=== PATIENT | female | born 1945 | race Caucasian/White ===

== ENCOUNTER → 2017-03-25 | Outpatient (REF) | payer MEDICARE ==
[~2017-03-25] MED LIST: ALBU17IN INH; ASPI81TA85 PO; BUSP1TAB PO; CALC-190 PO; COUM1TAB17 PO; COUM2.5T17 PO; DONETAB6 PO; FIBE625T PO; HYDR12.55 PO; LISI10TA4 PO; MAGN64TASA PO; MELO15TA4 PO; METF500T13 PO; MULTCAP PO; MULTTAB33 PO; PERC5TAB12 PO; PERCOCET PO; PRAV1TAB39 PO; PRIL20CA9 PO; ROPI1TAB PO; SING10TA32 PO; TIOT18INH INH; TYLE325T5 PO; VITA100067 PO; ZOLO100T PO
== END ==
LOC: M LAB REF 18:13
PROVIDERS: ATTEND Nurse Practitioner Adult Health
DX: M25.50 Pain in unspecified joint (principal)

== ENCOUNTER → 2017-04-13 | Outpatient (CLI) | payer MEDICARE ==
[2017-04-13 11:47] LABS: MEAN CORPUSCULAR HGB CONC 33.8 g/dl (32.0-36.5); MEAN CORPUSCULAR VOLUME 88.8 fl (80.0-96.0); RED CELL DISTRIBUTION WIDTH 13.5 % (11.5-14.5); WHITE BLOOD COUNT 4.7 K/mm3 (4.0-10.0)
[2017-04-13 11:51] LABS: INR 0.9
[2017-04-13 12:10] LABS: ALBUMIN 3.6 GM/DL (3.2-5.2); ALBUMIN/GLOBULIN RATIO 1.16 (1.00-1.93); ALKALINE PHOSPHATASE 87 U/L (45-117); ALT/SGPT 21 U/L (12-78); ANION GAP 10 MEQ/L (8-16); AST/SGOT 18 U/L (15-37); BILIRUBIN,TOTAL 0.2 MG/DL (0.2-1.0); BLOOD UREA NITROGEN 19 MG/DL (7-18); CALCIUM LEVEL 9.1 MG/DL (8.8-10.2); CARBON DIOXIDE LEVEL 27 MEQ/L (21-32); CHLORIDE LEVEL 100 MEQ/L (98-107); CREATININE FOR GFR 0.81 MG/DL (0.55-1.02); GLOMERULAR FILTRATION RATE > 60.0 (>39); GLUCOSE, FASTING 91 MG/DL (83-110); POTASSIUM SERUM 4.2 MEQ/L (3.5-5.1); SODIUM LEVEL 137 MEQ/L (136-145); TOTAL PROTEIN 6.7 GM/DL (6.4-8.2)
--- NOTE | 2017-04-13 16:06 | REP ---
CHEST, TWO VIEWS: HISTORY: Left knee arthritis. COMPARISON: 07/13/2016. A minimal increase in interstitial markings is present in the lower lobes consistent with chronic interstitial fibrosis. The heart is normal in size. The pulmonary vasculature is normal in appearance. The bony structure is intact. The patient is status-post left shoulder arthroplasty. IMPRESSION: Bibasilar chronic interstitial fibrosis. Signed by Matt Grimes MD 04/13/2017 04:17 P
--- NOTE | 2017-04-14 18:01 | ECGEPIP ---
Stationary ECG Study 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
== END ==
LOC: M ADMPAT 09:38
PROVIDERS: ATTEND Orthopaedic Surgery
DX: Z01.818 Encounter for other preprocedural examination (principal); M17.9 Osteoarthritis of knee, unspecified; J84.10 Pulmonary fibrosis, unspecified; Z79.899 Other long term (current) drug therapy

== ENCOUNTER 2017-04-25 13:38 | Inpatient (IN) | payer MEDICARE ==
[2017-04-13 09:56] VITALS: BP 122/64
--- NOTE | 2017-04-22 21:01 | HPE ---
DATE OF ADMISSION: 04/25/2017 ATTENDING PHYSICIAN: Dr. Rodrigues. CHIEF COMPLAINT: Left knee pain and stiffness. HISTORY: The patient is a 72-year-old female with progressively worsening left knee pain and stiffness. She has failed to improve with conservative measures. She continues to have pain with weightbearing activities and activities of daily living. She has consented for an elective left total knee arthroplasty with Dr. Rodrigues. Medical optimization from Dr. Montaño received and reviewed during today's visit. CURRENT MEDICAL PROBLEMS: 1. Chronic obstructive pulmonary disease. 2. Depression. 3. Gastroesophageal reflux disease. 4. Hypertension. 5. Anemia. 6. Osteoarthritis. 7. Seasonal allergies. 8. Restless leg syndrome. 9. Dementia. 10. Essential tremor. 11. Rectocele. 12. Recurrent sinusitis. 13. Alcoholism. 14. Anxiety. 15. Prediabetes. 16. Obstructive sleep apnea. CURRENT MEDICATIONS: - ipratropium 0.06% - Voltaren gel 1% - baby aspirin - lisinopril 5 mg - Singulair 10 mg - Spiriva 18 mcg - BuSpar 7.5 mg - pravastatin 20 mg - hydrochlorothiazide 12.5 mg - Zoloft 100 mg - metformin 500 mg - omeprazole 20 mg - Ventolin inhaler - tizanidine 4 mg - meloxicam 15 mg - tramadol 50 mg - calcium with vitamin D - Metamucil - daily multivitamin ALLERGIES: No known drug allergies. SURGICAL HISTORY: 1. Anterior, posterior enterocele repair. 2. Uterosacral ligament vaginal wall suspension. 3. Partial vaginectomy. 4. Cystoscopy. 5. Anterior cervical decompression and fusion. 6. Cholecystectomy. 7. Left total shoulder arthroplasty. 8. Carpal tunnel release bilaterally. 9. Colonoscopy. 10. Right total knee arthroplasty. SOCIAL HISTORY: Patient is a former smoker. She smoked 1-1/2 packs a day for nearly 50 years. Quit in 2006. She does occasionally consume wine. REVIEW OF SYSTEMS: The patient denies any fevers, chills, nausea, vomiting or diarrhea. She denies chest pain, shortness of breath, lightheadedness or headaches. No complaints of abdominal pain. PHYSICAL EXAMINATION: Well-nourished female who appears to be older than her stated age. She appears to be in no apparent distress today. She is walking today with the use of a walker, favoring the left lower extremity. HEAD: Normocephalic. NECK: Supple without lymphadenopathy or jugular venous distention. HEART: Regular rate and rhythm. LUNGS: Clear to auscultation bilaterally. ABDOMEN: Positive bowel sounds. Soft and nontender to palpation. MUSCULOSKELETAL: Inspection of the left knee revealed no gross abnormalities. Her skin is intact. There is tenderness to palpation along both the medial and lateral joint lines. The patient does have surprisingly good motion and 5/5 strength to the left lower extremity. No hip irritability was elicited with range of motion. Her calf is soft and nontender to palpation with no palpable cords noted. Pedal pulses are palpable. VITAL SIGNS: Height 5 feet 2 inches, weight 169 pounds. Temperature 97.8, blood pressure 116/60, heart rate 84, respirations 16. LABORATORY DATA: EKG shows a sinus rhythm. Chest x-ray shows bibasilar chronic interstitial fibrosis. Comprehensive metabolic profile: Fasting glucose 91. BUN elevated at 19. Creatinine for GFR 0.81. Glomerular filtration rate 60. Sodium 137, potassium 4.2, chloride 100, carbon dioxide 27, anion gap 10, calcium 9.1, AST 18, ALT 21, alkaline phosphatase 87, total bilirubin 0.2, total protein 6.7, albumin 3.6, albumin-globulin ratio 1.16. Complete blood count: WBC 4.7, RBC decreased at 3.85, hemoglobin decreased at 11.6, hematocrit decreased at 34.2, platelets 213. Erythrocyte sedimentation rate 17. Prothrombin time decreased at 12.2. INR 0.90. Urinalysis negative with the exception of trace leukocyte esterase. Urine culture shows no growth of clinical significance, two or more organisms. Nasal and sinus culture positive for moderate growth of Staphylococcus aureus. IMPRESSION: 1. Left knee osteoarthritis with x-rays notable for end-stage degenerative changes. 2. Chronic anemia. 3. Nasal and sinus culture positive for moderate growth of Staphylococcus aureus. PLAN: 1. The patient has consented for an elective left total knee arthroplasty with Dr. Rodrigues. Medical optimization obtained from Dr. Montaño. 2. Anemia is chronic and stable, and should not delay surgery. 3. Positive nasal and sinus culture was treated per protocol by patient's primary healthcare architect. GARRETT
[~2017-04-25] VITALS: Ht 157.5 cm; Wt 104.0 kg
[2017-04-25] MEDS: MONTELUKAST 10 MG TAB PO SCH (09:00)
[2017-04-25] MEDS: LISINOPRIL 5 MG TAB PO SCH (09:00)
[2017-04-25] MEDS: PRAVASTATIN 20 MG TAB PO SCH (09:00)
[2017-04-25] MEDS: SERTRALINE 100 MG TAB PO SCH (09:00)
[2017-04-25] MEDS: OMEPRAZOLE 20 MG CAP PO SCH (09:00)
[~2017-04-25 13:38] MED LIST changes: -COUM1TAB17 PO
[2017-04-25] MEDS ORDERED: LR 1,000 ML IV SCH ×2 (14:00→17:45)
[2017-04-25] MEDS ORDERED: LR 1,000 ML IV ONE (14:00)
[2017-04-25] MEDS ORDERED: ACETAMINOPHEN 500 MG TAB PO ONE (14:00)
[2017-04-25] MEDS ORDERED: fentaNYL 100 MCG/2 ML INJECTION (J3010) As Ordered ONE ×2 (14:11→14:13)
[2017-04-25] MEDS ORDERED: MIDAZOLAM INJ 2 MG/2 ML VIAL (J2250) As Ordered ONE ×2 (14:11→14:13)
[2017-04-25] MEDS ORDERED: PROPOFOL 200 MG/20 ML VIAL As Ordered ONE (14:12)
[2017-04-25] MEDS ORDERED: LIDOCAINE 2% INJ 100 MG/5 ML SDV (FOR ANES.) As Ordered ONE (14:18)
[2017-04-25] MEDS ORDERED: COUM1TAB17 PO (14:24)
[2017-04-25] MEDS ORDERED: MIDAZOLAM INJ 2 MG/2 ML VIAL (J2250) IV ONE (15:15)
[2017-04-25] MEDS ORDERED: fentaNYL 100 MCG/2 ML INJECTION (J3010) IV ONE (15:15)
[2017-04-25] MEDS ORDERED: TRANEXAMIC ACID 100 MG/ML 10ML VIAL As Ordered ONE (15:22)
[2017-04-25] MEDS ORDERED: ceFAZolin 1GM INJ (J0690) As Ordered ONE (15:22)
[2017-04-25] MEDS ORDERED: EPINEPHrine INJ 1 MG/ML 1ML AMP As Ordered ONE (15:22)
[2017-04-25] MEDS ORDERED: BUPIVACAINE LIPOSOME/PF 1.3% 20 ML VIAL (13.3MG/ML)(EXPAREL) As Ordered ONE (15:23)
[2017-04-25] MEDS ORDERED: MORPHINE 1MG/ML IN 0.9% NACL 100ML IV BAG As Ordered ONE (16:54)
[2017-04-25] MEDS ORDERED: ONDANSETRON 4MG/2ML VIAL (J2405) IV PRN ×2 (17:45→18:00)
[2017-04-25] MEDS ORDERED: HYDROmorphone HCL 1 MG/ML SYRINGE (J1170) IV PRN (17:45)
[2017-04-25] MEDS ORDERED: PERCOCET 5MG/325MG TAB PO PRN (17:45)
[2017-04-25] MEDS ORDERED: fentaNYL 100 MCG/2 ML INJECTION (J3010) IV PRN (17:45)
[2017-04-25] MEDS ORDERED: MORPHINE 1MG/ML IN 0.9% NACL 100ML IV BAG IV PRN (18:00)
[2017-04-25] MEDS ORDERED: EPIDURAL/PCA KEYS XX PRN (18:00)
[2017-04-25] MEDS ORDERED: FLEET ENEMA PR PRN (18:00)
[2017-04-25] MEDS ORDERED: NALOXONE INJ 0.4 MG/1 ML VIAL (J2310) IV PRN (18:00)
[2017-04-25] MEDS ORDERED: NALBUPHINE HCL 10 MG/ML AMP (J2300) IV PRN (18:00)
[2017-04-25] MEDS ORDERED: ACETAMINOPHEN TAB 650MG DOSE (2X325MG) PO PRN (18:00)
[2017-04-25] MEDS ORDERED: diphenhydrAMINE INJ 50MG/ML VIAL (J1200) IV PRN (18:00)
--- NOTE | 2017-04-25 18:43 | IPNPDOC ---
Subjective Date Seen The patient was seen on 04/25/17. Subjective Chief Complaint/HPI The patient is a 72-year-old female admitted with a reason for visit of Left Knee Arthritis. Events since last encounter patient denies any complaints at this time. no chest pain or sob , no nausea or vomiting or abdominal pain , During surgery patient had recurrent desaturations due to SRINIVASA consult requested by dr Guthrie Objective Physical Examination General Exam: Positive: Alert, Cooperative, No Acute Distress Eye Exam: Positive: PERRLA, Conjunctiva & lids normal, EOMI, Negative: Sclera icteric ENT Exam: Positive: Atraumatic, Mucous membr. moist/pink, Pharynx Normal Neck Exam: Positive: Supple, Negative: JVD, thyromegaly Chest Exam: Positive: Clear to auscultation, Normal air movement Heart Exam: Positive: Rate Normal, Regular Rhythm, Normal S1, Normal S2, Negative: Murmurs, Rubs Abdomen Exam: Positive: Normal bowel sounds, Soft, Negative: Tenderness, Hepatospenomegaly Extremity Exam: Positive: Normal pulses, Negative: Clubbing, Cyanosis, Edema Assessment /Plan Problems (1) S/P total knee arthroplasty Status: Acute Problem Text: Patient will be followed by Dr Alanis from 04/26/17 elective surgery for advanced osteoarthritis pain control and dvt prophylaxis as per ortho protocol. (2) COPD (chronic obstructive pulmonary disease) Status: Chronic Problem Text: continue spiriva, singulair and will give routine duonebs. (3) SRINIVASA (obstructive sleep apnea) Status: Chronic Problem Text: having recurrent desaturations refusing to use cpap. does not use at home. will continue with oxygen supplementations. (4) HTN (hypertension) Status: Chronic Problem Text: will hold HCTZ , continue lisinopril with hold parameters (5) HLD (hyperlipidemia) Status: Chronic (6) DM2 (diabetes mellitus, type 2) Status: Chronic Problem Text: hold metformin will give sliding scale insulin in hospital (7) Restless leg syndrome Status: Chronic (8) Depression Status: Chronic (9) GERD (gastroesophageal reflux disease) Status: Chronic (10) Hearing deficit Status: Chronic (11) Essential tremor Status: Chronic (12) Dementia Status: Chronic Plan/VTE VTE Prophylaxis Ordered?: Yes VS, I&O, 24H, Fishbone Vital Signs/I&O Vital Signs Date Time Temp Pulse Resp B/P (MAP) Pulse Ox O2 Delivery O2 Flow Rate FiO2 04/25/17 18:01 97.5 71 16 121/58 (79) 97 Nasal Cannula 3 Laboratory Data 24H LABS Laboratory Tests 2 04/25/17 14:09: Bedside Glucose (Misc Panel) 106 MADAY BARCENAS MD Apr 25, 2017 18:43
[2017-04-25] MEDS ORDERED: EPINEPHrine INJ 1 MG/ML 1ML AMP ONE (18:44)
[2017-04-25] MEDS ORDERED: dexameTHASONE 10 MG/1 ML VIAL PRES.FREE (J1100) ONE (18:44)
[2017-04-25] MEDS ORDERED: ROPIvacaine 0.5% 30 ML INJECTION (J2795) ONE (18:44)
[2017-04-25] MEDS ORDERED: ALBUTEROL SULFATE 2.5 MG/0.5 ML INH NEB SOLN NEB PRN (18:45)
[2017-04-25 19:00] VITALS: BP 129/58
[2017-04-25 20:00] VITALS: BP 122/64
[2017-04-25 21:00] VITALS: BP 110/58
[2017-04-25] MEDS: busPIRone 5 MG TAB PO SCH (21:26)
[2017-04-25] MEDS ORDERED: tiZANidine 4 MG TAB PO PRN (21:45)
[2017-04-25 22:00] VITALS: BP 115/68
[2017-04-25 22:40] VITALS: O2SAT 93
[2017-04-25] MEDS: IPRATROPIUM 0.5MG/ALBUTEROL 2.5MG INH SOL UD 3ML (DUONEB)(J7620) NEB SCH (22:46)
[2017-04-26] MEDS: LR 1,000 ML IV SCH ×2 (00:15→06:30)
[2017-04-26 02:00] VITALS: BP 116/62
[2017-04-26] MEDS ORDERED: WARFARIN SOD 5 MG TAB PO ONE ×3 (02:00→17:00)
[2017-04-26 06:00] VITALS: BP 108/57
[2017-04-26] MEDS ORDERED: PERCOCET 5MG/325MG TAB PO PRN (07:15)
[2017-04-26 07:19] LABS: ANION GAP 8 MEQ/L (8-16); BASO % 0.3 % (0.0-1.0); BLOOD UREA NITROGEN 16 MG/DL (7-18); CALCIUM LEVEL 8.4 MG/DL (8.8-10.2); CARBON DIOXIDE LEVEL 28 MEQ/L (21-32); CHLORIDE LEVEL 102 MEQ/L (98-107); CREATININE FOR GFR 0.81 MG/DL (0.55-1.02); EOS % 0.2 % (0.0-3.0); GLOMERULAR FILTRATION RATE > 60.0 (>39); GLUCOSE, FASTING 108 MG/DL (83-110); LARGE UNSTAINED CELL # 0.1 K/mm3 (0.0-0.4); LARGE UNSTAINED CELL % 0.6 % (0.0-4.0); LYMPH # 0.7 K/mm3 (1.5-4.5); LYMPH % 9.2 % (24.0-44.0); MEAN CORPUSCULAR HEMOGLOBIN 30.3 pg (27.0-33.0); MEAN CORPUSCULAR HGB CONC 33.1 g/dl (32.0-36.5); MEAN CORPUSCULAR VOLUME 91.4 fl (80.0-96.0); MONO # 0.3 K/mm3 (0.0-0.8); MONO % 4.1 % (0.0-5.0); NEUTROPHILS # 6.2 K/mm3 (1.8-7.7); NEUTROPHILS % 85.5 % (36.0-66.0); PLATELET COUNT, AUTOMATED 195 k/mm3 (150-450); POTASSIUM SERUM 4.6 MEQ/L (3.5-5.1); RED CELL DISTRIBUTION WIDTH 13.7 % (11.5-14.5); SODIUM LEVEL 138 MEQ/L (136-145); WHITE BLOOD COUNT 7.2 K/mm3 (4.0-10.0)
[2017-04-26 07:27] LABS: INR 1.08
[2017-04-26] MEDS: IPRATROPIUM 0.5MG/ALBUTEROL 2.5MG INH SOL UD 3ML (DUONEB)(J7620) NEB SCH ×3 (08:14→23:50)
[2017-04-26] MEDS: TIOTROPIUM INHALER/CAPSULE (SPIRIVA) INH SCH (08:14)
[2017-04-26 10:00] VITALS: BP 124/78
--- NOTE | 2017-04-26 10:23 | REP ---
Left knee two views postoperative study: There is a total knee arthroplasty. The components are tightly applied and in satisfactory positions alignment. Skin geremias are incidentally noted. Signed by Mc Abraham MD 04/26/2017 10:14 A
[2017-04-26] MEDS: LISINOPRIL 5 MG TAB PO SCH (11:05)
[2017-04-26] MEDS: MOM 30ML SUSPENSION UDC PO SCH (11:05)
[2017-04-26] MEDS: MONTELUKAST 10 MG TAB PO SCH (11:06)
[2017-04-26] MEDS: MIRALAX *UNIT DOSE* 17GM PACKET PO SCH (11:06)
[2017-04-26] MEDS: SENOKOT S TAB PO SCH ×2 (11:06→20:31)
[2017-04-26] MEDS: PRAVASTATIN 20 MG TAB PO SCH (11:06)
[2017-04-26] MEDS: busPIRone 5 MG TAB PO SCH ×2 (11:06→20:31)
[2017-04-26] MEDS: OMEPRAZOLE 20 MG CAP PO SCH (11:06)
[2017-04-26] MEDS: SERTRALINE 100 MG TAB PO SCH (11:06)
[2017-04-26] MEDS: PERCOCET 5MG/325MG TAB PO PRN ×2 (11:07→15:46)
[2017-04-26 12:45] VITALS: BP 129/80
[2017-04-26] MEDS: MORPHINE 15 MG SA TAB PO SCH ×2 (14:13→20:32)
--- NOTE | 2017-04-26 20:16 | IPN ---
DATE: 04/26/2017 SUBJECTIVE: Patient is seen and examined in the room today. Patient had a left knee replacement. Patient stated that she tolerated the procedure well. She only complains of minor pain where she had the surgery, otherwise no acute complaints. OBJECTIVE: VITAL SIGNS: Temperature 98.3, pulse 83, respiration rate 18, blood pressure 108/57, pulse oximetry 95% in room air. GENERAL: No sign of acute distress. Alert and oriented times three. HEENT: Normocephalic, atraumatic. Extraocular motors grossly intact. CARDIOVASCULAR: Positive S1, S2, regular rate. LUNGS: Clear to auscultation bilaterally. ABDOMEN: Soft, nontender, nondistended. EXTREMITIES: No edema. No sign of cyanosis. LABORATORY DATA: WBC 7.2, hemoglobin 10.8, hematocrit 32.6, platelet count 195. Sodium 138, potassium 4.6, chloride 102, carbon dioxide 28, BUN 16, creatinine 0.81, GFR greater than 60, fasting glucose 108, calcium 8.4. PT is 14.2, INR is 1.08. ASSESSMENT AND PLAN: 1. Left total knee replacement. Today is postoperative day #1. Will defer the diet, exercise plan, pain control, and anticoagulation therapy per the surgical team. 2. Chronic obstructive pulmonary disease (COPD). No exacerbation. Continue breathing treatment as needed. 3. Obstructive sleep apnea (SRINIVASA). Patient refusing continuous positive airway pressure (CPAP). Patient is on obstructive sleep apnea (SRINIVASA) protocol. 4. Hypertension. Blood pressure in the satisfactory range. Patient is on lisinopril. 5. Hyperlipidemia. Followup with lipid profile. Patient is on pravastatin. 6. Gastroesophageal reflux disease. On omeprazole. 7. Essential tremors. 8. History of dementia. 9. Deep venous thrombosis (DVT) prophylaxis per surgical team.
[2017-04-26 22:00] VITALS: BP 144/62
--- NOTE | 2017-04-27 05:57 | RO ---
DATE OF PROCEDURE: 04/25/2017 PREOPERATIVE DIAGNOSIS: Left knee valgus degenerative arthritis. POSTOPERATIVE DIAGNOSIS: Left knee valgus degenerative arthritis. PROCEDURE: Left total knee arthroplasty using a size 3 cruciate-retaining femoral component and a size 2.5 tibial tray with a 10 mm rotating platform polyethylene insert and a 32 mm polyethylene button. All the components were cemented. Prosthesis made by [employer]. It was a PFC knee. SURGEON: Dr. Klever Rodrigues ENGINE REPAIRER: Mr. Raad Pérez ANESTHESIA: Spinal with left femoral nerve block. COMPLICATIONS: None. ESTIMATED BLOOD LOSS: Less than 50 mL. SPECIMENS: Were the joint surface. DESCRIPTION OF PROCEDURE: Antibiotics were given intravenously preoperatively, and then a successful left femoral nerve block and spinal anesthetic was induced. Tourniquet was placed on left upper thigh and not inflated. Left lower extremity was prepped and draped in the usual sterile fashion with leg elevated. Tourniquet inflated to 250 mmHg after appropriate time-out had been performed. Longitudinal incision was made for a medial parapatellar approach to the knee. Bovie cautery was used to coagulate crossing vessels. Medial parapatellar arthrotomy was then performed, and limited subperiosteal dissection around the proximal medial portion of the tibia because of his valgus knee was done. We then everted the patella, flexed the knee. Debrided the anterior cruciate ligament (ACL). Subperiosteal dissection around the distal femur was performed, and then a drill was placed down the center of the femoral canal. The distal femoral cutting jig was then placed, set at 5-degree valgus cut at 10 mm resection level for a left knee. Jig was pinned into position. Distal femoral cut performed. AP sizing jig measured for a size 3, and, thus, the external rotation 3-degree block was pinned, followed by the 4-in-1 block. Coy's line and medial epicondylar axis appeared to be appropriately aligned. We then performed the anterior, posterior chamfer cuts, taking great care to protect the surrounding soft tissues. We then exposed the proximal tibia, used the extramedullary alignment jig to help estimate being parallel to the mechanical axis of the tibia. We referenced off the lateral tibial condyle at 4 mm resection level. I did check medially, and it was about 6. It was pinned into position. Secondary check with the extramedullary desiree confirmed we had good alignment, and the proximal tibial osteotomy was then performed. Lamina service transformer repair supervisor was then placed medially, and we performed a completion lateral meniscectomy and debridement of the posterior lateral osteophytes. We then placed the lamina service transformer repair supervisor laterally and performed a completion medial meniscectomy and debridement of the posterior medial osteophytes. A 10 mm spacer block fit nicely with good stability in flexion and in extension. Thus, I removed the pins, exposed the proximal tibia, sized for a 2.5 tibial tray, which was pinned into position, followed by the reamer and a broach, followed by a polyethylene and the trial femoral component. Brought the knee into extension, everted the patella, performed a patellar osteotomy, sized for a 32 button. The lug holes were then drilled. Trial prosthesis was placed, and the patellofemoral tracking was anatomic. We then drilled the lug holes for the femur, removed all the trial components, and then instilled Exparel into the periosteal tissues posteriorly, medially, laterally, centrally, as well as all along the arthrotomy incision edges. Then, my assistant clinical nurse manager, Mr. Pérez, mixed the cement on the back table as I prepared the bony surfaces for cementing with a copious amount of pulsatile lavage irrigant solution. I then dried all the surfaces thoroughly. Mr. Pérez was also critical to the success of the procedure by helping manipulate the knee, helping to perform appropriate soft tissue retraction as needed, to help me perform the operation smoothly and efficiently, helped to prepare the patient for surgery, as well as close the wound. We then cemented the tibial tray, removed the excess cement, placed the polyethylene cement of the femoral component, removed excess cement, and then brought the knee into extension and cemented the patellar button and held the knee in extension with the patellar clamp in place as we copiously pulsative lavage irrigated out the knee joint once again and then placed the tranexamic acid. We then closed the apex of the arthrotomy with two #1 PDS sutures and then medial patellar area was closed with a single #1 PDS suture. Running double armed #1 Stratafix was used to close the capsule, and then the tourniquet was released. We then irrigated between layers, closed the deep subdermal tissues with interrupted #2-0 PDS sutures. Skin was closed with geremias, covered by Adaptic dry sterile bulky dressing. She was then transferred to the recovery room in stable condition. There were no intraoperative complications.
[2017-04-27 06:00] VITALS: BP 158/62
[2017-04-27 07:11] LABS: BASO # 0.1 K/mm3 (0.0-0.2); BASO % 0.8 % (0.0-1.0); EOS # 0.1 K/mm3 (0.0-0.50); EOS % 0.9 % (0.0-3.0); LARGE UNSTAINED CELL # 0.1 K/mm3 (0.0-0.4); LYMPH # 0.6 K/mm3 (1.5-4.5); LYMPH % 7.7 % (24.0-44.0); MEAN CORPUSCULAR HEMOGLOBIN 29.9 pg (27.0-33.0); MEAN CORPUSCULAR HGB CONC 34.2 g/dl (32.0-36.5); MEAN CORPUSCULAR VOLUME 87.7 fl (80.0-96.0); MONO # 0.4 K/mm3 (0.0-0.8); MONO % 5.6 % (0.0-5.0); NEUTROPHILS # 6.2 K/mm3 (1.8-7.7); PLATELET COUNT, AUTOMATED 201 k/mm3 (150-450); RED CELL DISTRIBUTION WIDTH 13.5 % (11.5-14.5); WHITE BLOOD COUNT 7.4 K/mm3 (4.0-10.0)
[2017-04-27] MEDS: IPRATROPIUM 0.5MG/ALBUTEROL 2.5MG INH SOL UD 3ML (DUONEB)(J7620) NEB SCH ×3 (07:15→23:08)
[2017-04-27] MEDS: TIOTROPIUM INHALER/CAPSULE (SPIRIVA) INH SCH (07:15)
[2017-04-27 07:22] LABS: ANION GAP 10 MEQ/L (8-16); BLOOD UREA NITROGEN 9 MG/DL (7-18); CALCIUM LEVEL 8.5 MG/DL (8.8-10.2); CARBON DIOXIDE LEVEL 26 MEQ/L (21-32); CHLORIDE LEVEL 94 MEQ/L (98-107); CHOLESTEROL LEVEL 127 MG/DL (<200); CREATININE FOR GFR 0.62 MG/DL (0.55-1.02); GLOMERULAR FILTRATION RATE > 60.0 (>39); GLUCOSE, FASTING 124 MG/DL (83-110); POTASSIUM SERUM 3.8 MEQ/L (3.5-5.1); SODIUM LEVEL 130 MEQ/L (136-145); TRIGLYCERIDES LEVEL 102 MG/DL (<150)
[2017-04-27 07:28] LABS: INR 1.47
[2017-04-27] MEDS: PERCOCET 5MG/325MG TAB PO PRN ×4 (07:39→23:25)
[2017-04-27] MEDS: MIRALAX *UNIT DOSE* 17GM PACKET PO SCH (09:00)
[2017-04-27] MEDS: SERTRALINE 100 MG TAB PO SCH (10:23)
[2017-04-27] MEDS: busPIRone 5 MG TAB PO SCH ×2 (10:23→20:30)
[2017-04-27] MEDS: SENOKOT S TAB PO SCH ×2 (10:23→20:30)
[2017-04-27] MEDS: LISINOPRIL 5 MG TAB PO SCH (10:23)
[2017-04-27] MEDS: OMEPRAZOLE 20 MG CAP PO SCH (10:23)
[2017-04-27] MEDS: PRAVASTATIN 20 MG TAB PO SCH (10:23)
[2017-04-27] MEDS: MONTELUKAST 10 MG TAB PO SCH (10:24)
[2017-04-27] MEDS: MOM 30ML SUSPENSION UDC PO SCH (10:24)
[2017-04-27] MEDS: ONDANSETRON 4 MG TAB (S0181) PO PRN (13:37)
[2017-04-27 14:00] VITALS: BP 152/70
[2017-04-27] MEDS ORDERED: WARFARIN SOD 3 MG TAB PO ONE ×2 (17:00)
[2017-04-27] MEDS: hydroCHLOROthiazide 12.5 MG CAPSULE PO SCH (17:39)
[2017-04-27 22:00] VITALS: BP 134/63
[2017-04-28] MEDS: PERCOCET 5MG/325MG TAB PO PRN ×2 (05:23→13:25)
[2017-04-28 06:00] VITALS: BP 139/65
[2017-04-28 07:12] LABS: BASO % 0.4 % (0.0-1.0); EOS # 0.1 K/mm3 (0.0-0.50); EOS % 1.6 % (0.0-3.0); LARGE UNSTAINED CELL # 0.1 K/mm3 (0.0-0.4); LARGE UNSTAINED CELL % 0.9 % (0.0-4.0); LYMPH # 0.6 K/mm3 (1.5-4.5); MEAN CORPUSCULAR HEMOGLOBIN 30.6 pg (27.0-33.0); MEAN CORPUSCULAR HGB CONC 35.5 g/dl (32.0-36.5); MEAN CORPUSCULAR VOLUME 86.1 fl (80.0-96.0); MONO # 0.4 K/mm3 (0.0-0.8); MONO % 5.2 % (0.0-5.0); NEUTROPHILS # 6.1 K/mm3 (1.8-7.7); NEUTROPHILS % 83.9 % (36.0-66.0); PLATELET COUNT, AUTOMATED 214 k/mm3 (150-450); RED CELL DISTRIBUTION WIDTH 13.4 % (11.5-14.5); WHITE BLOOD COUNT 7.2 K/mm3 (4.0-10.0)
[2017-04-28 07:18] LABS: INR 1.77
[2017-04-28 07:20] LABS: ANION GAP 9 MEQ/L (8-16); BLOOD UREA NITROGEN 9 MG/DL (7-18); CALCIUM LEVEL 8.5 MG/DL (8.8-10.2); CARBON DIOXIDE LEVEL 27 MEQ/L (21-32); CHLORIDE LEVEL 95 MEQ/L (98-107); CREATININE FOR GFR 0.63 MG/DL (0.55-1.02); GLOMERULAR FILTRATION RATE > 60.0 (>39); GLUCOSE, FASTING 128 MG/DL (83-110); POTASSIUM SERUM 3.8 MEQ/L (3.5-5.1); SODIUM LEVEL 131 MEQ/L (136-145)
[2017-04-28] MEDS ORDERED: COUM2.5T17 PO (07:29)
[2017-04-28] MEDS ORDERED: PERC5TAB12 PO (07:29)
[2017-04-28] MEDS: IPRATROPIUM 0.5MG/ALBUTEROL 2.5MG INH SOL UD 3ML (DUONEB)(J7620) NEB SCH (07:41)
[2017-04-28] MEDS: TIOTROPIUM INHALER/CAPSULE (SPIRIVA) INH SCH (07:41)
[2017-04-28] MEDS: PRAVASTATIN 20 MG TAB PO SCH (09:00)
[2017-04-28] MEDS: MIRALAX *UNIT DOSE* 17GM PACKET PO SCH (09:00)
[2017-04-28 10:40] VITALS: BP 139/65
[2017-04-28] MEDS: LISINOPRIL 5 MG TAB PO SCH (10:40)
[2017-04-28] MEDS: busPIRone 5 MG TAB PO SCH (10:40)
[2017-04-28] MEDS: hydroCHLOROthiazide 12.5 MG CAPSULE PO SCH (10:40)
[2017-04-28] MEDS: MOM 30ML SUSPENSION UDC PO SCH (10:41)
[2017-04-28] MEDS: MONTELUKAST 10 MG TAB PO SCH (10:41)
[2017-04-28] MEDS: SENOKOT S TAB PO SCH (10:41)
[2017-04-28] MEDS: SERTRALINE 100 MG TAB PO SCH (10:42)
[2017-04-28] MEDS: OMEPRAZOLE 20 MG CAP PO SCH (10:42)
--- NOTE | 2017-04-28 13:16 | IPN ---
DATE: 04/27/2017 SUBJECTIVE: The patient is seen and examined in the room today. The patient did tolerate oral intake. Continue to work with physical therapy. Pain of the left knee is controlled. No overnight events reported. OBJECTIVE: VITAL SIGNS: Temperature is 98.6, pulse 84, respiratory rate is 18, blood pressure 158/62, pulse oximetry 97% with two liters nasal cannula. GENERAL: No sign of acute distress. Alert and oriented times three. HEENT: Normocephalic, atraumatic. Extraocular motor grossly intact. CARDIOVASCULAR: Positive S1, S2. Regular rate. LUNGS: Clear to auscultation bilaterally. ABDOMEN: Soft, nontender, nondistended. Bowel sounds present. EXTREMITIES: Left knee is wrapped with dressing. Dressing is clean and dry. No bleeding noted. No sign of cyanosis. LABORATORY DATA: WBC 7.4, hemoglobin 11.3, hematocrit 32.8, platelet count 201. Sodium 130, potassium 3.8, chloride 94, carbon dioxide 26, BUN nine, creatinine 0.62, GFR greater than 60, fasting glucose 124, calcium 8.5, triglycerides 102, total cholesterol 127, LDL 27.6, HDL 79. ASSESSMENT AND PLAN: 1. Left total knee replacement. Today is postoperative day two. The patient already referred the diet, exercise plan, pain control, and anticoagulation per the surgical team. 2. Chronic obstructive pulmonary disease (COPD). Patient breathes comfortably on room air. No sign of exacerbation. The patient has breathing treatment as needed. 3. Obstructive sleep apnea (SRINIVASA), refusing continuous positive airway pressure (CPAP). The patient is on SRINIVASA protocol; however, the patient has been on lisinopril, and blood pressure is higher than yesterday. We will restart the patient on her hydrochlorothiazide which is her home medication. 4. Gastroesophageal reflux disease on omeprazole. 5. History of essential tremor. 6. History of dementia. 7. Deep venous thrombosis (DVT) prophylaxis per surgical team.
[2017-04-28] MEDS: ONDANSETRON 4 MG TAB (S0181) PO PRN (13:24)
--- NOTE | 2017-04-28 18:39 | IPN ---
DATE: 04/28/2017 SUBJECTIVE: Patient seen and examined in the room today. Patient denied any acute complaint or acute changes. Patient is ready for discharge today by orthopedic team. Patient's medications are reviewed. OBJECTIVE: VITAL SIGNS: Temperature is 98.7, pulse 90, respirations 12, blood pressure is 139/65, pulse oximetry is 91% in room air. LABORATORY DATA: WBC 7.2, hemoglobin 11.6, hematocrit 33.5, platelet count is 214. Sodium is 131, potassium 3.8, chloride is 95, carbon dioxide 27, BUN 9, creatinine 0.63, GFR greater than 60, fasting glucose 128, calcium 8.5. ASSESSMENT AND PLAN: 1. Left total knee replacement. Today is postoperative day #3. Patient is discharged home by the primary team. All the medications reviewed. 2. Chronic obstructive pulmonary disease (COPD). No exacerbations. May resume her home COPD medication. 3. Obstructive sleep apnea (SRINIVASA), noncompliant with continuous positive airway pressure (CPAP) at home. 4. Gastroesophageal reflux disease, on omeprazole. 5. History of essential tremor. 6. History of dementia. 7. Deep vein thrombosis (DVT) prophylaxis. Patient is discharged home today.
--- NOTE | 2017-05-04 09:43 | DSES ---
DATE OF ADMISSION: 04/25/2017 DATE OF DISCHARGE: 04/28/2017 ATTENDING PHYSICIAN: Dr. Klever Rodrigues ADMITTING DIAGNOSIS: Left knee valgus degenerative arthritis. OTHER DIAGNOSES: 1. Chronic obstructive pulmonary disease (COPD). 2. Depression. 3. Gastroesophageal reflux disease (GERD). 4. Hypertension. 5. Osteoarthritis. 6. Seasonal allergies. 7. Anemia. 8. Restless leg syndrome. 9. Dementia. 10. Essential tremor. 11. Rectocele. 12. Prediabetes. 13. Obstructive sleep apnea. 14. Recurrent sinusitis. 15. Alcoholism. DISCHARGE DIAGNOSIS: Left knee arthritis, status post left total knee arthroplasty. HISTORY: The patient is a 72-year-old female with progressively worsening left knee pain and stiffness. She failed to improve with conservative measures, so she consented for an elective left total knee arthroplasty with Dr. Rodrigues. OPERATION PERFORMED: Left total knee arthroplasty. HOSPITAL COURSE: The patient underwent a left total knee arthroplasty under spinal anesthesia with femoral nerve block. Surgery was uneventful and her hospital course was without complication. The patient was up with physical therapy per their protocol, weightbearing as tolerated on the left lower extremity. The patient was discharged on oral pain medications, and will resume her preoperative medications and diet. She will use her thromboembolic deterrent stockings and take her Coumadin for 30 days postoperatively to prevent deep venous thrombosis prophylaxis. The patient will followup in our office in 12-14 days for a wound check and staple removal. She is encouraged to contact our office sooner if there is any increased pain, drainage, numbness and tingling, fever greater than 101 degrees, redness or any other further concerns. Please refer to the medical record for additional details. GARRETT
== END 2017-04-28 14:16 | disposition home health service (06) | DRG 470 ==
LOC: M OR 13:38 → M MS5PR 18:25
PROVIDERS: ADMIT Orthopaedic Surgery; ATTEND Orthopaedic Surgery
PROC: 0SRD0J9 Replacement of Left Knee Joint with Synthetic Substitute, Cemented, Open Approach (ICD-10-PCS; principal; 2017-04-25 16:00)
DX: M17.12 Unilateral primary osteoarthritis, left knee (principal); J44.9 Chronic obstructive pulmonary disease, unspecified; F32.9 Major depressive disorder, single episode, unspecified; K21.9 Gastro-esophageal reflux disease without esophagitis; I10 Essential (primary) hypertension; D64.9 Anemia, unspecified; J30.2 Other seasonal allergic rhinitis; G25.81 Restless legs syndrome; F03.90 Unspecified dementia, unspecified severity, without behavioral disturbance, psychotic disturbance, mood disturbance, and anxiety; E11.9 Type 2 diabetes mellitus without complications; E78.5 Hyperlipidemia, unspecified; G25.0 Essential tremor; R26.89 Other abnormalities of gait and mobility; F10.20 Alcohol dependence, uncomplicated; R73.03 Prediabetes; G47.33 Obstructive sleep apnea (adult) (pediatric); Z79.82 Long term (current) use of aspirin; Z79.84 Long term (current) use of oral hypoglycemic drugs; Z79.891 Long term (current) use of opiate analgesic; Z79.899 Other long term (current) drug therapy; Z98.1 Arthrodesis status; Z96.612 Presence of left artificial shoulder joint; Z96.651 Presence of right artificial knee joint; Z87.891 Personal history of nicotine dependence

== ENCOUNTER → 2017-05-23 | Outpatient (REF) | payer MEDICARE ==
[~2017-05-23] MED LIST changes: +COUM1TAB17 PO
[2017-05-23 18:41] LABS: INR 1.55
== END ==
LOC: M LAB REF 17:13
PROVIDERS: ATTEND Orthopaedic Surgery
DX: Z51.81 Encounter for therapeutic drug level monitoring (principal); Z79.01 Long term (current) use of anticoagulants; Z96.652 Presence of left artificial knee joint

== ENCOUNTER 2017-09-17 12:35 | Emergency (ER) | payer MEDICARE | END 2017-09-17 13:52 | disposition home or self-care (01) | LOC: M ED 12:35 | DX: L03.113 Cellulitis of right upper limb (principal); Z98.890 Other specified postprocedural states; Z79.899 Other long term (current) drug therapy | CPT/HCPCS: 99282 ==

== ENCOUNTER → 2017-09-19 | Outpatient (REF) | payer MEDICARE ==
[2017-09-19 13:41] LABS: BASO # 0.1 10^3/uL (0.0-0.2); BASO % 0.9 % (0.0-1.0); EOS # 0.1 10^3/uL (0.0-0.50); EOS % 1.2 % (0.0-3.0); HEMOGLOBIN 12.1 g/dl (12.0-16.0); IMMATURE GRANULOCYTE % 0.4 % (0-0); LYMPH # 1.3 10^3/uL (1.5-4.5); LYMPH % 22.5 % (24.0-44.0); MEAN CORPUSCULAR HEMOGLOBIN 28.9 pg (27.0-33.0); MEAN CORPUSCULAR HGB CONC 33.6 g/dl (32.0-36.5); MEAN CORPUSCULAR VOLUME 86.1 fl (80.0-96.0); MONO # 0.4 10^3/uL (0.0-0.8); MONO % 6.6 % (0.0-5.0); NEUTROPHILS # 3.8 10^3/uL (1.8-7.7); NEUTROPHILS % 68.4 % (36.0-66.0); PLATELET COUNT, AUTOMATED 236 10^3/uL (150-450); RED BLOOD COUNT 4.18 10^6/uL (4.00-5.40); WHITE BLOOD COUNT 5.6 10^3/uL (4.0-10.0)
[2017-09-19 14:14] LABS: ERYTHROCYTE SEDIMENTATION RATE 35 mm/hr (0-30)
== END ==
LOC: M LABDRAW1 11:24
DX: L08.9 Local infection of the skin and subcutaneous tissue, unspecified (principal)
CPT/HCPCS: 86140

== ENCOUNTER → 2017-12-30 | Outpatient (CLI) | payer MEDICARE | LOC: M WHC 13:05 | DX: Z12.31 Encounter for screening mammogram for malignant neoplasm of breast (principal) | CPT/HCPCS: 77067 ==

== ENCOUNTER → 2018-04-20 | Outpatient (REF) | payer MEDICARE ==
[2018-04-20 14:41] LABS: VITAMIN B12 LEVEL 1284 PG/ML (247-911)
== END ==
LOC: M LAB REF 13:10
DX: D64.9 Anemia, unspecified (principal)
CPT/HCPCS: 82607

== ENCOUNTER → 2019-05-07 | Outpatient (REF) | payer MEDICARE ==
[~2019-05-07] MED LIST changes: +CARB10TA6 PO; +KEFL500C17 PO; +LISI-542; +LISI10TA4 OR; +MELO15TA28; +MELO15TA28 PO; -MELO15TA4 PO; +ROPI0.253 OR; +TIZA4CAP; +TRAM50TA2
== END ==
LOC: M LAB REF 16:59
PROVIDERS: ATTEND Podiatrist
DX: M79.672 Pain in left foot (principal); L03.032 Cellulitis of left toe

== ENCOUNTER 2019-05-09 13:33 | Emergency (ER) | payer MEDICARE ==
[~2019-05-09] VITALS: Ht 157.5 cm; Wt 81.4 kg
[~2019-05-09 13:33] MED LIST changes: -LISI10TA4 OR; -ROPI0.253 OR
[2019-05-09] MEDS ORDERED: ROPI0.253 OR (16:30)
[2019-05-09] MEDS ORDERED: LISI10TA4 OR (16:30)
[2019-05-09] MEDS ORDERED: LORazepam 1 MG TAB PO ONE (16:45)
[2019-05-09 20:21] VITALS: BP 155/68
--- NOTE | 2019-05-09 20:35 | REPVR ---
EXAM: MR Cervical Spine Without Contrast EXAM DATE/TIME: 05/09/2019 7:53 PM CLINICAL HISTORY: 74 years old, female; Cervicalgia; Prior surgery; Surgery date: 6+ months; Surgery type: Fusion; Patient HX: Neck pain left sided weakness; Additional info: Prior fusion, acute left c2/3 radiculopathy TECHNIQUE: Imaging protocol: Multiplanar magnetic resonance images of the cervical spine without contrast. COMPARISON: No relevant prior studies available. FINDINGS: Vertebrae: Slight grade 1 degenerative vertebral body anterolisthesis seen from C6-7 through T2-3. No acute fracture seen. Spinal cord: Limited evaluation due to motion artifacts on the T2 weighted sequences. No cord compression. C1-C2: Prominent pannus-like degenerative changes at C1-2 causing moderate central spinal canal stenosis (assessed on the sagittal imaging). C2-C3: The central spinal canal is patent. The neural foramina are assessed on the sagittal images only. Uncovertebral and facet arthropathy probably causing moderate left and mild right neural foraminal stenoses. C3-C4: Disc osteophyte complex without contribution to significant central spinal canal stenosis. Uncovertebral and facet arthropathy, in particular severe facet arthropathy probably causing severe bilateral neural foraminal stenoses. C4-C5: Prior ACDF. Posterior osteophytic ridging and ligamentum flavum buckling causing moderate central spinal canal stenosis. Question an area of cord myelomalacia at the upper C5 level, image 18 series 501. Uncovertebral and facet arthropathy probably causing severe right and moderate left neural foraminal stenoses. C5-C6: Prior ACDF. Central spinal canal is patent. No definite foraminal stenoses. C6-C7: Anterolisthesis with pseudo-bulging of the intervertebral disc. There is posterior ligamentum flavum buckling. Central spinal canal stenosis is mild. Uncovertebral and facet arthropathy probably causing moderate right and mild left neural foraminal stenoses. C7-T1: Anterolisthesis with pseudo-bulging of the intervertebral disc. The central spinal canal is patent. Moderate facet arthropathy without contribution to significant foraminal stenoses. Vertebral arteries: Expected flow voids in the vertebral arteries. Soft tissues: Unremarkable. IMPRESSION: 1. Motion artifacts do limit assessment of the foramina, also limited evaluation of cord signal characteristics. 2. The C2-3 foramina are not included on the axial T2-weighted sequence, assessed on the sagittal imaging only. Suspect moderate left and mild right neural foraminal stenoses. 3. Severe bilateral neural foraminal stenoses at C3-4. 4. Moderate central spinal canal stenosis at C4-5 in spite of prior ACDF. Severe right and moderate left neural foraminal stenoses. 5. Mild central spinal canal stenosis at C6-7. Moderate right neural foraminal stenosis. 6. Mild foraminal stenoses elsewhere. Electronically signed by: Diana Sims On 05/09/2019 20:34:58 PM
--- NOTE | 2019-05-13 07:30 | ED PDOC ---
Post-Departure Follow-Up jasvir adrian faxed formal report of mri c spine for fu Joey Baig MD May 13, 2019 07:30
== END 2019-05-09 20:29 | disposition home or self-care (01) ==
LOC: M ED 13:33
DX: M54.2 Cervicalgia (principal); H92.02 Otalgia, left ear; M99.51 Intervertebral disc stenosis of neural canal of cervical region; M48.02 Spinal stenosis, cervical region; I10 Essential (primary) hypertension; E78.5 Hyperlipidemia, unspecified; E11.9 Type 2 diabetes mellitus without complications; J44.9 Chronic obstructive pulmonary disease, unspecified; M19.90 Unspecified osteoarthritis, unspecified site; M51.9 Unspecified thoracic, thoracolumbar and lumbosacral intervertebral disc disorder; G47.30 Sleep apnea, unspecified; M43.22 Fusion of spine, cervical region; Z79.82 Long term (current) use of aspirin; Z79.899 Other long term (current) drug therapy; Z79.84 Long term (current) use of oral hypoglycemic drugs

== ENCOUNTER → 2019-08-06 | Outpatient (CLI) | payer MEDICARE ==
[~2019-08-06] MED LIST changes: +LISI10TA4 OR; +ROPI0.253 OR
--- NOTE | 2019-08-06 13:41 | REP ---
Clinical: Lung screening. History smoking. Comparison: None Technique: Axial low-dose noncontrast images from the thoracic inlet to the upper abdomen using lung screening technique. Findings: The lung garcia demonstrate mild emphysematous changes and minimal age-related interstitial changes. Small calcified granuloma noted in the left upper lobe. No consolidation, significant nodule or mass lesion is appreciated. No pleural effusion/reaction or pneumothorax. Tracheobronchial tree is patent. Mediastinum demonstrates mild atherosclerotic changes of the coronary arteries without cardiomegaly. Impression: 1. Lung-RADS category II. No nodule or suspicious abnormality. Mild emphysematous changes. 2. Management recommendations include annual low-dose CT reevaluation. Electronically Signed by Riley Dawn MD 08/06/2019 01:33 P
== END ==
LOC: M RAD 12:54
PROVIDERS: ATTEND Internal Medicine Pulmonary Disease
DX: Z87.891 Personal history of nicotine dependence (principal); J43.9 Emphysema, unspecified

== ENCOUNTER → 2019-12-19 | Outpatient (REF) | payer MEDICARE ==
[~2019-12-19] MED LIST changes: -ROPI1TAB PO; +ROPI1TAB3 PO
== END ==
LOC: M LAB REF 16:15
PROVIDERS: ATTEND Nurse Practitioner Adult Health
DX: L30.9 Dermatitis, unspecified (principal); J44.9 Chronic obstructive pulmonary disease, unspecified; M15.9 Polyosteoarthritis, unspecified

== ENCOUNTER 2020-01-25 21:13 | Emergency (ER) | payer MEDICARE ==
[~2020-01-25] VITALS: Ht 157.5 cm; Wt 83.2 kg
[2020-01-25] MEDS ORDERED: MONT10TA4 PO (21:26)
[2020-01-25] MEDS ORDERED: IPRA6SP INH (21:26)
[2020-01-25] MEDS ORDERED: ANUSOL HC CREAM 30GM TOP STA (23:06)
[2020-01-25] MEDS ORDERED: ANUS2.5C2 TOP (23:19)
[2020-01-25 23:39] VITALS: BP 159/79
== END 2020-01-25 23:40 | disposition home or self-care (01) ==
LOC: M ED 21:13

== ENCOUNTER → 2020-04-23 | Outpatient (CLI) | payer MEDICARE ==
[~2020-04-23] MED LIST changes: +ANUS2.5C2 TOP; -ASPI81TA85 PO; +ASPI81TA86 PO; +IPRA6SP INH; +MONT10TA4 PO
--- NOTE | 2020-05-08 17:47 | REPMRS ---
Patient History The patient states she has not had a clinical breast exam in over a year. Family history of pancreatic cancer at age 61 in brother, colorectal cancer at age 93 in mother. Took unspecified hormones for 10 years. Digital Woman Screen Mammo: April 23, 2020 - Exam #: [id number] Bilateral CC and MLO view(s) were taken. Technologist: Iris Cristina, Technologist Prior study comparison: April 04, 2019, bilateral digital woman screen mammo performed at [facility]. December 30, 2017, digital woman screen mammo performed at [facility]. June 16, 2016, digital woman screen mammo performed at [facility]. FINDINGS: There are scattered fibroglandular densities. The Volpara volumetric breast density category is:B. There has been no change in the appearance of the mammogram from the prior studies. There is a mild amount of scattered fibroglandular density which is fairly symmetric. There is no interval development of dominant mass, architectural distortion, or grouped microcalcification suggestive of malignancy. 3-D tomosynthesis shows no additional findings. Assessment: BI-RADS/ACR category 1 mammogram. Negative Mammogram. Recommendation Routine screening mammogram of both breasts in 1 year (for women over age 40). This patient's Lifetime Breast Cancer Risk is estimated at 2.2 %. This mammogram was interpreted with the aid of an FDA-approved computer-aided dectection system. Electronically Signed By: Jose Miguel Gupta MD 05/08/20 1830
== END ==
LOC: M WHC 17:21
PROVIDERS: ATTEND Nurse Practitioner Adult Health
DX: Z12.31 Encounter for screening mammogram for malignant neoplasm of breast (principal); Z80.0 Family history of malignant neoplasm of digestive organs

== ENCOUNTER → 2020-05-15 | Outpatient (CLI) | payer MEDICARE | LOC: M LABSMTC 09:40 | PROVIDERS: ATTEND Anesthesiology Pain Medicine | DX: Z01.812 Encounter for preprocedural laboratory examination (principal); Z20.828 Contact with and (suspected) exposure to other viral communicable diseases; M79.18 Myalgia, other site | CPT/HCPCS: C9803; U0003 ==

== ENCOUNTER 2020-07-04 16:32 | Emergency (ER) | payer MEDICARE ==
[~2020-07-04] VITALS: Ht 157.5 cm; Wt 81.8 kg
--- NOTE | 2020-07-04 17:51 | REP ---
INDICATION: fall. COMPARISON: None. TECHNIQUE: AP of the pelvis with neutral and frog-lateral views of the right and left hip. FINDINGS: Relatively symmetric degenerative changes are appreciated. No obvious acute fracture or dislocation. IMPRESSION: No obvious acute fracture or dislocation. If the patient remains symptomatic consider CT for further investigation. <Electronically signed by Riley Dawn > 07/04/20 [id number]
--- NOTE | 2020-07-04 17:51 | REPVR ---
PROCEDURE INFORMATION: Exam: CT Head Without Contrast Exam date and time: 07/04/2020 5:19 PM Age: 75 years old Clinical indication: Injury or trauma; Fall; Blunt trauma (contusions or hematomas) TECHNIQUE: Imaging protocol: Computed tomography of the head without contrast. Radiation optimization: All CT scans at this facility use at least one of these dose optimization techniques: automated exposure control; mA and/or kV adjustment per patient size (includes targeted exams where dose is matched to clinical indication); or iterative reconstruction. COMPARISON: CT Head without contrast 03/06/2016 8:55 PM FINDINGS: Brain: Mild hypoattenuating foci are noted in the anterior lateral ventricular periventricular white matter bilaterally. No intracranial hemorrhage. No mass or acute cortical infarction identified. Cerebral ventricles: Prominence of the ventricular system and subarachnoid spaces is consistent with the patient's age of 75 years. Bones/joints: No acute abnormality identified. No acute fracture. Paranasal sinuses: Visualized sinuses are unremarkable. No fluid levels. Mastoid air cells: Visualized mastoid air cells are well aerated. Vasculature: Atherosclerotic calcifications are present involving the carotid artery siphons bilaterally. Soft tissues: Unremarkable. IMPRESSION: 1. Age appropriate supratentorial and infratentorial atrophy. 2. 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 3. No acute intracranial injury identified. Electronically signed by: Dontrell Rahman On 07/04/2020 17:51:06 PM
--- NOTE | 2020-07-04 17:59 | REPVR ---
PROCEDURE INFORMATION: Exam: CT Lumbar Spine Without Contrast Exam date and time: 07/04/2020 5:19 PM Age: 75 years old Clinical indication: Injury or trauma; Fall; Blunt trauma (contusions or hematomas) TECHNIQUE: Imaging protocol: Computed tomography images of the lumbar spine without contrast. Radiation optimization: All CT scans at this facility use at least one of these dose optimization techniques: automated exposure control; mA and/or kV adjustment per patient size (includes targeted exams where dose is matched to clinical indication); or iterative reconstruction. COMPARISON: No relevant prior studies available. FINDINGS: Vertebrae: No acute fracture. Discs/Spinal canal/Neural foramina: Severe degenerative disc disease at the L1-L2 through L5-S1 disk levels. Moderate left L2-L3 primary facet osteoarthritis. Moderately severe L3-L4 spinal stenosis. Moderate bilateral L3-L4 primary facet osteoarthritis. Mild right L4-L5 primary facet osteoarthritis. Mild bilateral L5-S1 primary facet osteoarthritis. L5-S1 spondylosis with severe bilateral neural foraminal stenosis. Adrenal glands: Left adrenal gland 17.3 mm low attenuation nodule (-6 Hounsfield units). Right adrenal gland 14.7 mm low attenuation nodule (9 Hounsfield units). Gallbladder and bile ducts: The gallbladder is surgically absent, with metallic clips in the gallbladder fossa. Stomach and bowel: Sigmoid colonic diverticula are present without evidence of diverticulitis. Vasculature: Moderate aortic and bilateral iliac artery atherosclerotic calcifications without evidence of aneurysm. Soft tissues: Unremarkable. IMPRESSION: 1. Degenerative changes as above. 2. No acute lumbar spinal bony injury identified. 3. Diverticulosis. 4. Bilateral adrenal lipomatous adenomas. 5. Prior cholecystectomy. Electronically signed by: Dontrell Rahman On 07/04/2020 17:59:15 PM
[2020-07-04 18:12] VITALS: BP 156/70
== END 2020-07-04 18:24 | disposition home or self-care (01) ==
LOC: M ED 16:32
DX: S70.01XA Contusion of right hip, initial encounter (principal); S70.02XA Contusion of left hip, initial encounter; W18.39XA Other fall on same level, initial encounter; Y92.512 Supermarket, store or market as the place of occurrence of the external cause; E11.9 Type 2 diabetes mellitus without complications; I10 Essential (primary) hypertension; J44.9 Chronic obstructive pulmonary disease, unspecified; Z79.899 Other long term (current) drug therapy; Z79.82 Long term (current) use of aspirin; Z79.84 Long term (current) use of oral hypoglycemic drugs

== ENCOUNTER → 2020-09-01 | Outpatient (CLI) | payer MEDICARE ==
[~2020-09-01] MED LIST changes: -MONT10TA4 PO; +MONT5TAB2 PO
--- NOTE | 2020-09-01 14:19 | REP ---
INDICATION: PERSONAL HISTORY OF NICOTINE DEPENDENCE COMPARISON: 08/06/2019 TECHNIQUE: Axial noncontrast images from the thoracic inlet to the upper abdomen using low-dose lung screening technique (LDCT). FINDINGS: Moderate emphysematous disease chronic interstitial changes, 5 mm calcified left upper lobe granuloma and calcified hilar lymph nodes remain stable and consistent with prior granulomatous disease. Small vague subpleural nodules up to 4 mm are suggested. No further significant consolidation nodule or mass lesion. No effusion. No pneumothorax. Tracheobronchial tree is patent. Limited evaluation of the mediastinum demonstrates atherosclerotic changes to the thoracic aorta and coronary arteries. IMPRESSION: Lung-RADS category 2. Management recommendations include annual low-dose CT surveillance. Evidence for prior granulomatous disease and moderate emphysematous changes. <Electronically signed by Riley Dawn > 09/01/20 [id number]
== END ==
LOC: M RAD 13:52
PROVIDERS: ATTEND Internal Medicine Pulmonary Disease
DX: Z12.2 Encounter for screening for malignant neoplasm of respiratory organs (principal); Z87.891 Personal history of nicotine dependence; R91.8 Other nonspecific abnormal finding of lung field

== ENCOUNTER 2020-09-29 14:07 | Emergency (ER) | payer MEDICARE ==
[~2020-09-29] VITALS: Ht 157.5 cm; Wt 81.4 kg
[~2020-09-29 14:07] MED LIST changes: -LISI-542; +LISI-898; +LISI10TA22 OR; +LISI10TA22 PO; -LISI10TA4 OR; -LISI10TA4 PO; +MONT10TA10 PO; -MONT5TAB2 PO
--- OUTSIDE RECORDS SUMMARY | 2020-09-29 14:14 | CCD | Continuity of Care Document ---
Author Author Marcelina PATEL P.A. Organization Unknown Address [address] [facility], [address] [address] Phone [phone] Care Team Providers Care Wire Galvanizer Name Role Phone Maria A Carney ELI AUTM [phone] Problems Active Problems Provider Date Acquired trigger finger Onset: 9 Type 2 diabetes mellitus Onset: 11/14/19 14 Social History Type Date Description Comments Sex Unknown ETOH Use Denies alcohol use Tobacco Use Start: Unknown End: Unknown Patient is a former smoker Smoking Status Reviewed: 02/28/19 Patient is a former smoker Allergies, Adverse Reactions, Alerts Description No Known Drug Allergies Medications Active Medications SIG Qnty Indications Ordering Provide r Date Medrol 4mg Tablets Dose El, take as directed on the box 1tabs Earle Monique MD 0 Tramadol HCL 50mg Tablets take 1 tablet twice daily as needed for pain, mdd 2 30tabs M16.11 Earle boyer MD 02/28/2019 Tizanidine HCL 4mg Tablets take 1 tablet by mouth three times daily, mdd 3 120tabs Earle Monique MD 02/12/2019 Aspir-[address] 1 by mouth every day Unknown Incruse Ellipta 62.5mcg/Inh Aeroso l 1 puff daily Unknown Ipratropium Stephan 0.06% Solution Unknown Ropinirole HCL 0.25mg Tablets 1 by mouth three times a day Unknown Pravastatin Sodium 20mg Tablets 1 tablet by mouth every bedtime Unknown 0 Montelukast Sodium 10mg Tablets 1 by mouth every day Unknown Fibercon 625mg Tablets po bid Unknown Complete Multivitamin/Multimineral Suppl ement Liquid Unknown Calcium Plus Vitamin D3 [id number] Capsules 1 bid Unknown Ventolin HFA 108(90Base) mcg/Act A erosol 2 puffs q 4 hrs as needed Unknown 00 Sertraline HCL 100mg Tablets 1 po pm Unknown Omeprazole 20mg Capsules DR i po qd Unknown Metformin HCL 500mg Tablets 1 po qd Unknown Meloxicam 15mg Tablets 1 po q d Unknown Lisinopril 10mg Tablets 1 po qd Unknown Hydrochlorothiazide 12.5mg Tablets 1 po qd Unknown Buspirone HCL 7-5mg Tablets 1 po bid 60tabs Unknown Immunizations Description No Information Available Vital Signs Date Vital Result Comment 07/23/2020 1:25pm Body Temperature 97.3 F 09/19/2017 10:48am Body Temperature 96.3 F Results Description No Information Available Procedures Description No Information Available Medical Devices Description No Information Available Encounters Type Date Location Provider Dx Diagnosis Office Visit 07/23/2020 1:00p [place] Raad Patel, PSigifredoA. M47.896 Other spondylosis, lumbar region M41.26 Other idiopathic scoliosis, lumbar region M51.36 Other intervertebral disc de generation, lumbar region Assessments Date Code Description Provider 07/23/2020 M47.896 Other spondylosis, lumbar region Raad Patel, PSigifredoA. 07/23/2020 M41.26 Other idiopathic scoliosis, lumb ar region Raad Patel, JoA. 07/23/2020 M51.36 Other intervertebral disc degene ration, lumbar region Raad Patel, Padma. Plan of Treatment 07/23/2020 - Raad Patel, PAnh.* M47.896 Other spondylosis, lumbar region* Follow up:* 6 months with [facility] for back recheck * M41.26 Other idiopathic scoliosis, lumbar region * M51.36 Other intervertebral disc degeneration, lumbar region Functional Status Description No Information Available Mental Status Description No Information Available Referrals Description No Information Available
--- OUTSIDE RECORDS SUMMARY | 2020-09-29 14:14 | CCD | Continuity of Care Document ---
Author Author Marcelina Healy Organization Unknown Address [address] [facility] [address] [place] [address] Phone [phone] Care Team Providers Care Photograph Enlarger Name Role Phone Maria A Carney AUTM [phone] Sree Ruano MD AUTM [phone] BretBertrand ortiz AUTM [phone] Keenan Rob MD AUTM [phone] Problems Active Problems Provider Date Chronic obstructive lung disease ELI Carcamo Onset: 06/04/2011 Essential hypertension JOHNY Healy Onset: 06/04/2011 Obstructive sleep apnea syndrome JOHNY Healy Onset: 06/04/2011 Social History Type Date Description Comments Sex Unknown ETOH Use Occasionally consumes wine ETOH Use Her is not in good healt h. Her first of CHF. Tobacco Use Start: Unknown End: Unknown Patient is a former smoker SMOKED FOR 47 YRS 1 1/2 PAKS A DAY. quit 2006 Allergies, Adverse Reactions, Alerts Description No Known Drug Allergies Medications Active Medications SIG Qnty Indications Ordering Provide r Date Diclofenac Sodium 1% Gel apply 4 grams to hands four times a day as needed 100gm Ap tanner MD 03/05/2020 Hydroxyzine HCL 10mg Tablets 1 or 2 tabs three times daily for itching 60tabs L30.9 JOHNY Healy 0 12/19/2019 Famotidine 20mg Tablets 1 by mouth at bedtime 30tabs L30.9 JOHNY Healy 12/19/2019 Lisinopril 5mg Tablets take one tablet by mouth every day 90tabs ELI Carcamo 06/05/2019 Montelukast Sodium 10mg Tablets Take One Tablet By Mouth Every Day 90tabs Maria A Chen [facility] 03/21 Sertraline HCL 100mg Tablets take one tablet by mouth every day 90tabs Luna Williamson DO 2017 Ropinirole HCL 0.25mg Tablets take 3 tablet by mouth at bedtime as directed 270tabs Maria A Alex, [facility] 10/07/2017 Ipratropium [place] 0.06% Solution 2 sprays 3-4 times daily as needed in each nostril 15ml Maria A Chen [facility] 12/10/2016 Aspirin Adult Low Strength 81mg Tablets DR 1 by mouth every day Maria A Chen [facility] 05/2016 Buspirone HCL 7.5mg Tablets take one tablet by mouth twice a day 180tabs Maria A Chen [facility] Pravastatin Sodium 20mg Tablets Take One Tablet By Mouth In The Evening 90tabs Ap valdez MD 01/16/2014 Metamucil 48.57% Powder Maria A Chen [facility] 08/28/2010 Calcium 600+D [id number] Table ts 1 po bid Maria A Chen [facility] 08/28/2010 Multi-Vitamin Tablets One Da laura Maria A Chen [facility] 08/28/2010 Metformin HCL 500mg Tablets take 1 tablet by mouth once daily at dinnertime 90tabs Darlene Healy NP 03/25/2009 Ventolin HFA 108(90Base) mcg/Act A erosol 2 puffs qid as needed 1units Unknown Tizanidine HCL 4mg Tablets 1 by mouth three times a day as needed muscle spasms Unknow n Tramadol HCL 50mg Tablets 1 four times a day as needed pain Unknown Spiriva Handihaler 18mcg Capsules 1 inhalation daily Unknown Minocycline HCL 100mg Capsules 1 by mouth twice daily Unknown Trelegy Ellipta 100- 62.5-25mcg/Inh Aerosol 1 inhalation daily Unknown 0 Hydroxychloroquine Sulfate 200mg T ablets Unknown Diphenhydramine HCL Maximum Strength 50mg Tablets prn Unknown History Medications Voltaren 1% Gel apply up to 4 times daily to hands Richard 80grams Ap Montaño MD 03/03/2020 - 03/05/2020 Medications Administered in Office Medication SIG Qnty Indications Ordering Provider Date Administration Of Flu Vaccine Inj ection Ap Montaño MD 07/11/2020 Administration Of Flu Vaccine Inj ection Mraia A Chen, [facility] 07/24/2019 Administration Of Flu Vaccine Inj ection Maria A Chen, [facility] 07/20/2018 Administration Of Flu Vaccine Inj ection Maria A Chen, [facility] 07/07/2017 Administration Of Flu Vaccine Inj ection Maria A Chen, [facility] 07/01/2015 Administration Of Flu Vaccine Inj ection Kwame Abdul D.O. 06/13 Administration Of Flu Vaccine Inj ection Maria A Chen, [facility] 06/30/2012 Administration Of Flu Vaccine Inj ection Maria A Chen, [facility] 06/04/2011 Administration Of Flu Vaccine Inj ection Maria A Chen, [facility] 06/29/2010 Administration Of Flu Vaccine Inj ection Maria A Chen, [facility] 06/05/2009 Administration Of Flu Vaccine Inj ection Maria A Chen, [facility] 06/13/2008 Administration Of Flu Vaccine Inj ection Maria A Chen, [facility] 08/15/2002 Immunizations CPT Code Status Date Vaccine Lot # [id number] Given 07/11/2020 Influenza Vaccin e Quadrivalent Preser/Antibiotic Free Im Use [id number] 96172 Given 07/24/2019 Influenza Vaccin e Quadrivalent Preser/Antibiotic Free Im Use [id number] 57818 Given 07/20/2018 Influenza Virus Vaccine, Quadrivalent ([id number]), Derived From 4 Given 07/07/2017 Influenza Vaccin e Quadrivalent Preser/Antibiotic Free Im Use [id number] Q2037 Given 07/01/2015 Fluvirin Virus Vaccine [id number] 01 83693 Given 09/26/2014 Prevnar 13 [id number] Q2037 Given 06/13/2014 Fluvirin Virus Vaccine 00677 21 Q2037 Given 06/30/2012 Fluvirin Virus Vaccine 49054 01 Q2037 Given 06/04/2011 Fluvirin Virus Vaccine 85801 Given 06/29/2010 Influenza Virus Vaccine 85084 Given 06/05/2009 Influenza Virus Vaccine 91660 Given 06/13/2008 Influenza Virus Vaccine 06757 Given 05/27/2008 Pneumovax 23 62838 Given 05/27/2008 Pneumovax 23 99406 Given 08/15/2002 Influenza Virus Vaccine Vital Signs Date Vital Result Comment 08/29/2020 1:47pm BP Systolic 156 mmHg BP Diastolic 70 mmHg BP Systolic Recheck 150 mmHg BP Diastolic Recheck 74 mmHg Heart Rate 82 /min Height 62.5 inches 5'2.50" Weight 179.00 lb BMI (Body Mass Index) 32.2 kg/m2 05/23/2020 1:35pm BP Systolic 134 mmHg BP Diastolic 70 mmHg Heart Rate 86 /min Height 62.5 inches 5'2.50" Weight 176.38 lb O2 % BldC Oximetry 96 % BMI (Body Mass Index) 31.7 kg/m2 Results Test Acquired Date Facility Test Result H/L Range Note Basic Metabolic Panel 05/23/2020 [facility] Nuclear Medicine Supervisor: [place] [address] [phone] Glucose 91 mg/dL 74 - 99 1 BUN 30 mg/dL High 7 - 18 Creatinine 1.1 mg/dL 0.6 - 1.3 Sodium 136 mEq/L 136 - 145 Potassium 4.6 mEq/L 3.5 - 5.1 Chloride 100 mEq/L 98 - 107 Carbon Dioxide 28 mEq/L 21 - 32 Calcium 9.1 mg/dL 8.5 - 10.1 GFR 48 mL/min Low >60 GFR 58 mL/min Low >60 2 A1c 05/23/2020 [facility] Nuclear Medicine Supervisor: [place] [address] [phone] Hba1c 6.2 g/dL High 4.8 - 5.6 3 Est Avg Glucose 131 mg/dL High 60 - 110 Lipid Profile 05/23/2020 [facility] Nuclear Medicine Supervisor: [place] [address] [phone] Cholesterol 193 mg/dL 131 - 200 Triglycerides 299 mg/dL High 30 - 150 HDL Cholesterol 79 mg/dL High 35 - 60 LDL (Calculated) 54 CALC 50 - 159 1 100-125 mg/dL PRE-DIABET ES/FASTING >126 mg/dL DIABETES/FASTING 2 CHRONIC KIDNEY DISEASE STAGI NG PER NKF STAGE I & II GFR >= 60 NORMAL TO MILDLY DECREASED STAGE III GFR 30-59 MODERATELY DECREASED STAGE IV GFR 15-29 SEVERELY DECREASED STAGE V GFR <15 VERY LITTLE GFR LEFT ESRD GFR <15 ON PAINTING MACHINE OPERATOR 3 Lab Result Notes: Pre-Diabetes 5.7 - 6.4 % Diabetes = or > 6.5% Procedures Date Code Description Status 04/23/2020 [id number] Mammogram Completed 04/04/2019 [id number] Mammogram Completed 12/30/2017 [id number] Mammogram Completed 09/24/2016 [id number] Diabetic Retinal Eye Exam Comple valerie 06/16/2016 [id number] Mammogram Completed 03/28/2015 [id number] Bone Mineral Density Test Comple valerie 11/26/2013 [id number] Diabetic Retinal Eye Exam Comple valerie 09/14/2013 [id number] Mammogram Completed 05/08/2013 [id number] Colonoscopy Completed 08/30/2012 [id number] Mammogram Completed 08/18/2012 [id number] Mammogram Completed 07/21/2011 [id number] Mammogram Completed 01/05/2011 [id number] Diabetic Retinal Eye Exam Comple [facility] 06/16/2010 [id number] Mammogram Completed 07/17/2008 [id number] Colonoscopy Completed 10/06/2005 [id number] Bone Mineral Density Test Comple [facility] Medical Devices Description No Information Available Encounters Type Date Location Provider Dx Diagnosis Office Visit 08/29/2020 1:40p [facility] Maria A Alex, [employer] I12.9 Hypertensive chronic kidney disease w st g 1-4/unsp chr kdny N18.31 Chronic kidney disease, stag e 3a J44.9 Chronic obstructive pulmonar y disease, unspecified E66.09 Other obesity due to excess calories R73.03 Prediabetes Z68.32 Body mass index [BMI] 32.0-3 2.9, adult Office Visit 05/23/2020 1:40p [facility] Maria A Alex, [employer] I12.9 Hypertensive chronic kidney disease w st g 1-4/unsp chr kdny N18.3 Chronic kidney disease, stag e 3 (moderate) J44.9 Chronic obstructive pulmonar y disease, unspecified M48.062 Spinal stenosis, lumbar yusuf on with neurogenic claudication E66.09 Other obesity due to excess calories Z68.33 Body mass index (BMI) 33.0-3 3.9, adult R73.03 Prediabetes Assessments Date Code Description Provider 08/29/2020 I12.9 Hypertensive chronic kidney disease with stage 1 through stage 4 chronic kidney disease, or unspecified chronic kidney disease Maria A Chen [facility] 08/29/2020 N18.31 Chronic kidney disease, stage 3a Maria A Chen [facility] 08/29/2020 J44.9 Chronic obstructive pulmonary di sease, unspecified Maria A Chen [facility] 08/29/2020 E66.09 Other obesity due to excess carmen ethan Maria A Chen [facility] 08/29/2020 R73.03 Prediabetes Maria A Chen [facility] 08/29/2020 Z68.32 Body mass index [BMI] 32.0-32.9, adult Maria A Chen [facility] 07/11/2020 Z23 Encounter for immunization Jessicai jessica Montaño MD 07/11/2020 Z23 Encounter for immunization Nurse Schedule 05/23/2020 I12.9 Hypertensive chronic kidney disease with stage 1 through stage 4 chronic kidney disease, or unspecified chronic kidney disease Maria A Chen [facility] 05/23/2020 N18.3 Chronic kidney disease, stage 3 (moderate) Maria A Chen [facility] 05/23/2020 J44.9 Chronic obstructive pulmonary di sease, unspecified Maria A Chen [facility] 05/23/2020 M48.062 Spinal stenosis, lumbar region w ith neurogenic claudication Maria A Chen [facility] 05/23/2020 E66.09 Other obesity due to excess carmen ethan Maria A Chen [facility] 05/23/2020 Z68.33 Body mass index (BMI) 33.0-33.9, adult Maria A Chen [facility] 05/23/2020 R73.03 Prediabetes JOHNY Healy Plan of Treatment 08/31/2019 - MORENO HealyP* I12.9 Hypertensive chronic kidney disease with stage 1 through stage 4 chronic kidney disease, or unspecified chronic kidney disease* Comments:* blood pressure controlled on current treatment plan. * N18.3 Chronic kidney disease, stage 3 (moderate)* Comments:* BMP obtained and reviewed and is stable. 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 * Z68.33 Body mass index (BMI) 33.0-33.9, adult Functional Status Description No Information Available Mental Status Description No Information Available Referrals Refer to Reason for Referral Status Appt Date Eliza Hathaway MD CONSULT EVALUATION OF HEMORRHOIDS Patient Not ified 08/01/2020 [facility] [address] [place] [address] [phone]
--- OUTSIDE RECORDS SUMMARY | 2020-09-29 14:14 | CCD | Continuity of Care Document ---
Author Author Marcelina Healy Organization Unknown Address [address] [facility] [address] [place] [address] Phone [phone] Care Team Providers Care Senior Systems Architect Name Role Phone Maria A Carney AUTM [phone] Sree Ruano MD AUTM [phone] BretBertrand ortiz AUTM [phone] Keenan Rob MD AUTM [phone] Problems Active Problems Provider Date Chronic obstructive [...] Mouth Every Day 90tabs Maria A Chen [facility] 03/21 Sertraline HCL 100mg Tablets take one tablet by mouth every day 90tabs Luna Williamson DO 2017 Ropinirole HCL 0.25mg Tablets take 3 tablet by mouth at bedtime as directed 270tabs Maria A Alex, [facility] 10/07/2017 Ipratropium [place] 0.06% Solution 2 sprays 3-4 times daily as needed in each nostril 15ml Maria A Chen [facility] 12/10/2016 Aspirin Adult Low Strength 81mg Tablets DR 1 by mouth every day Maria A Chen [facility] 05/2016 Buspirone HCL 7.5mg Tablets take one tablet by mouth twice a day 180tabs Maria A Chen [facility] Pravastatin Sodium 20mg Tablets Take One Tablet By Mouth In The Evening 90tabs Ap valdez MD 01/16/2014 Metamucil 48.57% Powder Maria A Chen [facility] 08/28/2010 Calcium 600+D [id number]-Cgip Table ts 1 po bid Maria A Chen [facility] 08/28/2010 Multi-Vitamin Tablets One Da laura Maria A Chen [facility] 08/28/2010 Metformin HCL 500mg Tablets take [...] 07/11/2020 Administration Of Flu Vaccine Inj ection Maria A Chen, [facility] 07/24/2019 Administration Of Flu Vaccine Inj ection Maria A Chen, [facility] 07/20/2018 Administration Of Flu Vaccine Inj ection Maria A Chen, [facility] 07/07/2017 Administration Of Flu Vaccine Inj ection Maria A Chen, [facility] 07/01/2015 Administration Of Flu Vaccine Inj ection Kwame Abdul D.O. 06/13 Administration Of Flu Vaccine Inj ection Maria A Chen, [facility] 06/30/2012 Administration Of Flu Vaccine Inj ection Maria A Chen, [facility] 06/04/2011 Administration Of Flu Vaccine Inj ection Maria A Chen, [facility] 06/29/2010 Administration Of Flu Vaccine Inj ection Maria A Chen, [facility] 06/05/2009 Administration Of Flu Vaccine Inj ection Maria A Chen, [facility] 06/13/2008 Administration Of Flu Vaccine Inj ection Maria A Chen, [facility] 08/15/2002 Immunizations CPT Code Status Date Vaccine Lot # 86847 Given 07/11/2020 Influenza Vaccin e Quadrivalent Preser/Antibiotic Free Im Use [id number] 54005 Given 07/24/2019 Influenza Vaccin e Quadrivalent Preser/Antibiotic Free Im Use [id number] 78280 Given 07/20/2018 Influenza Virus Vaccine, Quadrivalent (Cciiv4), Derived From 6 Given 07/07/2017 Influenza Vaccin e Quadrivalent Preser/Antibiotic Free Im Use [id number] Q2037 Given 07/01/2015 Fluvirin Virus Vaccine 56402 01 03771 Given 09/26/2014 Prevnar 13 [id number] Q2037 Given 06/13/2014 Fluvirin Virus Vaccine 57483 21 Q2037 Given 06/30/2012 Fluvirin Virus Vaccine 23194 01 Q2037 Given 06/04/2011 Fluvirin Virus Vaccine 78342 Given 06/29/2010 Influenza Virus Vaccine 96174 Given 06/05/2009 Influenza Virus Vaccine 65462 Given 06/13/2008 Influenza Virus Vaccine 09416 Given 05/27/2008 Pneumovax 23 39843 Given 05/27/2008 Pneumovax 23 42142 Given 08/15/2002 Influenza Virus Vaccine Vital Signs [...] Date Facility Test Result H/L Range Note Complete Blood Count 08/29/2020 [facility] Impregnator: [place] [address] [phone] WBC 5.6 x10*3/UL 4.1 - 10.9 RBC 4.14 x10*6/UL Low 4.20 - 6.30 Hemoglobin 12.2 g/dL 12.0 - 18.0 Hematocrit 35.5 % Low 37.0 - 51.0 MCV 85.7 fL 80.0 - 97.0 MCH 29.6 pg 26.0 - 32.0 MCHC 34.6 g/dL 31.0 - 38.0 RDW 13.7 % 11.6 - 13.7 PLT 251 x10*3/UL 140 - 440 MPV 8.6 FL 7.8 - 11.0 Lymph % 25.2 % 10.0 - 58.5 Mid % 6.0 % 1.7 - 9.3 Neut % 68.8 % 37.0 - 92.0 Lymph # 1.4 x10*3/UL 0.6 - 4.1 Mid # 0.4 x10*3/UL 0.1 - 0.6 Neut # 3.8 x10*3/UL 2.0 - 7.8 Basic Metabolic Panel 08/29/2020 [facility] Impregnator: [place] [address] [phone] Glucose 94 mg/dL 74 - 99 1 BUN 21 mg/dL High 7 - 18 Creatinine 0.9 mg/dL 0.6 - 1.3 Sodium 136 mEq/L 136 - 145 Potassium 4.5 mEq/L 3.5 - 5.1 Chloride 100 mEq/L 98 - 107 Carbon Dioxide 27 mEq/L 21 - 32 Calcium 9.4 mg/dL 8.5 - 10.1 GFR >= 60 mL/min >60 GFR >= 60 mL/min >60 2 Basic Metabolic Panel 05/23/2020 [facility] Impregnator: [place] [address] [phone] Glucose 91 mg/dL 74 - 99 3 BUN 30 mg/dL High 7 - 18 Creatinine 1.1 mg/dL 0.6 - 1.3 Sodium 136 mEq/L 136 - 145 Potassium 4.6 mEq/L 3.5 - 5.1 Chloride 100 mEq/L 98 - 107 Carbon Dioxide 28 mEq/L 21 - 32 Calcium 9.1 mg/dL 8.5 - 10.1 GFR 48 mL/min Low >60 GFR 58 mL/min Low >60 4 A1c 05/23/2020 [facility] Impregnator: [place] [address] [phone] Hba1c 6.2 g/dL High 4.8 - 5.6 5 Est Avg Glucose 131 mg/dL High 60 - 110 Lipid Profile 05/23/2020 [facility] Impregnator: Dr p[place] [address] [phone] Cholesterol 193 mg/dL 131 - 200 Triglycerides [...] LITTLE GFR LEFT ESRD GFR <15 ON HOURLY MANAGER 3 100-125 mg/dL PRE-DIABET ES/FASTING >126 mg/dL DIABETES/FASTING 4 CHRONIC KIDNEY DISEASE STAGI NG PER NKF STAGE I & II GFR >= 60 NORMAL TO MILDLY DECREASED STAGE III GFR 30-59 MODERATELY DECREASED STAGE IV GFR 15-29 SEVERELY DECREASED STAGE V GFR <15 VERY LITTLE GFR LEFT ESRD GFR <15 ON HOURLY MANAGER 5 Lab Result Notes: Pre-Diabetes 5.7 - 6.4 % Diabetes = or > 6.5% Procedures Date Code Description Status 04/23/2020 [id number] Mammogram Completed 04/04/2019 [id number] Mammogram Completed 12/30/2017 [id number] Mammogram Completed 09/24/2016 [id number] Diabetic Retinal Eye Exam Comple valerie 06/16/2016 [id number] Mammogram Completed 03/28/2015 [id number] Bone Mineral Density Test Comple valerie 11/26/2013 [id number] Diabetic Retinal Eye Exam Comple valerie 09/14/2013 [id number] Mammogram Completed 05/08/2013 [id number] Colonoscopy Completed 08/30/2012 [id number] Mammogram Completed 08/18/2012 [id number] Mammogram Completed 07/21/2011 [id number] Mammogram Completed 01/05/2011 [id number] Diabetic Retinal Eye Exam Comple valerie 06/16/2010 [id number] Mammogram Completed 07/17/2008 [id number] Colonoscopy Completed 10/06/2005 [id number] Bone Mineral Density Test Comple [facility] Medical Devices Description No Information Available Encounters Type Date Location Provider Dx Diagnosis Office Visit 08/29/2020 1:40p [facility] Maria A Alex, [employer] I12.9 Hypertensive chronic kidney disease w st g 1-4/unsp chr kdny N18.31 Chronic kidney disease, stag e 3a J44.9 Chronic obstructive pulmonar y disease, unspecified E66.09 Other obesity due to excess calories R73.03 Prediabetes Z68.32 Body mass index [BMI] 32.0-3 2.9, adult Office Visit 05/23/2020 1:40p [facility] Maria A Alex, [employer] I12.9 Hypertensive chronic kidney disease w st [...] or unspecified chronic kidney disease Maria A Chen, [facility] 08/29/2020 N18.31 Chronic kidney disease, stage 3a Maria A Chen [facility] 08/29/2020 J44.9 Chronic obstructive pulmonary di sease, unspecified Maria A Chen [facility] 08/29/2020 E66.09 Other obesity due to excess carmen ethan Maria A Chen [facility] 08/29/2020 R73.03 Prediabetes Maria A Chen [facility] 08/29/2020 Z68.32 Body mass index [BMI] 32.0-32.9, adult Maria A Chen [facility] 07/11/2020 Z23 Encounter for immunization Colli jessica Montaño MD 07/11/2020 Z23 Encounter for immunization Nurse Schedule 05/23/2020 I12.9 Hypertensive chronic kidney disease with stage 1 through stage 4 chronic kidney disease, or unspecified chronic kidney disease Maria A Chen [facility] 05/23/2020 N18.3 Chronic kidney disease, stage 3 (moderate) Maria A Chen [facility] 05/23/2020 J44.9 Chronic obstructive pulmonary di sease, unspecified Maria A Chen [facility] 05/23/2020 M48.062 Spinal stenosis, lumbar region w ith neurogenic claudication Maria A Chen [facility] 05/23/2020 E66.09 Other obesity due to excess carmen ethan Maria A Chen [facility] 05/23/2020 Z68.33 Body mass index (BMI) 33.0-33.9, adult Maria A Chen [facility] 05/23/2020 R73.03 Prediabetes JOHNY Healy Plan of Treatment Future Appointment(s):* 12/11/2020 1:20 pm - JOHNY Healy at [facility] 08/31/2019 - JOHNY Healy* I12.9 Hypertensive chronic kidney disease with stage [...] Description No Information Available Referrals Refer to Dr Reason for Referral Status Appt Date Eliza Hathaway MD CONSULT EVALUATION OF HEMORRHOIDS Patient Not ified 08/01/2020 [facility] [address] [place] [address] [phone]
--- OUTSIDE RECORDS SUMMARY | 2020-09-29 14:14 | CCD | Continuity of Care Document ---
Author Author Marcelina Healy Organization Unknown Address [address] [facility] [address] [place] [address] Phone [phone] Care Team Providers Care Trimming Machine Set Up Operator Name Role Phone Maria A Carney AUTM [phone] Sree Ruano MD AUTM [phone] BretBertrand ortiz AUTM [phone] Keenan Rob MD AUTM [phone] Problems Active Problems Provider Date Chronic obstructive [...] Mouth Every Day 90tabs Maria A Chen [facility] 03/21 Sertraline HCL 100mg Tablets take one tablet by mouth every day 90tabs Luna Williamson DO 2017 Ropinirole HCL 0.25mg Tablets take 3 tablet by mouth at bedtime as directed 270tabs Maria A Alex, [facility] 10/07/2017 Ipratropium [place] 0.06% Solution 2 sprays 3-4 times daily as needed in each nostril 15ml Maria A Chen [facility] 12/10/2016 Aspirin Adult Low Strength 81mg Tablets DR 1 by mouth every day Maria A Chen [facility] 05/2016 Buspirone HCL 7.5mg Tablets take one tablet by mouth twice a day 180tabs Maria A Chen [facility] Pravastatin Sodium 20mg Tablets Take One Tablet By Mouth In The Evening 90tabs Ap valdez MD 01/16/2014 Metamucil 48.57% Powder Maria A Chen [facility] 08/28/2010 Calcium 600+D [id number]-Ytva Table ts 1 po bid Mari aA Chen [facility] 08/28/2010 Multi-Vitamin Tablets One Da laura Maria A Chen [facility] 08/28/2010 Metformin HCL 500mg Tablets take [...] HCL Maximum Strength 50mg Tablets prn Unknown Medications Administered in Office Medication SIG Qnty Indications Ordering Provider Date Administration Of Flu Vaccine Inj ection Ap Montaño MD 07/11/2020 Administration Of Flu Vaccine Inj ection Maria A Chen, [facility] 07/24/2019 Administration Of Flu Vaccine Inj ection Maria A Chen, [facility] 07/20/2018 Administration Of Flu Vaccine Inj ection Maria A Chen, [facility] 07/07/2017 Administration Of Flu Vaccine Inj ection Maria A Chen, [facility] 07/01/2015 Administration Of Flu Vaccine Inj ection Kwame Abdul D.O. 06/13 Administration Of Flu Vaccine Inj ection Maria A Chen, [facility] 06/30/2012 Administration Of Flu Vaccine Inj ection Maria A Chen, [facility] 06/04/2011 Administration Of Flu Vaccine Inj ection Maria A Chen, [facility] 06/29/2010 Administration Of Flu Vaccine Inj ection Maria A Chen, [facility] 06/05/2009 Administration Of Flu Vaccine Inj ection aMria A Chen, [facility] 06/13/2008 Administration Of Flu Vaccine Inj ection Maria A Chen, [facility] 08/15/2002 Immunizations CPT Code Status Date Vaccine Lot # 53879 Given 07/11/2020 Influenza Vaccin e Quadrivalent Preser/Antibiotic Free Im Use [id number] 02092 Given 07/24/2019 Influenza Vaccin e Quadrivalent Preser/Antibiotic Free Im Use 849326 08700 Given 07/20/2018 Influenza Virus Vaccine, Quadrivalent (Cciiv4), Derived From 5 Given 07/07/2017 Influenza Vaccin e Quadrivalent Preser/Antibiotic Free Im Use [id number] Q2037 Given 07/01/2015 Fluvirin Virus Vaccine 78365 01 85971 Given 09/26/2014 Prevnar 13 [id number] Q2037 Given 06/13/2014 Fluvirin Virus Vaccine 94341 21 Q2037 Given 06/30/2012 Fluvirin Virus Vaccine 64678 01 Q2037 Given 06/04/2011 Fluvirin Virus Vaccine 50357 Given 06/29/2010 Influenza Virus Vaccine 31051 Given 06/05/2009 Influenza Virus Vaccine 04261 Given 06/13/2008 Influenza Virus Vaccine 74273 Given 05/27/2008 Pneumovax 23 09663 Given 05/27/2008 Pneumovax 23 57322 Given 08/15/2002 Influenza Virus Vaccine Vital Signs [...] H/L Range Note Complete Blood Count 08/29/2020 [facility] Audio Video Mechanic: [place] [address] [phone] WBC 5.6 x10*3/UL 4.1 - 10.9 RBC [...] 2.0 - 7.8 Basic Metabolic Panel 08/29/2020 [facility] Audio Video Mechanic: Dr Ap [place]ño [place] [address] [phone] Glucose 94 mg/dL 74 - 99 1 [...] mL/min >60 2 Basic Metabolic Panel 05/23/2020 [facility] Audio Video Mechanic: Dr Ap [place]ño [place] [address] [phone] Glucose 91 mg/dL 74 - 99 3 [...] 58 mL/min Low >60 4 A1c 05/23/2020 [email or web address] , Audio Video Mechanic: Dr Ap Mont[place]ño [place] [address] [phone] Hba1c 6.2 g/dL High 4.8 - 5.6 5 Est Avg Glucose 131 mg/dL High 60 - 110 Lipid Profile 05/23/2020 [facility] , Audio Video Mechanic: Dr Ap Mont[place]ño [place] [address] [phone] Cholesterol 193 mg/dL 131 - 200 Triglycerides [...] LITTLE GFR LEFT ESRD GFR <15 ON MORTGAGE LOAN FUNDER 3 100-125 mg/dL PRE-DIABET ES/FASTING >126 mg/dL DIABETES/FASTING 4 CHRONIC KIDNEY DISEASE STAGI NG PER NKF STAGE I & II GFR >= 60 NORMAL TO MILDLY DECREASED STAGE III GFR 30-59 MODERATELY DECREASED STAGE IV GFR 15-29 SEVERELY DECREASED STAGE V GFR <15 VERY LITTLE GFR LEFT ESRD GFR <15 ON MORTGAGE LOAN FUNDER 5 Lab Result Notes: Pre-Diabetes 5.7 - 6.4 % Diabetes = or > 6.5% Procedures Date Code Description Status 04/23/2020 [id number] Mammogram Completed 04/04/2019 [id number] Mammogram Completed 12/30/2017 [id number] Mammogram Completed 09/24/2016 [id number] Diabetic Retinal Eye Exam Comple valerie 06/16/2016 [id number] Mammogram Completed 03/28/2015 [id number] Bone Mineral Density Test Comple valerie 11/26/2013 [id number] Diabetic Retinal Eye Exam Comple valerie 09/14/2013 [id number] Mammogram Completed 05/08/2013 [id number] Colonoscopy Completed 08/30/2012 [id number] Mammogram Completed 08/18/2012 [id number] Mammogram Completed 07/21/2011 [id number] Mammogram Completed 01/05/2011 [id number] Diabetic Retinal Eye Exam Comple [facility] 06/16/2010 [id number] Mammogram Completed 07/17/2008 [id number] Colonoscopy Completed 10/06/2005 [id number] Bone Mineral Density Test Comple [facility] Medical Devices Description No Information Available Encounters Type Date Location Provider Dx Diagnosis Office Visit 08/29/2020 1:40p [facility] 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 Maria A Alex, [employer] WORK[employer] I12.9 Hypertensive chronic kidney disease w st [...] unspecified chronic kidney disease Maria A Chen, [facility] 08/29/2020 N18.31 Chronic kidney disease, stage 3a Maria A Chen [facility] 08/29/2020 J44.9 Chronic obstructive pulmonary di sease, unspecified Maria A Chen, [facility] 08/29/2020 R73.03 Prediabetes Maria A Chen [facility] 08/29/2020 E66.09 Other obesity due to excess carmen ethan Maria A Chen [facility] 08/29/2020 Z68.32 Body mass index [BMI] 32.0-32.9, adult Maria A Chen [facility] 07/11/2020 Z23 Encounter for immunization Colli jessica Montaño MD 07/11/2020 Z23 Encounter for immunization Nurse Schedule 05/23/2020 I12.9 Hypertensive chronic kidney disease with stage 1 through stage 4 chronic kidney disease, or unspecified chronic kidney disease Maria A Chen [facility] 05/23/2020 N18.3 Chronic kidney disease, stage 3 (moderate) Maria A Chen [facility] 05/23/2020 J44.9 Chronic obstructive pulmonary di sease, unspecified Maria A Chen, [facility] 05/23/2020 M48.062 Spinal stenosis, lumbar region w ith neurogenic claudication Maria A Chen [facility] 05/23/2020 E66.09 Other obesity due to excess carmen ethan Maria A Chen, [facility] 05/23/2020 Z68.33 Body mass index (BMI) 33.0-33.9, adult Maria A Chen, [facility] 05/23/2020 R73.03 Prediabetes JOHNY Healy Plan of Treatment Future Appointment(s):* 12/11/2020 1:20 pm - JOHNY Healy at [facility] 08/31/2019 - JOHNY Healy* I12.9 [...] EVALUATION OF HEMORRHOIDS Patient Not ified 08/01/2020 [facility] [address] [place] [address] [phone]
--- OUTSIDE RECORDS SUMMARY | 2020-09-29 14:14 | CCD | Continuity of Care Document ---
Author Author Marcelina PATEL P.A. Organization Unknown Address [address] [facility], [address] [address] Phone [phone] Care Team Providers Care Cognos Name Role Phone Maria A Carney ELI AUTM [phone] Problems Active Problems Provider Date Acquired trigger [...] Aeroso l 1 puff daily Unknown Ipratropium [place] 0.06% Solution Unknown Ropinirole HCL 0.25mg Tablets 1 by mouth three times a day Unknown Pravastatin Sodium 20mg Tablets 1 tablet by mouth every bedtime Unknown 0 Montelukast Sodium 10mg Tablets 1 by mouth every day Unknown Fibercon 625mg Tablets po bid Unknown Complete Multivitamin/Multimineral Suppl ement Liquid Unknown Calcium Plus Vitamin D3 [id number] Capsules 1 bid Unknown Ventolin HFA 108(90Base) [...] Date Location Provider Dx Diagnosis Office Visit 01/29/2020 1:00p [facility] Raad Patel, PSigifredoA. M47.896 Other spondylosis, lumbar region M41.26 Other idiopathic scoliosis, lumbar region M51.36 Other intervertebral disc de generation, lumbar region Assessments Date Code Description Provider 07/23/2020 M47.896 Other spondylosis, lumbar region Raad Patel, P.ASigifredo 07/23/2020 M41.26 Other idiopathic scoliosis, lumb ar region Raad Patel P.A. 07/23/2020 M51.36 Other intervertebral disc degene ration, lumbar region Jo SultanaA. 01/29/2020 M47.896 Other spondylosis, lumbar region Jo SultanaA. 01/29/2020 M41.26 Other idiopathic scoliosis, lumb ar region Jo SultanaASigifredo 01/29/2020 M51.36 Other intervertebral disc degene ration, lumbar region Padam Sultana. Plan of Treatment 07/23/2020 - Raad Patel, P.A.* M47.896 Other spondylosis, lumbar region* Follow up:* 6 months with [facility] for back recheck * M41.26 Other idiopathic scoliosis, lumbar region * M51.36 Other intervertebral disc degeneration, lumbar region Functional Status Description No Information Available Mental Status Description No Information Available Referrals Description No Information Available
--- OUTSIDE RECORDS SUMMARY | 2020-09-29 14:15 | CCD | Continuity of Care Document ---
Author Author Nurse Marcelina Mckeon Organization Unknown Address [address] [facility] [address] [place] [address] Phone [phone] Care Team Providers Care Optical Goods Worker Name Role Phone Maria A Carney ANP AUTM [phone] Sree Ruano MD AUTM [phone] BretBertrand ortiz AUTM [phone] Keenan Rob MD AUTM [phone] Problems Active Problems Provider Date Chronic obstructive [...] Mouth Every Day 90tabs Maria A Chen [facility] 03/21 Sertraline HCL 100mg Tablets take one tablet by mouth every day 90tabs Luna Williamson DO 2017 Ropinirole HCL 0.25mg Tablets take 3 tablet by mouth at bedtime as directed 270tabs Maria A Alex, [facility] 10/07/2017 Ipratropium [place] 0.06% Solution 2 sprays 3-4 times daily as needed in each nostril 15ml Maria A Chen [facility] 12/10/2016 Aspirin Adult Low Strength 81mg Tablets DR 1 by mouth every day Maria A Chen [facility] 05/2016 Buspirone HCL 7.5mg Tablets Take One Tablet By Mouth Twice A Day 180tabs Colton Mejia 02/27/2014 Pravastatin Sodium 20mg Tablets Take One Tablet By Mouth In The Evening 90tabs Ap valdez MD 01/16/2014 Metamucil 48.57% Powder Maria A Chen [facility] 08/28/2010 Calcium 600+D [id number]-Rzcz Table ts 1 po bid Maria A Chen [facility] 08/28/2010 Multi-Vitamin Tablets One Da laura Maria A Chen [facility] 08/28/2010 Metformin HCL 500mg Tablets take [...] Date Administration Of Flu Vaccine Inj ection Maria A Chen, [facility] 07/24/2019 Administration Of Flu Vaccine Inj ection Maria A Chen, [facility] 07/20/2018 Administration Of Flu Vaccine Inj ection Maria A Chen, [facility] 07/07/2017 Administration Of Flu Vaccine Inj ection Maria A Chen, [facility] 07/01/2015 Administration Of Flu Vaccine Inj ection Kwame Abdul D.O. 06/13 Administration Of Flu Vaccine Inj ection Maria A Chen, [facility] 06/30/2012 Administration Of Flu Vaccine Inj ection Maria A Chen, [facility] 06/04/2011 Administration Of Flu Vaccine Inj ection Maria A Chen, [facility] 06/29/2010 Administration Of Flu Vaccine Inj ection Maria A Chen, [facility] 06/05/2009 Administration Of Flu Vaccine Inj ection Maria A Chen, [facility] 06/13/2008 Administration Of Flu Vaccine Inj ection Maria A Chen, [facility] 08/15/2002 Immunizations CPT Code Status Date Vaccine Lot # [id number] Given 07/24/2019 Influenza Vaccin e Quadrivalent Preser/Antibiotic Free Im Use [id number] 57445 Given 07/20/2018 Influenza Virus Vaccine, Quadrivalent ([id number]), Derived From 6 Given 07/07/2017 Influenza Vaccin e Quadrivalent Preser/Antibiotic Free Im Use [id number] Q2037 Given 07/01/2015 Fluvirin Virus Vaccine 71032 01 79346 Given 09/26/2014 Prevnar 13 [id number] Q2037 Given 06/13/2014 Fluvirin Virus Vaccine 68227 21 Q2037 Given 06/30/2012 Fluvirin Virus Vaccine 44918 01 Q2037 Given 06/04/2011 Fluvirin Virus Vaccine 87269 Given 06/29/2010 Influenza Virus Vaccine 28583 Given 06/05/2009 Influenza Virus Vaccine 33577 Given 06/13/2008 Influenza Virus Vaccine 05617 Given 05/27/2008 Pneumovax 23 10276 Given 05/27/2008 Pneumovax 23 70063 Given 08/15/2002 Influenza Virus Vaccine Vital Signs Date Vital Result Comment 05/23/2020 1:35pm BP Systolic 134 mmHg BP Diastolic 70 mmHg Heart Rate 86 /min Height 62.5 inches 5'2.50" Weight 176.38 lb O2 % BldC Oximetry 96 % BMI (Body Mass Index) 31.7 kg/m2 02/21/2020 2:00pm BP Systolic 164 mmHg BP Diastolic 64 mmHg BP Systolic Recheck 134 mmHg BP Diastolic Recheck 60 mmHg Heart Rate 78 /min Height 62.5 inches 5'2.50" Weight 186.00 lb O2 % BldC Oximetry 96 % BMI (Body Mass Index) 33.5 kg/m2 Results Test Acquired Date Facility Test Result H/L Range Note Basic Metabolic Panel 05/23/2020 [facility] Manufacturing Coordinator: [place] [address] [phone] Glucose 91 mg/dL 74 - 99 1 [...] 58 mL/min Low >60 2 A1c 05/23/2020 [facility] , Manufacturing Coordinator: [place] [address] [phone] Hba1c 6.2 g/dL High 4.8 - 5.6 3 Est Avg Glucose 131 mg/dL High 60 - 110 Lipid Profile 05/23/2020 [facility] , Manufacturing Coordinator: Dr Ap [place] [facility] [phone] Cholesterol 193 mg/dL 131 - 200 Triglycerides 299 mg/dL High 30 - 150 HDL Cholesterol 79 mg/dL High 35 - 60 LDL (Calculated) 54 CALC 50 - 159 Basic Metabolic Panel 02/21/2020 [facility] Manufacturing Coordinator: [place] [address] [phone] Glucose 116 mg/dL High 74 - 99 4 BUN 16 mg/dL 7 - 18 Creatinine 1.0 mg/dL 0.6 - 1.3 Sodium 136 mEq/L 136 - 145 Potassium 4.5 mEq/L 3.5 - 5.1 Chloride 100 mEq/L 98 - 107 Carbon Dioxide 25 mEq/L 21 - 32 Calcium 8.8 mg/dL 8.5 - 10.1 GFR 54 mL/min Low >60 GFR >= 60 mL/min >60 5 Complete Blood Count 02/21/[address] [place] [employer] [facility] Manufacturing Coordinator: Dr Ap Montaño [place], [place] [id number] [phone] WBC 5.4 x10*3/UL 4.1 - 10.9 RBC 4.20 x10*6/UL 4.20 - 6.30 Hemoglobin 12.1 g/dL 12.0 - 18.0 Hematocrit 36.0 % Low 37.0 - 51.0 MCV 85.7 fL 80.0 - 97.0 MCH 28.9 pg 26.0 - 32.0 MCHC 33.7 g/dL 31.0 - 38.0 RDW 13.8 % High 11.6 - 13.7 PLT 247 x10*3/UL 140 - 440 MPV 8.1 FL 7.8 - 11.0 Lymph % 21.1 % 10.0 - 58.5 Mid % 6.8 % 1.7 - 9.3 Neut % 72.1 % 37.0 - 92.0 Lymph # 1.1 x10*3/UL 0.6 - 4.1 Mid # 0.4 x10*3/UL 0.1 - 0.6 Neut # 3.9 x10*3/UL 2.0 - 7.8 1 100-125 mg/dL PRE-DIABET ES/FASTING >126 mg/dL DIABETES/FASTING 2 CHRONIC KIDNEY DISEASE STAGI NG PER NKF STAGE I & II GFR >= 60 NORMAL TO MILDLY DECREASED STAGE III GFR 30-59 MODERATELY DECREASED STAGE IV GFR 15-29 SEVERELY DECREASED STAGE V GFR <15 VERY LITTLE GFR LEFT ESRD GFR <15 ON DIGITAL PHOTOGRAPHIC PRINTER 3 Lab Result Notes: Pre-Diabetes 5.7 - 6.4 % Diabetes = or > 6.5% 4 100-125 mg/dL PRE-DIABET ES/FASTING >126 mg/dL DIABETES/FASTING 5 CHRONIC KIDNEY DISEASE STAGI NG PER NKF STAGE I & II GFR >= 60 NORMAL TO MILDLY DECREASED STAGE III GFR 30-59 MODERATELY DECREASED STAGE IV GFR 15-29 SEVERELY DECREASED STAGE V GFR <15 VERY LITTLE GFR LEFT ESRD GFR <15 ON DIGITAL PHOTOGRAPHIC PRINTER Procedures Date Code Description Status 04/23/2020 [id number] Mammogram Completed 04/04/2019 [id number] Mammogram Completed 12/30/2017 [id number] Mammogram Completed 09/24/2016 [id number] Diabetic Retinal Eye Exam Comple valerie 06/16/2016 [id number] Mammogram Completed 03/28/2015 [id number] Bone Mineral Density Test Comple valerie 11/26/2013 [id number] Diabetic Retinal Eye Exam Comple [facility] 09/14/2013 [id number] Mammogram Completed 05/08/2013 [id number] Colonoscopy Completed 08/30/2012 [id number] Mammogram Completed 08/18/2012 [id number] Mammogram Completed 07/21/2011 [id number] Mammogram Completed 01/05/2011 [id number] Diabetic Retinal Eye Exam Comple [facility] 06/16/2010 [id number] Mammogram Completed 07/17/2008 [id number] Colonoscopy Completed 10/06/2005 [id number] Bone Mineral Density Test Comple [facility] Medical Devices Description No Information Available Encounters Type Date Location Provider Dx Diagnosis Office Visit 05/23/2020 1:40p [facility] Maria A Helton ne, CLINIC SCHEDULER I12.9 Hypertensive chronic kidney disease w st g 1-4/unsp chr kdny N18.3 Chronic kidney disease, stag e 3 (moderate) J44.9 Chronic obstructive pulmonar y disease, unspecified M48.062 Spinal stenosis, lumbar yusuf on with neurogenic claudication E66.09 Other obesity due to excess calories Z68.33 Body mass index (BMI) 33.0-3 3.9, adult R73.03 Prediabetes Office Visit 02/21/2020 1:40p [facility] Maria A [place] ne, CLINIC SCHEDULER I12.9 Hypertensive chronic kidney disease w st g 1-4/unsp chr kdny N18.3 Chronic kidney disease, stag e 3 (moderate) J44.9 Chronic obstructive pulmonar y disease, unspecified H90.3 Sensorineural hearing loss, bilateral R73.03 Prediabetes E66.09 Other obesity due to excess calories Z68.33 Body mass index (BMI) 33.0-3 3.9, adult Assessments Date Code Description Provider 05/23/2020 I12.9 Hypertensive chronic kidney disease with stage 1 through stage 4 chronic kidney disease, or unspecified chronic kidney disease Maria A Chen, [facility] 05/23/2020 N18.3 Chronic kidney disease, stage 3 (moderate) Maria A Chen, [facility] 05/23/2020 J44.9 Chronic obstructive pulmonary di sease, unspecified Maria A Chen, [facility] 05/23/2020 M48.062 Spinal stenosis, lumbar region w ith neurogenic claudication Maria A Chen, [facility] 05/23/2020 E66.09 Other obesity due to excess carmen ethan Maria A Chen, [facility] 05/23/2020 Z68.33 Body mass index (BMI) 33.0-33.9, adult Maria A Chen, [facility] 05/23/2020 R73.03 Prediabetes Maria A Chen, [facility] 02/21/2020 I12.9 Hypertensive chronic kidney disease with stage 1 through stage 4 chronic kidney disease, or unspecified chronic kidney disease Maria A Chen [facility] 02/21/2020 N18.3 Chronic kidney disease, stage 3 (moderate) Maria A Chen [facility] 02/21/2020 J44.9 Chronic obstructive pulmonary di sease, unspecified Maria A Chen, [facility] 02/21/2020 H90.3 Sensorineural hearing loss, bila teral Maria A Chen, [facility] 02/21/2020 R73.03 Prediabetes Maria A Chen, [facility] 02/21/2020 E66.09 Other obesity due to excess carmen ethan Maria A Chen, [facility] 02/21/2020 Z68.33 Body mass index (BMI) 33.0-33.9, adult JOHNY Healy Plan of Treatment Future Appointment(s):* 08/29/2020 1:40 pm - JOHNY Healy at [facility] 08/31/2019 - JOHNY Healy* I12.9 [...] EVALUATION OF HEMORRHOIDS Patient Not ified 08/01/2020 [facility] [address] [place] [address] [id number] [phone]
--- OUTSIDE RECORDS SUMMARY | 2020-09-29 14:15 | CCD | Continuity of Care Document ---
Author Author Nurse Marcelina Mckeon Organization Unknown Address [address] [facility] [address] [place] [address] Phone [phone] Care Team Providers Care Market Development Specialist Name Role Phone Maria A Carney AUTM [phone] Sree Ruano MD AUTM [phone] BretBertrand ortiz AUTM [phone] Keenan Rob MD AUTM [phone] Problems Active Problems Provider Date Chronic obstructive [...] Mouth Every Day 90tabs Maria A Chen [facility] 03/21 Sertraline HCL 100mg Tablets take one tablet by mouth every day 90tabs Luna Williamson DO 2017 Ropinirole HCL 0.25mg Tablets take 3 tablet by mouth at bedtime as directed 270tabs Maria A Alex, [facility] 10/07/2017 Ipratropium [place] 0.06% Solution 2 sprays 3-4 times daily as needed in each nostril 15ml Maria A Chen [facility] 12/10/2016 Aspirin Adult Low Strength 81mg Tablets DR 1 by mouth every day Maria A Chen [facility] 05/2016 Buspirone HCL 7.5mg Tablets Take One Tablet By Mouth Twice A Day 180tabs Colton Mejia 02/27/2014 Pravastatin Sodium 20mg Tablets Take One Tablet By Mouth In The Evening 90tabs Ap valdez MD 01/16/2014 Metamucil 48.57% Powder Maria A Chen [facility] 08/28/2010 Calcium 600+D [id number]-Lmef Table ts 1 po bid Maria A Chen [facility] 08/28/2010 Multi-Vitamin Tablets One Da laura Maria A Chen [facility] 08/28/2010 Metformin HCL 500mg Tablets take 1 [...] Flu Vaccine Inj ection Maria A Chen, [facility] 07/24/2019 Administration Of Flu Vaccine Inj ection Maria A Chen, [facility] 07/20/2018 Administration Of Flu Vaccine Inj ection Maria A Chen, [facility] 07/07/2017 Administration Of Flu Vaccine Inj ection Maria A Chen, [facility] 07/01/2015 Administration Of Flu Vaccine Inj ection Kwame Abdul D.O. 06/13 Administration Of Flu Vaccine Inj ection Maria A Chen, [facility] 06/30/2012 Administration Of Flu Vaccine Inj ection Maria A Chen, [facility] 06/04/2011 Administration Of Flu Vaccine Inj ection Maria A Chen, [facility] 06/29/2010 Administration Of Flu Vaccine Inj ection Maria A Chen, [facility] 06/05/2009 Administration Of Flu Vaccine Inj ection Maria A Chen, [facility] 06/13/2008 Administration Of Flu Vaccine Inj ection Maria A Chen, [facility] 08/15/2002 Immunizations CPT Code Status Date Vaccine Lot # 79232 Given 07/11/2020 Influenza Vaccin e Quadrivalent Preser/Antibiotic Free Im Use [id number] 47669 Given 07/24/2019 Influenza Vaccin e Quadrivalent Preser/Antibiotic Free Im Use [id number] 51843 Given 07/20/2018 Influenza Virus Vaccine, Quadrivalent (Cciiv4), Derived From 0 Given 07/07/2017 Influenza Vaccin e Quadrivalent Preser/Antibiotic Free Im Use [id number] Q2037 Given 07/01/2015 Fluvirin Virus Vaccine 98580 01 33761 Given 09/26/2014 Prevnar 13 [id number] Q2037 Given 06/13/2014 Fluvirin Virus Vaccine 27067 21 Q2037 Given 06/30/2012 Fluvirin Virus Vaccine 75375 01 Q2037 Given 06/04/2011 Fluvirin Virus Vaccine 15459 Given 06/29/2010 Influenza Virus Vaccine 70625 Given 06/05/2009 Influenza Virus Vaccine 99542 Given 06/13/2008 Influenza Virus Vaccine 37005 Given 05/27/2008 Pneumovax 23 06790 Given 05/27/2008 Pneumovax 23 42220 Given 08/15/2002 Influenza Virus Vaccine Vital Signs [...] H/L Range Note Basic Metabolic Panel 05/23/2020 [facility] Stave Planer Tender: [place] [address] [phone] Glucose 91 mg/dL 74 - 99 1 [...] 58 mL/min Low >60 2 A1c 05/23/2020 [facility] Stave Planer Tender: [place] [address] [phone] Hba1c 6.2 g/dL High 4.8 - 5.6 3 Est Avg Glucose 131 mg/dL High 60 - 110 Lipid Profile 05/23/2020 [facility] Stave Planer Tender: [place] [address] [phone] Cholesterol 193 mg/dL 131 - 200 Triglycerides 299 mg/dL High 30 - 150 HDL Cholesterol 79 mg/dL High 35 - 60 LDL (Calculated) 54 CALC 50 - 159 Basic Metabolic Panel 02/21/2020 [facility] Stave Planer Tender: [place] [address] [phone] Glucose 116 mg/dL High 74 - 99 [...] mL/min >60 5 Complete Blood Count 02/21/2020 [facility] Stave Planer Tender: [place] [address] [phone] WBC 5.4 x10*3/UL 4.1 - 10.9 RBC [...] LITTLE GFR LEFT ESRD GFR <15 ON PERFORATING MACHINE OPERATOR 3 Lab Result Notes: Pre-Diabetes [...] LITTLE GFR LEFT ESRD GFR <15 ON PERFORATING MACHINE OPERATOR Procedures Date Code Description Status 04/23/2020 [id number] Mammogram Completed 04/04/2019 [id number] Mammogram Completed 12/30/2017 [id number] Mammogram Completed 09/24/2016 [id number] Diabetic Retinal Eye Exam Comple valerie 06/16/2016 [id number] Mammogram Completed 03/28/2015 [id number] Bone Mineral Density Test Comple valerie 11/26/2013 [id number] Diabetic Retinal Eye Exam Comple valerie 09/14/2013 [id number] Mammogram Completed 05/08/2013 [id number] Colonoscopy Completed 08/30/2012 [id number] Mammogram Completed 08/18/2012 [id number] Mammogram Completed 07/21/2011 [id number] Mammogram Completed 01/05/2011 [id number] Diabetic Retinal Eye Exam Comple valerie 06/16/2010 [id number] Mammogram Completed 07/17/2008 [id number] Colonoscopy Completed 10/06/2005 [id number] Bone Mineral Density Test Comple [facility] Medical Devices Description No Information Available Encounters Type Date Location Provider Dx Diagnosis Office Visit 05/23/2020 1:40p [facility] Maria A Alex, [employer] I12.9 Hypertensive chronic kidney disease w st g 1-4/unsp chr kdny N18.3 Chronic kidney disease, stag e 3 (moderate) J44.9 Chronic obstructive pulmonar y disease, unspecified M48.062 Spinal stenosis, lumbar yusuf on with neurogenic claudication E66.09 Other obesity due to excess calories Z68.33 Body mass index (BMI) 33.0-3 3.9, adult R73.03 Prediabetes Office Visit 02/21/2020 1:40p [facility] Maria A Alex, [employer] I12.9 Hypertensive chronic kidney disease w st g 1-4/unsp chr kdny N18.3 Chronic kidney disease, stag e 3 (moderate) J44.9 Chronic obstructive pulmonar y disease, unspecified H90.3 Sensorineural hearing loss, bilateral R73.03 Prediabetes E66.09 Other obesity due to excess calories Z68.33 Body mass index (BMI) 33.0-3 3.9, adult Assessments Date Code Description Provider 07/11/2020 Z23 Encounter for immunization Zee Montaño MD 07/11/2020 Z23 Encounter for immunization Nurse Schedule 05/23/2020 I12.9 Hypertensive chronic kidney disease with stage 1 through stage 4 chronic kidney disease, or unspecified chronic kidney disease Maria A Chen, [facility] 05/23/2020 N18.3 Chronic kidney disease, stage 3 (moderate) Maria A Chen, [facility] 05/23/2020 J44.9 Chronic obstructive pulmonary di sease, unspecified Maria A Chen, [facility] 05/23/2020 M48.062 Spinal stenosis, lumbar region w ith neurogenic claudication Maria A Chen [facility] 05/23/2020 E66.09 Other obesity due to excess carmen ethan Maria A Chen, [facility] 05/23/2020 Z68.33 Body mass index (BMI) 33.0-33.9, adult Maria A Chen, [facility] 05/23/2020 R73.03 Prediabetes Maria A Chen, [facility] 02/21/2020 I12.9 Hypertensive chronic kidney disease with stage 1 through stage 4 chronic kidney disease, or unspecified chronic kidney disease Maria A Chen [facility] 02/21/2020 N18.3 Chronic kidney disease, stage 3 (moderate) Maria A Chen, [facility] 02/21/2020 J44.9 Chronic obstructive pulmonary di sease, unspecified Maria A Chen, [facility] 02/21/2020 H90.3 Sensorineural hearing loss, bila teral Maria A Chen [facility] 02/21/2020 R73.03 Prediabetes Maria A Chen, [facility] 02/21/2020 E66.09 Other obesity due to excess carmen ethan Maria A Chen [facility] 02/21/2020 Z68.33 Body mass index (BMI) 33.0-33.9, adult JOHNY Healy Plan of Treatment Future Appointment(s):* 08/29/2020 1:40 pm - JOHNY Healy at [facility] 08/31/2019 - JOHNY Healy* I12.9 [...] EVALUATION OF HEMORRHOIDS Patient Not ified 08/01/2020 [facility] [address] [place] [address] [phone]
--- OUTSIDE RECORDS SUMMARY | 2020-09-29 14:16 | CCD ---
Author Author [facility] Organization [facility] Address Unknown Phone Unavailable Care Team Providers Care Salvage Worker Name Role Phone COLIN SHERIDAN MD Unavailable Unavailable COLIN SHERIDAN MD Unavailable Unavailable COLIN SHERIDAN MD Unavailable Unavailable COLIN SHERIDAN MD Unavailable Unavailable COLIN SHERIDAN MD Unavailable Unavailable COLIN SHERIDAN MD Unavailable Unavailable COLIN SHERIDAN MD Unavailable Unavailable COLIN SHERIDAN MD Unavailable Unavailable COLIN SHERIDAN MD Unavailable Unavailable COLIN SHERIDAN MD Unavailable Unavailable COLIN SHERIDAN MD Unavailable Unavailable COLIN SHERIDAN MD Unavailable Unavailable COLIN SHERIDAN MD Unavailable Unavailable COLIN SHERIDAN MD Unavailable Unavailable COLIN SHERIDAN MD Unavailable Unavailable COLIN SHERIDAN MD Unavailable Unavailable COLIN SHERIDAN MD Unavailable Unavailable COLIN SHERIDAN MD Unavailable Unavailable COLIN SHERIDAN MD Unavailable Unavailable COLIN SHERIDAN MD Unavailable Unavailable COLIN SHERIDAN MD Unavailable Unavailable COLIN SHERIDAN MD Unavailable Unavailable COLIN SHERIDAN MD Unavailable Unavailable COLIN SHERIDAN MD Unavailable Unavailable COLIN SHERIDAN MD Unavailable Unavailable COLIN SHERIDAN MD Unavailable Unavailable COLIN SHERIDAN MD Unavailable Unavailable COLIN SHERIDAN MD Unavailable Unavailable COLIN SHERIDAN MD Unavailable Unavailable COLIN SHERIDAN MD Unavailable Unavailable COLIN SHERIDAN MD Unavailable Unavailable COLIN SHERIDAN MD Unavailable Unavailable COLIN SHERIDAN MD Unavailable Unavailable COLIN SHERIDAN MD Unavailable Unavailable COLIN SHERIDAN MD Unavailable Unavailable COLIN SHERIDAN MD Unavailable Unavailable COLIN SHERIDAN MD Unavailable Unavailable COLIN SHERIDAN MD Unavailable Unavailable COLIN SHERIDAN MD Unavailable Unavailable COLIN SHERIDAN MD Unavailable Unavailable COLIN SHERIDAN MD Unavailable Unavailable COLIN SHERIDAN MD Unavailable Unavailable COLIN SHERIDAN MD Unavailable Unavailable COLIN SHERIDAN MD Unavailable Unavailable COLIN SHERIDAN MD Unavailable Unavailable COLIN SHERIDAN MD Unavailable Unavailable COLIN SHERIDAN MD Unavailable Unavailable COLIN SHERIDAN MD Unavailable Unavailable COLIN SHERIDAN MD Unavailable Unavailable COLIN SHERIDAN MD Unavailable Unavailable COLIN SHERIDAN MD Unavailable Unavailable COLIN SHERIDAN MD Unavailable Unavailable COLIN SHERIDAN MD Unavailable Unavailable MCELHERAN, CLARA PA Unavailable Unavailable MCELHERAN, CLARA PA Unavailable Unavailable MCELHERAN, CLARA PA Unavailable Unavailable MCELHERAN, CLARA PA Unavailable Unavailable MCELHERAN, CLARA PA Unavailable Unavailable MCELHERAN, CLARA PA Unavailable Unavailable MCELHERAN, CLARA PA Unavailable Unavailable MCELHERAN, CLARA PA Unavailable Unavailable MCELHERAN, CLARA PA Unavailable Unavailable MCELHERAN, CLARA PA Unavailable Unavailable MCELHERAN, CLARA PA Unavailable Unavailable MCELHERAN, CLARA PA Unavailable Unavailable MCELHERAN, CLARA PA Unavailable Unavailable MCELHERAN, CLARA PA Unavailable Unavailable MCELHERAN, CLARA PA Unavailable Unavailable MCELHERAN, CLARA PA Unavailable Unavailable MCELHERAN, CLARA PA Unavailable Unavailable MCELHERAN, CLARA PA Unavailable Unavailable MCELHERAN, CLARA PA Unavailable Unavailable MCELHERAN, CLARA PA Unavailable Unavailable MCELHERAN, CLARA PA Unavailable Unavailable MCELHERAN, CLARA PA Unavailable Unavailable MCELHERAN, CLARA PA Unavailable Unavailable MCELHERAN, CLARA PA Unavailable Unavailable MCELHERAN, CLARA PA Unavailable Unavailable MCELAN, CLARA PA Unavailable Unavailable MCELAN, CLARA PA Unavailable Unavailable MCELAN, CLARA PA Unavailable Unavailable SELVIN SNOW [id number] Unavailable Unavailable NAJMA, P GLENN MD Unavailable Unavailable NAJMA, P GLENN MD Unavailable Unavailable NAJMA, P GLENN MD Unavailable Unavailable NAJMA, P GLENN MD Unavailable Unavailable NAJMA, P GLENN MD Unavailable Unavailable NAJMA, P GLENN MD Unavailable Unavailable NAJMA, P GLENN MD Unavailable Unavailable NAJMA, P GLENN MD Unavailable Unavailable NAJMA, P GLENN MD Unavailable Unavailable NAJMA, P GLENN MD Unavailable Unavailable NAJMA, P GLENN MD Unavailable Unavailable NAJMA, P GLENN MD Unavailable Unavailable NAJMA, P GLENN MD Unavailable Unavailable NAJMA, P GLENN MD Unavailable Unavailable NAJMA, P GLENN MD Unavailable Unavailable NAJMA, P GLENN MD Unavailable Unavailable NAJMA, P GLENN MD Unavailable Unavailable NAJMA, P GLENN MD Unavailable Unavailable NAJMA, P GLENN MD Unavailable Unavailable NAJMA, P GLENN MD Unavailable Unavailable NAJMA, P GLENN MD Unavailable Unavailable NAJMA, P GLENN MD Unavailable Unavailable NAJMA, P GLENN MD Unavailable Unavailable NAJMA, P GLENN MD Unavailable Unavailable NAJMA, P GLENN MD Unavailable Unavailable NAJMA, P GLENN MD Unavailable Unavailable NAJMA, P GLENN MD Unavailable Unavailable NAJMA, P GLENN MD Unavailable Unavailable NAJMA, P GLENN MD Unavailable Unavailable NAJMA, P GLENN MD Unavailable Unavailable NAJMA, P GLENN MD Unavailable Unavailable NAJMA, P GLENN MD Unavailable Unavailable NAJMA, P GLENN MD Unavailable Unavailable NAJMA, P GLENN MD Unavailable Unavailable NAJMA, P GLENN MD Unavailable Unavailable NAJMA, P GELNN MD Unavailable Unavailable NAJMA, P GLENN MD Unavailable Unavailable NAJMA, P GLENN MD Unavailable Unavailable NAJMA, P GLENN MD Unavailable Unavailable NAJMA, P GLENN MD Unavailable Unavailable NAJMA, P GLENN MD Unavailable Unavailable NAJMA, P GLENN MD Unavailable Unavailable NAJMA, P GLENN MD Unavailable Unavailable NAJMA, P GLENN MD Unavailable Unavailable NAJMA, P GELNN MD Unavailable Unavailable NAJMA, P GLENN MD Unavailable Unavailable NAJMA, P GLENN MD Unavailable Unavailable NAJMA, P GLENN MD Unavailable Unavailable NAJMA, P GLENN MD Unavailable Unavailable NAJMA, P GLENN MD Unavailable Unavailable NAJMA, P GLENN MD Unavailable Unavailable NAJMA, P GLENN MD Unavailable Unavailable NAJMA, P GLENN MD Unavailable Unavailable NAJMA, P GLENN MD Unavailable Unavailable NAJMA, P GLENN MD Unavailable Unavailable NAJMA, P GLENN MD Unavailable Unavailable NAJMA, P GLENN MD Unavailable Unavailable NAJMA, P GLENN MD Unavailable Unavailable NAJMA, P GLENN MD Unavailable Unavailable NAJMA, P GLENN MD Unavailable Unavailable NAJMA, P GLENN MD Unavailable Unavailable NAJMA, P GLENN MD Unavailable Unavailable NAJMA, P GLENN MD Unavailable Unavailable NAJMA, P GLENN MD Unavailable Unavailable NAJMA, P GLENN MD Unavailable Unavailable NAJMA, P GLENN MD Unavailable Unavailable NAJMA, P GLENN MD Unavailable Unavailable NAJMA, P GLENN MD Unavailable Unavailable NAJMA, P GLENN MD Unavailable Unavailable NAJMA, P GLENN MD Unavailable Unavailable NAJMA, P GLENN MD Unavailable Unavailable NAJMA, P GLENN MD Unavailable Unavailable NAJMA, P GLENN MD Unavailable Unavailable NAJMA, P GLENN MD Unavailable Unavailable NAJMA, P GLENN MD Unavailable Unavailable NAJMA, P GLENN MD Unavailable Unavailable NAJMA, P GLENN MD Unavailable Unavailable NAJMA, P GLENN MD Unavailable Unavailable NAJMA, P GLENN MD Unavailable Unavailable NAJMA, P GLENN MD Unavailable Unavailable NAJMA, P GLENN MD Unavailable Unavailable NAJMA, P GLENN MD Unavailable Unavailable NAJMA, P GLENN MD Unavailable Unavailable NAJMA, P GLENN MD Unavailable Unavailable NAJMA, P GLENN MD Unavailable Unavailable NAJMA, P GLENN MD Unavailable Unavailable NAJMA, P GLENN MD Unavailable Unavailable NAJMA, P GLENN MD Unavailable Unavailable NAJMA, P GLENN MD Unavailable Unavailable NAJMA, P GLENN MD Unavailable Unavailable NAJMA, P GLENN MD Unavailable Unavailable NAJMA, P GLENN MD Unavailable Unavailable NAJMA, P GLENN MD Unavailable Unavailable NAJMA, P GLENN MD Unavailable Unavailable Unknown, Physician Unavailable Unavailable LePine, M Maria A COMMUNITY CASE MANAGER Unavailable Unavailable LePine, M Maria A COMMUNITY CASE MANAGER Unavailable Unavailable LePine, M Maria A COMMUNITY CASE MANAGER Unavailable Unavailable LePine, M Maria A COMMUNITY CASE MANAGER Unavailable Unavailable LePine, M Maria A COMMUNITY CASE MANAGER Unavailable Unavailable LePine, M Maria A COMMUNITY CASE MANAGER Unavailable Unavailable LePine, M Maria A COMMUNITY CASE MANAGER Unavailable Unavailable LePine, M Maria A COMMUNITY CASE MANAGER Unavailable Unavailable LePine, M Maria A COMMUNITY CASE MANAGER Unavailable Unavailable LePine, M Maria A COMMUNITY CASE MANAGER Unavailable Unavailable LePine, M Maria A COMMUNITY CASE MANAGER Unavailable Unavailable LePine, M Maria A COMMUNITY CASE MANAGER Unavailable Unavailable LePine, M Maria A COMMUNITY CASE MANAGER Unavailable Unavailable LePine, M Maria A COMMUNITY CASE MANAGER Unavailable Unavailable LePine, M Maria A COMMUNITY CASE MANAGER Unavailable Unavailable LePine, M Maria A COMMUNITY CASE MANAGER Unavailable Unavailable LePine, M Maria A COMMUNITY CASE MANAGER Unavailable Unavailable LePine, M Maria A COMMUNITY CASE MANAGER Unavailable Unavailable LePine, M Maria A COMMUNITY CASE MANAGER Unavailable Unavailable LePine, M Maria A COMMUNITY CASE MANAGER Unavailable Unavailable LePine, M Maria A COMMUNITY CASE MANAGER Unavailable Unavailable LePine, M Maria A COMMUNITY CASE MANAGER Unavailable Unavailable LePine, M Maria A COMMUNITY CASE MANAGER Unavailable Unavailable LePine, M Maria A COMMUNITY CASE MANAGER Unavailable Unavailable LePine, M Maria A COMMUNITY CASE MANAGER Unavailable Unavailable LePine, M Maria A COMMUNITY CASE MANAGER Unavailable Unavailable LePine, M Maria A COMMUNITY CASE MANAGER Unavailable Unavailable LePine, M Maria A COMMUNITY CASE MANAGER Unavailable Unavailable LePine, M Maria A COMMUNITY CASE MANAGER Unavailable Unavailable LePine, M Maria A COMMUNITY CASE MANAGER Unavailable Unavailable LePine, M Maria A COMMUNITY CASE MANAGER Unavailable Unavailable LePine, M Maria A COMMUNITY CASE MANAGER Unavailable Unavailable LePine, M Maria A COMMUNITY CASE MANAGER Unavailable Unavailable LePine, M Maria A COMMUNITY CASE MANAGER Unavailable Unavailable LePine, M Maria A COMMUNITY CASE MANAGER Unavailable Unavailable LePine, M Maria A COMMUNITY CASE MANAGER Unavailable Unavailable LePine, M Maria A COMMUNITY CASE MANAGER Unavailable Unavailable LePine, M Maria A COMMUNITY CASE MANAGER Unavailable Unavailable LePine, M Maria A COMMUNITY CASE MANAGER Unavailable Unavailable LePine, M Maria A COMMUNITY CASE MANAGER Unavailable Unavailable LePine, M Maria A COMMUNITY CASE MANAGER Unavailable Unavailable LePine, M Maria A COMMUNITY CASE MANAGER Unavailable Unavailable LePine, M Maria A COMMUNITY CASE MANAGER Unavailable Unavailable LePine, M Maria A COMMUNITY CASE MANAGER Unavailable Unavailable LePine, M Maria A COMMUNITY CASE MANAGER Unavailable Unavailable LePine, M Maria A COMMUNITY CASE MANAGER Unavailable Unavailable LePine, M Maria A COMMUNITY CASE MANAGER Unavailable Unavailable LePine, M Maria A COMMUNITY CASE MANAGER Unavailable Unavailable LePine, M Maria A COMMUNITY CASE MANAGER Unavailable Unavailable LePine, M Maria A COMMUNITY CASE MANAGER Unavailable Unavailable LePine, M Maria A COMMUNITY CASE MANAGER Unavailable Unavailable LePine, M Maria A COMMUNITY CASE MANAGER Unavailable Unavailable LePine, M Maria A COMMUNITY CASE MANAGER Unavailable Unavailable LePine, M Maria A COMMUNITY CASE MANAGER Unavailable Unavailable ALLAMPALLVicky BRENNAN . Unavailable Unavailable PIRANAHOLLY DYSONARALUANA Unavailable Unavailable Varma, Beverley CHIEF CLINICAL OFFICER Unavailable Unavailable Varma, Beverley CHIEF CLINICAL OFFICER Unavailable Unavailable Varma, Beverley CHIEF CLINICAL OFFICER Unavailable Unavailable Varma, Beverley CHIEF CLINICAL OFFICER Unavailable Unavailable Varma, Beverley CHIEF CLINICAL OFFICER Unavailable Unavailable Varma, Beverley CHIEF CLINICAL OFFICER Unavailable Unavailable Varma, Beverley CHIEF CLINICAL OFFICER Unavailable Unavailable Varma, Beevrley CHIEF CLINICAL OFFICER Unavailable Unavailable Varma, Beverley CHIEF CLINICAL OFFICER Unavailable Unavailable Varma, Beverley CHIEF CLINICAL OFFICER Unavailable Unavailable Varma, Beverley CHIEF CLINICAL OFFICER Unavailable Unavailable Kylah SUTTON MD Unavailable Unavailable Kylah SUTTON MD Unavailable Unavailable Kylah SUTTON MD Unavailable Unavailable Cayward, Jessie PA Unavailable Unavailable Cayward, Jessie PA Unavailable Unavailable Cayward, Jessie PA Unavailable Unavailable Cayward, Jessie PA Unavailable Unavailable Cayward, Jessie PA Unavailable Unavailable Cayward, Jessie PA Unavailable Unavailable Cayward, Jessie PA Unavailable Unavailable Cayward, Jessie PA Unavailable Unavailable Cayward, Jessie PA Unavailable Unavailable Cayward, Jessie PA Unavailable Unavailable Cayward, Jessie PA Unavailable Unavailable Cayward, Jessie PA Unavailable Unavailable Cayward, Jessie PA Unavailable Unavailable Cayward, Jessie PA Unavailable Unavailable Cayward, Jessie PA Unavailable Unavailable Cayward, Jessie PA Unavailable Unavailable Cayward, Jessie PA Unavailable Unavailable Cayward, Jessie PA Unavailable Unavailable Cayward, Jessie PA Unavailable Unavailable Cayward, Jessie PA Unavailable Unavailable Cayward, Jessie PA Unavailable Unavailable Cayward, Jessie PA Unavailable Unavailable Cayward, Jessie PA Unavailable Unavailable Cayward, Jessie PA Unavailable Unavailable Cayward, Jessie PA Unavailable Unavailable Cayward, Jessie PA Unavailable Unavailable Cayward, Jessie PA Unavailable Unavailable Cayward, Jessie PA Unavailable Unavailable Cayward, Jessie PA Unavailable Unavailable Cayward, Jessie PA Unavailable Unavailable Cayward, Jessie PA Unavailable Unavailable Cayward, Jessie PA Unavailable Unavailable Cayward, Jessie PA Unavailable Unavailable Cayward, Jessie PA Unavailable Unavailable Cayward, Jessie PA Unavailable Unavailable Cayward, Jessie PA Unavailable Unavailable Cayward, Jessie PA Unavailable Unavailable Cayward, Jessie PA Unavailable Unavailable Cayward, Jessie PA Unavailable Unavailable Cayward, Jessie PA Unavailable Unavailable Ivan Hathaway MD Unavailable Unavailable Ivan Hathaway MD Unavailable Unavailable Ivan Hathaway MD Unavailable Unavailable Ivan Hathaway MD Unavailable Unavailable Ivan Hathaway MD Unavailable Unavailable Ivan Hathaway MD Unavailable Unavailable Ivan Hathaway MD Unavailable Unavailable Ivan Hathaway MD Unavailable Unavailable Ivan Hathaway MD Unavailable Unavailable Ivan Hathaway MD Unavailable Unavailable Ivan Hathaway MD Unavailable Unavailable Ivan Hathaway MD Unavailable Unavailable Ivan Hathaway MD Unavailable Unavailable Ivan Hathaway MD Unavailable Unavailable Ivan Hathaway MD Unavailable Unavailable Ivan Hathaway MD Unavailable Unavailable Ivan Hathaway MD Unavailable Unavailable Ivan Hathaway MD Unavailable Unavailable Ivan Hathaway MD Unavailable Unavailable Ivan Hathaway MD Unavailable Unavailable Ivan Hathaway MD Unavailable Unavailable Ivan Hathaway MD Unavailable Unavailable Ivan Hathaway MD Unavailable Unavailable Ivan Hathaway MD Unavailable Unavailable Rivas W Eliza Unavailable Unavailable Ivan Hathaway MD Unavailable Unavailable Ivan Hathaway MD Unavailable Unavailable Ivan Hathaway MD Unavailable Unavailable Ivan Hathaway MD Unavailable Unavailable Ivan Hathaway MD Unavailable Unavailable Ivan Hathaway MD Unavailable Unavailable Ivan Hathaway MD Unavailable Unavailable Ivan Hathaway MD Unavailable Unavailable Ivan Hathaway MD Unavailable Unavailable Ivan Hathawaysa Unavailable Unavailable RivasIvan steinbergsa Unavailable Unavailable Rivas, W Eliza BANGURA Unavailable Unavailable Rivas, W Eliza BAGNURA Unavailable Unavailable Rivas, W Eliza Unavailable Unavailable Rivas, W Eliza Unavailable Unavailable Rivas, W Eliza MD Unavailable Unavailable Rivas, W Eliza MD Unavailable Unavailable Rivas, W Eliza Unavailable Unavailable Rivas, W Eliza Unavailable Unavailable Rivas, W Eliza MD Unavailable Unavailable Rivas, W Eliza MD Unavailable Unavailable Rivas, W Eliza MD Unavailable Unavailable Rivas, W Eliza MD Unavailable Unavailable Rivas, W Eliza MD Unavailable Unavailable Rivas, W Eliza MD Unavailable Unavailable Rivas, W Eliza MD Unavailable Unavailable Rivas, W Eliza MD Unavailable Unavailable Rivas, W Eliza MD Unavailable Unavailable Rivas, W Eliza Unavailable Unavailable Rivas, W Eliza MD Unavailable Unavailable Rivas, W Eliza Unavailable Unavailable Rivas, W Eliza Unavailable Unavailable Rivas, W Eliza Unavailable Unavailable Rivas, W Eliza Unavailable Unavailable Rivas, W Eliza BANGURA Unavailable Unavailable Rivas, W Eliza BANGURA Unavailable Unavailable Rivas, W Eliza BANGURA Unavailable Unavailable Rivas, W Eliza BANGURA Unavailable Unavailable Rivas, W Eliza BANGURA Unavailable Unavailable Rivas W Eliza BANGURA Unavailable Unavailable Benny Park MD Unavailable Unavailable Benny Park MD Unavailable Unavailable Benny Park MD Unavailable Unavailable Benny Park MD Unavailable Unavailable Benny Park MD Unavailable Unavailable Benny Park MD Unavailable Unavailable Benny Park MD Unavailable Unavailable Benny Park MD Unavailable Unavailable Benny Park MD Unavailable Unavailable Benny Park MD Unavailable Unavailable Benny Park MD Unavailable Unavailable Benny Park MD Unavailable Unavailable Benny Park MD Unavailable Unavailable Benny Park MD Unavailable Unavailable Benny Park MD Unavailable Unavailable Benny Park MD Unavailable Unavailable Benny Park MD Unavailable Unavailable Benny Park MD Unavailable Unavailable Benny Park MD Unavailable Unavailable Benny Park MD Unavailable Unavailable Benny Park MD Unavailable Unavailable Benny Park MD Unavailable Unavailable Benny Park MD Unavailable Unavailable VanBenny andres MD Unavailable Unavailable Vaneenenaam, D Peter MD Unavailable Unavailable Benny Park MD Unavailable Unavailable Benny Park MD Unavailable Unavailable Benny Park MD Unavailable Unavailable Benny Park MD Unavailable Unavailable Vivian, Benny Stewart MD Unavailable Unavailable Vivian, Benny Stewart MD Unavailable Unavailable Vivian, Benny Stewart MD Unavailable Unavailable Vivian, Benny Stewart MD Unavailable Unavailable Vivian, Benny Stewart MD Unavailable Unavailable Vivian, Benny Stewart MD Unavailable Unavailable Vivian, Benny Stewart MD Unavailable Unavailable Vivian, Benny Stewart MD Unavailable Unavailable Vivian, Benny Stewart MD Unavailable Unavailable Vivian, Benny Stewart MD Unavailable Unavailable Vivian, Benny Stewart MD Unavailable Unavailable Vivian, Benny Stewart MD Unavailable Unavailable Vivian, Benny Stewart MD Unavailable Unavailable Vivian, Benny Stewart MD Unavailable Unavailable Benny Park MD Unavailable Unavailable LePine, M Maria A COMMUNITY CASE MANAGER Unavailable Unavailable LePine, M Maria A COMMUNITY CASE MANAGER Unavailable Unavailable LePine, M Maria A COMMUNITY CASE MANAGER Unavailable Unavailable LePine, M Maria A COMMUNITY CASE MANAGER Unavailable Unavailable LePine, M Maria A COMMUNITY CASE MANAGER Unavailable Unavailable LePine, M Maria A COMMUNITY CASE MANAGER Unavailable Unavailable LePine, M Maria A COMMUNITY CASE MANAGER Unavailable Unavailable LePine, M Maria A COMMUNITY CASE MANAGER Unavailable Unavailable LePine, M Maria A COMMUNITY CASE MANAGER Unavailable Unavailable LePine, M Maria A COMMUNITY CASE MANAGER Unavailable Unavailable LePine, M Maria A COMMUNITY CASE MANAGER Unavailable Unavailable LePine, M Maria A COMMUNITY CASE MANAGER Unavailable Unavailable LePine, M Maria A COMMUNITY CASE MANAGER Unavailable Unavailable LePine, M Maria A COMMUNITY CASE MANAGER Unavailable Unavailable LePine, M Maria A COMMUNITY CASE MANAGER Unavailable Unavailable LePine, M Maria A COMMUNITY CASE MANAGER Unavailable Unavailable LePine, M Maria A COMMUNITY CASE MANAGER Unavailable Unavailable LePine, M Maria A COMMUNITY CASE MANAGER Unavailable Unavailable LePine, M Maria A COMMUNITY CASE MANAGER Unavailable Unavailable LePine, M Maria A COMMUNITY CASE MANAGER Unavailable Unavailable LePine, M Maria A COMMUNITY CASE MANAGER Unavailable Unavailable LePine, M Maria A COMMUNITY CASE MANAGER Unavailable Unavailable LePine, M Maria A COMMUNITY CASE MANAGER Unavailable Unavailable LePine, M Maria A COMMUNITY CASE MANAGER Unavailable Unavailable LePine, M Maria A COMMUNITY CASE MANAGER Unavailable Unavailable LePine, M Maria A COMMUNITY CASE MANAGER Unavailable Unavailable LePine, M Maria A COMMUNITY CASE MANAGER Unavailable Unavailable LePine, M Maria A COMMUNITY CASE MANAGER Unavailable Unavailable LePine, M Maria A COMMUNITY CASE MANAGER Unavailable Unavailable LePine, M Maria A COMMUNITY CASE MANAGER Unavailable Unavailable LePine, M Maria A COMMUNITY CASE MANAGER Unavailable Unavailable LePine, M Maria A COMMUNITY CASE MANAGER Unavailable Unavailable LePine, M Maria A COMMUNITY CASE MANAGER Unavailable Unavailable LePine, M Maria A COMMUNITY CASE MANAGER Unavailable Unavailable LePine, M Maria A COMMUNITY CASE MANAGER Unavailable Unavailable LePine, M Maria A COMMUNITY CASE MANAGER Unavailable Unavailable LePine, M Maria A COMMUNITY CASE MANAGER Unavailable Unavailable LePine, M Maria A COMMUNITY CASE MANAGER Unavailable Unavailable LePine, M Maria A COMMUNITY CASE MANAGER Unavailable Unavailable LePine, M Maria A COMMUNITY CASE MANAGER Unavailable Unavailable LePine, M Maria A COMMUNITY CASE MANAGER Unavailable Unavailable LePine, M Maria A COMMUNITY CASE MANAGER Unavailable Unavailable LePine, M Maria A COMMUNITY CASE MANAGER Unavailable Unavailable LePine, M Maria A COMMUNITY CASE MANAGER Unavailable Unavailable LePine, M Maria A COMMUNITY CASE MANAGER Unavailable Unavailable LePine, M Maria A COMMUNITY CASE MANAGER Unavailable Unavailable LePine, M Maria A COMMUNITY CASE MANAGER Unavailable Unavailable LePine, M Maria A COMMUNITY CASE MANAGER Unavailable Unavailable LePine, M Maria A COMMUNITY CASE MANAGER Unavailable Unavailable LePine, M Maria A COMMUNITY CASE MANAGER Unavailable Unavailable LePine, M Maria A COMMUNITY CASE MANAGER Unavailable Unavailable LePine, M Maria A COMMUNITY CASE MANAGER Unavailable Unavailable LePine, M Maria A COMMUNITY CASE MANAGER Unavailable Unavailable LePine, M Maria A COMMUNITY CASE MANAGER Unavailable Unavailable Reyes, Yaquelin Nora PA Unavailable Unavailable Reyes, Yaquelin Nora PA Unavailable Unavailable Reyes, Yaquelin Nora PA Unavailable Unavailable Reyes, Yaquelin Nora PA Unavailable Unavailable Reyes, Yaquelin Nora PA Unavailable Unavailable Reyes, Yaquelin Nora PA Unavailable Unavailable Reyes, Yaquelin Nora PA Unavailable Unavailable Reyes, Yaquelin Nora PA Unavailable Unavailable Reyes, Yaquelin Nora PA Unavailable Unavailable Reyes, Yaquelin Nora PA Unavailable Unavailable MEHIC, FEHID CHIEF CLINICAL OFFICER Unavailable Unavailable MEHIC, FEHID CHIEF CLINICAL OFFICER Unavailable Unavailable MEHIC, FEHID CHIEF CLINICAL OFFICER Unavailable Unavailable MEHIC, FEHID CHIEF CLINICAL OFFICER Unavailable Unavailable MEHIC, FEHID CHIEF CLINICAL OFFICER Unavailable Unavailable MEHIC, FEHID CHIEF CLINICAL OFFICER Unavailable Unavailable MEHIC, FEHID CHIEF CLINICAL OFFICER Unavailable Unavailable MEHIC, FEHID CHIEF CLINICAL OFFICER Unavailable Unavailable MEHIC, FEHID CHIEF CLINICAL OFFICER Unavailable Unavailable MEHIC, FEHID CHIEF CLINICAL OFFICER Unavailable Unavailable MEHIC, FEHID CHIEF CLINICAL OFFICER Unavailable Unavailable MEHIC, FEHID CHIEF CLINICAL OFFICER Unavailable Unavailable MEHIC, FEHID CHIEF CLINICAL OFFICER Unavailable Unavailable MEHIC, FEHID CHIEF CLINICAL OFFICER Unavailable Unavailable MEHIC, FEHID CHIEF CLINICAL OFFICER Unavailable Unavailable MEHIC, FEHID CHIEF CLINICAL OFFICER Unavailable Unavailable MEHIC, FEHID CHIEF CLINICAL OFFICER Unavailable Unavailable MEHIC, FEHID CHIEF CLINICAL OFFICER Unavailable Unavailable MEHIC, FEHID CHIEF CLINICAL OFFICER Unavailable Unavailable MEHIC, FEHID CHIEF CLINICAL OFFICER Unavailable Unavailable MEHIC, FEHID CHIEF CLINICAL OFFICER Unavailable Unavailable Re-disclosure Warning The records that you are about to access may contain information from federally-assisted alcohol or drug abuse programs. If such information is present, then the following federally mandated warning applies: This information has been disclosed to you from records protected by federal confidentiality rules (42 CFR part 2). The federal rules prohibit you from making any further disclosure of this information unless further disclosure is expressly permitted by the written consent of the person to whom it pertains or as otherwise permitted by 42 CFR part 2. A general authorization for the release of medical or other information is NOT sufficient for this purpose. The Federal rules restrict any use of the information to criminally investigate or prosecute any alcohol or drug abuse patient.The records that you are about to access may contain highly sensitive health information, the redisclosure of which is protected by Article 27-F of the [facility] Public Health law. If you continue you may have access to information: Regarding HIV / AIDS; Provided by facilities licensed or operated by the [facility] Office of Mental Health; or Provided by the [facility] Office for People With Developmental Disabilities. If such information is present, then the following [facility] mandated warning applies: This information has been disclosed to you from confidential records which are protected by state law. State law prohibits you from making any further disclosure of this information without the specific written consent of the person to whom it pertains, or as otherwise permitted by law. Any unauthorized further disclosure in violation of state law may result in a fine or long term sentence or both. A general authorization for the release of medical or other information is NOT sufficient authorization for further disc losure. Allergies and Adverse Reactions Type Description Substance Reaction Status Data Source(s ) Drug allergy No Known Allergies No Known Allergies [facility] Drug Class NO KNOWN ALLERGIES NO KNOWN ALLERGIES [facility] Family History Family Member Name Family Member Gender Family Member Status Date o f Status Description Data Source(s) Unknown Unknown Problem [facility] ([facility]) Unknown Female Problem [facility] ([facility] ) Encounters Encounter Providers Location Date Indications Data Source(s ) Preadmit Attender: Eliza Rabago mitter: Physician UnknownReferrer: Eliza Hathaway MD 09/11/2020 07:30:00 AM EST DIARRHEA, PROLAPSING HEMORRHOID [facility] DIARRHEA, PROLAPSING HEMORRHOID Admission cancelled. Disregard status an d admitted date. Outpatient Attender: Maria A Marcelo 08/29 12:40:00 PM EST [facility] ([facility] ) Outpatient Attender: CLARA HERR Physical Therapy 07/23/2020 12:00:00 PM EST [facility] ([facility]) Outpatient Attender: MEHUL BUTLER NPReferrer: Maria A PATIÑO [id number] 06/27/2020 12:00:00 AM EDT Spondylosis without myelopathy or radicu lopathy, lumbar region [facility] Spondylosis without myelopathy or radicu lopathy, lumbar region Outpatient Attender: Maria A Marcelo 05/23 01:40:00 PM EDT [facility] ([facility] ) Outpatient Referrer: BRENNAN HARMON . 05/20/2020 12:00: 00 AM [facility] Outpatient Attender: Beverley tian 04/09/2020 02:45:00 PM EDT [facility] ([facility] Outpatient Attender: Nora franks 03/26/2020 03:30:00 PM EDT [facility] ([facility]) Outpatient Attender: MEHUL BUTLER NPReferrer: Maria A PATIÑO [id number] 02/22/2020 12:00:00 AM EDT Myalgia, other site [facility] Myalgia, other site Outpatient Attender: Maria A Marcelo 02/20 01:40:00 PM EDT [facility] ([facility] ) Outpatient 01/31/2020 12:00:00 AM [facility] Outpatient Attender: CLARA HERR Physical Therapy 01/29/2020 01:00:00 PM EDT [facility] ([facility]) Outpatient Attender: SELVIN SNOW 195528Utixsfly: Maria A PATIÑO [id number] 12/25/2019 12:00:00 AM [facility] Outpatient Attender: Maria A Marcelo 12/18 02:00:00 PM EDT [facility] ([facility] ) Outpatient Attender: Nora franks 12/16/2019 12:45:00 PM EDT [facility] ([facility]) Outpatient 12/13/2019 12:00:00 AM EDT [facility] Outpatient Attender: Maria A Marcelo 11/26 01:40:00 PM EDT [facility] ([facility] ) Outpatient Referrer: MEHUL BUTLER NP 11/14/2019 12:00:00 AM [facility] Outpatient Attender: RAO SCHREIBERReferrer: Jillian Montero MD [id number] 10/29/2019 12:00:00 AM EST - 10/29/2019 04:02:19 PM EST Pain in unspecified [facility] Pain in unspecified joint Outpatient Referrer: GLENN YAO MD 10/29/2019 12:00 :00 AM EST Pain in unspecified [facility] Pain in unspecified joint Outpatient Attender: MEHUL BUTLER NPReferrer: Maria A PATIÑO [id number] 10/10/2019 12:00:00 AM EST - 10/10/2019 11:12:36 AM [facility] Outpatient Referrer: Benny Park MD 09/27/2019 03: 16:00 PM EST [facility] Radiology Imaging Outpatient Referrer: ARIELLA SUTTON MD 09/11/2019 12:00:00 A M [facility] Outpatient Attender: Maria A Marcelo 08/31 10:40:00 AM EST [facility] ([facility] ) Outpatient Attender: CLARA HERR Physical Therapy 08/23/2019 02:15:00 PM EST [facility] ([facility]) Outpatient Attender: Jillian SHERIDAN MDReferrer: Jessie Harris [id number] 06/14/2019 12:00:00 AM EDT - 06/14/2019 01:41:47 PM EDT Spondylosis without myelopathy or radiculopathy, site unspecified [facility] Spondylosis without myelopathy or radicu lopathy, site unspecified Outpatient Referrer: Jessie HERR 05/08/2019 1 2:00:00 AM EDT Spinal stenosis, lumbar region with neurogenic claudication [facility] Spinal stenosis, lumbar region with neur ogenic claudication Immunizations Vaccine Date Status Description Data Source(s) Influenza, injectable, MDCK, preservative free, lars valent 07/11/2020 02:49:00 PM EDT completed [facility] ([facility]) Medications Medication Brand Name Start Date Product Form Dose Route Admi nistrative Instructions Pharmacy Instructions Status Indications Reaction Description Data Source(s) 20 mg 09/02/2020 12:00:00 AM EST capsule,delayed release (DR/EC) 90 TAKE ONE CAPSULE BY MOUTH EVERY DAY TAKE ONE CAPSULE BY MOUTH EVERY DAY SOLD: 09/04/2020 [facility] 90 mcg/actuation 08/20/2020 12:00:00 AM EST HFA aerosol inha ler 54 INHALE 2 PUFFS BY MOUTH EVERY 4 HOURS NEEDED INHALE 2 PUFFS BY MOUTH EVERY 4 HOURS NEEDED SOLD: 08/23/2020 [facility] 50 mg 08/11/2020 12:00:00 AM EST tablet 30 TAKE ONE TABLET BY MOUTH TWICE A DAY NEEDED FOR PAIN * MAXIMUM DAILY DOSE = 2 TAKE ONE TABLET BY MOUTH TWICE A DAY NEEDED FOR PAIN * MAXIMUM DAILY DOSE = 2 SOLD: 08/12/2020 [facility] 7.5 mg 08/06/2020 12:00:00 AM EST tablet 180 TAKE ONE TABLET BY MOUTH TWICE A DAY TAKE ONE TABLET BY MOUTH TWICE A DAY SOLD: 08/06/2020 [facility] 50 mg 07/25/2020 12:00:00 AM EST tablet 14 TAKE ONE TABLET BY MOUTH TWICE A DAY NEEDED FOR PAIN MAXIMUM DAILY DOSE = 2 TAKE ONE TABLET BY MOUTH TWICE A DAY NEEDED FOR PAIN MAXIMUM DAILY DOSE = 2 SOLD: 07/26/2020 [facility] 50 mg 07/25/2020 12:00:00 AM EST tablet 14 TAKE ONE TABLET BY MOUTH TWICE A DAY NEEDED FOR PAIN MAXIMUM DAILY DOSE = 2 TAKE ONE TABLET BY MOUTH TWICE A DAY NEEDED FOR PAIN MAXIMUM DAILY DOSE = 2 SOLD: 08/05/2020 [facility] Administration Of Flu Vaccine 07/11/2020 12:00:00 AM EDT completed [facility] ([facility]) Medication administered onsite 42 mcg (0.06 %) 07/01/2020 12:00:00 AM EDT spray,non-aerosol 15 SPRAY 2 SPRAYS IN EACH NOSTRIL 3-4 TIMES DAILY NEEDED SPRAY 2 SPRAYS IN EACH NOSTRIL 3-4 TIMES DAILY NEEDED SOLD: 08/23/2020 [facility] 20 mg 07/01/2020 12:00:00 AM EDT tablet 90 TAKE ONE TABLET BY MOUTH IN THE EVENING TAKE ONE TABLET BY MOUTH IN THE EVENING SOLD: 07/02/2020 [facility] Metformin hydrochloride 500 MG Oral Tablet METFORMIN HCL 07/01/2020 12:00:00 AM EDT tablet 90 TAKE ONE TABLET BY MOUTH YENNY DAY AT DINNERTIME TAKE ONE TABLET BY MOUTH EVERY DAY AT DINNERTIME SOLD: 07/02/2020 [facility] 42 mcg (0.06 %) 07/01/2020 12:00:00 AM EDT spray,non-aerosol 15 SPRAY 2 SPRAYS IN EACH NOSTRIL 3-4 TIMES DAILY NEEDED SPRAY 2 SPRAYS IN EACH NOSTRIL 3-4 TIMES DAILY NEEDED SOLD: 07/02/2020 [facility] 5 mg 06/16/2020 12:00:00 AM EDT tablet 90 TAKE ONE TABLET BY MOUTH EVERY DAY TAKE ONE TABLET BY MOUTH EVERY DAY SOLD: 09/01/2020 [facility] 5 mg 06/16/2020 12:00:00 AM EDT tablet 90 TAKE ONE TABLET BY MOUTH EVERY DAY TAKE ONE TABLET BY MOUTH EVERY DAY SOLD: 06/17/2020 [facility] 20 mg 04/09/2020 12:00:00 AM EDT tablet 8 TAKE ONE TABLET BY MOUTH TWICE A DAY FOR 4 DAYS TAKE ONE TABLET BY MOUTH TWICE A DAY FOR 4 DAYS SOLD: 2019 [facility] Prednisone 20 MG Oral Tablet Prednisone 04/09/2020 12:00:00 AM EDT active MEDENT ([facility]) montelukast 10 MG Oral Tablet MONTELUKAST SODIUM 03/30/2020 12:0 0:00 AM EDT tablet 90 TAKE ONE TABLET BY MOUTH EVERY D AY TAKE ONE TABLET BY MOUTH EVERY DAY SOLD: 04/01/2020 [facility] montelukast 10 MG Oral Tablet MONTELUKAST SODIUM 03/30/2020 12:0 0:00 AM EDT tablet 90 TAKE ONE TABLET BY MOUTH EVERY D AY TAKE ONE TABLET BY MOUTH EVERY DAY SOLD: 07/02/2020 [facility] Methylprednisolone Sodium Succinate To 125 MG 03/26/2020 1 2:00:00 AM EDT completed [facility] ([facility]) Medication administered onsite 0.25 mg 03/21/2020 12:00:00 AM EDT tablet 270 TAKE THREE TABLETS BY MOUTH AT BEDTIME TAKE THREE TABLETS BY MOUTH AT BEDTIME SOLD: 09/11/2020 [facility] 0.25 mg 03/21/2020 12:00:00 AM EDT tablet 270 TAKE THREE TABLETS BY MOUTH AT BEDTIME TAKE THREE TABLETS BY MOUTH AT BEDTIME SOLD: 03/21/2020 [facility] 0.25 mg 03/21/2020 12:00:00 AM EDT tablet 270 TAKE THREE TABLETS BY MOUTH AT BEDTIME TAKE THREE TABLETS BY MOUTH AT BEDTIME SOLD: 06/17/2020 [facility] 100 mg 03/07/2020 12:00:00 AM EDT tablet 90 TAKE ONE TABLET BY MOUTH EVERY DAY TAKE ONE TABLET BY MOUTH EVERY DAY SOLD: 09/01/2020 [facility] 100 mg 03/07/2020 12:00:00 AM EDT tablet 90 TAKE ONE TABLET BY MOUTH EVERY DAY TAKE ONE TABLET BY MOUTH EVERY DAY SOLD: 06/02/2020 [facility] 100 mg 03/07/2020 12:00:00 AM EDT tablet 90 TAKE ONE TABLET BY MOUTH EVERY DAY TAKE ONE TABLET BY MOUTH EVERY DAY SOLD: 03/09/2020 [facility] Methylprednisolone 4 MG Oral Tablet [Medrol] Medrol 12:00:00 AM EDT active MED[facility] ( [facility]) 4 mg 03/06/2020 12:00:00 AM EDT tablets,dose pack 21 TAKE DIRECTED ON THE BOX TAKE DIRECTED ON THE BOX SOLD: 03/06/2020 [facility] 1 % 03/05/2020 12:00:00 AM EDT gel 100 APPLY 4 GRAMS TOPICALLY TO HANDS FOUR TIMES A DAY NEEDED APPLY 4 GRAMS TOPICALLY TO HANDS FOUR TI MES A DAY NEEDED SOLD: 04/17/2020 [facility] 1 % 03/05/2020 12:00:00 AM EDT gel 100 APPLY 4 GRAMS TOPICALLY TO HANDS FOUR TIMES A DAY NEEDED APPLY 4 GRAMS TOPICALLY TO HANDS FOUR TI MES A DAY NEEDED SOLD: 08/05/2020 [facility] 1 % 03/05/2020 12:00:00 AM EDT gel 100 APPLY 4 GRAMS TOPICALLY TO HANDS FOUR TIMES A DAY NEEDED APPLY 4 GRAMS TOPICALLY TO HANDS FOUR TI MES A DAY NEEDED SOLD: 07/02/2020 [facility] 1 % 03/05/2020 12:00:00 AM EDT gel 100 APPLY 4 GRAMS TOPICALLY TO HANDS FOUR TIMES A DAY NEEDED APPLY 4 GRAMS TOPICALLY TO HANDS FOUR TI MES A DAY NEEDED SOLD: 06/02/2020 [facility] 1 % 03/05/2020 12:00:00 AM EDT gel 100 APPLY 4 GRAMS TOPICALLY TO HANDS FOUR TIMES A DAY NEEDED APPLY 4 GRAMS TOPICALLY TO HANDS FOUR TI MES A DAY NEEDED SOLD: 08/23/2020 [facility] 1 % 03/05/2020 12:00:00 AM EDT gel 100 APPLY 4 GRAMS TOPICALLY TO HANDS FOUR TIMES A DAY NEEDED APPLY 4 GRAMS TOPICALLY TO HANDS FOUR TI MES A DAY NEEDED SOLD: 03/05/2020 [facility] Diclofenac Sodium 0.01 MG/MG Topical Gel Diclofenac Sodium 03/05/2020 12:00:00 AM EDT active [facility] Diclofenac Sodium 0.01 MG/MG Topical Gel Voltaren 03/03/2020 12 :00:00 AM EDT completed [facility] ([facility]) 4 mg 02/28/2020 12:00:00 AM EDT tablet 60 TAKE ONE TABLET BY MOUTH TWICE A DAY NEEDED TAKE ONE TABLET BY MOUTH TWICE A DAY NEEDED SOLD: 03/01/2020 [facility] tizanidine 4 MG Oral Tablet tiZANidine HCl 4 MG Oral T ablet (ZANAFLEX) tiZANidine HCl 4 MG Oral Tablet (ZANAFLEX) 02/22/2020 12:00:00 AM EDT 4 mg Oral active Take 1 tablet by obdulio th Two times daily as needed [facility] tizanidine 4 MG Oral Tablet TIZANIDINE HCL 01/29/2020 12:00:00 AM E DT tablet 120 TAKE ONE TABLET BY MOUTH THREE TIMES A D AY MAXIMUM DAILY DOSE = 3 TAKE ONE TABLET BY MOUTH THREE TIMES A DAY MAXIMUM DAILY DOSE = 3 SOLD: 09/11/2020 [facility] 4 mg 01/29/2020 12:00:00 AM EDT tablet 120 TAKE ONE TABLET BY MOUTH THREE TIMES A DAY MAXIMUM DAILY DOSE = 3 TAKE ONE TABLET BY MOUTH THREE TIMES A D AY MAXIMUM DAILY DOSE = 3 SOLD: 01/30/2020 [facility] 4 mg 01/29/2020 12:00:00 AM EDT tablet 120 TAKE ONE TABLET BY MOUTH THREE TIMES A DAY MAXIMUM DAILY DOSE = 3 TAKE ONE TABLET BY MOUTH THREE TIMES A D AY MAXIMUM DAILY DOSE = 3 SOLD: 06/02/2020 [facility] 2.5 % 01/26/2020 12:00:00 AM EDT cream with perineal champ licator 30 APPLY TO AFFECTED AREA(S) TOPICALLY THREE TIMES A DAY APPLY TO AFFECTED AREA(S) TOPICALLY THREE TIMES A DAY SOLD: 01/26/2020 [facility] 500 mg 01/01/2020 12:00:00 AM EDT tablet 90 TAKE 1 TABLET BY MOUTH ONCE DAILY AT DINNERTIME TAKE 1 TABLET BY MOUTH ONCE DAILY AT DINNERTIME SOLD: 03/29/2020 [facility] 500 mg 01/01/2020 12:00:00 AM EDT tablet 90 TAKE 1 TABLET BY MOUTH ONCE DAILY AT DINNERTIME TAKE 1 TABLET BY MOUTH ONCE DAILY AT DINNERTIME SOLD: 01/02/2020 [facility] Famotidine 20 MG Oral Tablet Famotidine 12/19/2019 12:00:00 AM EDT ORAL active [facility]) Hydroxyzine Hydrochloride 10 MG Oral Tablet Hydroxyzine HCL 12/19/2019 12:00:00 AM EDT active [facility] ([facility]) 10 mg 12/19/2019 12:00:00 AM EDT tablet 60 TAKE 1 TO 2 TABLETS BY MOUTH THREE TIMES A DAY FOR ITCHING TAKE 1 TO 2 TABLETS BY MOUTH THREE TIMES A DAY FOR ITCHING SOLD: 12/19/2019 [facility] 18 mcg 12/19/2019 12:00:00 AM EDT capsule, w/inhalation d evice 90 INHALE THE CONTENTS OF ONE CAPSULE VIA HANDIHALER BY MOUTH EVERY DAY IN THE MORNING INHALE THE CONTENTS OF ONE CAPSULE VIA HANDIHALER BY MOUTH EVERY DAY IN THE MORNING SOLD: 03/29/2020 [facility] 18 mcg 12/19/2019 12:00:00 AM EDT capsule, w/inhalation d evice 90 INHALE THE CONTENTS OF ONE CAPSULE VIA HANDIHALER BY MOUTH EVERY DAY IN THE MORNING INHALE THE CONTENTS OF ONE CAPSULE VIA HANDIHALER BY MOUTH EVERY DAY IN THE MORNING SOLD: 12/19/2019 [facility] 18 mcg 12/19/2019 12:00:00 AM EDT capsule, w/inhalation d evice 90 INHALE THE CONTENTS OF ONE CAPSULE VIA HANDIHALER BY MOUTH EVERY DAY IN THE MORNING INHALE THE CONTENTS OF ONE CAPSULE VIA HANDIHALER BY MOUTH EVERY DAY IN THE MORNING SOLD: 07/02/2020 [facility] Prednisone 20 MG Oral Tablet Prednisone 12/16/2019 12:00:00 AM EDT completed [facility] ([facility]) Famotidine 20 MG Oral Tablet Famotidine 12/16/2019 12:00:00 AM EDT active [facility] ([facility]) 20 mg 12/16/2019 12:00:00 AM EDT tablet 10 TAKE ONE TABLET BY MOUTH TWICE A DAY FOR 5 DAYS TAKE ONE TABLET BY MOUTH TWICE A DAY FOR 5 DAYS SOLD: 2019 [facility] Famotidine 20 MG Oral Tablet FAMOTIDINE 12/16/2019 12:00:00 AM EDT tab let 30 TAKE ONE TABLET BY MOUTH TWICE A DAY TAKE ONE TABLET BY MOUTH TWICE A DAY SOLD: 12/16/2019 [facility] Methylprednisolone Sodium Succinate To 125 MG 12/16/2019 1 2:00:00 AM EDT completed [facility] ([facility]) Medication administered onsite Benadryl/Diphenhydramine Hci Injectionto 50 MG 12/16/2019 12:00:00 AM EDT completed [facility] ([facility]) Medication administered onsite 5 mg 12/10/2019 12:00:00 AM EDT tablet 90 TAKE ONE TABLET BY MOUTH EVERY DAY TAKE ONE TABLET BY MOUTH EVERY DAY SOLD: 03/05/2020 [facility] 5 mg 12/10/2019 12:00:00 AM EDT tablet 90 TAKE ONE TABLET BY MOUTH EVERY DAY TAKE ONE TABLET BY MOUTH EVERY DAY SOLD: 12/12/2019 [facility] Osteo Bi-Flex Advanced Triple Strength 11/27/2019 12:00:00 AM ED T ORAL completed [facility] ([facility]) 50 mg 11/23/2019 12:00:00 AM EDT tablet 15 TAKE ONE TABLET BY MOUTH TWICE A DAY NEEDED FOR PAIN MAXIMUM DAILY DOSE = 2 TAKE ONE TABLET BY MOUTH TWICE A DAY NEEDED FOR PAIN MAXIMUM DAILY DOSE = 2 SOLD: 02/09/2020 [facility] 50 mg 11/23/2019 12:00:00 AM EDT tablet 15 TAKE ONE TABLET BY MOUTH TWICE A DAY NEEDED FOR PAIN MAXIMUM DAILY DOSE = 2 TAKE ONE TABLET BY MOUTH TWICE A DAY NEEDED FOR PAIN MAXIMUM DAILY DOSE = 2 SOLD: 11/23/2019 [facility] 200 mg 11/22/2019 12:00:00 AM EDT tablet 60 TAKE ONE TABLET BY MOUTH TWO TIMES A DAY TAKE ONE TABLET BY MOUTH TWO TIMES A DAY SOLD: 11/23/2019 [facility] Hydroxychloroquine Sulfate 200 MG Oral T ablet Hydroxychloroquine Sulfate 200 MG Oral Tablet (Plaquenil) Hydroxychloroquine Sulfate 200 MG Oral T ablet (Plaquenil) 11/21/2019 12:00:00 AM EDT 200 mg Oral active Take 1 tablet by mouth Two Times Daily [facility] 4 mg 11/07/2019 12:00:00 AM EST tablet 90 TAKE ONE TABLET BY MOUTH THREE TIMES A DAY TAKE ONE TABLET BY MOUTH THREE TIMES A DAY SOLD: 11/07/2019 [facility] Ipratropium [place] 0.06 % Nasal Solution (ATROVENT) [id number] 10/09/2019 12:00:00 AM EST active [facility] Trelegy Ellipta 100-62.5-25 MCG/INH Aerosol Powder [facility] Activated [id number] 10/01/2019 12:00:00 AM EST active [facility] 20 mg 08/20/2019 12:00:00 AM EST capsule,delayed release (DR/EC) 90 TAKE ONE CAPSULE BY MOUTH EVERY DAY TAKE ONE CAPSULE BY MOUTH EVERY DAY SOLD: 03/05/2020 [facility] 20 mg 08/20/2019 12:00:00 AM EST capsule,delayed release (DR/EC) 90 TAKE ONE CAPSULE BY MOUTH EVERY DAY TAKE ONE CAPSULE BY MOUTH EVERY DAY SOLD: 08/21/2019 [facility] 20 mg 08/20/2019 12:00:00 AM EST capsule,delayed release (DR/EC) 90 TAKE ONE CAPSULE BY MOUTH EVERY DAY TAKE ONE CAPSULE BY MOUTH EVERY DAY SOLD: 11/27/2019 [facility] 20 mg 08/20/2019 12:00:00 AM EST capsule,delayed release (DR/EC) 90 TAKE ONE CAPSULE BY MOUTH EVERY DAY TAKE ONE CAPSULE BY MOUTH EVERY DAY SOLD: 06/02/2020 [facility] 42 mcg (0.06 %) 08/07/2019 12:00:00 AM EST spray,non-aerosol 15 SPRAY TWO SPRAYS IN EACH NOSTRIL TWICE A DAY SPRAY TWO SPRAYS IN EACH NOSTRIL TWICE A DAY SOLD: 12/17/2019 [facility] 42 mcg (0.06 %) 08/07/2019 12:00:00 AM EST spray,non-aerosol 15 SPRAY TWO SPRAYS IN EACH NOSTRIL TWICE A DAY SPRAY TWO SPRAYS IN EACH NOSTRIL TWICE A DAY SOLD: 08/08/2019 [facility] 42 mcg (0.06 %) 08/07/2019 12:00:00 AM EST spray,non-aerosol 15 SPRAY TWO SPRAYS IN EACH NOSTRIL TWICE A DAY SPRAY TWO SPRAYS IN EACH NOSTRIL TWICE A DAY SOLD: 03/29/2020 [facility] 42 mcg (0.06 %) 08/07/2019 12:00:00 AM EST spray,non-aerosol 15 SPRAY TWO SPRAYS IN EACH NOSTRIL TWICE A DAY SPRAY TWO SPRAYS IN EACH NOSTRIL TWICE A DAY SOLD: 10/10/2019 [facility] 7.5 mg 08/02/2019 12:00:00 AM EST tablet 180 TAKE ONE TABLET BY MOUTH TWICE A DAY TAKE ONE TABLET BY MOUTH TWICE A DAY SOLD: 05/08/2020 [facility] 7.5 mg 08/02/2019 12:00:00 AM EST tablet 180 TAKE ONE TABLET BY MOUTH TWICE A DAY TAKE ONE TABLET BY MOUTH TWICE A DAY SOLD: 08/03/2019 [facility] 7.5 mg 08/02/2019 12:00:00 AM EST tablet 180 TAKE ONE TABLET BY MOUTH TWICE A DAY TAKE ONE TABLET BY MOUTH TWICE A DAY SOLD: 11/05/2019 [facility] 7.5 mg 08/02/2019 12:00:00 AM EST tablet 180 TAKE ONE TABLET BY MOUTH TWICE A DAY TAKE ONE TABLET BY MOUTH TWICE A DAY SOLD: 02/09/2020 [facility] 100-62.5-25 mcg 07/19/2019 12:00:00 AM EST blister with chiara ce 60 INHALE ONE PUFF BY MOUTH EVERY DAY INHALE ONE PUFF BY MOUTH EVERY DAY SOLD: 11/27/2019 [facility] 100-62.5-25 mcg 07/19/2019 12:00:00 AM EST blister with chiara ce 60 INHALE ONE PUFF BY MOUTH EVERY DAY INHALE ONE PUFF BY MOUTH EVERY DAY SOLD: 10/01/2019 [facility] 100-62.5-25 mcg 07/19/2019 12:00:00 AM EST blister with chiara ce 60 INHALE ONE PUFF BY MOUTH EVERY DAY INHALE ONE PUFF BY MOUTH EVERY DAY SOLD: 11/01/2019 [facility] 100-62.5-25 mcg 07/19/2019 12:00:00 AM EST blister with chiara ce 60 INHALE ONE PUFF BY MOUTH EVERY DAY INHALE ONE PUFF BY MOUTH EVERY DAY SOLD: 08/28/2019 [facility] 15 mg 06/25/2019 12:00:00 AM EDT tablet 90 TAKE ONE TABLET BY MOUTH EVERY DAY TAKE ONE TABLET BY MOUTH EVERY DAY SOLD: 10/01/2019 [facility] 0.25 mg 06/21/2019 12:00:00 AM EDT tablet 180 TAKE ONE TABLET BY MOUTH AT BEDTIME, MAY REPEAT FOR 1 DOSE DIRECTED TAKE ONE TABLET BY MOUTH AT BEDTIME, MAY REPEAT FOR 1 DOSE DIRECTED SOLD: 12/26/2019 [facility] 0.25 mg 06/21/2019 12:00:00 AM EDT tablet 180 TAKE ONE TABLET BY MOUTH AT BEDTIME, MAY REPEAT FOR 1 DOSE DIRECTED TAKE ONE TABLET BY MOUTH AT BEDTIME, MAY REPEAT FOR 1 DOSE DIRECTED SOLD: 09/28/2019 [facility] 5 mg 06/05/2019 12:00:00 AM EDT tablet 90 TAKE ONE TABLET BY MOUTH EVERY DAY TAKE ONE TABLET BY MOUTH EVERY DAY SOLD: 09/07/2019 [facility] 20 mg 04/01/2019 12:00:00 AM EDT tablet 90 TAKE ONE TABLET BY MOUTH IN THE EVENING TAKE ONE TABLET BY MOUTH IN THE EVENING SOLD: 09/28/2019 [facility] 20 mg 04/01/2019 12:00:00 AM EDT tablet 90 TAKE ONE TABLET BY MOUTH IN THE EVENING TAKE ONE TABLET BY MOUTH IN THE EVENING SOLD: 01/02/2020 [facility] 20 mg 04/01/2019 12:00:00 AM EDT tablet 90 TAKE ONE TABLET BY MOUTH IN THE EVENING TAKE ONE TABLET BY MOUTH IN THE EVENING SOLD: 03/29/2020 [facility] montelukast 10 MG Oral Tablet MONTELUKAST SODIUM 03/23/2019 12:0 0:00 AM EDT tablet 90 TAKE ONE TABLET BY MOUTH EVERY D AY TAKE ONE TABLET BY MOUTH EVERY DAY SOLD: 10/10/2019 [facility] montelukast 10 MG Oral Tablet MONTELUKAST SODIUM 03/23/2019 12:0 0:00 AM EDT tablet 90 TAKE ONE TABLET BY MOUTH EVERY D AY TAKE ONE TABLET BY MOUTH EVERY DAY SOLD: 01/11/2020 [facility] meloxicam 15 MG Oral Tablet meloxicam (MOBIC) 15 MG ta blet meloxicam (MOBIC) 15 MG tablet 12/28/2018 12:00:00 AM EDT [facility] tizanidine 4 MG Oral Tablet tizanidine (ZANAFLEX) 4 MG tablet tizanidine (ZANAFLEX) 4 MG tablet 12/10/2018 12:00:00 AM EDT [facility] 100 mg 11/27/2018 12:00:00 AM EDT tablet 90 TAKE ONE TABLET BY MOUTH EVERY DAY TAKE ONE TABLET BY MOUTH EVERY DAY SOLD: 08/28/2019 [facility] 100 mg 11/27/2018 12:00:00 AM EDT tablet 90 TAKE ONE TABLET BY MOUTH EVERY DAY TAKE ONE TABLET BY MOUTH EVERY DAY SOLD: 11/27/2019 [facility] 500 mg 10/13/2018 12:00:00 AM EST tablet 90 TAKE 1 TABLET BY MOUTH ONCE DAILY AT DINNERTIME TAKE 1 TABLET BY MOUTH ONCE DAILY AT DINNERTIME SOLD: 10/01/2019 [facility] 4 mg 08/18/2018 12:00:00 AM EST tablet 90 TAKE ONE TABLET BY MOUTH THREE TIMES A DAY NEEDED MAXIMUM DAILY DOSE = 3 TABLETS TAKE ONE TABLET BY MOUTH THREE TIMES A DAY NEEDED MAXIMUM DAILY DOSE = 3 TABLETS SOLD: 08/08/2019 [facility] Insurance Providers Payer name Policy type / Coverage type Policy ID Covered democrat ID Covered democrat's relationship to jewell Policy Jewell Plan Information MEDICARE [id number] SP [id number] [employer] OPTIONS [id number] SP [id number] [facility] AARP [id number] P [id number] MEDICARE B [id number] P [id number] MEDICARE A [id number] P [id number] [facility] AARP [id number] P [id number] [facility] AARP [id number] MEDICARE A [id number] MEDICARE C [id number] S [id number] AARP O [id number] S [id number] AARP U [id number] Self [id number] MEDICARE A [id number] Self [id number] AARP U [id number] Self [id number] NORIDIAN JE PART B C [id number] S [id number] [employer] (pr) Medigap Part B [id number] Self [id number] [employer] [facility] (pr) Medigap Part B [id number] Self [id number] [place] Medigap Part B [id number] Self [id number] [employer] Medigap Part B [id number] Self [id number] [place] [id number] Self [id number] [employer] [place] (pr) Medigap Part B [id number] Self [id number] Ghi/Emblem HLTH (pr) Medigap Part B [id number] Self [id number] BS [place] Medigap Part B [id number] Self [id number] [facility] Medigap Part B [id number] Self [id number] [place] [id number] Self [id number] [employer] [place] (pr) Medigap Part B [id number] Self [id number] Ghi/Emblem HLTH (pr) Medigap Part B [id number] Self [id number] [place] Medigap Part B [id number] Self [id number] [facility] Medig[facility] Part B [id number] Self [id number] [place] Primary [id number] Self [id number] [facility] Medigap Part B [id number] Self [id number] Medicare [place] Medicare Primary [id number] Self [id number] Ghi/Emblem Health Medigap Part B [id number] Self [id number] [employer] [place] Medigap Part B [id number] Self [id number] MEDICARE A [id number] Self [id number] [facility] Med[facility]ap Part B [id number] Self [id number] Medicare [place] Medicare Primary [id number] Self [id number] [facility] Medigap Part B [id number] Self [id number] Medicare [place] Gov[place] [employer] Medicare Primary [id number] Self [id number] [employer] [place] (pr) Medigap Part B [id number] Self [id number] Ghi/Emblem HLTH (pr) Medigap Part B [id number] Self [id number] [place] Medigap Part B [id number] Self [id number] [facility] Medig[facility] Part B [id number] Self [id number] [place] [id number] Self [id number] MEDICARE C [id number] S [id number] D [employer] [place] (pr) Medigap Part B [id number] Self [id number] Ghi/Emblem HLTH (pr) Medigap Part B [id number] Self [id number] [place] Medigap Part B [id number] Self [id number] [facility] Medigap Part B [id number] Self [id number] [place] Primary [id number] Self [id number] [employer] [place] (pr) Medigap Part B [id number] Self [id number] Ghi/Emblem HLTH (pr) Medigap Part B [id number] Self [id number] [place] Medigap Part B [id number] Self [id number] [facility] Med[facility] Part B [id number] Self [id number] [place] Primary [id number] Self [id number] [employer] [place] (pr) Medigap Part B [id number] Self [id number] Ghi/Emblem HLTH (pr) Medigap Part B [id number] Self [id number] BS [place] Medigap Part B [id number] Self [id number] [facility] Medigap Part B [id number] Self [id number] [place] Primary [id number] Self [id number] [employer] [place] (pr) Medigap Part B [id number] Self [id number] Ghi/Emblem HLTH (pr) Medigap Part B [id number] Self [id number] BS [place] Medigap Part B [id number] Self [id number] [facility] Medigap Part B [id number] Self [id number] [place] Primary [id number] Self [id number] [employer] [place] (pr) Medigap Part B [id number] Self [id number] Ghi/Emblem HLTH (pr) Medigap Part B [id number] Self [id number] BS [place] Medigap Part B [id number] Self [id number] [facility] Medigap Part B [id number] Self [id number] [place] Primary [id number] Self [id number] [employer] [place] (pr) Medigap Part B [id number] Self [id number] Ghi/Emblem HLTH (pr) Medigap Part B [id number] Self [id number] [place] Medigap Part B [id number] Self [id number] [facility] Medigap Part B [id number] Self [id number] [place] Primary [id number] Self [id number] [facility] Medigap Part B [id number] Self [id number] Medicare [place] [employer] [employer] Medicare Primary [id number] Self [id number] [employer] [place] (pr) Medigap Part B [id number] Self [id number] Ghi/Emblem HLTH (pr) Medigap Part B [id number] Self [id number] [place] Medigap Part B [id number] Self [id number] [facility] Medigap Part B [id number] Self [id number] [place] Primary [id number] Self [id number] MEDICARE [id number] SP [id number] D [employer] [place] (pr) Medigap Part B [id number] Self [id number] Ghi/Emblem HLTH (pr) Medigap Part B [id number] Self [id number] BS [place] Medigap Part B [id number] Self [id number] [facility] Medigap Part B [id number] Self [id number] [place] Primary [id number] Self [id number] [employer] [place] (pr) Medigap Part B [id number] Self [id number] Ghi/Emblem HLTH (pr) Medigap Part B [id number] Self [id number] BS [place] Medigap Part B [id number] Self [id number] [facility] Medig[facility] Part B [id number] Self [id number] [place] Primary [id number] Self [id number] [employer] [place] (pr) Medigap Part B [id number] Self [id number] Ghi/Emblem HLTH (pr) Medigap Part B [id number] Self [id number] BS [place] Medigap Part B [id number] Self [id number] [facility] Medigap Part B [id number] Self [id number] [place] Primary [id number] Self [id number] [employer] [place] (pr) Medigap Part B [id number] Self [id number] Ghi/Emblem HLTH (pr) Medigap Part B [id number] Self [id number] BS [place] Medigap Part B [id number] Self [id number] [facility] Medigap Part B [id number] Self [id number] [place] Primary [id number] Self [id number] [employer] [place] (pr) Medigap Part B [id number] Self [id number] Ghi/Emblem HLTH (pr) Medigap Part B [id number] Self [id number] BS [place] Medigap Part B [id number] Self [id number] [facility] Medigap Part B [id number] Self [id number] [place] Primary [id number] Self [id number] [employer] [place] (pr) Medigap Part B [id number] Self [id number] Ghi/Emblem HLTH (pr) Medigap Part B [id number] Self [id number] BS [place] Medigap Part B [id number] Self [id number] [facility] Medigap Part B [id number] Self [id number] [place] Primary [id number] Self [id number] [employer] [place] (pr) Medigap Part B [id number] Self [id number] Ghi/Emblem HLTH (pr) Medigap Part B [id number] Self [id number] BS [place] Medigap Part B [id number] Self [id number] [facility] Medigap Part B [id number] Self [id number] [place] Primary [id number] Self [id number] [employer] [place] (pr) Medigap Part B [id number] Self [id number] Ghi/Emblem HLTH (pr) Medigap Part B [id number] Self [id number] BS [place] Medigap Part B [id number] Self [id number] [facility] Medigap Part B [id number] Self [id number] [place] Primary [id number] Self [id number] [facility] Medigap Part B [id number] Self [id number] Medicare [place] [employer] [employer] Medicare Primary [id number] Self [id number] [employer] [place] (pr) Medigap Part B [id number] Self [id number] Ghi/Emblem HLTH (pr) Medigap Part B [id number] Self [id number] BS [place] Medigap Part B [id number] Self [id number] [facility] Medigap Part B [id number] Self [id number] [place] Primary [id number] Self [id number] [employer] [place] (pr) Medigap Part B [id number] Self [id number] Ghi/Emblem HLTH (pr) Medigap Part B [id number] Self [id number] BS [place] Medigap Part B [id number] Self [id number] [facility] Medigap Part B [id number] Self [id number] [place] [id number] Self [id number] [facility] Medigap Part B [id number] Self [id number] Medicare [place] [employer] [employer] Medicare Primary [id number] Self [id number] [employer] [place] (pr) Medigap Part B [id number] Self [id number] Ghi/Emblem HLTH (pr) Medigap Part B [id number] Self [id number] BS [place] Medigap Part B [id number] Self [id number] [facility] Medigap Part B [id number] Self [id number] [place] Primary [id number] Self [id number] [employer] [place] (pr) Medigap Part B [id number] Self [id number] Ghi/Emblem HLTH (pr) Medigap Part B 903931827 Self [id number] BS [place] Medigap Part B [id number] Self [id number] [facility] Medigap Part B [id number] Self [id number] [place] Primary [id number] Self [id number] [employer] [place] (pr) Medigap Part B [id number] Self [id number] Ghi/Emblem HLTH (pr) Medigap Part B 909826325 Self [id number] BS [place] Medigap Part B [id number] Self [id number] [facility] Medigap Part B [id number] Self [id number] [place] Primary [id number] Self [id number] [employer] [place] (pr) Medigap Part B [id number] Self [id number] Ghi/Emblem HLTH (pr) Medigap Part B 112043814 Self [id number] BS [place] Medigap Part B [id number] Self [id number] [facility] Medigap Part B [id number] Self [id number] [place] Primary [id number] Self [id number] [facility] Medig[facility] Part B [id number] Self [id number] Medicare [place] [employer] [employer] Medicare Primary [id number] Self [id number] [employer] [place] (pr) Medigap Part B [id number] Self [id number] Ghi/Emblem HLTH (pr) Medigap Part B 580709363 Self [id number] BS [place] Medigap Part B [id number] Self [id number] [facility] Medigap Part B [id number] Self [id number] Medicare [facility] Medicare Primary [id number] Self [id number] [facility] Medigap Part B [id number] Self [id number] Medicare [place] [employer] Medicare Primary [id number] Self [id number] [employer] [place] (pr) Medigap Part B [id number] Self [id number] Ghi/Emblem HLTH (pr) Medigap Part B 960702526 Self [id number] BS [place] Medigap Part B [id number] Self [id number] [facility] Medigap Part B [id number] Self [id number] Medicare [facility] Medicare Primary [id number] Self [id number] [facility] Medigap Part B [id number] Self [id number] Medicare [place] [employer] Medicare Primary [id number] Self [id number] [employer] [place] (pr) Medigap Part B 69759678 Self [id number] Ghi/Emblem HLTH (pr) Medigap Part B [id number] Self [id number] BS [place] Medigap Part B [id number] Self [id number] [facility] Medigap Part B [id number] Self [id number] [place] [id number] Self [id number] Ghi/Emblem Health Medigap Part B Ppo Self Ppo [employer] [place] Medigap Part B Plan G Self Plan G [facility] Medigap Part B Self Medicare [place] [employer] Medicare Primary Self [employer] [place] (pr) Medigap Part B Self Ghi/Emblem HLTH (pr) Medigap Part B Self BS [place] Medigap Part B Self [facility] Medigap Part B F Self F [place] Primary Self [facility] Medigap Part B Self Medicare [place] Gov[place] [employer] Medicare Primary Self DME Jurisdiction [facility] [id number] SELF [id number] AARP [facility] Supplemental F [id number] SELF [id number] Medicare C [id number] SELF [id number] D SELFPAY 5 UNAVAILABLE 1 UNAVAILA BLE MEDICARE 4 [id number] 1 [id number] D AARP 2 [id number] 1 [id number] D Problems, Conditions, and Diagnoses Code Display Name Description Problem Type Effective Dates Data Source(s) 18132431 Nicotine dependence Nicotine dependence Problem 1 10/15/2018 12:00:00 AM [facility] ([facility], ) M47.816 Spondylosis without myelopathy or radicu lopathy, lumbar region Spondylosis without myelopathy or radiculopathy, lumbar region Diagnosis 06/27/2020 07:27:05 AM [facility] M79.18 Myalgia, other site Myalgia, other site Diagnosis 0 02/22/2020 09:11:15 AM [facility] M15.0 Primary generalized (osteo)arthritis Primary gen eralized (osteo)arthritis Diagnosis 10/29/2019 04:11:00 PM [facility] M25.50 Pain in unspecified joint Pain in unspecified joint Di agnosis 10/29/2019 04:11:00 PM [facility] Surgeries/Procedures Procedure Description Date Indications Data Source(s) Mammogram 04/23/2020 12:00:00 AM EDT M [facility] ([facility]) Therapeutic, Prophylactic Or Diagnostic Injection Subq/Im 03/26/2020 12:00:00 AM EDT [facility] ([facility] Therapeutic, Prophylactic Or Diagnostic Injection Subq/Im 12/16/2019 12:00:00 AM EDT [facility] ([facility]) Therapeutic, Prophylactic Or Diagnostic Injection Subq/Im 12/16/2019 12:00:00 AM EDT [facility] ([facility] CREATININE OTHER SOURCE URINE RANDOM TP/CRE RATIO Routine 10/29/2019 4:30 PM EST Polyarthralgia 10/29/2019 09:30:00 PM EST Polyarthralgia [facility] Polyarthralgia CYCLIC CITRULLINATED PEPTIDE ANTIBODY CCP ANTIBODY Routine 10/29/2019 4:30 PM EST Polyarthralgia 10/29/2019 09:30:00 PM EST Polyarthralgia [facility] Polyarthralgia SEDIMENTATION RATE RBC AUTOMATED SEDIMENTATION RATE, AUTOMATED Routine 10/29/2019 4:30 PM EST Polyarthralgia 10/29/2019 09:30:00 PM EST Polyarthralgia [facility] Polyarthralgia BLOOD COUNT COMPLETE AUTO&AUTO DIFRNTL WBC COUNT CBC AND DIFFER ENTIAL Routine 10/29/2019 4:30 PM EST Polyarthralgia 10/29/2019 09:30:00 PM EST Polyarthralgia [facility] Polyarthralgia RHEUMATOID FACTOR QUANTITATIVE RHEUMATOID FACTOR Routine 10/29/2019 4:30 PM EST Polyarthralgia 10/29/2019 09:30:00 PM EST Polyarthralgia [facility] Polyarthralgia C-REACTIVE PROTEIN INFLAMMATORY C-REACTIVE PROTEIN (CRP) Routin e 10/29/2019 4:30 PM EST Polyarthralgia 10/29/2019 09:30:00 PM EST Polyarthralgia [facility] Polyarthralgia ANTINUCLEAR ANTIBODIES LASHAWN LASHAWN Routine 10/29/2019 4 :30 PM EST Polyarthralgia 10/29/2019 09:30:00 PM EST Polyarthralgia [facility] Polyarthralgia URIC ACID BLOOD URIC ACID Routine 10/29/2019 4:30 PM EST Polyarthralgia 10/29/2019 09:30:00 PM EST Polyarthralgia [facility] Polyarthralgia FERRITIN FERRITIN LEVEL Routine 10/29/2019 4:30 PM EST Polyarthralgia 10/29/2019 09:30:00 PM EST Polyarthralgia [facility] Polyarthralgia COMPREHENSIVE METABOLIC PANEL COMPREHENSIVE METABOLIC PANEL Rou garcía 10/29/2019 4:30 PM EST Polyarthralgia 10/29/2019 09:30:00 PM EST Polyarthralgia [facility] Polyarthralgia Results ID Date Data Source [id number] 08/29/2020 02:07:00 PM EST [facility] ([facility]) Name Value Range Interpretation Code Description Data Tete rce(s) Supporting Document(s) Glucose [Mass/volume] in Serum or Plasma 94 mg/dL 74-99 [facility] ([facility]) 100-125 mg/dL PRE-DIABETES/FASTING >126 mg/dL DIABETES/FASTING Sodium [Moles/volume] in Serum or Plasma 136 meq/L 136-145 [facility] ([facility]) Creatinine 0.9 mg/dL 0.6-1.3 [facility] Urea nitrogen [Mass/volume] in Serum or Plasma 21 mg/dL 7-18 [facility] ([facility]) Chloride [Moles/volume] in Serum or Plasma 100 meq/L 98-107 [facility] ([facility]) Potassium [Moles/volume] in Serum or Plasma 4.5 meq/L 3.5-5.1 [facility] ([facility]) Glomerular filtration rate/1.73 sq M pre dicted among non-blacks [Volume Rate/Area] in Serum or Plasma by Creatinine-based formula (MDRD) Laboratory test result [facility] ([facility] ) Carbon dioxide, total [Moles/volume] in Serum or Plasma 27 meq/L 21 -32 [facility] ([facility]) Calcium [Mass/volume] in Serum or Plasma 9.4 mg/dL 8.5-10.1 [facility] ([facility]) Glomerular filtration rate/1.73 sq M pre dicted among blacks [Volume Rate/Area] in Serum or Plasma by Creatinine-based formula (MDRD) Laboratory [facility] <content>CHRONIC KIDNEY DISEASE STAGING PER NKF</content>
<content></content>
<content>STAGE I & II GFR >= 60 NORMAL TO MILDLY DECREASED</content>
<content>STAGE III GFR 30-59 MODERATELY DECREASED</content>
<content>STAGE IV GFR 15-29 SEVERELY DECREASED</content>
<content>STAGE V GFR <15 VERY LITTLE GFR LEFT</content>
<content>ESRD GFR <15 ON REAL ESTATE JOB TITLES</content>
<content></content> ID Date Data Source [id number] 08/29/2020 02:07:00 PM EST [facility] ([facility]) Name Value Range Interpretation Code Description Data Tete rce(s) Supporting Document(s) Leukocytes [#/volume] in Blood by Automated count 5.6 x10*3/UL 4.1-10 .9 [facility] Erythrocytes [#/volume] in Blood by Automated count 4.14 x10*6/UL 4.2 0-6.30 [facility] Hematocrit [Volume Fraction] of Blood by Automated count 35.5 % 3 7.0-51.0 [facility] MCV 85.7 fL 80.0-97.0 [facility] ([facility]) Hemoglobin [Mass/volume] in Blood 12.2 g/dL 12.0-18.0 [facility] ([facility]) MCH 29.6 pg 26.0-32.0 [facility] MCHC 34.6 g/dL 31.0-38.0 [facility] Erythrocyte distribution width [Ratio] by Automated count 13.7 % 11.6-13.7 [facility] ([facility]) MPV 8.6 FL 7.8-11.0 [facility] ([facility]) Platelets [#/volume] in Blood by Automated count 251 x10*3/UL 140-440 [facility] Lymph % 25.2 % 10.0-58.5 [facility] Mid % 6.0 % 1.7-9.3 [facility] Lymph # 1.4 x10*3/UL 0.6-4.1 [facility] ([facility]) Neut % 68.8 % 37.0-92.0 [facility] Mid # 0.4 x10*3/UL 0.1-0.6 [facility] ([facility]) Neut # 3.8 x10*3/UL 2.0-7.8 [facility] ([facility]) ID Date Data Source [id number] 06/27/2020 03:32:30 PM EDT [facility] Name Value Range Interpretation Code Description Data Tete rce(s) Supporting Document(s) Progress Note [facility] GLWTPr0uUjDUHrYp58/OFInjOHReu8QgGGkeLYd3UXzoPBCcP4HsXLT2gR6uMVR5BMqGKtPxGoOtABX6 lbm [file] ICAgICAgICAgICAgICAgICAgICAgICAgICAgICAgIC AgICAgICAgICAgICAgICAgICAgICANCiAgICAgICAgICAgICAgICAgICAgICAgICAgICAgICAgICAgIC AgICAgICAgICAgICAgICAgICAgICAgICAgICAgICAgICAgICAgICAgICAgICAgICAgICAgICAgICAgIC AgICANCiAgICAgICAgICAgICAgICAgICAgICAgICAg ICAgICAgICAgICAgICAgICAgICAgICAgICAgICAgICAgICAgICAgICAgICAgICAgICAgICAgICAgICAg ICAgICAgICAgICAgICANCiAgICAgICAgICAgICAgICAgICAgICAgICAgICAgICAgICAgICAgICAgICAg ICAgICAgICAgICAgICAgICAgICAgICAgICAgICAgIC AgICAgICAgICAgICAgICAgICAgICAgICANCiAgICAgICAgICAgICAgICAgICAgICAgICAgICAgICAgIC AgICAgICAgICAgICAgICAgICAgICAgICAgICAgICAgICAgICAgICAgICAgICAgICAgICAgICAgICAgIC AgICAgICANCiAgICAgICAgICAgICAgICAgICAgICAg ICAgICAgICAgICAgICAgICAgICAgICAgICAgICAgICAgICAgICAgICAgICAgICAgICAgICAgICAgICAg ICAgICAgICAgICAgICAgICANCiAgICAgICAgICAgICAgICAgICAgICAgICAgICAgICAgICAgICAgICAg ICAgICAgICAgICAgICAgICAgICAgICAgICAgICAgIC AgICAgICAgICAgICAgICAgICAgICAgICAgICANCiAgICAgICAgICAgICAgICAgICAgICAgICAgICAgIC AgICAgICAgICAgICAgICAgICAgICAgICAgICAgICAgICAgICAgICAgICAgICAgICAgICAgICAgICAgIC AgICAgICAgICANCiAgICAgICAgICAgICAgICAgICAg ICAgICAgICAgICAgICAgICAgICAgICAgICAgICAgICAgICAgICAgICAgICAgICAgICAgICAgICAgICAg ICAgICAgICAgICAgICAgICAgICANCiAgICAgICAgICAgICAgICAgICAgICAgICAgICAgICAgICAgICAg ICAgICAgICAgICAgICAgICAgICAgICAgICAgICAgIC AgICAgICAgICAgICAgICAgICAgICAgICAgICAgICANCjw/vXSiZ2sehAGzxvL5M1ulYv4AHn4SGY4rz4 LvVSXoLZtiicReCwuSBbSzGWCyBjaFXim9XDivUX1NwWMpL6VuD4OnSScfPL9WQQXqDXNowMOySARcSI GdOrK3LSLzVXfyZF7CeYXyXYlqCXQxGOYxQF8CSUFv G833ffWnDC5QAh4XOeJePE4yud6HKcGuELQeGlcRChu7FKisIN1HwACvrUZkQgNhWLQVIiXgJ7rjz5Eo RcKhJEUOAFaoEY8Qj7IncHTwRKh+Zz7MZW7um9YxEWonArSeBI7cin2BCGcRWgDzE8LxcKbhIFDdq3nv HXEfBV6gyVQgHVT7RIIohWhoPM2rxUpaRDRKICYdjM JzVC2sYd1hLUPvJKXcRrLnAHCQYI8PLRUpHJZvgENtBHDbIANDFO0IZAouYBH8UORkchTvaPJlQRzxOV 9QYXJlbnQgMjIgMCBSDQo+Dt1JAV8gb5PnJKdsAQTeYZ7axe7YNJuDBjYyL2Y9jUHhA4F0YYpiRo2RJS YbVHUpSgFgIRSREOtcRB0LQJ4bdsW5ZW9CtULxECHb CFRljHYcYWw3T09zlZOgOPorAV3KCTB+Nelson+Lc0WTLIqXXQuIGLnVaWjMSUJKyYqR4DpE9CEq1CfB8Ow KG61aHheifKhRWauME6VGA9pNLXrCKNVAA6LzNItxX7naeNzSiMgQVHNYnUqA27vzVLgCUUoIDRzSMIh Vq6DTPVeW6OlzwBydZkytlEdQJWpEZHLAM5IKWyshp UhqATbuSpsGY87kEgmQL9LBy9TKcZrDQ5opn8TiDOcUc1SNPYqZN6WHWRdCKCtRGWoHQO5YOZaDwRqMX wmVOAkHQTcVCR3IETiTLFeDP1GShYwPBMxLWwfTXjwBXLnNFUhhh8VUFAmXTXzVFEsQmXjNJOeHEPrRE gtGYRbZKEjHPS5BYVoSWEgTZ9DRiGpTQWvMJL5Kicd HGXyWHSxip3SNEQdDNEoYsNfAvTsJAVmKSZkBGhlYGNmITJ3JEekGDJeFVWiZU7GVeGiASFwTJKyLRju RGLxQWIaba5RGSWrKXNiRJY5DHVaPHVqODXqODvcOXAlXLA6TLC7NHWxYQOnTP0XTtBpEUGtLNH5Frnj YAQuJUEvdm6YXGTyFOHdVPyxQYWxOKPiLHBrBXjePU NnILJ3USnvJOFjQQOoOA5SBuFySBEmJBq8ZNEiXVEhWCPyfa2MLZRvQUVmCtQ4AMBsGHXwVVBrLUgsZT UxZPN4GZF5KBXjHBIvDC4TXpDxOLThTYiaFIZwVUQkNWByie4KEGEpSSZeYDGkGFGhMVGdEKMoIBmiGS NjHHF5JtH5DJTvQOImPX0SAaXqMNOtEPviCvdoQCTy GQDjbu2WNMPcRVKhOFu8InQzBOWfTRJsJYiwYHUzFEDzBsTqNZDmCKGdRJ0RUzRrHJCcGbEdUPYdJXHj ZWJiki5RSPNyRZWlZAJ4DGJmNVAuNRDdKMy3bhQmzTQoFGw1NR3PW0TajnQzRrXWMf7Sp866BEA9DZFy Mq9RH4xtVs4nQWSfYMXXPy8UXKx2QRY1SVNvFrucXM RmOGQwYWRlMjdkYjYxNjNjNDRhYjU+HEnaAGlkYmLiTkT5ERZ0MVVaHNObI1CmKiN9N0K2RFGdYQ1rNU ANCj4+TFrkkXGawTteRVAWIqEsIiecDDvjDRSVOl3A ID Date Data Source [id number] 05/23/2020 01:36:00 PM EDT [facility] ([facility]) Name Value Range Interpretation Code Description Data Tete rce(s) Supporting Document(s) Cholesterol [Mass/volume] in Serum or Plasma 193 mg/dL 131-200 [facility] ([facility]) Cholesterol in LDL [Mass/volume] in Serum or Plasma by calcu lation 54 CALC 50-159 [facility] ([facility]) Cholesterol in HDL [Mass/volume] in Serum or Plasma 79 mg/dL 35-60 [facility] ([facility]) Triglyceride [Mass/volume] in Serum or Plasma 299 mg/dL 30-150 [facility] ([facility]) ID Date Data Source [id number] 05/23/2020 01:36:00 PM EDT [facility] ([facility]) Name Value Range Interpretation Code Description Data Tete rce(s) Supporting Document(s) Glucose mean value [Mass/volume] in Blood Estimated fr om glycated hemoglobin 131 mg/dL 60-110 [facility] ([facility] ) Hemoglobin A1c/Hemoglobin.total in Blood 6.2 g/dL 4.8-5.6 [facility] ([facility]) Lab Result Notes: Pre-Diabetes 5.7 - 6.4 % Diabetes = or > 6.5% ID Date Data Source [id number] 05/23/2020 01:36:00 PM EDT [facility] ([facility]) Name Value Range Interpretation Code Description Data Tete rce(s) Supporting Document(s) Glucose [Mass/volume] in Serum or Plasma 91 mg/dL 74-99 [facility] ([facility]) 100-125 mg/dL PRE-DIABETES/FASTING >126 mg/dL DIABETES/FASTING Urea nitrogen [Mass/volume] in Serum or Plasma 30 mg/dL 7-18 [facility] ([facility]) Creatinine 1.1 mg/dL 0.6-1.3 [facility] ([facility]) Sodium [Moles/volume] in Serum or Plasma 136 meq/L 136-145 [facility] ([facility]) Potassium [Moles/volume] in Serum or Plasma 4.6 meq/L 3.5-5.1 [facility] ([facility]) Chloride [Moles/volume] in Serum or Plasma 100 meq/L 98-107 [facility] ([facility]) Glomerular filtration rate/1.73 sq M pre dicted among non-blacks [Volume Rate/Area] in Serum or Plasma by Creatinine-based formula (MDRD) 48 mL/min [facility] ([facility]) Calcium [Mass/volume] in Serum or Plasma 9.1 mg/dL 8.5-10.1 [facility] ([facility]) Carbon dioxide, total [Moles/volume] in Serum or Plasma 28 meq/L 21 -32 [facility] Glomerular filtration rate/1.73 sq M pre dicted among blacks [Volume Rate/Area] in Serum or Plasma by Creatinine-based formula (MDRD) 58 mL/min [facility] ([facility]) <content>CHRONIC KIDNEY DISEASE STAGING PER NKF</content>
<content></content>
<content>STAGE I & II GFR >= 60 NORMAL TO MILDLY DECREASED</content>
<content>STAGE III GFR 30-59 MODERATELY DECREASED</content>
<content>STAGE IV GFR 15-29 SEVERELY DECREASED</content>
<content>STAGE V GFR <15 VERY LITTLE GFR LEFT</content>
<content>ESRD GFR <15 ON REAL ESTATE JOB TITLES</content>
<content></content> ID Date Data Source [id number] 05/15/2020 09:00:00 AM EDT [facility] Name Value Range Interpretation Code Description Data Tete rce(s) Supporting Document(s) SARS coronavirus 2 RNA [facility] This lab was ordered by [facility] and reported by [facility]. ID Date Data Source [id number] 03/11/2020 02:04:00 PM EDT [facility] ([facility], ) Name Value Range Interpretation Code Description Data Tete rce(s) Supporting Document(s) PDFReport Laboratory test result [facility] ([facility], ) FVC-Pre 2.04 L [facility] ([facility]) FVC-Pred 2.49 L [facility] ([facility]) FVC-LLN 1.84 L [facility] ([facility]) FVC-%Pred-Pre 81 L [facility] ([facility]) Fev1-Pred 1.86 L [facility] ([facility]) Fev1-LLN 1.31 L [facility] ([facility]) Fev1-Pre 1.37 L [facility] ([facility]) Fev6-Pred 2.36 L [facility] ([facility]) Fev1-%Pred-Pre 73 L [facility] ([facility]) Fev6-%Pred-Pre 85 L [facility] ([facility]) Fev6-LLN 1.72 L [facility] ([facility]) Fev6-Pre 2.01 L [facility] ([facility]) Kuz8uip-Tma 67 % [facility] ([facility]) Zes5lbg-%Pred-Pre 90 % [facility] ([facility]) Vpt7dlo-Wuno 74 % [facility] ([facility]) Gap3rgd-TPW 65 % [facility] ([facility]) Gqm4jek-%Pred-Pre 103 % [facility] ([facility], ) Cam3oag-Ziq 98 % [facility] ([facility]) Iwe5vok-Zmlu 95 % [facility] ([facility]) FEFMax-%Pred-Pre 90 L/E/sec [facility] ([facility]) FEFMax-Pred 4.77 L/E/sec [facility] ([facility]) FEFMax-Pre 4.33 L/E/sec [facility] ([facility]) Ckw0964-Rknl 1.45 L/E/sec [facility] ([facility]) Lwc0013-%Pred-Pre 48 L/E/sec [facility] ([facility]) FEFMax-LLN 3.16 L/E/sec [facility] ([facility]) Bop6454-Zjh 0.71 L/E/sec [facility] ([facility]) Znb3217-QAV 0.28 L/E/sec [facility] ([facility]) ExpTime-Pre 6.38 sec [facility] ([facility]) Ylo3zvh6-Pnns 78 % [facility] ([facility]) Mfc0ayk7-Jid 68 % [facility] ([facility]) Jfu2mdx5-%Pred-Pre 87 % [facility] ([facility]) Nkw0rdk9-XVO 69 % [facility] ([facility]) ID Date Data Source [id number] 02/22/2020 02:03:39 PM EDT [facility] Name Value Range Interpretation Code Description Data Tete rce(s) Supporting Document(s) Progress Note [facility] ADYLEt7mAfJUKnZv69/PJNkcOYHhz9LrBDaxJNy3VIwdQRFcL7HkSAV9mO0oTMN5MYfSTuYvZqZfSjOw lbm [file] AgICAgICAgICAgICAgICAgICAgICAgICAgICAgICAgICAgICAgICAgICAgICAgICAgICAgICAgICAgIC AgICAgICAgICAgICAgICAgICAgICAgICAgICAgICAgICAgDQogICAgICAgICAgICAgICAgICAgICAgIC AgICAgICAgICAgICAgICAgICAgICAgICAgICAgICAg ICAgICAgICAgICAgICAgICAgICAgICAgICAgICAgICAgICAgICAgICAgICAgDQogICAgICAgICAgICAg ICAgICAgICAgICAgICAgICAgICAgICAgICAgICAgICAgICAgICAgICAgICAgICAgICAgICAgICAgICAg ICAgICAgICAgICAgICAgICAgICAgICAgICAgDQogIC AgICAgICAgICAgICAgICAgICAgICAgICAgICAgICAgICAgICAgICAgICAgICAgICAgICAgICAgICAgIC AgICAgICAgICAgICAgICAgICAgICAgICAgICAgICAgICAgICAgDQogICAgICAgICAgICAgICAgICAgIC AgICAgICAgICAgICAgICAgICAgICAgICAgICAgICAg ICAgICAgICAgICAgICAgICAgICAgICAgICAgICAgICAgICAgICAgICAgICAgICAgDQogICAgICAgICAg ICAgICAgICAgICAgICAgICAgICAgICAgICAgICAgICAgICAgICAgICAgICAgICAgICAgICAgICAgICAg ICAgICAgICAgICAgICAgICAgICAgICAgICAgICAgDQ ogICAgICAgICAgICAgICAgICAgICAgICAgICAgICAgICAgICAgICAgICAgICAgICAgICAgICAgICAgIC AgICAgICAgICAgICAgICAgICAgICAgICAgICAgICAgICAgICAgICAgDQogICAgICAgICAgICAgICAgIC AgICAgICAgICAgICAgICAgICAgICAgICAgICAgICAg ICAgICAgICAgICAgICAgICAgICAgICAgICAgICAgICAgICAgICAgICAgICAgICAgICAgDQogICAgICAg ICAgICAgICAgICAgICAgICAgICAgICAgICAgICAgICAgICAgICAgICAgICAgICAgICAgICAgICAgICAg ICAgICAgICAgICAgICAgICAgICAgICAgICAgICAgIC AgDQogICAgICAgICAgICAgICAgICAgICAgICAgICAgICAgICAgICAgICAgICAgICAgICAgICAgICAgIC VwMWFcSTKxYKZsIDNeAPLbMHBmSHLsIRYiNXSbIRMtPEGpWBNfUYXcOYTvOUy4D2bbQRWuNGAuMD5aDU d3Jz8+AVzAKlYuRMT3jaWtoK3XBW9aq9HiOCyyKGLr y4BeXIs6AD1RGCEwTAifVE2VWSjmve3OJPFwZKJfeVRMb6rlPbXjFPK3OAVkFynrPW5VOJEkE4sqwlDw ZBLsZMZMTHqmXHKKBSroTIYHOG2SJmGuW1KknN09JXDJCz3+ACqysjRmQtjSAtM9PTTsu5MvGLc6UQ3H OONiMojlz5CyTwawOSBTLQxoZO4BPMN6YMW1APKlJp 3FAPVwP847uaWvTQ9DDd2BQhLjGT4xhj1KKuitWLBcBybPUpl2TYhoOS7CyEIpUCcYev5kubWhsuXEt0 MuxcZjwNBGLIdnYHETCYmvPzdcCzPuNIHsBs6sOx8cZXRsHZHnXpPvDZXITH4REGXoFLVzwQPoAZNyHX JRTM1AUJbdQRS8QDJynrDhfXFbMYckER8PIRPvkjJe MjYgMCBSDQo+Tk2LGS0ht2MfOSfiKSEjAJ9cpk2QGJeNMxBfC1A6bMLlS0U5TGuqIh7YXNFoNOVwXjKr FQOJUWkkPY3BTS6vlpQ6LN4CxLMjAJWnAALvrYYlGPh9I57tvFYeQPlkBB1ZLCB+Nelson+Vc9XOZRoYJAh VRDmWgXfOWSQQjNeT7UdB8ULm7AaA7AeMI51aZlcbh QfODagZG6LJE5rMMOtCMTFLQ2KqNUgrN9fnmRzXiCyPAFEPdDhQ07caRBtHYAeZKY3KGNmHm9IYMVtD7 HnhrMraWndlgAsTLRfQZUTTW9SRDqbkcMibDSdaNqoYH07gSnnEC5STs6JNvCwOO0ddx0AzGBsHp8IWJ OdCR7VMGEtGOSiTSJdAMX9YXXwJdAhBCmnQYWgUUCb YJO8UDOkOPLwUN4XYnOiQRCcIzW1IPJkAVViSGEwyk4YDAIqPIOjRGZ4PNWeOPHiFIWrFZitOVEsIAEl RSX8EJFjDTLgVW2MGiXbHFDiTTH0PjriJJHmGXCwqq1MRQPzKDYrXVV0TDDxWGLfGGGhMYurPPKeBAG4 NcE8UOMrKDWaMS6GHxRqKZMoGLm3VKJnRXTpWJSiwl 7UBXNbHCTbKPj9BpNoFALcAFJjHFyaGDEoGUTnARK4NTEeVFOmZA2LBqXkHDDxRBWhLQetUNXdWECsag 4OQLLcARGlXMHkCYTqYNTrQASmAZhhYJEqBHEhYss4WQXmYDGhCL2FBbWsYYVpRXPnHDHqOFVzQAWdab 6JVXCyWRMvQmO1GOJkDAAoLUDcAVviNZHmXKRiDbU8 TZGwTZDeMP9VJyToCVUwLwBiEmMsAURcTJUiia1AWRPqNVRqFHBmGPGlJUTzZRCrJFvyNOPtWVL4WqGp EJNuSKOeSD2PGjUyLIFgItW5GlIjLTNzBHOtaq9FRHEiEBMcDSSqPnIqUCCyVCWrLUfvQABeAJH5QUC2 BTBxDILqHB6NPsXuUVHqPyUzJJZqVLAxUFRwev1FHH MzFMFuRuEqJJGgHMUdLSGqSSexLMZvIEH4WBV0DKEqRWSlLU1VSmYlVOPgEwvgXMJlWIKxCRCmnc2JPC CtGHIqHNT9IyHaBGEdOTIhHKleUCYyFUD0CSHeTTTeRKLbDB4MWyCaDXqkAKUCUbq2DFobO0w7KMPiNY 4XX6Vjf6DwFabcTZNCJVfkZA4wxiVyDCShGu7OH7nB NyriU9F8Jww4LyW3NtR0YIWaEUSzHeKoHSCiLhI5FFXjFk5dMIZyUcv7IauaMIClJIb2KNR8AuYdHLT7 GYNtNGMtVXQsMtZbYM7RNh2SNaL0XVX7ySQdPa3EPap2NSZFWrQqRR1CFAj= ID Date Data Source [id number] 02/21/2020 01:48:00 PM EDT [facility] ([facility]) Name Value Range Interpretation Code Description Data Tete rce(s) Supporting Document(s) Leukocytes [#/volume] in Blood by Automated count 5.4 x10*3/UL 4.1-10 .9 [facility] ([facility]) Hematocrit [Volume Fraction] of Blood by Automated count 36.0 % 3 7.0-51.0 [facility] ([facility]) Hemoglobin [Mass/volume] in Blood 12.1 g/dL 12.0-18.0 [facility] ([facility]) Erythrocytes [#/volume] in Blood by Automated count 4.20 x10*6/UL 4.2 0-6.30 [facility] ([facility]) MCHC 33.7 g/dL 31.0-38.0 [facility] [facility] MCH 28.9 pg 26.0-32.0 [facility] [facility] MCV 85.7 fL 80.0-97.0 [facility] [facility] Erythrocyte distribution width [Ratio] by Automated count 13.8 % 11.6-13.7 [facility] ([facility]) Platelets [#/volume] in Blood by Automated count 247 x10*3/UL 140-440 [facility] ([facility]) MPV 8.1 FL 7.8-11.0 [facility] [facility] Lymph % 21.1 % 10.0-58.5 [facility] [facility] Mid % 6.8 % 1.7-9.3 [facility] [facility] Neut % 72.1 % 37.0-92.0 [facility] [facility] Neut # 3.9 x10*3/UL 2.0-7.8 [facility] ([facility]) Mid # 0.4 x10*3/UL 0.1-0.6 [facility] ([facility]) Lymph # 1.1 x10*3/UL 0.6-4.1 [facility] ([facility]) ID Date Data Source [id number] 02/21/2020 01:48:00 PM EDT [facility] ([facility]) Name Value Range Interpretation Code Description Data Tete rce(s) Supporting Document(s) Urea nitrogen [Mass/volume] in Serum or Plasma 16 mg/dL 7-18 [facility] ([facility]) Glucose [Mass/volume] in Serum or Plasma 116 mg/dL 74-99 [facility] ([facility]) 100-125 mg/dL PRE-DIABETES/FASTING >126 mg/dL DIABETES/FASTING Creatinine 1.0 mg/dL 0.6-1.3 [email or web address] Sodium [Moles/volume] in Serum or Plasma 136 meq/L 136-145 [facility] ([facility]) Chloride [Moles/volume] in Serum or Plasma 100 meq/L 98-107 [facility] ([facility]) Potassium [Moles/volume] in Serum or Plasma 4.5 meq/L 3.5-5.1 [facility] ([facility]) Glomerular filtration rate/1.73 sq M pre dicted among blacks [Volume Rate/Area] in Serum or Plasma by Creatinine-based formula (MDRD) Laboratory test result [facility]) <content>CHRONIC KIDNEY DISEASE STAGING PER NKF</content>
<content></content>
<content>STAGE I & II GFR >= 60 NORMAL TO MILDLY DECREASED</content>
<content>STAGE III GFR 30-59 MODERATELY DECREASED</content>
<content>STAGE IV GFR 15-29 SEVERELY DECREASED</content>
<content>STAGE V GFR <15 VERY LITTLE GFR LEFT</content>
<content>ESRD GFR <15 ON REAL ESTATE JOB TITLES</content>
<content></content> Glomerular filtration rate/1.73 sq M pre dicted among non-blacks [Volume Rate/Area] in Serum or Plasma by Creatinine-based formula (MDRD) 54 mL/min [facility] Calcium [Mass/volume] in Serum or Plasma 8.8 mg/dL 8.5-10.1 [facility] ([facility]) Carbon dioxide, total [Moles/volume] in Serum or Plasma 25 meq/L 21 -32 [facility] ([facility]) ID Date Data Source [id number] 12/25/2019 12:57:13 PM EDT [facility] Name Value Range Interpretation Code Description Data Tete rce(s) Supporting Document(s) Progress Note [facility] NHCVKb2rDkYGQvDp61/TINwiWBXsx4LzXVugDBe2UIwxRMMaM6XbYEY8bV9aXOK2BVnCLlAtEvXaBNN6 lbm [file] MDAwMzYyNiAwMDAwMCBuDQowMDAwMDAzODMwIDAwMD NpFJ5QKmOpXVPlYMB9WIPyCVTkUNLypu5PVDVsFSNtTdj8FlMkVJZtPEJkZNbbFFGcOGN6RVg9NBUxYA AnKH3GIqMzMZJgJWr1QhsvNYPfGTElzr3UUYPjGMSlAfN7GVUxKNQdYPIeZIogMSAxCNUrGDi6UYGzSY QjQT2KDuVoKUSyBBV9GePsONAvYKBioc8HLXEyBNAs HKdmVUAtGDBqUQCwLJveVMScBQY5MtLxHHMiIZPyAN7AIxZnKBIbDKd8FMotUQNrZUUxkz5HNAAlNTXe KNLpKKPbUPBaRSYaZUkbRLOcOEK9LdS0GDVgHOJtGL1FZzAoHZZoMVs8VPjgPJDoAJElum8ETOPzTSQi WUx6JiPzXTErLQPcSTsnVOLtYYRxXXG5KORoGZBbWA 8YTaKnBWOuPyUeXVkvPWXtOASxre6HVMKyPAKiWhA1TfKdKAVjLGBiXYkjRGHmGQRyLKEoFPCfPLGpRM 8CXlKlZFIyBbOuAOOwLTZuWDWxxl7ERSPaTMVoGjF0RDIpEOOfZIZhIWpgIWFcMKRvBzV6BZPoAPWsDI 0MWmLlVALoRqX4CQWnMEVpCUVsyp1IUNKvYEQqLEnl UWWnIFZwZKKaOGhrRWPaLKQ8POG1OEFhKUAsNI7QIwXgMJCjCeLwJfAgPOObIXVyyw7JDEYpFMAaKvja UCDdAWQvZDMzBUigOAGtNNH3KXl4MFFzSNAvYA9HYkNoMUUfTacxLmOfEBEkVPHlic6SzBTupKfnth8N QYhPBf1UpQpsTEI8KEdjGo4awGBiUQJePBCBXo0Yhr XnPPOvCRERQXedJVUdPJF9K6YaWAv6AVL7LJSaNpNiRPByOxB1OEmlJgX9OkZmEhD3JbL5LNRoKDm6HW t7NJRsPXYdKoHiLZT5SZA7EKonU1A+OC7aQGq+Sy7Oo4QuskB1drTwQIgnZdI0QV4VHNHXC4DXHv== ID Date Data Source [id number] 12/19/2019 02:22:00 PM EDT [facility] ([facility]) Name Value Range Interpretation Code Description Data Tete rce(s) Supporting Document(s) C reactive protein [Mass/volume] in Serum or Plasma by High sensitivity method Laboratory test result 0.00-0.30 [facility] ([facility]) ID Date Data Source [id number] 12/19/2019 02:20:00 PM EDT [facility] ([facility]) Name Value Range Interpretation Code Description Data Tete rce(s) Supporting Document(s) Urine Color Laboratory test result [facility] T ([facility]) Urine Appearance Laboratory test result [facility] ([facility]) Specific gravity of Urine 1.015 1.005-1.030 [facility] ([facility]) Urine PH 6.0 units 5.0-9.0 [facility] Urine Protein Laboratory test result 0-0 [facility] ([facility]) Urine Blood Laboratory test result [facility] ([facility]) Urine Leukocytes Laboratory test result Abnormal (applies to non-numeric results) [facility] ([facility]) Glucose [Presence] in Urine Laboratory test result [facility] ([facility]) Urine Ketone Laboratory test result [facility] NT ([facility]) Bilirubin.total [Mass/volume] in Serum or Plasma Laboratory test resu lt [facility] ([facility]) Urine Nitrite Laboratory test result [facility] ([facility]) Urine Urobilinogen 0.2 mg/dL 0.2-1.0 [facility] ([facility]) ID Date Data Source [id number] 12/19/2019 02:20:00 PM EDT [facility] ([facility]) Name Value Range Interpretation Code Description Data Tete rce(s) Supporting Document(s) Urea nitrogen [Mass/volume] in Serum or Plasma 27 mg/dL 7-18 [facility] ([facility]) Glucose [Mass/volume] in Serum or Plasma 107 mg/dL 74-99 [facility] ([facility]) 100-125 mg/dL PRE-DIABETES/FASTING >126 mg/dL DIABETES/FASTING Potassium [Moles/volume] in Serum or Plasma 4.3 meq/L 3.5-5.1 [facility] ([facility]) Chloride [Moles/volume] in Serum or Plasma 100 meq/L 98-107 [facility] ([facility]) Sodium [Moles/volume] in Serum or Plasma 137 meq/L 136-145 [facility] ([facility]) Creatinine 1.1 mg/dL 0.6-1.3 [facility] ([facility]) Calcium [Mass/volume] in Serum or Plasma 9.3 mg/dL 8.5-10.1 [facility] ([facility]) Glomerular filtration rate/1.73 sq M pre dicted among non-blacks [Volume Rate/Area] in Serum or Plasma by Creatinine-based formula (MDRD) 48 mL/min [facility] ([facility]) Carbon dioxide, total [Moles/volume] in Serum or Plasma 29 meq/L 21 -32 [facility] ([facility]) Glomerular filtration rate/1.73 sq M pre dicted among blacks [Volume Rate/Area] in Serum or Plasma by Creatinine-based formula (MDRD) 59 mL/min [facility] ([facility]) <content>CHRONIC KIDNEY DISEASE STAGING PER NKF</content>
<content></content>
<content>STAGE I & II GFR >= 60 NORMAL TO MILDLY DECREASED</content>
<content>STAGE III GFR 30-59 MODERATELY DECREASED</content>
<content>STAGE IV GFR 15-29 SEVERELY DECREASED</content>
<content>STAGE V GFR <15 VERY LITTLE GFR LEFT</content>
<content>ESRD GFR <15 ON REAL ESTATE JOB TITLES</content>
<content></content> ID Date Data Source [id number] 12/19/2019 02:20:00 PM EDT [facility] ([facility]) Name Value Range Interpretation Code Description Data Tete rce(s) Supporting Document(s) Erythrocyte sedimentation rate by Westergren method 28 mm/hr 0-15 [facility] ([facility]) ID Date Data Source [id number] 12/19/2019 02:20:00 PM EDT [facility] ([facility]) Name Value Range Interpretation Code Description Data Tete rce(s) Supporting Document(s) Leukocytes [#/volume] in Blood by Automated count 7.9 x10*3/UL 4.1-10 .9 [facility] ([facility]) Erythrocytes [#/volume] in Blood by Automated count 4.13 x10*6/UL 4.2 0-6.30 [facility] ([facility]) Hematocrit [Volume Fraction] of Blood by Automated count 35.3 % 3 7.0-51.0 [facility] Hemoglobin [Mass/volume] in Blood 12.2 g/dL 12.0-18.0 [facility] ([facility]) MCHC 34.5 g/dL 31.0-38.0 [facility] [facility] MCV 85.6 fL 80.0-97.0 [facility] ([place] [facility] MCH 29.6 pg 26.0-32.0 [facility] ([facility]) Platelets [#/volume] in Blood by Automated count 265 x10*3/UL 140-440 [facility] Erythrocyte distribution width [Ratio] by Automated count 13.4 % 11.6-13.7 [facility] ([facility]) MPV 7.8 FL 7.8-11.0 [facility] [facility] Mid % 3.4 % 1.7-9.3 [facility] [facility] Lymph # 0.8 x10*3/UL 0.6-4.1 [facility] ([facility]) Lymph % 10.2 % 10.0-58.5 [facility] [facility] Neut % 86.4 % 37.0-92.0 [facility] [facility] Mid # 0.3 x10*3/UL 0.1-0.6 [facility] ([facility]) Neut # 6.8 x10*3/UL 2.0-7.8 [facility] ([facility]) ID Date Data Source [id number] 11/27/2019 02:23:00 PM EDT [facility] ([facility]) Name Value Range Interpretation Code Description Data Tete rce(s) Supporting Document(s) Glucose [Mass/volume] in Serum or Plasma 128 mg/dL 74-99 [facility] ([facility]) 100-125 mg/dL PRE-DIABETES/FASTING >126 mg/dL DIABETES/FASTING Creatinine 1.2 mg/dL 0.6-1.3 [facility] ([email or web address] Sodium [Moles/volume] in Serum or Plasma 134 meq/L 136-145 [facility] ([facility]) Urea nitrogen [Mass/volume] in Serum or Plasma 27 mg/dL 7-18 [facility] ([facility]) Carbon dioxide, total [Moles/volume] in Serum or Plasma 23 meq/L 21 -32 [facility] ([facility]) Potassium [Moles/volume] in Serum or Plasma 4.4 meq/L 3.5-5.1 [facility] ([facility]) Chloride [Moles/volume] in Serum or Plasma 99 meq/L 98-107 [facility] ([facility]) Alkaline phosphatase isoenzyme [Units/volume] in Serum or Pl asma 109 mg/dL 46-116 [facility] ([facility]) Total Bilirubin 0.4 mg/dL 0.2-1.0 [facility] ([facility]) Aspartate aminotransferase [Enzymatic activity/volume] in Serum or Plasma 18 U/L 15-37 [facility] ([facility] ) Calcium [Mass/volume] in Serum or Plasma 9.2 mg/dL 8.5-10.1 [facility] ([facility]) Albumin [Mass/volume] in Serum or Plasma 3.7 g/dL 3.4-5.0 [facility] ([facility]) Alanine aminotransferase [Enzymatic activity/volume] in Seru m or Plasma 22 U/L 12-78 [facility] ([facility]) Proteinase 3 Ab [Units/volume] in Serum 8.0 g/dL 6.4-8.2 [facility] Glomerular filtration rate/1.73 sq M pre dicted among blacks [Volume Rate/Area] in Serum or Plasma by Creatinine-based formula (MDRD) 53 mL/min [facility] <content>CHRONIC KIDNEY DISEASE STAGING PER NKF</content>
<content></content>
<content>STAGE I & II GFR >= 60 NORMAL TO MILDLY DECREASED</content>
<content>STAGE III GFR 30-59 MODERATELY DECREASED</content>
<content>STAGE IV GFR 15-29 SEVERELY DECREASED</content>
<content>STAGE V GFR <15 VERY LITTLE GFR LEFT</content>
<content>ESRD GFR <15 ON REAL ESTATE JOB TITLES</content>
<content></content> Glomerular filtration rate/1.73 sq M pre dicted among non-blacks [Volume Rate/Area] in Serum or Plasma by Creatinine-based formula (MDRD) 44 mL/min [facility] A/G Ratio 0.86 CALC 1.00-1.90 [facility] [facility] ID Date Data Source [id number] 11/27/2019 02:23:00 PM EDT [facility] ([facility]) Name Value Range Interpretation Code Description Data Tete rce(s) Supporting Document(s) Hemoglobin A1c/Hemoglobin.total in Blood 6.0 g/dL 4.8-5.6 [facility] Lab Result Notes: Pre-Diabetes 5.7 - 6.4 % Diabetes = or > 6.5% Glucose mean value [Mass/volume] in Blood Estimated fr om glycated hemoglobin 125 mg/dL 60-110 [facility] ID Date Data Source [id number] 11/27/2019 02:23:00 PM EDT [facility] Name Value Range Interpretation Code Description Data Tete rce(s) Supporting Document(s) Leukocytes [#/volume] in Blood by Automated count 6.0 x10*3/UL 4.1-10 .9 [facility] ([facility]) Hematocrit [Volume Fraction] of Blood by Automated count 34.1 % 3 7.0-51.0 [facility] ([facility]) Erythrocytes [#/volume] in Blood by Automated count 3.98 x10*6/UL 4.2 0-6.30 [facility] ([facility]) Hemoglobin [Mass/volume] in Blood 11.8 g/dL 12.0-18.0 [facility] ([facility]) NOTE: RESULT VERIFIED. MCH 29.7 pg 26.0-32.0 [facility] [facility] MCHC 34.6 g/dL 31.0-38.0 [facility] [facility] MCV 85.7 fL 80.0-97.0 [facility] [facility] Erythrocyte distribution width [Ratio] by Automated count 13.2 % 11.6-13.7 [facility] ([facility]) MPV 8.4 FL 7.8-11.0 [facility] [facility] Lymph % 15.8 % 10.0-58.5 [facility] ([place] [facility] Platelets [#/volume] in Blood by Automated count 252 x10*3/UL 140-440 [facility] ([facility]) Neut % 79.2 % 37.0-92.0 [facility] [facility] Lymph # 0.9 x10*3/UL 0.6-4.1 [facility] ([facility]) Mid % 5.0 % 1.7-9.3 [facility] [facility] Mid # 0.4 x10*3/UL 0.1-0.6 [facility] ([facility]) Neut # 4.7 x10*3/UL 2.0-7.8 [facility] ([facility]) ID Date Data Source [id number] 11/20/2019 12:06:23 PM EDT [facility] Name Value Range Interpretation Code Description Data Tete rce(s) Supporting Document(s) Progress Note [facility] WKFAWs2oMnUDWzVd95/UODgcRGPhs4CnYXkqHNk0KRdtIYEeW2OtDYC4lU1jOSH2JEpKSaEmKcApNwTp lbm [file] d8I9sOQh6rlovsFUbEqdzwIu1ozvKYzxX/Inbound Sales Advisor+XQcTylZPFJVl5l5l0lzjb5SqC5fPbXbkpE6TfuCbpd [file] AgICAgICAgICAgICAgICAgICAgICAgICAgICAgICAg ICAgICAgICAgICAgICAgICAgICAgICAgICAgICAgICAgICAgICANCiAgICAgICAgICAgICAgICAgICAg ICAgICAgICAgICAgICAgICAgICAgICAgICAgICAgICAgICAgICAgICAgICAgICAgICAgICAgICAgICAg ICAgICAgICAgICAgICAgICAgICANCiAgICAgICAgIC AgICAgICAgICAgICAgICAgICAgICAgICAgICAgICAgICAgICAgICAgICAgICAgICAgICAgICAgICAgIC AgICAgICAgICAgICAgICAgICAgICAgICAgICAgICANCiAgICAgICAgICAgICAgICAgICAgICAgICAgIC AgICAgICAgICAgICAgICAgICAgICAgICAgICAgICAg ICAgICAgICAgICAgICAgICAgICAgICAgICAgICAgICAgICAgICAgICANCiAgICAgICAgICAgICAgICAg ICAgICAgICAgICAgICAgICAgICAgICAgICAgICAgICAgICAgICAgICAgICAgICAgICAgICAgICAgICAg ICAgICAgICAgICAgICAgICAgICAgICANCiAgICAgIC AgICAgICAgICAgICAgICAgICAgICAgICAgICAgICAgICAgICAgICAgICAgICAgICAgICAgICAgICAgIC AgICAgICAgICAgICAgICAgICAgICAgICAgICAgICAgICANCiAgICAgICAgICAgICAgICAgICAgICAgIC AgICAgICAgICAgICAgICAgICAgICAgICAgICAgICAg ICAgICAgICAgICAgICAgICAgICAgICAgICAgICAgICAgICAgICAgICAgICANCiAgICAgICAgICAgICAg ICAgICAgICAgICAgICAgICAgICAgICAgICAgICAgICAgICAgICAgICAgICAgICAgICAgICAgICAgICAg ICAgICAgICAgICAgICAgICAgICAgICAgICANCiAgIC AgICAgICAgICAgICAgICAgICAgICAgICAgICAgICAgICAgICAgICAgICAgICAgICAgICAgICAgICAgIC AgICAgICAgICAgICAgICAgICAgICAgICAgICAgICAgICAgICANCiAgICAgICAgICAgICAgICAgICAgIC AgICAgICAgICAgICAgICAgICAgICAgICAgICAgICAg ICAgICAgICAgICAgICAgICAgICAgICAgICAgICAgICAgICAgICAgICAgICAgICANCjw/pWQqO4lndRHz xgH5W4ndTl3TRr2UPC6al6AoVFSbQQsuzaViPxiGOjJzIXSlMbkBRrg0XMxfLM7MeCLkX2OvA5VoRZrt WR4BHDBeHXPvoNLgACYaQDFqPrA5MXOvBCnsWO4PbV DuMUtxYHUqLVYiZuJdRSPcSAPgJSJuYWOgAUAUWRQvDORgVxOqQSQqSACbDQkhIHFQPPD8ATCrUqRfKQ KcSPZuCT1FMXTsC071ruCcBZ7GSs0XSsKbRZ5kpj2UFTPpKLQtPvaCFku5OLgcMG3RsMYzsCV4ZKUsBH ZLKuRzU3bef0IhKYTtGXVLWAqvRL3Sc6TziWYvBYf+ Nm7BXV6xo6EtBUd4JCJfET0xvw6KWYkSYvSbQ6TucWcdFXUpc9csBTFaRC7cmOGlCJN5TEFocdBhAOBv laPjQAYcnvPkRYEwmzqiHKMLTbOglVBwIcQ7QnCfQpGkDCO7XTBcKX6wWEjwUN4LQFN9AHqzAHRzATFa S6aZTjJzJJCpBWRyjWwuJU3RQqExD4WkwrHcvKL1MN AwIFINCj4+GJsntbUxFyeQSmVlLZXpp9UbCOt6ML7TVNOhTTswVI6YKDXmeY2bCBiaQS4NWhXlZPPhNS PZTdEgM73zvMQkODv9F7PkSnPbLIGcRcwcBINwUKmxNoInZYGdGbNzSVwwOE7+ID4+JQdyJW6XRUrtlz QbBHSsDi3MQMJxMMZsTW9qRRElLTMpK0R9cAqcFHRX HaFiL8himwdfLF4xJPCuN413fNizfqTbLFXqFJDoHb8EWFMwQHW4VQJovEFbBewjDXEJWOxhRN1HmBGb WLV3zL2lRUilQXXbTHQeP8hUAwGniYcrTC65lJzwliOscFOdLMk+Ry7KDH4eg4FeOLr5igMlTBmyHVXb TJchSVUaYOQuNQMsASL8RMA0DFDGOvYaLOCkDXYySR bwPFImNHQcnm5SDLVdZQJ9QkI1SzZtTFCnVOXtSEnaLSChEBC4ImH2LZDgLBAyPD7ECaTdHZWeARTwOL feJEGxYAYuhx4QMZPiPVMfQhb8LgYjUBIrQCDfDYrvMQGtJHQ6OQs3ENAqXDVaEM0PHwFpGOWkNSE1JL hvABWcPLTyqd4OIOIxXAAjCfR5IRWdWFWgHUPjIKff CILmIVD2NuG2HPCkZHNoMQ9IDzUfJDLySZd5GzTsNMCwLIAkqj6VBSRcQTQmXsy2XAAcRSTuPBDdYDun EQWvQNUsGDr1CQRtOQPoHX7JQfYaZDFdFOZ5OFFrFGLqKFWsyt5ATIGyLTWxVRI0WLOsSILxFGMgWNep PWObINW4TwI2HIVmTQIzTE3RYgFhRTClRWg6FMWsFM LcEOAfuf4AHDTbCAQaGGK5CRVvABBiPIVdNWzzFDRmPVQbQSC5MHFmCAFbKI6WYsAwIFFaFeChQwBmAH YzHHDwof0RGOPxNANyUHUiIVTmGYGhKVOqUVeqMLDrGFQ7LAitLZJaODWfBH6ABjSvLBNiIqBlVyLzGH UdBNYnwe1BHAGcLXGcVhLeGhCvJBSpHDCqHMznXUVk ANE6PqFqSPSxBGJxOS5RBsYeXBLuRiz6TUKfZWUmBVWapq4HTHAgSLIrDIB3OWRpKMWmEWQsLXwqCWSd FLU6Eku7TXDaHHNySW6THyUeXWUcRtt8MeQcSKCxJETmag2NTPSlVOA6ADZ1TJYdJNCnIALtRFevZASa UEAgWgWpICYbFETaGW4JUwAeHYQdIIO4PxgaYZOaKB Imud5TOKNeEDI6SZU6SXNqJHEqBFLtVHjrLVLvVIVlItH5FRDvQEVgLT9CKiYsLXUjIWJzOjltFHBwGU Iaok1DDKYvGBQ7IfU7OrMuDJQwUZLxOStbKCQuZZVrLMG8VQHpJSDxHR7EEkYlPFLoDDR5AEfmLIMtFV Agxb1XINVxTHL8UaP7IKOxKDHjTWSqVRfgPOZiNQCp HIi3MGBbEMHzRV0MHmYuVNSoIxF6ZnufHGFkZLBsrg4FFJCaVXA2WGM9UHLaAAIfCWPvPLoqNPNySZH2 BjY0FAToKVSySR3LTqPuDKphPCCEGdd7GBvcE7c6HXP0Cp7VH1Oio8XbHJBiUMTNMRcjQX0zdsLzMHXq Pw4MZ7jOWtdeRAHlPHEgJYEfXFgsXdVnMUIvHRZzJs [id number] ID Date Data Source [id number] 10/30/2019 08:27:20 AM 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 Prominent degenerative changes are seen involving the right second digit PIP joint with underlying erosive changes in the 'gull wing' pattern. Prominent degenerative change and erosive changes are also seen involving the fifth digit MCP joint. Moderate scattered degenerative changes are seen elsewhere involving the IP and MCP joints of the right hand. Moderate first CMC joint degenerative changes are present. Soft tissue swelling seen about the IP and MCP joints of the right hand.Left hand: No acute fracture is identified. Prominent degenerative changes are seen involving the right second digit PIP and DIP joints with underlying erosive changes and deformity. Mild to moderate scattered degenerative changes are seen elsewhere involving the IP and MCP joints of the left hand. Advanced first CMC joint degenerative changes are present. There is mild radial subluxation of the second digit distal phalanx with respect of the middle phalanx. There is chondrocalcinosis of the TFCC. Soft tissue swelling is seen about the IP and MCP joints of the left hand.This document has been electronically signed by Guy Vogt MD on 10/30/2019 8:25 AM Name Value Range Interpretation Code Description Data Tete rce(s) Supporting Document(s) ID Date Data Source [id number] 10/29/2019 07:46:41 PM [facility] Name Value Range Interpretation Code Description Data Tete rce(s) Supporting Document(s) Leukocytes [#/volume] in Blood by Automated count 6.0 10*3/uL 4-10 [facility] Erythrocytes [#/volume] in Blood by Automated count 4.18 10*6/uL 4.1- 5.3 [facility] Hemoglobin [Mass/volume] in Blood 12.7 g/dL 11.5-15.5 [facility] Hematocrit [Volume Fraction] of Blood by Automated count 37.9 % 3 6-45 [facility] Erythrocyte mean corpuscular volume [Entitic volume] by Auto mated count 90.7 fL 80-96 [facility] Erythrocyte mean corpuscular hemoglobin [Entitic mass] by Automated count 30.4 pg 27-33 [facility] Erythrocyte mean corpuscular hemoglobin concentration [Mass/volume] by Automated count 33.5 g/dL 32.0-36.0 [facility] distribution width [Ratio] by Automated count 15.3 % 11.5-14.5 H [facility] Platelets [#/volume] in Blood by Automated count 221 10*3/uL 150-400 [facility] Differential cell count method - Blood [facility] Neutrophils/100 leukocytes in Blood by Automated count 70 % [facility] Lymphocytes/100 leukocytes in Blood by Automated count 21 % [facility] Monocytes/100 leukocytes in Blood by Automated count 7 % [facility] Eosinophils/100 leukocytes in Blood by Automated count 1 % [facility] Basophils/100 leukocytes in Blood by Automated count 1 % [facility] Neutrophils [#/volume] in Blood by Automated count 4.19 10*3/uL 1.8-7 .0 [facility] Lymphocytes [#/volume] in Blood by Automated count 1.23 10*3/uL 1.2-4 .0 [facility] Monocytes [#/volume] in Blood by Automated count 0.40 10*3/uL 0-0.8 [facility] Eosinophils [#/volume] in Blood by Automated count 0.08 10*3/uL 0-0.5 [facility] Basophils [#/volume] in Blood by Automated count 0.06 10*3/uL 0-0.2 [facility] Nucleated erythrocytes/100 leukocytes [Ratio] in Blood by Automated count 0 /100{WBCs} 0-0 [facility] ID Date Data Source [id number] 10/29/2019 08:26:00 PM [facility] Name Value Range Interpretation Code Description Data Tete rce(s) Supporting Document(s) C reactive protein [Mass/volume] in Serum or Plasma 9.3 mg/L <8.0 H [facility] ID Date Data Source [id number] 10/29/2019 08:26:00 PM [facility] Name Value Range Interpretation Code Description Data Tete rce(s) Supporting Document(s) Rheumatoid factor [Units/volume] in Serum or Plasma 10 IU/ml <14 [facility] ID Date Data Source [id number] 10/29/2019 08:26:00 PM [facility] Name Value Range Interpretation Code Description Data Tete rce(s) Supporting Document(s) Albumin [Mass/volume] in Serum or Plasma by Bromocresol green (BCG) dye binding method 4.7 g/dL 3.5-5.2 [facility] Bilirubin.total [Mass/volume] in Serum or Plasma 0.4 mg/dL <1.2 [facility] Calcium [Mass/volume] in Serum or Plasma 10.1 mg/dL 8.8-10.2 [facility] Chloride [Moles/volume] in Serum or Plasma 96 mmol/L 98-107 L [facility] Creatinine [Mass/volume] in Serum or Plasma 1.01 mg/dL 0.50-0.90 H [facility] Glucose [Mass/volume] in Serum or Plasma 87 mg/dL 70-140 [facility] Alkaline phosphatase [Enzymatic activity/volume] in Serum or Plasma 92 U/L 35-104 [facility] Potassium [Moles/volume] in Serum or Plasma 4.1 mmol/L 3.4-5.1 [facility] Protein [Mass/volume] in Serum or Plasma 7.7 g/dL 6.4-8.3 [facility] Sodium [Moles/volume] in Serum or Plasma 137 mmol/L 136-145 [facility] Aspartate aminotransferase [Enzymatic activity/volume] in Serum or Plasma 21 U/L <32 [facility] Urea nitrogen [Mass/volume] in Serum or Plasma 20 mg/dL 8-23 [facility] Osmolality of Serum or Plasma by calculation 286 mosm/kg 275-300 [facility] Creatinine/Urea nitrogen [Mass Ratio] in Serum or Plasma 20 [facility] Bicarbonate [Moles/volume] in Serum 27 mmol/L 22-29 [facility] Alanine aminotransferase [Enzymatic activity/volume] in Seru m or Plasma 17 U/L <33 [facility] Anion gap 3 in Serum or Plasma 14 mmol/L 8-15 [facility] Albumin/Globulin [Mass Ratio] in Serum or Plasma 1.6 [facility] Glomerular filtration rate/1.73 sq M pre dicted among non-blacks [Volume Rate/Area] in Serum or Plasma by Creatinine-based formula (MDRD) 53 mL/min/1.73m2 >60 L [facility] Glomerular filtration rate/1.73 sq M pre dicted among blacks [Volume Rate/Area] in Serum or Plasma by Creatinine-based formula (MDRD) 61 mL/min/1.73m2 >60 [facility] ID Date Data Source [id number] 10/29/2019 08:26:00 PM [facility] Value Range Interpretation Code Description Data Tete rce(s) Supporting Document(s) Urate [Mass/volume] in Serum or Plasma 6.3 mg/dl 2.4-5.7 H [facility] ID Date Data Source [id number] 10/29/2019 08:52:47 PM [facility] Value Range Interpretation Code Description Data Tete rce(s) Supporting Document(s) Erythrocyte sedimentation rate 16 mm/hr <30 [facility] ID Date Data Source [id number] 10/29/2019 08:54:14 PM [facility] Value Range Interpretation Code Description Data Tete rce(s) Supporting Document(s) Ferritin [Mass/volume] in Serum or Plasma 61 ng/ml 13-150 [facility] ID Date Data Source [id number] 10/30/2019 11:25:54 AM [facility] Value Range Interpretation Code Description Data Tete rce(s) Supporting Document(s) Cyclic citrullinated peptide IgA+IgG Ab [Units/volume] in Serum or Plasma by Immunoassay 6 units 0-20 [facility] Negative ID Date Data Source [id number] 10/30/2019 01:50:06 PM [facility] Value Range Interpretation Code Description Data Tete rce(s) Supporting Document(s) Nuclear Ab Pattern Homogenous [Titer] in Serum <80 [facility] Nuclear Ab pattern.speckled [Titer] in Serum 160 1/dil <80 H [facility] Nuclear Ab pattern.rim [Titer] in Serum <80 [facility] Nuclear Ab pattern.nucleolar [Titer] in Serum <80 [facility] ID Date Data Source [id number] 10/29/2019 08:46:23 PM [facility] Name Value Range Interpretation Code Description Data Tete rce(s) Supporting Document(s) Protein [Mass/volume] in Urine [facility] Creatinine [Mass/volume] in Urine 26.1 mg/dL [facility] Protein/Creatinine [Mass Ratio] in Urine [facility] ID Date Data Source [id number] 10/10/2019 11:41:36 AM [facility] Name Value Range Interpretation Code Description Data Tete rce(s) Supporting Document(s) Progress [facility] [id number] [file] [id number] ID Date Data Source [id number] 08/31/2019 12:30:00 PM EST [facility] ([facility]) Name Value Range Interpretation Code Description Data Tete rce(s) Supporting Document(s) Glucose [Mass/volume] in Serum or Plasma 96 mg/dL 74-99 [facility] ([facility]) 100-125 mg/dL PRE-DIABETES/FASTING >126 mg/dL DIABETES/FASTING Urea nitrogen [Mass/volume] in Serum or Plasma 21 mg/dL 7-18 [facility] ([facility]) Creatinine 1.0 mg/dL 0.6-1.3 [facility] Chloride [Moles/volume] in Serum or Plasma 101 meq/L 98-107 [facility] ([facility]) Sodium [Moles/volume] in Serum or Plasma 136 meq/L 136-145 [facility] ([facility]) Potassium [Moles/volume] in Serum or Plasma 4.7 meq/L 3.5-5.1 [facility] ([facility]) Carbon dioxide, total [Moles/volume] in Serum or Plasma 29 meq/L 21 -32 [facility] Glomerular filtration rate/1.73 sq M pre dicted among non-blacks [Volume Rate/Area] in Serum or Plasma by Creatinine-based formula (MDRD) 54 mL/min [facility] Calcium [Mass/volume] in Serum or Plasma 9.5 mg/dL 8.5-10.1 [facility] Glomerular filtration rate/1.73 sq M pre dicted among blacks [Volume Rate/Area] in Serum or Plasma by Creatinine-based formula (MDRD) Laboratory test result [facility] <content>CHRONIC KIDNEY DISEASE STAGING PER NKF</content>
<content></content>
<content>STAGE I & II GFR >= 60 NORMAL TO MILDLY DECREASED</content>
<content>STAGE III GFR 30-59 MODERATELY DECREASED</content>
<content>STAGE IV GFR 15-29 SEVERELY DECREASED</content>
<content>STAGE V GFR <15 VERY LITTLE GFR LEFT</content>
<content>ESRD GFR <15 ON REAL ESTATE JOB TITLES</content>
<content></content> Procedure Social History Code Duration Value Status Description Data Source(s ) Smoking 03/26/2020 12:00:00 AM EDT Patient is a former smoker completed Patient is a former smoker [facility] ([facility]) Smoking 03/11/2020 12:00:00 AM EDT Patient is a former smoker completed Patient is a former smoker [facility] ([facility], ) Alcohol intake 11/02/2019 12:00:00 AM EST Ex-drinker (finding) comp leted Ex- drinker (finding) [facility] Tobacco use and exposure 11/02/2019 12:00:00 AM EST Never used co mpleted Never used [facility] Smoking 11/02/2019 12:00:00 AM EST Former smoker completed Former smoker [facility] Smoking 11/02/2019 12:00:00 AM EST Former smoker completed Former smoker [facility] Alcohol intake 10/29/2019 12:00:00 AM EST Ex-drinker (finding) comp leted Ex- drinker (finding) [facility] Smoking 10/29/2019 12:00:00 AM EST Former smoker completed Former smoker [facility] Alcohol intake 10/10/2019 12:00:00 AM EST Ex-drinker (finding) comp leted Ex- drinker (finding) [facility] Smoking 10/10/2019 12:00:00 AM EST Former smoker completed Former smoker [facility] Vital Signs ID Date Data Source [id number] Name Value Range Interpretation Code Description Data Source(s) Body mass index (BMI) [Ratio] 32.2 kg/m2 32.2 k g/m2 [facility] ([facility]) Body weight 179.00 [lb_av] 179.00 [lb_av] [facility] ([facility]) Body height 62.5 [in_i] 62.5 [in_i] [facility] ([facility]) 5'2.50" Heart rate 82 /min 82 /min [facility] ([facility]) Diastolic blood pressure 74 mm[Hg] 74 mm[Hg] [facility] ([facility]) Systolic blood pressure 150 mm[Hg] 150 mm[Hg] M [facility] ([facility]) Diastolic blood pressure 70 mm[Hg] 70 mm[Hg] [facility] ([facility]) Systolic blood pressure 156 mm[Hg] 156 mm[Hg] M [facility] ([facility]) Body temperature 97.3 [degF] 97.3 [degF] [facility] ([facility]) Body mass index (BMI) [Ratio] 31.7 kg/m2 31.7 k g/m2 [facility] ([facility]) Oxygen saturation in Arterial blood by Pulse oximetry 96 % 96 % [facility] ([facility]) Body weight 176.38 [lb_av] 176.38 [lb_av] [facility] ([facility]) Body height 62.5 [in_i] 62.5 [in_i] [facility] ([facility]) 5'2.50" Heart rate 86 /min 86 /min [facility] ([facility]) Diastolic blood pressure 70 mm[Hg] 70 mm[Hg] [facility] ([facility]) Systolic blood pressure 134 mm[Hg] 134 mm[Hg] M [facility] ([facility]) Body mass index (BMI) [Ratio] 31.6 kg/m2 31.6 k g/m2 [facility] ([facility], [facility]) Body height 62 [in_i] 62 [in_i] [facility] ([facility], [facility]) 5'2" Body weight 173.00 [lb_av] 173.00 [lb_av] [facility] ([facility], [facility]) Body temperature 98.6 [degF] 98.6 [degF] [facility] ([facility], [facility]) Oxygen saturation in Arterial blood by Pulse oximetry 95 % 95 % [facility] ([facility], [facility]) Respiratory rate 16 /min 16 /min [facility] ( [facility], [facility]) Heart rate 76 /min 76 /min [facility] ([facility], [facility]) Diastolic blood pressure 74 mm[Hg] 74 mm[Hg] [facility] ([facility], [facility]) Systolic blood pressure 131 mm[Hg] 131 mm[Hg] M [facility] ([facility], [facility]) Body mass index (BMI) [Ratio] 31.6 kg/m2 31.6 k g/m2 [facility] ([facility], [facility]) Body height 62 [in_i] 62 [in_i] [facility] ([facility], [facility]) 5'2" Body weight 173.00 [lb_av] 173.00 [lb_av] [facility] ([facility], [facility]) Body temperature 99.8 [degF] 99.8 [degF] [facility] ([facility], [facility]) Oxygen saturation in Arterial blood by Pulse oximetry 96 % 96 % [facility] ([facility], [facility]) Respiratory rate 17 /min 17 /min [facility] ( [facility], [facility]) Heart rate 97 /min 97 /min [facility] ([facility], [facility]) Diastolic blood pressure 65 mm[Hg] 65 mm[Hg] [facility] ([facility], [facility]) Systolic blood pressure 117 mm[Hg] 117 mm[Hg] M [facility] ([facility], [facility]) Body weight 80.287 kg 80.287 kg [facility] ([facility]) Body mass index (BMI) [Ratio] 32.4 kg/m2 32.4 k g/m2 [facility] ([facility]) Body weight 177.00 [lb_av] 177.00 [lb_av] [facility] Body height 62 [in_i] 62 [in_i] [facility] ([facility]) 5'2" Body temperature 97.6 [degF] 97.6 [degF] [facility] ([facility]) Oxygen saturation in Arterial blood by Pulse oximetry 93 % 93 % [facility] ([facility]) Heart rate 79 /min 79 /min [facility] ([facility]) Diastolic blood pressure 60 mm[Hg] 60 mm[Hg] [facility] ([facility]) Systolic blood pressure 140 mm[Hg] 140 mm[Hg] [facility] ([facility]) Body mass index (BMI) [Ratio] 33.5 kg/m2 33.5 k g/m2 [facility] ([facility]) Oxygen saturation in Arterial blood by Pulse oximetry 96 % 96 % [facility] ([facility]) Body weight 186.00 [lb_av] 186.00 [lb_av] [facility] ([facility]) Body height 62.5 [in_i] 62.5 [in_i] [facility] ([facility]) 5'2.50" Heart rate 78 /min 78 /min [facility] ([facility]) Diastolic blood pressure 60 mm[Hg] 60 mm[Hg] [facility] ([facility]) Systolic blood pressure 134 mm[Hg] 134 mm[Hg] [facility] ([facility]) Diastolic blood pressure 64 mm[Hg] 64 mm[Hg] [facility] ([facility]) Systolic blood pressure 164 mm[Hg] 164 mm[Hg] [facility] ([facility]) Body mass index (BMI) [Ratio] 33.1 kg/m2 33.1 k g/m2 [facility] ([facility]) Oxygen saturation in Arterial blood by Pulse oximetry 95 % 95 % [facility] ([facility]) Body weight 184.00 [lb_av] 184.00 [lb_av] [facility] ([facility]) Body height 62.5 [in_i] 62.5 [in_i] [facility] ([facility]) 5'2.50" Heart rate 86 /min 86 /min [facility] ([facility]) Diastolic blood pressure 80 mm[Hg] 80 mm[Hg] [facility] ([facility]) Systolic blood pressure 148 mm[Hg] 148 mm[Hg] [facility] ([facility]) Body mass index (BMI) [Ratio] 32.6 kg/m2 32.6 k g/m2 [facility] ([facility], [facility]) Body height 62 [in_i] 62 [in_i] [facility] ([facility], [facility]) 5'2" Body weight 178.00 [lb_av] 178.00 [lb_av] [facility] ([facility], [facility]) Body temperature 98.5 [degF] 98.5 [degF] [facility] ([facility], [facility]) Oxygen saturation in Arterial blood by Pulse oximetry 93 % 93 % [facility] ([facility], [facility]) Respiratory rate 16 /min 16 /min [facility] ( [facility], [facility]) Heart rate 82 /min 82 /min [facility] ([facility], [facility]) Diastolic blood pressure 88 mm[Hg] 88 mm[Hg] [facility] ([facility]) Systolic blood pressure 127 mm[Hg] 127 mm[Hg] M [facility]) Body mass index (BMI) [Ratio] 33.1 kg/m2 33.1 k g/m2 [facility] ([facility]) Oxygen saturation in Arterial blood by Pulse oximetry 84 % 84 % [facility] ([facility]) Body weight 184.00 [lb_av] 184.00 [lb_av] [facility] ([facility]) Body height 62.5 [in_i] 62.5 [in_i] [facility] 5'2.50" Heart rate 92 /min 92 /min [facility] ([facility]) Diastolic blood pressure 46 mm[Hg] 46 mm[Hg] [facility] ([facility]) Systolic blood pressure 132 mm[Hg] 132 mm[Hg] M [facility] ([facility]) Body mass index (BMI) [Ratio] 33.1 kg/m2 33.1 k g/m2 [facility] ([facility]) Oxygen saturation in Arterial blood by Pulse oximetry 96 % 96 % [facility] ([facility]) Body weight 184.00 [lb_av] 184.00 [lb_av] [facility] ([facility]) Body height 62.5 [in_i] 62.5 [in_i] [facility] ([facility]) 5'2.50" Heart rate 80 /min 80 /min [facility] ([facility]) Diastolic blood pressure 70 mm[Hg] 70 mm[Hg] [facility] ([facility]) Systolic blood pressure 136 mm[Hg] 136 mm[Hg] M [facility] ([facility]) Body weight 83.009 kg 83.009 kg [facility] ([facility], ) Body mass index (BMI) [Ratio] 33.5 kg/m2 33.5 k g/m2 [facility] ([facility]) Body weight 183.00 [lb_av] 183.00 [lb_av] [facility] ([facility]) Body height 62 [in_i] 62 [in_i] [facility] ([facility], ) 5'2" Oxygen saturation in Arterial blood by Pulse oximetry 96 % 96 % [facility] ([facility], ) Heart rate 71 /min 71 /min [facility] ([facility], ) Diastolic blood pressure 64 mm[Hg] 64 mm[Hg] [facility] ([facility], ) Systolic blood pressure 128 mm[Hg] 128 mm[Hg] [facility] ([facility], ) ID Date Data Source [id number] 09/18/2020 03:31:00 PM [facility] Name Value Range Interpretation Code Description Data Source(s) HEIGHT 157.48 cm 157.48 cm [facility] WEIGHT RECORDED 80.795730 kg 80.973082 kg [facility] ID Date Data Source [id number] 11/20/2019 12:06:23 PM [facility] Name Value Range Interpretation Code Description Data Source(s) WEIGHT RECORDED 178 lb 178 lb [facility] Body height Measured 62.01 in 62.01 in [facility] ID Date Data Source [id number] 10/10/2019 11:41:36 AM [facility] Value Range Interpretation Code Description Data Source(s) WEIGHT RECORDED 178 lb 178 lb [facility] Body height Measured 62 in 62 in [facility] ID Date Data Source [id number] 08/03/2019 03:10:49 PM [facility] Value Range Interpretation Code Description Data Source(s) WEIGHT RECORDED 180 lb 180 lb [facility] Body height Measured 62 in 62 in [facility] Patient Treatment Plan of Care Planned Activity Planned Date Details Description Data Source (s) tizanidine 4 MG Oral Tablet 02/22/2020 12:00:00 AM [facility] Hydroxychloroquine Sulfate 200 MG Oral Tablet 11/21/2019 12:00:00 A M [facility] Ipratropium [place] 0.06 % Nasal Solution (ATROVENT) 12:00:00 AM [facility] Trelegy Ellipta 100-62.5-25 MCG/INH Aerosol Powder Irene [facility] Activated 10/01/2019 12:00:00 AM [facility] meloxicam 15 MG Oral Tablet 12/28/2018 12:00:00 AM EDT [facility] tizanidine 4 MG Oral Tablet 12/10/2018 12:00:00 AM [facility]
[2020-09-29] MEDS ORDERED: DICL1GEL3 (14:40)
[2020-09-29] MEDS ORDERED: TRAM50TA2 (14:40)
--- OUTSIDE RECORDS SUMMARY | 2020-09-29 15:24 | CCD ---
Author Author [facility] Organization [facility] Address Unknown Phone Unavailable Care Team Providers Care Customer Account Coordinator Name Role Phone COLIN SHERIDAN MD Unavailable [...] Unavailable COLIN SHERIDAN MD Unavailable Unavailable COLIN SHEIRDAN MD Unavailable Unavailable COLIN SHERIDAN MD Unavailable [...] Unavailable Unavailable COLIN SHERIDAN MD Unavailable Unavailable OCLIN SHERIDAN MD Unavailable Unavailable COLIN SHERIDAN MD Unavailable Unavailable COLIN SHERIDAN MD Unavailable Unavailable COLIN SHERIDAN MD Unavailable Unavailable COLIN SHERIDAN MD Unavailable Unavailable COLIN SHERIDAN MD Unavailable Unavailable COLIN SHERIDAN MD Unavailable Unavailable COLIN SHERIDAN MD Unavailable Unavailable COLIN SHERIDAN MD Unavailable Unavailable COILN SHERIDAN MD Unavailable Unavailable COLIN SHERIDAN MD [...] MCELAN, CLARA PA Unavailable Unavailable SELVIN SNOW [id number] Unavailable Unavailable NAJMA, P GLENN MD Unavailable [...] Physician Unavailable Unavailable LePine, M Maria A TRACTOR ENGINE MECHANIC Unavailable Unavailable LePine, M Maria A TRACTOR ENGINE MECHANIC Unavailable Unavailable LePine, M Maria A TRACTOR ENGINE MECHANIC Unavailable Unavailable LePine, M Maria A TRACTOR ENGINE MECHANIC Unavailable Unavailable LePine, M Maria A TRACTOR ENGINE MECHANIC Unavailable Unavailable LePine, M Maria A TRACTOR ENGINE MECHANIC Unavailable Unavailable LePine, M Maria A TRACTOR ENGINE MECHANIC Unavailable Unavailable LePine, M Maria A TRACTOR ENGINE MECHANIC Unavailable Unavailable LePine, M Maria A TRACTOR ENGINE MECHANIC Unavailable Unavailable LePine, M Maria A TRACTOR ENGINE MECHANIC Unavailable Unavailable LePine, M Maria A TRACTOR ENGINE MECHANIC Unavailable Unavailable LePine, M Maria A TRACTOR ENGINE MECHANIC Unavailable Unavailable LePine, M Maria A TRACTOR ENGINE MECHANIC Unavailable Unavailable LePine, M Maria A TRACTOR ENGINE MECHANIC Unavailable Unavailable LePine, M Maria A TRACTOR ENGINE MECHANIC Unavailable Unavailable LePine, M Maria A TRACTOR ENGINE MECHANIC Unavailable Unavailable LePine, M Maria A TRACTOR ENGINE MECHANIC Unavailable Unavailable LePine, M Maria A TRACTOR ENGINE MECHANIC Unavailable Unavailable LePine, M Maria A TRACTOR ENGINE MECHANIC Unavailable Unavailable LePine, M Maria A TRACTOR ENGINE MECHANIC Unavailable Unavailable LePine, M Maria A TRACTOR ENGINE MECHANIC Unavailable Unavailable LePine, M Maria A TRACTOR ENGINE MECHANIC Unavailable Unavailable LePine, M Maria A TRACTOR ENGINE MECHANIC Unavailable Unavailable LePine, M Maria A TRACTOR ENGINE MECHANIC Unavailable Unavailable LePine, M Maria A TRACTOR ENGINE MECHANIC Unavailable Unavailable LePine, M Maria A TRACTOR ENGINE MECHANIC Unavailable Unavailable LePine, M Maria A TRACTOR ENGINE MECHANIC Unavailable Unavailable LePine, M Maria A TRACTOR ENGINE MECHANIC Unavailable Unavailable LePine, M Maria A TRACTOR ENGINE MECHANIC Unavailable Unavailable LePine, M Maria A TRACTOR ENGINE MECHANIC Unavailable Unavailable LePine, M Maria A TRACTOR ENGINE MECHANIC Unavailable Unavailable LePine, M Maria A TRACTOR ENGINE MECHANIC Unavailable Unavailable LePine, M Maria A TRACTOR ENGINE MECHANIC Unavailable Unavailable LePine, M Maria A TRACTOR ENGINE MECHANIC Unavailable Unavailable LePine, M Maria A TRACTOR ENGINE MECHANIC Unavailable Unavailable LePine, M Maria A TRACTOR ENGINE MECHANIC Unavailable Unavailable LePine, M Maria A TRACTOR ENGINE MECHANIC Unavailable Unavailable LePine, M Maria A TRACTOR ENGINE MECHANIC Unavailable Unavailable LePine, M Maria A TRACTOR ENGINE MECHANIC Unavailable Unavailable LePine, M Maria A TRACTOR ENGINE MECHANIC Unavailable Unavailable LePine, M Maria A TRACTOR ENGINE MECHANIC Unavailable Unavailable LePine, M Maria A TRACTOR ENGINE MECHANIC Unavailable Unavailable LePine, M Maria A TRACTOR ENGINE MECHANIC Unavailable Unavailable LePine, M Maria A TRACTOR ENGINE MECHANIC Unavailable Unavailable LePine, M Maria A TRACTOR ENGINE MECHANIC Unavailable Unavailable LePine, M Maria A TRACTOR ENGINE MECHANIC Unavailable Unavailable LePine, M Maria A TRACTOR ENGINE MECHANIC Unavailable Unavailable LePine, M Maria A TRACTOR ENGINE MECHANIC Unavailable Unavailable LePine, M Maria A TRACTOR ENGINE MECHANIC Unavailable Unavailable LePine, M Maria A TRACTOR ENGINE MECHANIC Unavailable Unavailable LePine, M Maria A TRACTOR ENGINE MECHANIC Unavailable Unavailable LePine, M Maria A TRACTOR ENGINE MECHANIC Unavailable Unavailable LePine, M Maria A TRACTOR ENGINE MECHANIC Unavailable Unavailable LePine, M Maria A TRACTOR ENGINE MECHANIC Unavailable Unavailable ALLAMPALLVicky BRENNAN . Unavailable Unavailable PIRANAHOLLY DYSONARALUANA Unavailable Unavailable Varma, Beverley PRESSER ALL AROUND Unavailable Unavailable Varma, Beverley PRESSER ALL AROUND Unavailable Unavailable Varma, Beverley PRESSER ALL AROUND Unavailable Unavailable Varma, Beverley PRESSER ALL AROUND Unavailable Unavailable Varma, Beverley PRESSER ALL AROUND Unavailable Unavailable Varma, Beverley PRESSER ALL AROUND Unavailable Unavailable Varma, Beverley PRESSER ALL AROUND Unavailable Unavailable Varma, Beverley PRESSER ALL AROUND Unavailable Unavailable Varma, Beverley PRESSER ALL AROUND Unavailable Unavailable Varma, Beverley PRESSER ALL AROUND Unavailable Unavailable Varma, Beverley PRESSER ALL AROUND Unavailable Unavailable Kylah SUTTON MD Unavailable Unavailable [...] Eliza BANGURA Unavailable Unavailable Rivas, W Eliza Unavailable Unavailable [...] MD Unavailable Unavailable LePine, M Maria A TRACTOR ENGINE MECHANIC Unavailable Unavailable LePine, M Maria A TRACTOR ENGINE MECHANIC Unavailable Unavailable LePine, M Maria A TRACTOR ENGINE MECHANIC Unavailable Unavailable LePine, M Maria A TRACTOR ENGINE MECHANIC Unavailable Unavailable LePine, M Maria A TRACTOR ENGINE MECHANIC Unavailable Unavailable LePine, M Maria A TRACTOR ENGINE MECHANIC Unavailable Unavailable LePine, M Maria A TRACTOR ENGINE MECHANIC Unavailable Unavailable LePine, M Maria A TRACTOR ENGINE MECHANIC Unavailable Unavailable LePine, M Maria A TRACTOR ENGINE MECHANIC Unavailable Unavailable LePine, M Maria A TRACTOR ENGINE MECHANIC Unavailable Unavailable LePine, M Maria A TRACTOR ENGINE MECHANIC Unavailable Unavailable LePine, M Maria A TRACTOR ENGINE MECHANIC Unavailable Unavailable LePine, M Maria A TRACTOR ENGINE MECHANIC Unavailable Unavailable LePine, M Maria A TRACTOR ENGINE MECHANIC Unavailable Unavailable LePine, M Maria A TRACTOR ENGINE MECHANIC Unavailable Unavailable LePine, M Maria A TRACTOR ENGINE MECHANIC Unavailable Unavailable LePine, M Maria A TRACTOR ENGINE MECHANIC Unavailable Unavailable LePine, M Maria A TRACTOR ENGINE MECHANIC Unavailable Unavailable LePine, M Maria A TRACTOR ENGINE MECHANIC Unavailable Unavailable LePine, M Maria A TRACTOR ENGINE MECHANIC Unavailable Unavailable LePine, M Maria A TRACTOR ENGINE MECHANIC Unavailable Unavailable LePine, M Maria A TRACTOR ENGINE MECHANIC Unavailable Unavailable LePine, M Maria A TRACTOR ENGINE MECHANIC Unavailable Unavailable LePine, M Maria A TRACTOR ENGINE MECHANIC Unavailable Unavailable LePine, M Maria A TRACTOR ENGINE MECHANIC Unavailable Unavailable LePine, M Maria A TRACTOR ENGINE MECHANIC Unavailable Unavailable LePine, M Maria A TRACTOR ENGINE MECHANIC Unavailable Unavailable LePine, M Maria A TRACTOR ENGINE MECHANIC Unavailable Unavailable LePine, M Maria A TRACTOR ENGINE MECHANIC Unavailable Unavailable LePine, M Maria A TRACTOR ENGINE MECHANIC Unavailable Unavailable LePine, M Maria A TRACTOR ENGINE MECHANIC Unavailable Unavailable LePine, M Maria A TRACTOR ENGINE MECHANIC Unavailable Unavailable LePine, M Maria A TRACTOR ENGINE MECHANIC Unavailable Unavailable LePine, M Maria A TRACTOR ENGINE MECHANIC Unavailable Unavailable LePine, M Maria A TRACTOR ENGINE MECHANIC Unavailable Unavailable LePine, M Maria A TRACTOR ENGINE MECHANIC Unavailable Unavailable LePine, M Maria A TRACTOR ENGINE MECHANIC Unavailable Unavailable LePine, M Maria A TRACTOR ENGINE MECHANIC Unavailable Unavailable LePine, M Maria A TRACTOR ENGINE MECHANIC Unavailable Unavailable LePine, M Maria A TRACTOR ENGINE MECHANIC Unavailable Unavailable LePine, M Maria A TRACTOR ENGINE MECHANIC Unavailable Unavailable LePine, M Maria A TRACTOR ENGINE MECHANIC Unavailable Unavailable LePine, M Maria A TRACTOR ENGINE MECHANIC Unavailable Unavailable LePine, M Maria A TRACTOR ENGINE MECHANIC Unavailable Unavailable LePine, M Maria A TRACTOR ENGINE MECHANIC Unavailable Unavailable LePine, M Maria A TRACTOR ENGINE MECHANIC Unavailable Unavailable LePine, M Maria A TRACTOR ENGINE MECHANIC Unavailable Unavailable LePine, M Maria A TRACTOR ENGINE MECHANIC Unavailable Unavailable LePine, M Maria A TRACTOR ENGINE MECHANIC Unavailable Unavailable LePine, M Maria A TRACTOR ENGINE MECHANIC Unavailable Unavailable LePine, M Maria A TRACTOR ENGINE MECHANIC Unavailable Unavailable LePine, M Maria A TRACTOR ENGINE MECHANIC Unavailable Unavailable LePine, M Maria A TRACTOR ENGINE MECHANIC Unavailable Unavailable LePine, M Maria A TRACTOR ENGINE MECHANIC Unavailable Unavailable Reyes, Yaquelin Nora PA Unavailable [...] Yaquelin Nora PA Unavailable Unavailable MEHIC, FEHID PRESSER ALL AROUND Unavailable Unavailable MEHIC, FEHID PRESSER ALL AROUND Unavailable Unavailable MEHIC, FEHID PRESSER ALL AROUND Unavailable Unavailable MEHIC, FEHID PRESSER ALL AROUND Unavailable Unavailable MEHIC, FEHID PRESSER ALL AROUND Unavailable Unavailable MEHIC, FEHID PRESSER ALL AROUND Unavailable Unavailable MEHIC, FEHID PRESSER ALL AROUND Unavailable Unavailable MEHIC, FEHID PRESSER ALL AROUND Unavailable Unavailable MEHIC, FEHID PRESSER ALL AROUND Unavailable Unavailable MEHIC, FEHID PRESSER ALL AROUND Unavailable Unavailable MEHIC, FEHID PRESSER ALL AROUND Unavailable Unavailable MEHIC, FEHID PRESSER ALL AROUND Unavailable Unavailable MEHIC, FEHID PRESSER ALL AROUND Unavailable Unavailable MEHIC, FEHID PRESSER ALL AROUND Unavailable Unavailable MEHIC, FEHID PRESSER ALL AROUND Unavailable Unavailable MEHIC, FEHID PRESSER ALL AROUND Unavailable Unavailable MEHIC, FEHID PRESSER ALL AROUND Unavailable Unavailable MEHIC, FEHID PRESSER ALL AROUND Unavailable Unavailable MEHIC, FEHID PRESSER ALL AROUND Unavailable Unavailable MEHIC, FEHID PRESSER ALL AROUND Unavailable Unavailable MEHIC, FEHID PRESSER ALL AROUND Unavailable Unavailable Re-disclosure Warning The records that [...] is protected by Article 27-F of the [facility] Public Health law. If you continue you may have access to information: Regarding HIV / AIDS; Provided by facilities licensed or operated by the [facility] Office of Mental Health; or Provided by the [facility] Office for People With Developmental Disabilities. If such information is present, then the following [facility] mandated warning applies: This information has been [...] law may result in a fine or [place] health care facility sentence or both. A general authorization for the release of medical or other information is NOT sufficient authorization for further disc losure. Allergies and Adverse Reactions Type Description Substance Reaction Status Data Source(s ) Drug allergy No Known Allergies No Known Allergies [facility] Drug Class NO KNOWN ALLERGIES NO KNOWN ALLERGIES [facility] Family History Family Member Name Family Member Gender Family Member Status Date o f Status Description Data Source(s) Unknown Unknown Problem [facility] ([facility] Unknown Female Problem MEDENT ([facility] ) Encounters Encounter Providers Location Date Indications Data Source(s ) Preadmit Attender: Eliza Rabago mitter: Physician UnknownReferrer: Eliza Hathaway MD 09/11/2020 07:30:00 AM EST DIARRHEA, PROLAPSING HEMORRHOID [facility] DIARRHEA, PROLAPSING HEMORRHOID Admission cancelled. Disregard status an d admitted date. Outpatient Attender: Maria A Marcelo 08/29 12:40:00 PM EST MEDENT ([facility] ) Outpatient Attender: CLARA HERR Physical Therapy 07/23/2020 12:00:00 PM EST [facility] ([facility]) Outpatient Attender: MEHUL BUTLER NPReferrer: Maria A PATIÑO [id number] 06/27/2020 12:00:00 AM EDT Spondylosis without myelopathy or radicu lopathy, lumbar region [facility] Spondylosis without myelopathy or radicu lopathy, lumbar region Outpatient Attender: Maria A Marcelo 05/23 01:40:00 PM EDT MEDENT ([facility] ) Outpatient Referrer: BRENNAN HARMON . 05/20/2020 12:00: 00 AM [facility] Outpatient Attender: Beverley tian 04/09/2020 02:45:00 PM EDT [facility] ([facility]) Outpatient Attender: Nora franks 03/26/2020 03:30:00 PM EDT [facility] ([facility]) Outpatient Attender: MEHUL BUTLER NPReferrer: Maria A PATIÑO [id number] 02/22/2020 12:00:00 AM EDT Myalgia, other site [facility] Myalgia, other site Outpatient Attender: Maria A Marcelo 02/20 01:40:00 PM EDT MEDENT ([facility] ) Outpatient 01/31/2020 12:00:00 AM [facility] Outpatient Attender: CLARA HERR Physical Therapy 01/29/2020 01:00:00 PM EDT [facility] ([facility]) Outpatient Attender: SELVIN SNOW [id number]: Maria A PATIÑO [id number] 12/25/2019 12:00:00 AM [facility] Outpatient Attender: Maria A Marcelo 12/18 02:00:00 PM EDT MEDENT ([facility] ) Outpatient Attender: Nora franks 12/16/2019 12:45:00 PM EDT [facility] ([facility]) Outpatient 12/13/2019 12:00:[address] [facility] Outpatient Attender: Maria A Marcelo 11/26 01:40:00 PM EDT MEDENT ([facility] ) Outpatient Referrer: MEHUL BUTLER NP 11/14/2019 12:00:00 AM [facility] Outpatient Attender: RAO SCHREIBERReferrer: Jillian Montero MD [id number] 10/29/2019 12:00:00 AM EST - 10/29/2019 04:02:19 PM EST Pain in unspecified [facility] Pain in unspecified joint Outpatient Referrer: GLENN YAO MD 10/29/2019 12:00 :00 AM EST Pain in unspecified [facility] Pain in unspecified joint Outpatient Attender: MEHUL BUTLER NPReferrer: Maria A PATIÑO [id number] 10/10/2019 12:00:00 AM EST - 10/10/2019 11:12:36 AM [facility] Outpatient Referrer: Benny Park MD 09/27/2019 03: 16:00 PM EST [facility] Outpatient Referrer: ARIELLA SUTTON MD 09/11/2019 12:00:00 A M 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 lopathy, site unspecified Outpatient Referrer: Jessie HERR 05/08/2019 1 2:00:00 AM EDT Spinal stenosis, lumbar region with neurogenic claudication [facility] Spinal stenosis, lumbar region with neur [...] CAPSULE BY MOUTH EVERY DAY SOLD: 09/04/2020 [facility] 90 mcg/actuation 08/20/2020 12:00:00 AM EST HFA aerosol inha ler 54 INHALE 2 PUFFS BY MOUTH EVERY 4 HOURS NEEDED INHALE 2 PUFFS BY MOUTH EVERY 4 HOURS NEEDED SOLD: 08/23/2020 [facility] 50 mg 08/11/2020 12:00:00 AM [...] Prednisone 04/09/2020 12:00:00 AM EDT active [facility] ([facility]) montelukast 10 MG Oral Tablet MONTELUKAST SODIUM [...] 03/26/2020 1 2:00:00 AM EDT completed [facility] ([facility]) Medication administered onsite 0.25 mg 03/21/2020 12:00:00 [...] Sodium 03/05/2020 12:00:00 AM EDT active [facility] Diclofenac Sodium 0.01 MG/MG Topical Gel Voltaren 03/03/2020 12 :00:00 AM EDT completed MED[facility] ([facility]) 4 mg 02/28/2020 12:00:00 AM [...] obdulio th Two times daily as needed [facility] tizanidine 4 MG Oral Tablet TIZANIDINE [...] 12/19/2019 12:00:00 AM EDT ORAL active [facility] Hydroxyzine Hydrochloride 10 MG Oral [...] Prednisone 12/16/2019 12:00:00 AM EDT completed [facility] ([facility]) Famotidine 20 MG Oral Tablet Famotidine 12/16/2019 12:00:00 AM EDT active MED[facility] ([facility]) 20 mg 12/16/2019 12:00:00 AM EDT tablet [...] 12/16/2019 1 2:00:00 AM EDT completed [facility] ([facility]) Medication administered onsite Benadryl/Diphenhydramine Hci Injectionto 50 MG 12/16/2019 12:00:00 AM EDT completed [facility] ([facility]) Medication administered onsite 5 mg 12/10/2019 12:00:00 AM EDT tablet 90 TAKE ONE TABLET BY MOUTH EVERY DAY TAKE ONE TABLET BY MOUTH EVERY DAY SOLD: 03/05/2020 [facility] 5 mg 12/10/2019 12:00:00 AM EDT tablet 90 TAKE ONE TABLET BY MOUTH EVERY DAY TAKE ONE TABLET BY MOUTH EVERY DAY SOLD: 12/12/2019 [facility] Osteo Bi-Flex Advanced Triple Strength 11/27/2019 12:00:00 AM ED T ORAL completed MEDENT ([facility]) 50 mg 11/23/2019 12:00:00 AM EDT [...] 1 tablet by mouth Two Times Daily [facility] 4 mg 11/07/2019 12:00:00 AM EST tablet 90 TAKE ONE TABLET BY MOUTH THREE TIMES A DAY TAKE ONE TABLET BY MOUTH THREE TIMES A DAY SOLD: 11/07/2019 [facility] Ipratropium [place] 0.06 % Nasal Solution (ATROVENT) [id number] 10/09/2019 12:00:00 AM EST active [facility] Trelegy Ellipta 100-62.5-25 MCG/INH Aerosol Powder Irene ath Activated [id number] 10/01/2019 12:00:00 AM EST active [facility] 20 mg 08/20/2019 12:00:00 AM EST [...] BY MOUTH IN THE EVENING SOLD: 09/28/2019 [facility] 20 mg 04/01/2019 12:00:00 AM EDT [...] 15 MG tablet 12/28/2018 12:00:00 AM EDT [facility] tizanidine 4 MG Oral Tablet tizanidine (ZANAFLEX) 4 MG tablet tizanidine (ZANAFLEX) 4 MG tablet 12/10/2018 12:00:00 AM EDT [facility] 100 mg 11/27/2018 12:00:00 AM EDT tablet [...] type / Coverage type Policy ID Covered libertarian ID Covered libertarian's relationship to jewell Policy Jewell Plan Information MEDICARE [id number] SP [id number] AARP HE[employer] CARE OPTIONS [id number] SP [id number] [facility] AARP [id number] P [id number] 911 MEDICARE B [id number] P [id number] MEDICARE A [id number] P [id number] [facility] AARP [id number] P [id number] [facility] AARP [id number] MEDICARE A [id number] MEDICARE C [id number] S [id number] AARP O [id number] S [id number] AARP U [id number] Self [id number] MEDICARE A [id number] Self [id number] A66 AARP U [id number] Self [id number] NORIDIAN JE PART B C [id number] S [id number] [place] (pr) Medigap Part B [id number] Self [id number] Ghi/Emblem [facility] (pr) Medigap Part B [id number] Self [id number] BS [place] Medigap Part B [id number] Self [id number] [employer] Options Medigap Part B [id number] Self [id number] [place] [id number] Self [id number] [place] (pr) Medigap Part B [id number] Self [id number] G[facility]/[employer] [facility] (pr) Medigap Part B [id number] Self [id number] BS [place] Medigap Part B [id number] Self [id number] [employer] Medigap Part B [id number] Self [id number] [place] [id number] Self [id number] [place] (pr) Medigap Part B [id number] Self [id number] G[facility]blem [facility] (pr) Medigap Part B [id number] Self [id number] BS [place] Medigap Part B [id number] Self [id number] [employer] Medigap Part B [id number] Self [id number] [place] [id number] Self [id number] [employer] Opt Medigap Part B [id number] Self [id number] Medicare [place] Govt Serv Medicare Primary [id number] Self [id number] Ghi/Emblem Health Medigap Part B [id number] Self [id number] [place] Medigap Part B [id number] Self [id number] MEDICARE A [id number] Self [id number] [employer] Medigap Part B [id number] Self [id number] Medicare [place] Govt Servic Medicare Primary [id number] Self [id number] [employer] Options Medigap Part B [id number] Self [id number] Medicare [place] Gov't Servi Medicare Primary [id number] Self [id number] [place] (pr) Medigap Part B [id number] Self [id number] Ghi/Emblem [facility] (pr) Medigap Part B [id number] Self [id number] BS [place] Medigap Part B [id number] Self [id number] [employer] Options Medigap Part B [id number] Self [id number] [place] [id number] Self [id number] MEDICARE C [id number] S [id number] D [place] (pr) Medigap Part B [id number] Self [id number] G[facility]/[employer] [facility] (pr) Medigap Part B [id number] Self [id number] BS [place] Medigap Part B [id number] Self [id number] [employer] Medigap Part B [id number] Self [id number] [place] Primary [id number] Self [id number] [place] (pr) Medigap Part B [id number] Self [id number] Ghi/[employer]blem [facility] (pr) Medigap Part B [id number] Self [id number] BS [place] Medigap Part B [id number] Self [id number] [employer] Medigap Part B [id number] Self [id number] [place] Primary [id number] Self [id number] [place] (pr) Medigap Part B 95684722 Self [id number] Ghi/Emblem [facility] (pr) Medigap Part B [id number] Self [id number] BS [place] Medigap Part B [id number] Self [id number] [employer] Medigap Part B [id number] Self [id number] [place] Primary [id number] Self [id number] [place] (pr) Medigap Part B [id number] Self [id number] [facility]/Em[employer] [facility] (pr) Medigap Part B [id number] Self [id number] BS [place] Medigap Part B [id number] Self [id number] [employer] Medigap Part B [id number] Self [id number] [place] Primary [id number] Self [id number] [place] (pr) Medigap Part B [id number] Self [id number] Ghi/Emblem [facility] (pr) Medigap Part B [id number] Self [id number] BS [place] Medigap Part B [id number] Self [id number] [employer] Medigap Part B [id number] Self [id number] [place] Primary [id number] Self [id number] [place] (pr) Medigap Part B [id number] Self [id number] Ghi/Emblem [facility] (pr) Medigap Part B [id number] Self [id number] BS [place] Medigap Part B [id number] Self [id number] [employer] Medigap Part B [id number] Self [id number] [place] Primary [id number] Self [id number] [facility] Opt Medigap Part B [id number] Self [id number] Medicare [place] Govt Servic Medicare Primary [id number] Self [id number] [place] (pr) Medigap Part B [id number] Self [id number] Ghi/Emblem [facility] (pr) Medigap Part B [id number] Self [id number] BS [place] Medigap Part B [id number] Self [id number] [employer] Medigap Part B [id number] Self [id number] [place] Primary [id number] Self [id number] MEDICARE [id number] SP [id number] D [place] (pr) Medigap Part B [id number] Self [id number] Ghi/Emblem [facility] (pr) Medigap Part B [id number] Self [id number] BS [place] Medigap Part B [id number] Self [id number] [employer] Medigap Part B [id number] Self [id number] [place] Primary [id number] Self [id number] [place] (pr) Medigap Part B [id number] Self [id number] Ghi/Emblem [facility] (pr) Medigap Part B [id number] Self [id number] BS [place] Medigap Part B [id number] Self [id number] [employer] Medigap Part B [id number] Self [id number] [place] Primary [id number] Self [id number] [place] (pr) Medigap Part B [id number] Self [id number] G[facility]/Em[facility] (pr) Medigap Part B [id number] Self [id number] BS [place] Medigap Part B [id number] Self [id number] [facility] Medigap Part B [id number] Self [id number] [place] [id number] Self [id number] [place] (pr) Medigap Part B [id number] Self [id number] [facility] (pr) Medigap Part B [id number] Self [id number] BS [place] Medigap Part B [id number] Self [id number] [facility] Medigap Part B [id number] Self [id number] [place] [id number] Self [id number] [place] (pr) Medigap Part B [id number] Self [id number] [facility] (pr) Medigap Part B [id number] Self [id number] BS [place] Medigap Part B [id number] Self [id number] [facility] Medigap Part B [id number] Self [id number] [place] [id number] Self [id number] [place] (pr) Medigap Part B [id number] Self [id number] [facility] (pr) Medigap Part B [id number] Self [id number] BS [place] Medigap Part B [id number] Self [id number] [facility] Medigap Part B [id number] Self [id number] [place] [id number] Self [id number] [place] (pr) Medigap Part B [id number] Self [id number] [facility] (pr) Medigap Part B [id number] Self [id number] BS [place] Medigap Part B [id number] Self [id number] [facility] Medigap Part B [id number] Self [id number] [place] [id number] Self [id number] [place] (pr) Medigap Part B [id number] Self [id number] [facility] (pr) Medigap Part B [id number] Self [id number] BS [place] Medigap Part B [id number] Self [id number] [facility] Medigap Part B [id number] Self [id number] [place] [id number] Self [id number] [facility] Medigap Part B [id number] Self [id number] Medicare [place] [employer] [place] Primary [id number] Self [id number] [place] (pr) Medigap Part B [id number] Self [id number] [facility] (pr) Medigap Part B [id number] Self [id number] BS [place] Medigap Part B [id number] Self [id number] [facility] Medigap Part B [id number] Self [id number] [place] [id number] Self [id number] [place] (pr) Medigap Part B [id number] Self [id number] [facility] (pr) Medigap Part B [id number] Self [id number] BS [place] Medigap Part B [id number] Self [id number] [facility] Medigap Part B [id number] Self [id number] [place] [id number] Self [id number] [facility] Medigap Part B [id number] Self [id number] Medicare [place] [employer] [place] Primary [id number] Self [id number] [place] (pr) Medigap Part B [id number] Self [id number] [facility] (pr) Medigap Part B [id number] Self [id number] BS [place] Medigap Part B [id number] Self [id number] [facility] Medigap Part B [id number] Self [id number] [place] [id number] Self [id number] [place] (pr) Medigap Part B [id number] Self [id number] [facility] (pr) Medigap Part B [id number] Self [id number] BS [place] Medigap Part B [id number] Self [id number] [facility] Medigap Part B [id number] Self [id number] [place] Primary [id number] Self [id number] [place] (pr) Medigap Part B 89286042 Self [id number] [facility] (pr) Medigap Part B 796312649 Self [id number] BS [place] Medigap Part B [id number] Self [id number] [facility] Medigap Part B [id number] Self [id number] [place] [id number] Self [id number] [place] (pr) Medigap Part B 87287931 Self [id number] [facility] (pr) Medigap Part B [id number] Self [id number] BS [place] Medigap Part B [id number] Self [id number] [facility] Medigap Part B [id number] Self [id number] [place] Primary [id number] Self [id number] [facility] Medigap Part B [id number] Self [id number] Medicare [place] [employer] Medicare Primary [id number] Self [id number] [place] (pr) Medigap Part B [id number] Self [id number] [facility] (pr) Medigap Part B [id number] Self [id number] BS [place] Medigap Part B [id number] Self [id number] [facility] Medigap Part B [id number] Self [id number] Medicare [facility] Medicare Primary [id number] Self [id number] [facility] Medigap Part B [id number] Self [id number] Medicare [place] [employer] Medicare Primary [id number] Self [id number] [place] (pr) Medigap Part B [id number] Self [id number] [facility] (pr) Medigap Part B [id number] Self [id number] BS [place] Medigap Part B [id number] Self [id number] [facility] Medigap Part B [id number] Self [id number] Medicare [facility] Medicare Primary [id number] Self [id number] [facility] Medigap Part B [id number] Self [id number] Medicare [place] [employer] Medicare Primary [id number] Self [id number] [place] (pr) Medigap Part B [id number] Self [id number] [facility] (pr) Medigap Part B 797726912 Self [id number] BS [place] Medigap Part B [id number] Self [id number] [facility] Medigap Part B [id number] Self [id number] [place] [id number] Self [id number] [facility] Medigap Part B Ppo Self Ppo [place] Medigap Part B Plan G Self Plan G [facility] Medigap Part B Self Medicare [place] [employer] [place] Primary Self [place] (pr) Medigap Part B Self [facility] (pr) Medigap Part B Self BS [place] Medigap Part B Self [facility] Medigap Part B F Self F [place] Primary Self [facility] Medigap Part B Self Medicare [place] [employer] Medicare Primary Self DME Jurisdiction A [facility] C [id number] SELF [id number] AARP [facility] Supplemental F [id number] SELF [id number] Medicare C [id number] SELF [id number] D SELFPAY 5 UNAVAILABLE 1 UNAVAILA BLE MEDICARE 4 [id number] 1 [id number] D AARP 2 [id number] D Problems, Conditions, and Diagnoses Code Display Name Description Problem Type Effective Dates Data Source(s) 73211849 Nicotine dependence Nicotine dependence Problem 1 10/15/2018 12:00:00 AM [facility]OO[facility] ([facility], ) M47.816 Spondylosis without myelopathy or radicu lopathy, lumbar region Spondylosis without myelopathy or radiculopathy, lumbar region Diagnosis 06/27/2020 07:27:05 AM [facility] M79.18 Myalgia, other site Myalgia, other site Diagnosis 0 02/22/2020 09:11:15 AM [facility] M15.0 Primary generalized (osteo)arthritis Primary gen eralized (osteo)arthritis Diagnosis 10/29/2019 04:11:00 PM [facility] M25.50 Pain in unspecified joint Pain in unspecified joint Di agnosis 10/29/2019 04:11:00 PM [facility] Surgeries/Procedures Procedure Description Date Indications Data Source(s) Mammogram 04/23/2020 12:00:00 AM EDT M [facility] ([facility]) Therapeutic, Prophylactic Or Diagnostic Injection Subq/Im 03/26/2020 12:00:00 AM EDT [facility] ([facility]) Therapeutic, Prophylactic Or Diagnostic Injection Subq/Im 12/16/2019 12:00:00 AM EDT [facility] ([facility]) Therapeutic, Prophylactic Or Diagnostic Injection Subq/Im 12/16/2019 12:00:00 AM EDT [facility] ([facility]) CREATININE OTHER SOURCE URINE RANDOM TP/CRE RATIO Routine 10/29/2019 4:30 PM EST Polyarthralgia 10/29/2019 09:30:00 PM EST Polyarthralgia [facility] Polyarthralgia CYCLIC CITRULLINATED PEPTIDE ANTIBODY CCP ANTIBODY Routine 10/29/2019 4:30 PM EST Polyarthralgia 10/29/2019 09:30:00 PM EST Polyarthralgia [facility] Polyarthralgia SEDIMENTATION RATE RBC AUTOMATED SEDIMENTATION RATE, AUTOMATED Routine 10/29/2019 4:30 PM EST Polyarthralgia 10/29/2019 09:30:00 PM EST Polyarthralgia [facility] Polyarthralgia BLOOD COUNT COMPLETE AUTO&AUTO DIFRNTL WBC COUNT CBC AND DIFFER ENTIAL Routine 10/29/2019 4:30 PM EST Polyarthralgia 10/29/2019 09:30:00 PM EST Polyarthralgia [facility] Polyarthralgia RHEUMATOID FACTOR QUANTITATIVE RHEUMATOID FACTOR Routine 10/29/2019 4:30 PM EST Polyarthralgia 10/29/2019 09:30:00 PM EST Polyarthralgia [facility] Polyarthralgia C-REACTIVE PROTEIN INFLAMMATORY C-REACTIVE PROTEIN (CRP) Routin e 10/29/2019 4:30 PM EST Polyarthralgia 10/29/2019 09:30:00 PM EST Polyarthralgia [facility] Polyarthralgia ANTINUCLEAR ANTIBODIES LASHAWN LASHAWN Routine 10/29/2019 4 :30 PM EST Polyarthralgia 10/29/2019 09:30:00 PM EST Polyarthralgia [facility] Polyarthralgia URIC ACID BLOOD URIC ACID Routine 10/29/2019 4:30 PM EST Polyarthralgia 10/29/2019 09:30:00 PM EST Polyarthralgia [facility] Polyarthralgia FERRITIN FERRITIN LEVEL Routine 10/29/2019 4:30 PM EST Polyarthralgia 10/29/2019 09:30:00 PM EST Polyarthralgia [facility] Polyarthralgia COMPREHENSIVE METABOLIC PANEL COMPREHENSIVE METABOLIC PANEL Rou garcía 10/29/2019 4:30 PM EST Polyarthralgia 10/29/2019 09:30:00 PM EST Polyarthralgia [facility] Polyarthralgia Results ID Date Data Source [id number] 08/29/2020 02:07:00 PM EST [facility] ([facility]) Name Value Range Interpretation Code Description Data Tete rce(s) Supporting Document(s) Glucose [Mass/volume] in Serum or Plasma 94 mg/dL 74-99 [facility] ([facility]) 100-125 mg/dL PRE-DIABETES/FASTING >126 mg/dL DIABETES/FASTING Sodium [Moles/volume] in Serum or Plasma 136 meq/L 136-145 [facility] ([facility]) Creatinine 0.9 mg/dL 0.6-1.3 [facility] Urea nitrogen [Mass/volume] in Serum or Plasma 21 mg/dL 7-18 [facility] ([facility]) Chloride [Moles/volume] in Serum or Plasma 100 meq/L 98-107 [facility] ([facility]) Potassium [Moles/volume] in Serum or Plasma 4.5 meq/L 3.5-5.1 [facility] ([facility]) Glomerular filtration rate/1.73 sq M pre dicted among non-blacks [Volume Rate/Area] in Serum or Plasma by Creatinine-based formula (MDRD) Laboratory test result [facility] ([facility] ) Carbon dioxide, total [Moles/volume] in Serum or Plasma 27 meq/L 21 -32 [facility] ([facility]) Calcium [Mass/volume] in Serum or Plasma 9.4 mg/dL 8.5-10.1 [facility] ([facility]) Glomerular filtration rate/1.73 sq M pre dicted among blacks [Volume Rate/Area] in Serum or Plasma by Creatinine-based formula (MDRD) Laboratory test result [facility]) <content>CHRONIC KIDNEY DISEASE STAGING PER NKF</content>
<content></content>
<content>STAGE I & II GFR >= 60 NORMAL TO MILDLY DECREASED</content>
<content>STAGE III GFR 30-59 MODERATELY DECREASED</content>
<content>STAGE IV GFR 15-29 SEVERELY DECREASED</content>
<content>STAGE V GFR <15 VERY LITTLE GFR LEFT</content>
<content>ESRD GFR <15 ON ETHYLENE OXIDE PANELBOARD OPERATOR</content>
<content></content> ID Date Data Source [id number] 08/29/2020 02:07:00 PM EST [facility] ([facility]) Name Value Range Interpretation Code Description Data Tete rce(s) Supporting Document(s) Leukocytes [#/volume] in Blood by Automated count 5.6 x10*3/UL 4.1-10 .9 [facility] ([facility] Erythrocytes [#/volume] in Blood by Automated count 4.14 x10*6/UL 4.2 0-6.30 [facility] ([facility]) Hematocrit [Volume Fraction] of Blood by Automated count 35.5 % 3 7.0-51.0 [facility] ([facility]) MCV 85.7 fL 80.0-97.0 [facility] ([facility]) Hemoglobin [Mass/volume] in Blood 12.2 g/dL 12.0-18.0 [facility] ([facility]) MCH 29.6 pg 26.0-32.0 [facility] ([facility] MCHC 34.6 g/dL 31.0-38.0 [facility] ([facility] Erythrocyte distribution width [Ratio] by Automated count 13.7 % 11.6-13.7 [facility] ([facility]) MPV 8.6 FL 7.8-11.0 [facility] ([facility]) Platelets [#/volume] in Blood by Automated count 251 x10*3/UL 140-440 [facility] ([facility]) Lymph % 25.2 % 10.0-58.5 [facility] Mid % 6.0 % 1.7-9.3 [facility] Lymph # 1.4 x10*3/UL 0.6-4.1 [facility] ([facility]) Neut % 68.8 % 37.0-92.0 [facility] Mid # 0.4 x10*3/UL 0.1-0.6 [facility] ([facility]) Neut # 3.8 x10*3/UL 2.0-7.8 [facility] ([facility]) ID Date Data Source [id number] 06/27/2020 03:32:30 PM EDT [facility] Name Value Range Interpretation Code Description Data Tete rce(s) Supporting Document(s) Progress Note [facility] GBDIBs5wNbWBIiPc34/UCRuaXPMbj9AcRWlePDw9TWprYYXqE2DpEAJ0tC2pAUV4WVrAUbKxSsOhOWO8 lbm [file] ICAgICAgICAgICAgICAgICAgICAgICAgICAgICAgIC AgICAgICAgICAgICAgICAgICAgICANCiAgICAgICAgICAgICAgICAgICAgICAgICAgICAgICAgICAgIC AgICAgICAgICAgICAgICAgICAgICAgICAgICAgICAgICAgICAgICAgICAgICAgICAgICAgICAgICAgIC AgICANCiAgICAgICAgICAgICAgICAgICAgICAgICAg ICAgICAgICAgICAgICAgICAgICAgICAgICAgICAgICAgICAgICAgICAgICAgICAgICAgICAgICAgICAg ICAgICAgICAgICAgICANCiAgICAgICAgICAgICAgICAgICAgICAgICAgICAgICAgICAgICAgICAgICAg ICAgICAgICAgICAgICAgICAgICAgICAgICAgICAgIC AgICAgICAgICAgICAgICAgICAgICAgICANCiAgICAgICAgICAgICAgICAgICAgICAgICAgICAgICAgIC AgICAgICAgICAgICAgICAgICAgICAgICAgICAgICAgICAgICAgICAgICAgICAgICAgICAgICAgICAgIC AgICAgICANCiAgICAgICAgICAgICAgICAgICAgICAg ICAgICAgICAgICAgICAgICAgICAgICAgICAgICAgICAgICAgICAgICAgICAgICAgICAgICAgICAgICAg ICAgICAgICAgICAgICAgICANCiAgICAgICAgICAgICAgICAgICAgICAgICAgICAgICAgICAgICAgICAg ICAgICAgICAgICAgICAgICAgICAgICAgICAgICAgIC AgICAgICAgICAgICAgICAgICAgICAgICAgICANCiAgICAgICAgICAgICAgICAgICAgICAgICAgICAgIC AgICAgICAgICAgICAgICAgICAgICAgICAgICAgICAgICAgICAgICAgICAgICAgICAgICAgICAgICAgIC AgICAgICAgICANCiAgICAgICAgICAgICAgICAgICAg ICAgICAgICAgICAgICAgICAgICAgICAgICAgICAgICAgICAgICAgICAgICAgICAgICAgICAgICAgICAg ICAgICAgICAgICAgICAgICAgICANCiAgICAgICAgICAgICAgICAgICAgICAgICAgICAgICAgICAgICAg ICAgICAgICAgICAgICAgICAgICAgICAgICAgICAgIC AgICAgICAgICAgICAgICAgICAgICAgICAgICAgICANCjw/uPXjR3sznXQqarJ3F2jkNv6DIw0EFE6on0 IyTIHlVLdmcaTzCqwQDaIaOZTtYseGKfm9JGuhRL3PeJHxN1YtI8QzGGgqQL8QMQIbULUwlIQpWACaQR BhSpD4FUAyEAryXL1GcAUcUBbuZSLeGUUdRH5JJPDh M253qdQjYO4DQn1TDsPaBF4fcw3YQiBaELNlHlyTOnv1TSfsQM5ZsFZasUQzXlVrXJPQKdUrV8czk6Lq XzLzACZBPBafNQ4Fk3MokUBqEMa+Vk8KWC8sz4LlEIbgWnOyFP7ulp0XOBwJYeSrR1HyyUovAMXze3ul JZKjER7mgFZjFYE1VLYlrAkmFF4nxJkrJKDNSJYlxG RqRX2qHr2wLNFiXKAqJaVzRTMIGW7MVOAjAZZmrNEmTXGfNNGFIM8HKWfgNGC5METjkhLcvGYdTLhlRX 9QYXJlbnQgMjIgMCBSDQo+Lv9OJY8eh5PwMVbvRPXlND6btp8RCGzOYmKmV1E5eOMfF2R4KBnlTm5YEU IvQPXwOlXwSNNWHLjkDM9AAC4bhmM8OI1TwVRnBRXy QSBiqTSbXMx3Q36yiLFgFAzvGT8WYKN+Nelson+As4WMLRhRYOpTNFzKcFdMMICWtCrI5PpG8PXv5EoX6Gw TG21hZotxnQxYUiaBV5PBJ4fRZNlHHOSLL5JoTInyF5auwIxZhIpQKOGHfYlC17qbUMjBWSlFSUyXTWj Iy8MJSCrY5QrduEqkGepedSvEJFlQGDKFL1PPGacoh HypZZffRhfLV80zUtvRK4KWz1GNvRwGF2kzj4YrIWpSj4OLFAlAD7REPSyCEZyAZJmIJC8RDZgSsQxYA rtESGxDKWsNBM8HDPfDEUzAS5MJvPtTNKyKUfaRRszJWDpHXYvmx3KVXZcZGZjWXRmOgCdVMZiOCCxKS rnIMCwVLWcJJP4BFVrAQCeVK2JCaPyXPHaXSR4Hsom CQYgIFOoxd2LPFElDWQiBvUqXbDaREBvKYAjEEefRSFgDVT8BIsjZLFfTDSrQA6GGeHmOYUkSTPdGHqa OAHzACNkja8QSTBcDCRxZED4SCGrTAZeWDIoJZlvGXVsBXR7WSQ3TIVnOIJvPM2ETeMnPOVkWMJ9Kcea YEAbOGEoha3LKAYfFTFnHFmiQUWxOJHtHECcWRstNJ QrBSV6BOuhTVRiZTQoSF6DNsMeMIUiIOa1TDUgELXbDJAuim2OBRYbTBMmIxQ4UVRfEQWkOMGtXLinTK TzEWE6BJD9GZHmIUZdLM4DCkSgOWEuNUoyETLeAREcHXLrah3CDRDkHAOwXQHdEOFgRATdJFShCHnaML JcYSD3NyZ0UNOwQHOgWV0OQlSaCKOqPNqtCymtSTAj SXTmqo1EHPYuYAMsJVq2JzQcTFWeSQEjAIexGQGvCSOrKrDpSLQqCIUoIE2CYlJhLDIfRyAsYMKcOUKm TVBbxg9IFYRqQNJbWZU0JOJrZPMjIJPmFHw0qrTnfXWsOAs3GQ6HK4PiwzSaVaMOJm5Mj264TJX0YAVp Rp7HM4wcJs9kSRYkVOQDUo0DODs0RZZ5LELiBdmiIV RmOGQwYWRlMjdkYjYxNjNjNDRhYjU+JCzeYEamEmPuWjG6LIN9SQQrAKEiD9NnBlV4Z1Q8HIUlBL6eGV ANCj4+NBjhiISnwZypGIFLKgJrVvcwQLzhBUSJLe3H ID Date Data Source [id number] 05/23/2020 01:36:00 PM EDT [facility] ([facility]) Name Value Range Interpretation Code Description Data Tete rce(s) Supporting Document(s) Cholesterol [Mass/volume] in Serum or Plasma 193 mg/dL 131-200 [facility] ([facility]) Cholesterol in LDL [Mass/volume] in Serum or Plasma by calcu lation 54 CALC 50-159 [facility] ([facility]) Cholesterol in HDL [Mass/volume] in Serum or Plasma 79 mg/dL 35-60 [facility] ([facility]) Triglyceride [Mass/volume] in Serum or Plasma 299 mg/dL 30-150 [facility] ([facility]) ID Date Data Source [id number] 05/23/2020 01:36:00 PM EDT [facility] ([facility]) Name Value Range Interpretation Code Description Data Tete rce(s) Supporting Document(s) Glucose mean value [Mass/volume] in Blood Estimated fr om glycated hemoglobin 131 mg/dL 60-110 [facility] ([facility] ) Hemoglobin A1c/Hemoglobin.total in Blood 6.2 g/dL 4.8-5.6 [facility] ([facility]) Lab Result Notes: Pre-Diabetes 5.7 - 6.4 % Diabetes = or > 6.5% ID Date Data Source [id number] 05/23/2020 01:36:00 PM EDT [facility] ([facility]) Name Value Range Interpretation Code Description Data Tete rce(s) Supporting Document(s) Glucose [Mass/volume] in Serum or Plasma 91 mg/dL 74-99 [facility] ([facility]) 100-125 mg/dL PRE-DIABETES/FASTING >126 mg/dL DIABETES/FASTING Urea nitrogen [Mass/volume] in Serum or Plasma 30 mg/dL 7-18 [facility] ([facility]) Creatinine 1.1 mg/dL 0.6-1.3 [facility] Sodium [Moles/volume] in Serum or Plasma 136 meq/L 136-145 [facility] ([facility]) Potassium [Moles/volume] in Serum or Plasma 4.6 meq/L 3.5-5.1 [facility] ([facility]) Chloride [Moles/volume] in Serum or Plasma 100 meq/L 98-107 [facility] ([facility]) Glomerular filtration rate/1.73 sq M pre dicted among non-blacks [Volume Rate/Area] in Serum or Plasma by Creatinine-based formula (MDRD) 48 mL/min [facility] ([facility]) Calcium [Mass/volume] in Serum or Plasma 9.1 mg/dL 8.5-10.1 [facility] ([facility]) Carbon dioxide, total [Moles/volume] in Serum or Plasma 28 meq/L 21 -32 [facility] ([facility] Glomerular filtration rate/1.73 sq M pre dicted among blacks [Volume Rate/Area] in Serum or Plasma by Creatinine-based formula (MDRD) 58 mL/min [facility] ([facility]) <content>CHRONIC KIDNEY DISEASE STAGING PER NKF</content>
<content></content>
<content>STAGE I & II GFR >= 60 NORMAL TO MILDLY DECREASED</content>
<content>STAGE III GFR 30-59 MODERATELY DECREASED</content>
<content>STAGE IV GFR 15-29 SEVERELY DECREASED</content>
<content>STAGE V GFR <15 VERY LITTLE GFR LEFT</content>
<content>ESRD GFR <15 ON ETHYLENE OXIDE PANELBOARD OPERATOR</content>
<content></content> ID Date Data Source [id number] 05/15/2020 09:00:00 AM EDT [facility] Name Value Range Interpretation Code Description Data Tete rce(s) Supporting Document(s) SARS coronavirus 2 RNA [facility] This lab was ordered by [facility] and reported by [facility]. ID Date Data Source [id number] 03/11/2020 02:04:00 PM EDT [facility] ([facility], ) Name Value Range Interpretation Code Description Data Tete rce(s) Supporting Document(s) PDFReport Laboratory test result [facility] ([facility], ) FVC-Pre 2.04 L [facility] ([facility]) FVC-Pred 2.49 L [facility] ([facility]) FVC-LLN 1.84 L [facility] ([facility]) FVC-%Pred-Pre 81 L [facility] ([facility]) Fev1-Pred 1.86 L [facility] ([facility]) Fev1-LLN 1.31 L [facility] ([facility]) Fev1-Pre 1.37 L [facility] ([facility]) Fev6-Pred 2.36 L [facility] ([facility]) Fev1-%Pred-Pre 73 L [facility] ([facility]) Fev6-%Pred-Pre 85 L [facility] ([facility]) Fev6-LLN 1.72 L [facility] ([facility]) Fev6-Pre 2.01 L [facility] ([facility]) Sni2cmk-Xdw 67 % [facility] ([facility]) Fww2txv-%Pred-Pre 90 % [facility] ([facility]) Stm2vlq-Ioxj 74 % [facility] ([facility]) Vzc8nfg-JLF 65 % [facility] ([facility]) Dot0qpd-%Pred-Pre 103 % [facility] ([facility], ) Coq8snt-Iao 98 % [facility] ([facility]) Stl0lkd-Zqnz 95 % [facility] ([facility]) FEFMax-%Pred-Pre 90 L/E/sec [facility] ([facility]) FEFMax-Pred 4.77 L/E/sec [facility] ([facility]) FEFMax-Pre 4.33 L/E/sec [facility] ([facility]) Shz8485-Zitg 1.45 L/E/sec [facility] ([facility]) Xdk5764-%Pred-Pre 48 L/E/sec [facility] ([facility]) FEFMax-LLN 3.16 L/E/sec [facility] ([facility]) Emy1249-Vlg 0.71 L/E/sec [facility] ([facility]) Hel0863-LNG 0.28 L/E/sec [facility] ([facility]) ExpTime-Pre 6.38 sec [facility] ([facility]) Xze4unc6-Auqp 78 % [facility] ([facility]) Kmw5xxd5-Lin 68 % [facility] ([facility]) Rwm6pej7-%Pred-Pre 87 % [facility] ([facility]) Kbg5jvk4-QHU 69 % [facility] ([facility]) ID Date Data Source [id number] 02/22/2020 02:03:39 PM EDT [facility] Name Value Range Interpretation Code Description Data Tete rce(s) Supporting Document(s) Progress Note [facility] PPCQFf7gWkAZQjMg58/YJPaeQHLwu9EeETppCMc3KHytLYAtV1UpTVQ4fA3eAEV5YTmXHeJsHkApPxTm lbm [file] AgICAgICAgICAgICAgICAgICAgICAgICAgICAgICAgICAgICAgICAgICAgICAgICAgICAgICAgICAgIC AgICAgICAgICAgICAgICAgICAgICAgICAgICAgICAgICAgDQogICAgICAgICAgICAgICAgICAgICAgIC AgICAgICAgICAgICAgICAgICAgICAgICAgICAgICAg ICAgICAgICAgICAgICAgICAgICAgICAgICAgICAgICAgICAgICAgICAgICAgDQogICAgICAgICAgICAg ICAgICAgICAgICAgICAgICAgICAgICAgICAgICAgICAgICAgICAgICAgICAgICAgICAgICAgICAgICAg ICAgICAgICAgICAgICAgICAgICAgICAgICAgDQogIC AgICAgICAgICAgICAgICAgICAgICAgICAgICAgICAgICAgICAgICAgICAgICAgICAgICAgICAgICAgIC AgICAgICAgICAgICAgICAgICAgICAgICAgICAgICAgICAgICAgDQogICAgICAgICAgICAgICAgICAgIC AgICAgICAgICAgICAgICAgICAgICAgICAgICAgICAg ICAgICAgICAgICAgICAgICAgICAgICAgICAgICAgICAgICAgICAgICAgICAgICAgDQogICAgICAgICAg ICAgICAgICAgICAgICAgICAgICAgICAgICAgICAgICAgICAgICAgICAgICAgICAgICAgICAgICAgICAg ICAgICAgICAgICAgICAgICAgICAgICAgICAgICAgDQ ogICAgICAgICAgICAgICAgICAgICAgICAgICAgICAgICAgICAgICAgICAgICAgICAgICAgICAgICAgIC AgICAgICAgICAgICAgICAgICAgICAgICAgICAgICAgICAgICAgICAgDQogICAgICAgICAgICAgICAgIC AgICAgICAgICAgICAgICAgICAgICAgICAgICAgICAg ICAgICAgICAgICAgICAgICAgICAgICAgICAgICAgICAgICAgICAgICAgICAgICAgICAgDQogICAgICAg ICAgICAgICAgICAgICAgICAgICAgICAgICAgICAgICAgICAgICAgICAgICAgICAgICAgICAgICAgICAg ICAgICAgICAgICAgICAgICAgICAgICAgICAgICAgIC AgDQogICAgICAgICAgICAgICAgICAgICAgICAgICAgICAgICAgICAgICAgICAgICAgICAgICAgICAgIC YaLJVpLUKwMRNtOZKeXPTxFZWlGNWuKCGlGLLqVPTsSRUkNASaKGDwWOCsGGk4G3ooUKPwKDMdQX5nZP d3Jz8+FDwKExWcAMB5ttRimP8EPI7wg8SiOBjiUHAw r7JgYIh5YO1JZVTjDIyuRF6TGJvcsf2GDESwAEWerKXNc8zfWsTqBDO5WVYjEchjDL6WZBLkN9ksvgTk CTXhPQLUWWgxAHWFMAbzSGOJGZ4QJwRqM1JbnS11UCFHUc1+ZTqkttNuWekUJqT5TFGdk8SyXEj7XS3X BNOxMegkb9BbDmwuDKFIPPnaOH2PZLM7OEN9TBMmLz 1QZCTvP930ofNoPS5RCj8GIwBxSD6pnu7ULfttPBFbHgsJHwf3GHbjYJ6MgNJcRPjDfw3tdhEhhtEDu0 WnbeUmlJDYYGpwPOHNROacVqreVhJwTNRdDn0jJg4vNFMaJSApCqNtQAGAEZ4FGBSgQZObmYQsERLyPH PYJK7JKDmtWBD6PORkxlPvjONkTBplJL6IEWSenyPk MjYgMCBSDQo+Hq7KEY0wi4AlMVfdPDOeBT0nsd4XXPwCXfWrK2A9eHFfF5U2WSalQk0XTJDjWWLeGdPk JHHRCQleVV6ISF3qqpT8YP0VkSOpUOIxAFUsfYDiXGo6X12wdTVzBSkzUW4LPUW+Nelson+Fi8BONRpTBXx NRMzSlKjPSWKCaUnP5CgP2ERz8ZdD0AfFG22cSfqvg CuCRmxMB6VSE6tWNOtSPNTXC3MtFWbqP7rxaNlXqJwNOMNWyObS02jlAZrWTLtXRC3RDNiLl2ELFXqO0 IhjjAzkMzzxcJuJKGfXLYARX7XVSwoqjOkaBNpaQnzYU68yTwiCG3CSn5ATgOnPU9cwm1VpBFrZk4OXH TuPO8KIIPdXZCjNMRpVDV1HYFiZjKyRJdqZITuUPYs IYY6VDQvHXFrTN3FJrZyTJXpBfR3KSUaEXObKEMogd7SEZZzCEQwADU5PMSiYQUiBKKbUOagIJPnBSTx FXM8VZEuTIKqOT9JDdAcPJJtKKD5PhmnVVMaNVXjgx6YELDlUUHoHYM8GIZsMOKqBPVkOVhsNOYmDWZ9 QmQ3VGClUZLvPM1UMoToSBOaIMr8JLBvWWZtUAZwiw 1GOPJbYEJtQVn9InQiZMLtLOIhFAtyLVDiYIWoEZV3CTImOYVfNF1ZCuVoBMKdHPOyQPnvFBOnTTEyoi 6KBYDvZIJdEBKnVIUmEKZnHQJrEJcaWRIfFERiLjl2UEVaGCKnND8GRmLzDHMzVDOqCFZhZULeGDQmtv 2YHLUqBHEcQoQ7YEQsYKKaBOBpQIglOFUhZFDxYpF7 YFJtGHUqYX2RDdKjGOXzVdVeVnPqSXXbGGXhsu9OIKXhEJLsOKIcLYKjWEQgACMrBIngZTBgPHU8GdWg ASOhUQNpKR8UYzPjORWeOxL4JvMzAPHgUVPqsk0VXJAcCQZfUBXcXtHnAPJgPJDiOOtiJKDjQUW2JYL0 OGJgWNLeHN3ESmIbLPMeSkBqGGRtABWcALLssn4MXM RuDANmZaNmBZAoGAYqOPNjFValRYEnUQC4XTQ5YHThBISpDP4HCeHfALYrJavbRVZoIICyEHUveu3LPN AfXTIoBHT3PhPaONHoXYMkRWftFKVcMAR4CZSiGCZjGZEkFX3TIrZtRPsjWJIRBpr4OIztE9y1EUGcIP 7SC2Kaf1UeYveySMDUNTxeLY6exwKkOUXmXo2FB3rO UzjcX0S6Dry6QbX1CoM2ACHcOZOiApNeCSCjMpI9LWDrWy8fHBBdQqy0BlfbWBKjCMd1YWN6EgSnYEN2 YSKuZGQxDQZrRgNiCZ6JFb6SYvK3AAG4sYCeHp0SXeo6MKYRKiDaAI4PGAl= ID Date Data Source [id number] 02/21/2020 01:48:00 PM EDT [facility] ([facility]) Name Value Range Interpretation Code Description Data Tete rce(s) Supporting Document(s) Leukocytes [#/volume] in Blood by Automated count 5.4 x10*3/UL 4.1-10 .9 [facility] ([facility]) Hematocrit [Volume Fraction] of Blood by Automated count 36.0 % 3 7.0-51.0 [facility] ([facility]) Hemoglobin [Mass/volume] in Blood 12.1 g/dL 12.0-18.0 [facility] ([facility]) Erythrocytes [#/volume] in Blood by Automated count 4.20 x10*6/UL 4.2 0-6.30 [facility] ([facility]) MCHC 33.7 g/dL 31.0-38.0 [facility] [facility] MCH 28.9 pg 26.0-32.0 [facility] ([place] [facility] MCV 85.7 fL 80.0-97.0 [facility] ([place] [facility] Erythrocyte distribution width [Ratio] by Automated count 13.8 % 11.6-13.7 [facility] ([facility]) Platelets [#/volume] in Blood by Automated count 247 x10*3/UL 140-440 [facility] ([facility]) MPV 8.1 FL 7.8-11.0 [facility] ([place] [facility] Lymph % 21.1 % 10.0-58.5 [facility] ([place] [facility] Mid % 6.8 % 1.7-9.3 [facility] [facility] Neut % 72.1 % 37.0-92.0 [facility] [facility] Neut # 3.9 x10*3/UL 2.0-7.8 [facility] ([facility]) Mid # 0.4 x10*3/UL 0.1-0.6 [facility] ([facility]) Lymph # 1.1 x10*3/UL 0.6-4.1 [facility] ([facility]) ID Date Data Source [id number] 02/21/2020 01:48:00 PM EDT [facility] ([facility]) Name Value Range Interpretation Code Description Data Tete rce(s) Supporting Document(s) Urea nitrogen [Mass/volume] in Serum or Plasma 16 mg/dL 7-18 [facility] ([facility]) Glucose [Mass/volume] in Serum or Plasma 116 mg/dL 74-99 [facility] ([facility]) 100-125 mg/dL PRE-DIABETES/FASTING >126 mg/dL DIABETES/FASTING Creatinine 1.0 mg/dL 0.6-1.3 [facility] Sodium [Moles/volume] in Serum or Plasma 136 meq/L 136-145 [facility] ([facility]) Chloride [Moles/volume] in Serum or Plasma 100 meq/L 98-107 [facility] ([facility]) Potassium [Moles/volume] in Serum or Plasma 4.5 meq/L 3.5-5.1 [facility] ([facility]) Glomerular filtration rate/1.73 sq M pre dicted among blacks [Volume Rate/Area] in Serum or Plasma by Creatinine-based formula (MDRD) Laboratory test result [facility] <content>CHRONIC KIDNEY DISEASE STAGING PER NKF</content>
<content></content>
<content>STAGE I & II GFR >= 60 NORMAL TO MILDLY DECREASED</content>
<content>STAGE III GFR 30-59 MODERATELY DECREASED</content>
<content>STAGE IV GFR 15-29 SEVERELY DECREASED</content>
<content>STAGE V GFR <15 VERY LITTLE GFR LEFT</content>
<content>ESRD GFR <15 ON ETHYLENE OXIDE PANELBOARD OPERATOR</content>
<content></content> Glomerular filtration rate/1.73 sq M pre dicted among non-blacks [Volume Rate/Area] in Serum or Plasma by Creatinine-based formula (MDRD) 54 mL/min [facility] Calcium [Mass/volume] in Serum or Plasma 8.8 mg/dL 8.5-10.1 [facility] ([facility]) Carbon dioxide, total [Moles/volume] in Serum or Plasma 25 meq/L 21 -32 [facility] ([facility]) ID Date Data Source [id number] 12/25/2019 12:57:13 PM EDT [facility] Name Value Range Interpretation Code Description Data Tete rce(s) Supporting Document(s) Progress Note [facility] OXMPYt8xHxXORoLv92/PFTusAVKaz9RbROikPDu9MYrnTYOiZ9LwECM1kU4kXRM8FSaJBnHqNnUgBOC4 lbm [file] MDAwMzYyNiAwMDAwMCBuDQowMDAwMDAzODMwIDAwMD TuSK8MZxGqYFRdJPE1PNIeCUEsYIKurg5BHCClAMCxZto8WbVuETJyZUYqBWwyORMdXJU3DAa6MWFjTJ KbYF0XXlBbXEZdGNl3VepeAKAaSSNjhb3LFLYvCIKnCeN8AZUtKUOmOBCtRPhpZAMkAUKsNFx7RRLqJF WiNL1ZZvQcKJLyHAB1OsMnRQQvGKEkwh4NNPCbFPJx TRwxGAYvGQYyRSHoHAulWUDvRGQ2ZmWeJJLbBOSkJD1GNpIjZREyRIf3UXxxWWNjZBWesd7KVRKgPTZr DLGwYJReHDEvKNWoNRgjTBMcPSQ4IsM3LBZuOPLwBD3IZzSyNWHlPZr8AAkeEZKtZENoil6RXCCrXZAs ZUx7JeKhVSBiXPYnHLgrBZUsOHKiCNF3NJTdXVXpCC 8NQeJvSHSfUpHnSDllRCLqUODxrx3ETJQuVXOmTzN7JzUvOHIsWYWvLVuhUVRmSWRhMGKiRJDeLKFwAC 4VSfPaHHFnMrHvNQYvRXOxMTRcju7ZDPLxOVRpTjL9HDQhFJYqOXNuYCklRNClISUkHpA6PEVrLRTtGO 3TThKbAUKyXoM4APXrNNHdNTHvzk9ZSHTbSYNgYNdv YDIaLCHnVWCcFLlmFDVzADC5FNM0VEQjLKOrFB4TVrYfCJQeEoVsVpRhDNYdXEQekq9NDFImUVZtLmxy VFLqTSZjZMAwGAknGMNvWGG5MUx6LOGnXTWaDI3ZNtTxALZbQadmMrWcFQJbAFHenc0QcFQsuAzgox0F DDmQKr7QdMkrLTV3OIyfIu5vpKXkFSDaTHOVOw1Udm FyAEBgVGUMWFzrVNGqXUD0Y1XdHXl6HOV4OTFjTxVwVFNoMlK4KOmeWpD1PuYaTrK1CnS0ONPlIJn1KX q8IIMnOCWlRrMxBVE8MXJ6LQprJ6J+DK5yURp+Cn7Wt9IerwG9ggEnBQmuVlS4MV2SGOCRK0ULBf== ID Date Data Source [id number] 12/19/2019 02:22:00 PM EDT [facility] ([facility]) Name Value Range Interpretation Code Description Data Tete rce(s) Supporting Document(s) C reactive protein [Mass/volume] in Serum or Plasma by High sensitivity method Laboratory test result 0.00-0.30 [facility] ([facility]) ID Date Data Source [id number] 12/19/2019 02:20:00 PM EDT [facility] ([facility]) Name Value Range Interpretation Code Description Data Tete rce(s) Supporting Document(s) Urine Color Laboratory test result [facility] ([facility]) Urine Appearance Laboratory test result [facility] ([facility]) Specific gravity of Urine 1.015 1.005-1.030 [facility] ([facility]) Urine PH 6.0 units 5.0-9.0 [facility] Urine Protein Laboratory test result 0-0 [facility] ([facility]) Urine Blood Laboratory test result [facility] ([facility]) Urine Leukocytes Laboratory test result Abnormal (applies to non-numeric results) [facility] ([facility]) Glucose [Presence] in Urine Laboratory test result [facility] ([facility]) Urine Ketone Laboratory test result [facility] NT ([facility]) Bilirubin.total [Mass/volume] in Serum or Plasma Laboratory test resu lt [facility] ([facility]) Urine Nitrite Laboratory test result [facility] ([facility]) Urine Urobilinogen 0.2 mg/dL 0.2-1.0 [facility] ([facility]) ID Date Data Source [id number] 12/19/2019 02:20:00 PM EDT [facility] ([facility]) Name Value Range Interpretation Code Description Data Tete rce(s) Supporting Document(s) Urea nitrogen [Mass/volume] in Serum or Plasma 27 mg/dL 7-18 [facility] ([facility]) Glucose [Mass/volume] in Serum or Plasma 107 mg/dL 74-99 [facility] ([facility]) 100-125 mg/dL PRE-DIABETES/FASTING >126 mg/dL DIABETES/FASTING Potassium [Moles/volume] in Serum or Plasma 4.3 meq/L 3.5-5.1 [facility] ([facility]) Chloride [Moles/volume] in Serum or Plasma 100 meq/L 98-107 [facility] ([facility]) Sodium [Moles/volume] in Serum or Plasma 137 meq/L 136-145 [facility] ([facility]) Creatinine 1.1 mg/dL 0.6-1.3 [facility] Calcium [Mass/volume] in Serum or Plasma 9.3 mg/dL 8.5-10.1 [facility] ([facility]) Glomerular filtration rate/1.73 sq M pre dicted among non-blacks [Volume Rate/Area] in Serum or Plasma by Creatinine-based formula (MDRD) 48 mL/min [facility] ([facility]) Carbon dioxide, total [Moles/volume] in Serum or Plasma 29 meq/L 21 -32 [facility] ([facility]) Glomerular filtration rate/1.73 sq M pre dicted among blacks [Volume Rate/Area] in Serum or Plasma by Creatinine-based formula (MDRD) 59 mL/min [facility] ([facility]) <content>CHRONIC KIDNEY DISEASE STAGING PER NKF</content>
<content></content>
<content>STAGE I & II GFR >= 60 NORMAL TO MILDLY DECREASED</content>
<content>STAGE III GFR 30-59 MODERATELY DECREASED</content>
<content>STAGE IV GFR 15-29 SEVERELY DECREASED</content>
<content>STAGE V GFR <15 VERY LITTLE GFR LEFT</content>
<content>ESRD GFR <15 ON ETHYLENE OXIDE PANELBOARD OPERATOR</content>
<content></content> ID Date Data Source [id number] 12/19/2019 02:20:00 PM EDT [facility] ([facility]) Name Value Range Interpretation Code Description Data Tete rce(s) Supporting Document(s) Erythrocyte sedimentation rate by Westergren method 28 mm/hr 0-15 [facility] ([facility]) ID Date Data Source [id number] 12/19/2019 02:20:00 PM EDT [facility] ([facility]) Name Value Range Interpretation Code Description Data Tete rce(s) Supporting Document(s) Leukocytes [#/volume] in Blood by Automated count 7.9 x10*3/UL 4.1-10 .9 [facility] ([facility]) Erythrocytes [#/volume] in Blood by Automated count 4.13 x10*6/UL 4.2 0-6.30 [facility] ([facility]) Hematocrit [Volume Fraction] of Blood by Automated count 35.3 % 3 7.0-51.0 [facility] ([facility] Hemoglobin [Mass/volume] in Blood 12.2 g/dL 12.0-18.0 [facility] ([facility]) MCHC 34.5 g/dL 31.0-38.0 [facility] [facility] MCV 85.6 fL 80.0-97.0 [facility] ([place] [facility]) MCH 29.6 pg 26.0-32.0 [facility] ([facility]) Platelets [#/volume] in Blood by Automated count 265 x10*3/UL 140-440 [facility] Erythrocyte distribution width [Ratio] by Automated count 13.4 % 11.6-13.7 [facility] ([facility]) MPV 7.8 FL 7.8-11.0 [facility] ([place] [facility]) Mid % 3.4 % 1.7-9.3 [facility] ([place] [facility]) Lymph # 0.8 x10*3/UL 0.6-4.1 [facility] ([facility]) Lymph % 10.2 % 10.0-58.5 [facility] ([place] [facility]) Neut % 86.4 % 37.0-92.0 [facility] ([place] [facility]) Mid # 0.3 x10*3/UL 0.1-0.6 [facility] ([facility]) Neut # 6.8 x10*3/UL 2.0-7.8 [facility] ([facility]) ID Date Data Source [id number] 11/27/2019 02:23:00 PM EDT [facility] ([facility]) Name Value Range Interpretation Code Description Data Tete rce(s) Supporting Document(s) Glucose [Mass/volume] in Serum or Plasma 128 mg/dL 74-99 [facility] ([facility]) 100-125 mg/dL PRE-DIABETES/FASTING >126 mg/dL DIABETES/FASTING Creatinine 1.2 mg/dL 0.6-1.3 [facility] Sodium [Moles/volume] in Serum or Plasma 134 meq/L 136-145 [facility] ([facility]) Urea nitrogen [Mass/volume] in Serum or Plasma 27 mg/dL 7-18 [facility] ([facility]) Carbon dioxide, total [Moles/volume] in Serum or Plasma 23 meq/L 21 -32 [facility] ([facility]) Potassium [Moles/volume] in Serum or Plasma 4.4 meq/L 3.5-5.1 [facility] ([facility]) Chloride [Moles/volume] in Serum or Plasma 99 meq/L 98-107 [facility] ([facility]) Alkaline phosphatase isoenzyme [Units/volume] in Serum or Pl asma 109 mg/dL 46-116 [facility] ([facility]) Total Bilirubin 0.4 mg/dL 0.2-1.0 [facility] ([facility]) Aspartate aminotransferase [Enzymatic activity/volume] in Serum or Plasma 18 U/L 15-37 [facility] ([facility] ) Calcium [Mass/volume] in Serum or Plasma 9.2 mg/dL 8.5-10.1 [facility] ([facility]) Albumin [Mass/volume] in Serum or Plasma 3.7 g/dL 3.4-5.0 [facility] ([facility]) Alanine aminotransferase [Enzymatic activity/volume] in Seru m or Plasma 22 U/L 12-78 [facility] ([facility]) Proteinase 3 Ab [Units/volume] in Serum 8.0 g/dL 6.4-8.2 [facility] Glomerular filtration rate/1.73 sq M pre dicted among blacks [Volume Rate/Area] in Serum or Plasma by Creatinine-based formula (MDRD) 53 mL/min [facility] <content>CHRONIC KIDNEY DISEASE STAGING PER NKF</content>
<content></content>
<content>STAGE I & II GFR >= 60 NORMAL TO MILDLY DECREASED</content>
<content>STAGE III GFR 30-59 MODERATELY DECREASED</content>
<content>STAGE IV GFR 15-29 SEVERELY DECREASED</content>
<content>STAGE V GFR <15 VERY LITTLE GFR LEFT</content>
<content>ESRD GFR <15 ON ETHYLENE OXIDE PANELBOARD OPERATOR</content>
<content></content> Glomerular filtration rate/1.73 sq M pre dicted among non-blacks [Volume Rate/Area] in Serum or Plasma by Creatinine-based formula (MDRD) 44 mL/min [facility] A/G Ratio 0.86 CALC 1.00-1.90 [facility] ([place] [facility]) ID Date Data Source [id number] 11/27/2019 02:23:00 PM EDT [facility] ([facility]) Name Value Range Interpretation Code Description Data Tete rce(s) Supporting Document(s) Hemoglobin A1c/Hemoglobin.total in Blood 6.0 g/dL 4.8-5.6 [facility] Lab Result Notes: Pre-Diabetes 5.7 - 6.4 % Diabetes = or > 6.5% Glucose mean value [Mass/volume] in Blood Estimated fr om glycated hemoglobin 125 mg/dL 60-110 [facility] ([facility] ID Date Data Source [id number] 11/27/2019 02:23:00 PM EDT [facility] Name Value Range Interpretation Code Description Data Tete rce(s) Supporting Document(s) Leukocytes [#/volume] in Blood by Automated count 6.0 x10*3/UL 4.1-10 .9 [facility] ([facility]) Hematocrit [Volume Fraction] of Blood by Automated count 34.1 % 3 7.0-51.0 [facility] ([facility]) Erythrocytes [#/volume] in Blood by Automated count 3.98 x10*6/UL 4.2 0-6.30 [facility] ([facility]) Hemoglobin [Mass/volume] in Blood 11.8 g/dL 12.0-18.0 [facility] ([facility]) NOTE: RESULT VERIFIED. MCH 29.7 pg 26.0-32.0 [facility] [facility]) MCHC 34.6 g/dL 31.0-38.0 [facility] [facility] MCV 85.7 fL 80.0-97.0 [facility] [facility] Erythrocyte distribution width [Ratio] by Automated count 13.2 % 11.6-13.7 [facility] ([facility]) MPV 8.4 FL 7.8-11.0 [facility] [facility]) Lymph % 15.8 % 10.0-58.5 [facility] ([place] [facility] Platelets [#/volume] in Blood by Automated count 252 x10*3/UL 140-440 [facility] ([facility]) Neut % 79.2 % 37.0-92.0 [facility] [facility] Lymph # 0.9 x10*3/UL 0.6-4.1 [facility] ([facility]) Mid % 5.0 % 1.7-9.3 [facility] [facility] Mid # 0.4 x10*3/UL 0.1-0.6 [facility] ([facility]) Neut # 4.7 x10*3/UL 2.0-7.8 [facility] ([facility]) ID Date Data Source [id number] 11/20/2019 12:06:23 PM EDT [facility] Name Value Range Interpretation Code Description Data Tete rce(s) Supporting Document(s) Progress Note [facility] URBAJh1zIsPVPvNe68/XQNfyQKBqa2WeUMhxYUk5BAtyHKBgI8JhTJU0aS8bVND8CVyRPuFxReFrWsDj lbm [file] AgICAgICAgICAgICAgICAgICAgICAgICAgICAgICAg ICAgICAgICAgICAgICAgICAgICAgICAgICAgICAgICAgICAgICANCiAgICAgICAgICAgICAgICAgICAg ICAgICAgICAgICAgICAgICAgICAgICAgICAgICAgICAgICAgICAgICAgICAgICAgICAgICAgICAgICAg ICAgICAgICAgICAgICAgICAgICANCiAgICAgICAgIC AgICAgICAgICAgICAgICAgICAgICAgICAgICAgICAgICAgICAgICAgICAgICAgICAgICAgICAgICAgIC AgICAgICAgICAgICAgICAgICAgICAgICAgICAgICANCiAgICAgICAgICAgICAgICAgICAgICAgICAgIC AgICAgICAgICAgICAgICAgICAgICAgICAgICAgICAg ICAgICAgICAgICAgICAgICAgICAgICAgICAgICAgICAgICAgICAgICANCiAgICAgICAgICAgICAgICAg ICAgICAgICAgICAgICAgICAgICAgICAgICAgICAgICAgICAgICAgICAgICAgICAgICAgICAgICAgICAg ICAgICAgICAgICAgICAgICAgICAgICANCiAgICAgIC AgICAgICAgICAgICAgICAgICAgICAgICAgICAgICAgICAgICAgICAgICAgICAgICAgICAgICAgICAgIC AgICAgICAgICAgICAgICAgICAgICAgICAgICAgICAgICANCiAgICAgICAgICAgICAgICAgICAgICAgIC AgICAgICAgICAgICAgICAgICAgICAgICAgICAgICAg ICAgICAgICAgICAgICAgICAgICAgICAgICAgICAgICAgICAgICAgICAgICANCiAgICAgICAgICAgICAg ICAgICAgICAgICAgICAgICAgICAgICAgICAgICAgICAgICAgICAgICAgICAgICAgICAgICAgICAgICAg ICAgICAgICAgICAgICAgICAgICAgICAgICANCiAgIC AgICAgICAgICAgICAgICAgICAgICAgICAgICAgICAgICAgICAgICAgICAgICAgICAgICAgICAgICAgIC AgICAgICAgICAgICAgICAgICAgICAgICAgICAgICAgICAgICANCiAgICAgICAgICAgICAgICAgICAgIC AgICAgICAgICAgICAgICAgICAgICAgICAgICAgICAg ICAgICAgICAgICAgICAgICAgICAgICAgICAgICAgICAgICAgICAgICAgICAgICANCjw/vMTqT5hweKIf skR8H5mtVt6ONn7LFY6sy7JqEJPzXCnjazBhJlrZOxTeNIJiVbwKRzh4VBbdNA3GwSQqD4ImV0HcCYtt WW3XTHOzYFXgvPGhADMsIZUuYyV9GWFeEGbeFJ1HrY MfOJfxFMTrJRHoObVvUVNhPJAwVVJrCPDuHNKBKGFeNBCfXaIyKRFxEUMtTJrwFPJIKFF8SAUmYwPbOR VdKPAhHC5EYLBcC396aiXgMJ4WWc3DXhAdPB2zqv4TKICrTPLsLsxGUfw3FQcpMQ2AfBEadTJ3ZILjTQ PLScEeI8wrp5SsPDQmLVVHJWgjEX5Th2JmcCSmCVt+ Qx2BWK9rx9AyTKk1HEAsVZ5wxc7KRFxSSaQmX9GtwTdvUULqe9eoTMUpZV5upQHtBOO8NFQamwNbUOSr yuPqMFMhwsUyYMWwxkfxFQTNLlVlaYBpKkH7MiFbSdRrEOJ3VQApZB6uWCcyLP9JPZS9HLboFQQzOEIh S9dQRzGbIYRbVWRgxIufSQ5KPhTxM6CvwxCzxUT0SM AwIFINCj4+KYbmrsFxFxtMXgPvAYTqm5DrQRu8UJ1MMLGxYVniZO4OSNSorY9uBUcvJK2ONcHmQSIvGG TAZoXhI29jfQRnBVz8M0MeRsNrUCAhJbdzCWWnUXtiQrEyMLEeHzWuGQmyLP8+ID4+MTjeWZ9CRGbkao ExRSMfHe4RIRDdCPRhPJ2hPDQtDXAcK3K7yCpeHPOC SgBnG5izbankDB1dDVClC756zCajniWlZXFdNTVpMv9WAPPyKKB8UTZsdWIsHmrdQTUEFGvvFI9OiDMj NRN5sR7zTHpbKWLyCZYwM3mSIkSkvYxsHN86jJgrwlLrjWHsESc+Ii3FHZ5fu5WiOAm6tuIxOGvgWUZf XEvrDUXnONQgFPVdSLS0ICC2KDMJHhHrCKGnEADhMG ubFBLdDUZzol1COUEuJFK9JnK5GbKyKMZuZYPkHGipZCVlBPK7PuO3GNTcTNBcWK2MEaPwAROcUPHbJA rkIHRbRQWwob7FBFIvPMIvWub6RcAmGBKoJRIcHAiqCOOvBCG2CTk3DHVeUHSgLU6JTiNnGWCiCTZ5YR wmXVAfTAAjig6GEYQoFZNzTeM0TJNrZEQgWHEmMDoq OCZzKQW1SpS5SQDuJVEyHQ5ISzKrLOIhRPz3ZbImMUCyXBDfwp2VFRFeWIWrQsx1LRUzJGYeZQSjVKxk MOMiJPLcHAl3TRNwYNWwRV7JBlIeZLAaENU0ZDOfRONxAAVkxw0CTHNsOUKwABP6OVUhAASqHMDnQFnm IBHyGOL5MdM9WIWjFETpWG8OGlDsHVZwBFg7UJGxJJ HxTWAfgr3WXIGtPVIlHRC6UGSxOATzXVTbGEyeFNXwDSZwMEO6RQFpRYBlAL9IVwXpTMEfIeZnDaXdID SxSMLxqt3GPSUkMCGgRQDfTHRtQZLvEPQpHRdtNSTjQAW7FIqjWVSqKXJbIJ3ESyGbSQIqDpFdFzOrSJ ZeVLZimc9ZMNSxIEXtVdIhIpBzRKWkWTHeRGymCEJe URG2VcTbOLMpODTnFE0TXxSaFTFcCto6AMPvGGUsWLUpdg9JNJAnHASuGOX9QBNnXISpYMQyHZcaCKRz JID1Sfw9OKMsQOAuSM0OIgYbFLAnPxn6FpFpHEXoVHNckh3ZBZUcBUX0EBE0ONHsOBYmDXHvSZbcVVXj KNQhWjLoTLWiLNTlEJ9RKvSaIUTpYFE2PbfzOVUgHD Icgr2MAJQiOXQ0HRY9DYEhYSQwNAJnZJanBVHzHOBjMdG7OOUdZJUrKH2QRlMdOVEeHONdVwtmOVLeVE Rshs8TEQUaOJF7BwZ5VmUnGVYrUHUyGAwdHVMcMSXvIFS9JKJwLUEhPN9JKiVjZEHjFDU0JUshVJKwGL Nuqw8EZQZsMAW2AiH5VFFmHIVzWUJpZJsfCIHmCVGf PKx9VKEwALOuWQ2FFuNkJLMaWnU2SarkMEFiSAXntl4ROVVySIG9EIL7ZPLqJTFaEZZwEVniQTXvSDO8 ZcW8OCTkMSDfVH1HMcCrVPjzAIHFToc5SHtpZ5g1VFK4Lj6XF4Ewu2KlADRqIQOXKNcpFB7uokKpMBNu Pf0BW9oKAhlnYUJqROWyFPAzBSppUqAvJUXeKZChYq h5DUV6BrJgQp7lEDS6YjFhDJCmCFIlIKFqZMF9LqYnEQOwRBX9PJwtCYWnBqOvOI7IQs9BBjS3JEA9kG XtIb3TZfC4AJVARfKyML3BSFc= ID Date Data Source [id number] 10/30/2019 08:27:20 AM [facility] XR HAND 3 OR MORE VIEWS [id number] RESUL TInterpreted by:Guy Vogt MDINDICATION: RA versus [...] rce(s) Supporting Document(s) ID Date Data Source [id number] 10/29/2019 07:46:41 PM [facility] Name Value Range Interpretation Code Description Data Tete rce(s) Supporting Document(s) Leukocytes [#/volume] in Blood by Automated count 6.0 10*3/uL 4-[address] [facility] Erythrocytes [#/volume] in Blood by Automated count 4.18 10*6/uL 4.1- 5.[address] [facility] Hemoglobin [Mass/volume] in Blood 12.7 g/dL 11.5-15.[address] [facility] Hematocrit [Volume Fraction] of Blood by Automated count 37.9 % 3 6-[address] [facility] Erythrocyte mean corpuscular volume [Entitic volume] by Auto mated count 90.7 fL 80-[address] [facility] Erythrocyte mean corpuscular hemoglobin [Entitic mass] by Automated count 30.4 pg 27-[address] [facility] Erythrocyte mean corpuscular hemoglobin concentration [Mass/volume] [facility] 33.5 g[facility] width [Ratio] by Automated count 15.3 % 11.5-14.[address] [facility] Platelets [#/volume] in Blood by Automated count 221 10*3/uL 150-[address] [facility] Differential cell count method - Blood [facility] Neutrophils/100 leukocytes in Blood by Automated count 70 % [facility] Lymphocytes/100 leukocytes in Blood by Automated count 21 % [facility] Monocytes/100 leukocytes in Blood by Automated count 7 % [facility] Eosinophils/100 leukocytes in Blood by Automated count 1 % [facility] Basophils/100 leukocytes in Blood by Automated count 1 % [facility] Neutrophils [#/volume] in Blood by Automated count 4.19 10*3/uL 1.8-[address] [facility] Lymphocytes [#/volume] in Blood by Automated count 1.23 10*3/uL 1.2-[address] [facility] Monocytes [#/volume] in Blood by Automated count 0.40 10*3/uL 0-0.[address] [facility] Eosinophils [#/volume] in Blood by Automated count 0.08 10*3/uL 0-0.[address] [facility] Basophils [#/volume] in Blood by Automated count 0.06 10*3/uL 0-0.[address] [facility] Nucleated erythrocytes/100 leukocytes [Ratio] in Blood by Automated count 0 /100{WBCs} 0-[address] [facility] ID Date Data Source [id number] 10/29/2019 08:26:00 PM [facility] Name Value Range Interpretation Code Description Data Tete rce(s) Supporting Document(s) C reactive protein [Mass/volume] in Serum or Plasma 9.3 mg/L <8.[address] [facility] ID Date Data Source [id number] 10/29/2019 08:26:00 PM [facility] Name Value Range Interpretation Code Description Data Tete rce(s) Supporting Document(s) Rheumatoid factor [Units/volume] in Serum or Plasma 10 IU/ml <[address] [facility] ID Date Data Source [id number] 10/29/2019 08:26:00 PM [facility] Name Value Range Interpretation Code Description Data Tete rce(s) Supporting Document(s) Albumin [Mass/volume] in Serum or Plasma by Bromocresol green (BCG) dye binding method 4.7 g/dL [facility] Bilirubin.total [Mass/volume] in Serum or Plasma 0.4 mg/dL <1.[address] [facility] Calcium [Mass/volume] in Serum or Plasma 10.1 mg/dL 8.8-10.[address] [facility] Chloride [Moles/volume] in Serum or Plasma 96 mmol/L 98-[address] [facility] Creatinine [Mass/volume] in Serum or Plasma 1.01 mg/dL 0.50-0.[address] [facility] Glucose [Mass/volume] in Serum or Plasma 87 mg/dL 70-[address] [facility] Alkaline phosphatase [Enzymatic activity/volume] in Serum or Plasma 92 U/L 35-[address] [facility] Potassium [Moles/volume] in Serum or Plasma 4.1 mmol/L 3.4-5.[address] [facility] Protein [Mass/volume] in Serum or Plasma 7.7 g/dL 6.4-8.[address] [facility] Sodium [Moles/volume] in Serum or Plasma 137 mmol/L 136-[address] [facility] Aspartate aminotransferase [Enzymatic activity/volume] in Serum or Plasma 21 U/L <[address] [facility] Urea nitrogen [Mass/volume] in Serum or Plasma 20 mg/dL 8-[address] [facility] Osmolality of Serum or Plasma by calculation 286 mosm/kg 275-[address] [facility] Creatinine/Urea nitrogen [Mass Ratio] in Serum or Plasma [address] [facility] Bicarbonate [Moles/volume] in Serum 27 mmol/L 22-[address] [facility] Alanine aminotransferase [Enzymatic activity/volume] in Seru m or Plasma 17 U/L <[address] [facility] Anion gap 3 in Serum or Plasma 14 mmol/L 8-[address] [facility] Albumin/Globulin [Mass Ratio] in Serum or Plasma 1.[address] [facility] Glomerular filtration rate/1.73 sq M pre dicted among non-blacks [Volume Rate/Area] in Serum or Plasma by Creatinine-based formula (MDRD) 53 mL/min/1.73m2 >[address] [facility] Glomerular filtration rate/1.73 sq M pre dicted among blacks [Volume Rate/Area] in Serum or Plasma by Creatinine-based formula (MDRD) 61 mL/min/1.73m2 >[address] [facility] ID Date Data Source [id number] 10/29/2019 08:26:00 PM [facility] Value Range Interpretation Code Description Data Tete rce(s) Supporting Document(s) Urate [Mass/volume] in Serum or Plasma 6.3 mg/dl 2.4-5.[address] [facility] ID Date Data Source [id number] 10/29/2019 08:52:47 PM [facility] Value Range Interpretation Code Description Data Tete rce(s) Supporting Document(s) Erythrocyte sedimentation rate 16 mm/hr <[address] [facility] ID Date Data Source [id number] 10/29/2019 08:54:14 PM [facility] Value Range Interpretation Code Description Data Tete rce(s) Supporting Document(s) Ferritin [Mass/volume] in Serum or Plasma 61 ng/ml 13-[address] [facility] ID Date Data Source [id number] 10/30/2019 11:25:54 AM [facility] Value Range Interpretation Code Description Data Tete rce(s) Supporting Document(s) Cyclic citrullinated peptide IgA+IgG Ab [Units/volume] in Serum or Plasma by [facility] ID Date Data Source [id number] 10/30/2019 01:50:06 PM [facility] Value Range Interpretation Code Description Data Tete rce(s) Supporting Document(s) Nuclear Ab Pattern Homogenous [Titer] in Serum <[address] [facility] Nuclear Ab pattern.speckled [Titer] in Serum 160 1/dil <[address] [facility] Nuclear Ab pattern.rim [Titer] in Serum <[address] [facility] Nuclear Ab pattern.nucleolar [Titer] in Serum <[address] [facility] ID Date Data Source [id number] 10/29/2019 08:46:23 PM [facility] Name Value Range Interpretation Code Description Data Tete rce(s) Supporting Document(s) Protein [Mass/volume] in Urine [facility] Creatinine [Mass/volume] in Urine 26.1 mg/dL [facility] Protein/Creatinine [Mass Ratio] in Urine [facility] ID Date Data Source [id number] 10/10/2019 11:41:36 AM [facility] Name Value Range Interpretation Code Description Data Tete rce(s) Supporting Document(s) [facility] [id number] [file] [id number] ID Date Data Source [id number] 08/31/2019 12:30:00 PM EST [facility] ([facility]) Name Value Range Interpretation Code Description Data Tete rce(s) Supporting Document(s) Glucose [Mass/volume] in Serum or Plasma 96 mg/dL 74-99 [facility] ([facility]) 100-125 mg/dL PRE-DIABETES/FASTING >126 mg/dL DIABETES/FASTING Urea nitrogen [Mass/volume] in Serum or Plasma 21 mg/dL 7-18 [facility] ([facility]) Creatinine 1.0 mg/dL 0.6-1.3 [facility] Chloride [Moles/volume] in Serum or Plasma 101 meq/L 98-107 [facility] ([facility]) Sodium [Moles/volume] in Serum or Plasma 136 meq/L 136-145 [facility] ([facility]) Potassium [Moles/volume] in Serum or Plasma 4.7 meq/L 3.5-5.1 [facility] ([facility]) Carbon dioxide, total [Moles/volume] in Serum or Plasma 29 meq/L 21 -32 [facility] Glomerular filtration rate/1.73 sq M pre dicted among non-blacks [Volume Rate/Area] in Serum or Plasma by Creatinine-based formula (MDRD) 54 mL/min [facility] Calcium [Mass/volume] in Serum or Plasma 9.5 mg/dL 8.5-10.1 [facility] ([facility]) Glomerular filtration rate/1.73 sq M pre dicted among blacks [Volume Rate/Area] in Serum or Plasma by Creatinine-based formula (MDRD) Laboratory test result [facility]) <content>CHRONIC KIDNEY DISEASE STAGING PER NKF</content>
<content></content>
<content>STAGE I & II GFR >= 60 NORMAL TO MILDLY DECREASED</content>
<content>STAGE III GFR 30-59 MODERATELY DECREASED</content>
<content>STAGE IV GFR 15-29 SEVERELY DECREASED</content>
<content>STAGE V GFR <15 VERY LITTLE GFR LEFT</content>
<content>ESRD GFR <15 ON ETHYLENE OXIDE PANELBOARD OPERATOR</content>
<content></content> Procedure Social History Code Duration Value Status Description Data Source(s ) Smoking 03/26/2020 12:00:00 AM EDT Patient is a former smoker completed Patient is a former smoker [facility] ([facility]) Smoking 03/11/2020 12:00:00 AM EDT Patient is a former smoker completed Patient is a former smoker [facility] ([facility], ) Alcohol intake 11/02/2019 12:00:00 AM EST Ex-drinker (finding) comp leted Ex- drinker (finding) [facility] Tobacco use and exposure 11/02/2019 12:00:00 AM EST Never used co mpleted Never used [facility] Smoking 11/02/2019 12:00:00 AM EST Former smoker completed Former smoker [facility] Smoking 11/02/2019 12:00:00 AM EST Former smoker completed Former smoker [facility] Alcohol intake 10/29/2019 12:00:00 AM EST Ex-drinker (finding) comp leted Ex- drinker (finding) [facility] Smoking 10/29/2019 12:00:00 AM EST Former smoker completed Former smoker [facility] Alcohol intake 10/10/2019 12:00:00 AM EST Ex-drinker (finding) comp leted Ex- drinker (finding) [facility] Smoking 10/10/2019 12:00:00 AM EST Former smoker completed Former smoker [facility] Vital Signs ID Date Data Source UNK Name Value Range Interpretation Code Description Data Source(s) Body mass index (BMI) [Ratio] 32.2 kg/m2 32.2 k g/m2 [facility] ([facility]) Body weight 179.00 [lb_av] 179.00 [lb_av] [facility] ([facility]) Body height 62.5 [in_i] 62.5 [in_i] [facility] ([facility]) 5'2.50" Heart rate 82 /min 82 /min [facility] ([facility]) Diastolic blood pressure 74 mm[Hg] 74 mm[Hg] [facility] ([facility]) Systolic blood pressure 150 mm[Hg] 150 mm[Hg] M [facility] ([facility]) Diastolic blood pressure 70 mm[Hg] 70 mm[Hg] [facility] ([facility]) Systolic blood pressure 156 mm[Hg] 156 mm[Hg] M [facility] ([facility]) Body temperature 97.3 [degF] 97.3 [degF] [facility] ([facility]) Body mass index (BMI) [Ratio] 31.7 kg/m2 31.7 k g/m2 [facility] ([facility]) Oxygen saturation in Arterial blood by Pulse oximetry 96 % 96 % [facility] ([facility]) Body weight 176.38 [lb_av] 176.38 [lb_av] [facility] ([facility]) Body height 62.5 [in_i] 62.5 [in_i] [facility] ([facility]) 5'2.50" Heart rate 86 /min 86 /min [facility] ([facility]) Diastolic blood pressure 70 mm[Hg] 70 mm[Hg] [facility] ([facility]) Systolic blood pressure 134 mm[Hg] 134 mm[Hg] [facility]) Body mass index (BMI) [Ratio] 31.6 kg/m2 31.6 k g/m2 [facility] ([facility], [facility]) Body height 62 [in_i] 62 [in_i] [facility] ([facility], [facility]) 5'2" Body weight 173.00 [lb_av] 173.00 [lb_av] [facility] ([facility], [facility]) Body temperature 98.6 [degF] 98.6 [degF] [facility] ([facility], [facility]) Oxygen saturation in Arterial blood by Pulse oximetry 95 % 95 % [facility] ([facility], [facility]) Respiratory rate 16 /min 16 /min [facility] ( [facility], [facility]) Heart rate 76 /min 76 /min [facility] ([facility], [facility]) Diastolic blood pressure 74 mm[Hg] 74 mm[Hg] [facility] ([facility], [facility]) Systolic blood pressure 131 mm[Hg] 131 mm[Hg] [facility] ([facility], [facility]) Body mass index (BMI) [Ratio] 31.6 kg/m2 31.6 k g/m2 [facility] ([facility], [facility]) Body height 62 [in_i] 62 [in_i] [facility] ([facility], [facility]) 5'2" Body weight 173.00 [lb_av] 173.00 [lb_av] [facility] ([facility], [facility]) Body temperature 99.8 [degF] 99.8 [degF] [facility] ([facility], [facility]) Oxygen saturation in Arterial blood by Pulse oximetry 96 % 96 % [facility] ([facility], [facility]) Respiratory rate 17 /min 17 /min [facility] ( [facility], [facility]) Heart rate 97 /min 97 /min [facility] ([facility], [facility]) Diastolic blood pressure 65 mm[Hg] 65 mm[Hg] [facility] ([facility], [facility]) Systolic blood pressure 117 mm[Hg] 117 mm[Hg] [facility] ([facility], [facility]) Body weight 80.287 kg 80.287 kg [facility] ([facility]) Body mass index (BMI) [Ratio] 32.4 kg/m2 32.4 k g/m2 [facility] ([facility]) Body weight 177.00 [lb_av] 177.00 [lb_av] [facility] ([facility]) Body height 62 [in_i] 62 [in_i] [facility] ([facility]) 5'2" Body temperature 97.6 [degF] 97.6 [degF] [facility] ([facility]) Oxygen saturation in Arterial blood by Pulse oximetry 93 % 93 % [facility] ([facility]) Heart rate 79 /min 79 /min [facility] ([facility]) Diastolic blood pressure 60 mm[Hg] 60 mm[Hg] [facility] ([facility]) Systolic blood pressure 140 mm[Hg] 140 mm[Hg] [facility] ([facility]) Body mass index (BMI) [Ratio] 33.5 kg/m2 33.5 k g/m2 [facility] ([facility]) Oxygen saturation in Arterial blood by Pulse oximetry 96 % 96 % [facility] ([facility]) Body weight 186.00 [lb_av] 186.00 [lb_av] [facility] ([facility]) Body height 62.5 [in_i] 62.5 [in_i] [facility] ([facility]) 5'2.50" Heart rate 78 /min 78 /min [facility] ([facility]) Diastolic blood pressure 60 mm[Hg] 60 mm[Hg] [facility] ([facility]) Systolic blood pressure 134 mm[Hg] 134 mm[Hg] [facility] ([facility]) Diastolic blood pressure 64 mm[Hg] 64 mm[Hg] [facility] ([facility]) Systolic blood pressure 164 mm[Hg] 164 mm[Hg] [facility] ([facility]) Body mass index (BMI) [Ratio] 33.1 kg/m2 33.1 k g/m2 [facility] ([facility]) Oxygen saturation in Arterial blood by Pulse oximetry 95 % 95 % [facility] ([facility]) Body weight 184.00 [lb_av] 184.00 [lb_av] [facility] ([facility]) Body height 62.5 [in_i] 62.5 [in_i] [facility] ([facility]) 5'2.50" Heart rate 86 /min 86 /min [facility] ([facility]) Diastolic blood pressure 80 mm[Hg] 80 mm[Hg] [facility] ([facility]) Systolic blood pressure 148 mm[Hg] 148 mm[Hg] [facility] ([facility]) Body mass index (BMI) [Ratio] 32.6 kg/m2 32.6 k g/m2 [facility] ([facility], [facility]) Body height 62 [in_i] 62 [in_i] [facility] ([facility], [facility]) 5'2" Body weight 178.00 [lb_av] 178.00 [lb_av] [facility] ([facility], [facility]) Body temperature 98.5 [degF] 98.5 [degF] [facility] ([facility], [facility]) Oxygen saturation in Arterial blood by Pulse oximetry 93 % 93 % [facility] ([facility], [facility]) Respiratory rate 16 /min 16 /min [facility] ( [facility], [facility]) Heart rate 82 /min 82 /min [facility] ([facility], [facility]) Diastolic blood pressure 88 mm[Hg] 88 mm[Hg] [facility] ([facility]) Systolic blood pressure 127 mm[Hg] 127 mm[Hg] [facility] ([facility]) Body mass index (BMI) [Ratio] 33.1 kg/m2 33.1 k g/m2 [facility] ([facility]) Oxygen saturation in Arterial blood by Pulse oximetry 84 % 84 % [facility] ([facility]) Body weight 184.00 [lb_av] 184.00 [lb_av] [facility] ([facility]) Body height 62.5 [in_i] 62.5 [in_i] [facility]) 5'2.50" Heart rate 92 /min 92 /min [facility] ([facility]) Diastolic blood pressure 46 mm[Hg] 46 mm[Hg] [facility] ([facility]) Systolic blood pressure 132 mm[Hg] 132 mm[Hg] M [facility] ([facility]) Body mass index (BMI) [Ratio] 33.1 kg/m2 33.1 k g/m2 [facility] ([facility]) Oxygen saturation in Arterial blood by Pulse oximetry 96 % 96 % [facility] ([facility]) Body weight 184.00 [lb_av] 184.00 [lb_av] [facility] ([facility]) Body height 62.5 [in_i] 62.5 [in_i] [facility] ([facility]) 5'2.50" Heart rate 80 /min 80 /min [facility] ([facility]) Diastolic blood pressure 70 mm[Hg] 70 mm[Hg] [facility] ([facility]) Systolic blood pressure 136 mm[Hg] 136 mm[Hg] [facility] ([facility]) Body weight 83.009 kg 83.009 kg [facility] ([facility], ) Body mass index (BMI) [Ratio] 33.5 kg/m2 33.5 k g/m2 [facility] ([facility]) Body weight 183.00 [lb_av] 183.00 [lb_av] [facility] ([facility]) Body height 62 [in_i] 62 [in_i] [facility] ([facility], ) 5'2" Oxygen saturation in Arterial blood by Pulse oximetry 96 % 96 % [facility] ([facility], ) Heart rate 71 /min 71 /min [facility] ([facility], ) Diastolic blood pressure 64 mm[Hg] 64 mm[Hg] [facility] ([facility], ) Systolic blood pressure 128 mm[Hg] 128 mm[Hg] [facility] ([facility], ) ID Date Data Source [id number] 09/18/2020 03:31:00 PM [facility] Name Value Range Interpretation Code Description Data Source(s) HEIGHT 157.48 cm 157.48 cm [facility] WEIGHT RECORDED 80.792015 kg 80.062860 kg [facility] ID Date Data Source [id number] 11/20/2019 12:06:23 PM [facility] Name Value Range Interpretation Code Description Data Source(s) WEIGHT RECORDED 178 lb 178 lb [facility] Body height Measured 62.01 in 62.01 in [facility] ID Date Data Source [id number] 10/10/2019 11:41:36 AM [facility] Value Range Interpretation Code Description Data Source(s) WEIGHT RECORDED 178 lb 178 lb [facility] Body height Measured 62 in 62 in [facility] ID Date Data Source [id number] 08/03/2019 03:10:49 PM [facility] Value Range Interpretation Code Description Data Source(s) WEIGHT RECORDED 180 lb 180 lb [facility] Body height Measured 62 in 62 in [facility] Patient Treatment Plan of Care Planned Activity Planned Date Details Description Data Source (s) tizanidine 4 MG Oral Tablet 02/22/2020 12:00:00 AM [facility] Hydroxychloroquine Sulfate 200 MG Oral Tablet 11/21/2019 12:00:00 A M [facility] Ipratropium [place] 0.06 % Nasal Solution ([facility]) 12:00:00 AM [facility] Trelegy Ellipta 100-62.5-25 MCG/INH Aerosol Powder Irene ath Activated 10/01/2019 12:00:00 AM [facility] ospital meloxicam 15 MG Oral Tablet 12/28/2018 12:00:[address] [facility] tizanidine 4 MG Oral Tablet 12/10/2018 12:00:00 AM [facility]
[2020-09-29] MEDS ORDERED: MORPHINE 2 MG/ML 1ML VIAL (J2270) IV ONE (15:45)
--- NOTE | 2020-09-29 16:01 | REP ---
INDICATION: L hip pain. COMPARISON: Comparison radiographs July 04, 2020.. TECHNIQUE: AP pelvis and AP and frogleg views of the left hip are obtained. FINDINGS: The bony pelvic ring is intact. No fracture is seen. There is tendon insertion site spurring of the iliac crests and greater trochanters bilaterally. Bilateral hip joint osteoarthritis is seen with joint space narrowing and periarticular spurring bilaterally. Joint space narrowing is a little worse on the right. AP and frogleg views of the left hip show no evidence of fracture or subluxation or acute erosive change. There are degenerative spondylosis changes at the lumbosacral spine as well. IMPRESSION: No acute abnormality. Moderate osteoarthritis of the hips bilaterally. <Electronically signed by Jose Miguel Gupta > 09/29/20 [id number]
[2020-09-29 16:31] LABS: BASO # 0.1 10^3/uL (0.0-0.2); BASO % 0.7 % (0.0-1.0); EOS # 0.1 10^3/uL (0.0-0.5); EOS % 1.4 % (0.0-3.0); LYMPH # 1.1 10^3/uL (1.5-5.0); LYMPH % 15.8 % (24.0-44.0); MEAN CORPUSCULAR HEMOGLOBIN 28.4 pg (27.0-33.0); MEAN CORPUSCULAR HGB CONC 31.6 g/dl (32.0-36.5); MONO # 0.5 10^3/uL (0.0-0.8); MONO % 6.5 % (0.0-5.0); NEUTROPHILS # 5.4 10^3/uL (1.5-8.5); NEUTROPHILS % 75.3 % (36.0-66.0); PLATELET COUNT, AUTOMATED 222 10^3/uL (150-450); RED BLOOD COUNT 4.22 10^6/uL (4.00-5.40); WHITE BLOOD COUNT 7.2 10^3/uL (4.0-10.0)
[2020-09-29 16:58] LABS: BLOOD UREA NITROGEN 19 MG/DL (7-18); CALCIUM LEVEL 9.6 MG/DL (8.8-10.2); CARBON DIOXIDE LEVEL 29 MEQ/L (21-32); CHLORIDE LEVEL 102 MEQ/L (98-107); CREATININE FOR GFR 0.91 MG/DL (0.55-1.30); GLOMERULAR FILTRATION RATE > 60.0 (>39); GLUCOSE, FASTING 91 MG/DL (70-100); POTASSIUM SERUM 4.3 MEQ/L (3.5-5.1); SODIUM LEVEL 135 MEQ/L (136-145)
--- NOTE | 2020-09-29 18:08 | REP ---
INDICATION: L leg pain r/o DVT COMPARISON: None. TECHNIQUE: Real time compression and duplex Doppler interrogation of the left lower extremity deep venous system is performed. FINDINGS: The left common femoral, superficial femoral and popliteal veins are fully compressible with transducer pressure and demonstrate normal spontaneous and phasic flow, without evidence of deep venous thrombosis. IMPRESSION: No evidence of deep venous thrombosis of the left lower extremity femoral popliteal venous system. <Electronically signed by Mc Franklin > 09/29/20 [id number]
[2020-09-29 18:24] VITALS: BP 141/69
== END 2020-09-29 18:35 | disposition home or self-care (01) ==
LOC: M ED 14:07
DX: M25.552 Pain in left hip (principal); J44.9 Chronic obstructive pulmonary disease, unspecified; F32.9 Major depressive disorder, single episode, unspecified; K21.9 Gastro-esophageal reflux disease without esophagitis; G47.33 Obstructive sleep apnea (adult) (pediatric); I10 Essential (primary) hypertension; D64.9 Anemia, unspecified; G25.81 Restless legs syndrome; Z87.891 Personal history of nicotine dependence; M19.90 Unspecified osteoarthritis, unspecified site
CPT/HCPCS: 73502; 80048; 85025; 93971; 96374; 99284; J2270

== ENCOUNTER → 2020-11-01 | Outpatient (CLI) | payer MEDICARE ==
[~2020-11-01] MED LIST changes: +DICL1GEL3
== END ==
LOC: M LABSMTC 11:18
PROVIDERS: ATTEND Surgery Trauma Surgery
DX: Z20.822 Contact with and (suspected) exposure to COVID-19 (principal)

== ENCOUNTER → 2020-12-04 | Outpatient (CLI) | payer MEDICARE ==
[~2020-12-04] MED LIST changes: +ISOVUE-300 61% 50ML VIAL As Ordered ONE; +LIDOCAINE 1% MDV 20ML VIAL As Ordered ONE; +TRIAMCINOLONE ACETONIDE SUSP 40 MG/ML VIAL (J3301) As Ordered ONE
--- NOTE | 2020-12-04 18:54 | REP ---
INDICATION: LT HIP OA W/PAIN. COMPARISON: None TECHNIQUE: The procedure was performed by CIERA Jensen, under the direct supervision of Dr. Franklin. The benefits and risks of the procedure were explained to the patient, and an informed consent was obtained. Directly prior to the start of the procedure, a formal time-out was completed in the procedure room. The left femoral neck joint space was localized using fluoroscopic guidance. The skin was prepped and draped in a sterile fashion. Approximately 5 mL of 1% Lidocaine 10 mg/ml was used as a local anesthetic. Using fluoroscopic guidance, a #22 gauge spinal needle was inserted and advanced into the left femoral neck joint space. Approximately 1 mL of Isovue 300 was injected to verify placement. Six mL of a solution containing 5 mL 1% lidocaine 10 mg/ml and 1 mL Kenalog 40 milligrams/milliliter was injected into the joint space. The needle was removed and hemostasis was achieved. FINDINGS: The patient tolerated the procedure well and there were no immediate complications. IMPRESSION: 1. Fluoroscopic guided left hip pain injection. 0.1 minutes of fluoroscopy time was utilized for this procedure. Some fluoroscopic images are performed with last image hold technology. These images require no additional radiation. <Electronically signed by Sahara Marcial > 12/04/20 1321 <Electronically signed by Mc Franklin > 12/04/20 [id number]
== END ==
LOC: M RADPRO 10:43
PROVIDERS: ATTEND Orthopaedic Surgery
DX: M16.12 Unilateral primary osteoarthritis, left hip (principal)
CPT/HCPCS: 20610; 77002; J3301; Q9967

== ENCOUNTER → 2020-12-15 | Outpatient (REF) | payer MEDICARE ==
[~2020-12-15] MED LIST changes: -ISOVUE-300 61% 50ML VIAL As Ordered ONE; -LIDOCAINE 1% MDV 20ML VIAL As Ordered ONE; -TRIAMCINOLONE ACETONIDE SUSP 40 MG/ML VIAL (J3301) As Ordered ONE
[2020-12-15 18:53] LABS: C REACTIVE PROTEIN QUANTITATIV 1.09 MG/DL (0.00-0.30); RHEUMATOID FACTOR QUANT < 10.0 IU/ML (<15.0)
== END ==
LOC: M LAB REF 16:20
PROVIDERS: ATTEND Internal Medicine
DX: M15.9 Polyosteoarthritis, unspecified (principal)

== ENCOUNTER → 2021-01-29 | Outpatient (CLI) | payer MEDICARE ==
[~2021-01-29] MED LIST changes: +ISOVUE-300 61% 50ML VIAL As Ordered ONE; +LIDOCAINE 1% MDV 20ML VIAL As Ordered ONE; +TRIAMCINOLONE ACETONIDE SUSP 40 MG/ML VIAL (J3301) As Ordered ONE
--- NOTE | 2021-01-29 16:33 | REP ---
INDICATION: OSTEOARTHRITIS RIGHT HIP. COMPARISON: None TECHNIQUE: The procedure was performed by CIERA Jensen, under the direct supervision of Dr. Franklin. The benefits and risks of the procedure were explained to the patient, and an informed consent was obtained. Directly prior to the start of the procedure, a formal time-out was completed in the procedure room. The right femoral neck joint space was localized using fluoroscopic guidance. The skin was prepped and draped in a sterile fashion. Approximately 5 mL of 1% Lidocaine 10 mg/ml was used as a local anesthetic. Using fluoroscopic guidance, a #22 gauge spinal needle was inserted and advanced into the right femoral neck joint space. Approximately 1 mL of Isovue 300 was injected to verify placement. Six mL of a solution containing 5 mL 1% lidocaine 10 mg/ml and 1 mL Kenalog 40 milligrams/milliliter was injected into the joint space. The needle was removed and hemostasis was achieved. FINDINGS: The patient tolerated the procedure well and there were no immediate complications. IMPRESSION: 1. Fluoroscopic guided intra-articular joint injection. 0.1 minutes of fluoroscopy time was utilized for this procedure. Some fluoroscopic images are performed with last image hold technology. These images require no additional radiation. <Electronically signed by Sahara Marcial > 01/29/21 [id number] <Electronically signed by Mc Franklin > 01/29/21 [id number]
== END ==
LOC: M RADPRO 10:54
PROVIDERS: ATTEND Physician Assistant
DX: M16.11 Unilateral primary osteoarthritis, right hip (principal)
CPT/HCPCS: 20610; 77002; J3301; Q9967

== ENCOUNTER → 2021-03-19 | Outpatient (CLI) | payer MEDICARE ==
[~2021-03-19] MED LIST changes: +COLC0.6T47 PO; +DONE-1 PO; -DONETAB6 PO; -ISOVUE-300 61% 50ML VIAL As Ordered ONE; -LIDOCAINE 1% MDV 20ML VIAL As Ordered ONE; -LISI-898; +LISI5TAB11; +MAGN200T PO; -MONT10TA10 PO; +MONT10TA97 PO; +ROPI0.5T3 PO; -TRIAMCINOLONE ACETONIDE SUSP 40 MG/ML VIAL (J3301) As Ordered ONE
[2021-03-19 16:58] LABS: BLOOD UREA NITROGEN 17 MG/DL (7-18); CREATININE FOR GFR 0.79 MG/DL (0.55-1.30); GLOMERULAR FILTRATION RATE > 60.0 (>39)
== END ==
LOC: M PLALAB 14:01
PROVIDERS: ATTEND Physician Assistant
DX: M54.2 Cervicalgia (principal); M47.892 Other spondylosis, cervical region; Z98.1 Arthrodesis status

== ENCOUNTER → 2021-03-27 | Outpatient (CLI) | payer MEDICARE ==
[~2021-03-27] MED LIST changes: -COLC0.6T47 PO; -DONE-1 PO; +DONETAB6 PO; +LISI-898; -LISI5TAB11; -MAGN200T PO; +MONT10TA10 PO; -MONT10TA97 PO; +PROHANCE 279.3MG/ML 15ML VIAL ONE; -ROPI0.5T3 PO
--- NOTE | 2021-03-28 11:14 | REPVR ---
PROCEDURE INFORMATION: Exam: MR Cervical Spine Without and With Contrast Exam date and time: 03/27/2021 12:36 PM Age: 76 years old Clinical indication: Neck pain; Prior surgery; Surgery date: 6+ months; Additional info: Cervicalgia, spondylosis, arthrodesis TECHNIQUE: Imaging protocol: Multiplanar magnetic resonance images of the cervical spine without and with contrast. Contrast material: PROHANCE; Contrast volume: 15 ml; Contrast route: INTRAVENOUS (IV); COMPARISON: MRI-Spine,Cervical without con 05/09/2019 7:14 PM FINDINGS: Study is mildly degraded by patient motion artifact. There is straightening of the normal cervical lordosis. Anterior fusion hardware spanning C4-C6 causes regional susceptibility artifact. Within constraints of motion artifact, cervical spinal cord has normal signal intensity. No marrow edema to suggest acute osseous injury. There is degenerative calcified pannus about the dens which in conjunction with ligamentum flavum hypertrophy result in severe spinal canal narrowing at the C1 level. At C2-C3, there is no significant spinal canal or neural foraminal narrowing. At C3-C4, there is no significant spinal canal stenosis. Facet and uncovertebral hypertrophy result in severe left and moderate right neural foraminal narrowing. At C4-C5, posterior disc osteophyte complex and ligamentum flavum hypertrophy result in moderate to severe spinal canal stenosis. Severe right and moderate to severe left neural foraminal narrowing from bulky facet and uncovertebral hypertrophy. At C5-C6, there are decompression surgical changes with no significant spinal canal stenosis. The neural foramina are partially obscured by metal artifact, without convincing severe narrowing. At C6-C7, there is no significant spinal canal stenosis. There is likely mild bilateral neural foraminal narrowing. Bilateral facet arthrosis is present. No abnormal spinal contrast enhancement. IMPRESSION: Progressive severe spinal canal stenosis at the C1 level secondary to bulky calcified pannus about the dens and ligamentum flavum hypertrophy. There is also progressive, moderate to severe spinal canal stenosis at the C4-C5 level secondary to a large calcified posterior disc osteophyte complex. Multiple levels of moderate and severe neural foraminal narrowing. Electronically signed by: Harshal Keen On 03/28/2021 11:13:47 AM
== END ==
LOC: M PLAIMG 10:57
PROVIDERS: ATTEND Physician Assistant
DX: M48.02 Spinal stenosis, cervical region (principal); M25.78 Osteophyte, vertebrae; M54.2 Cervicalgia; M47.892 Other spondylosis, cervical region; Z98.1 Arthrodesis status
CPT/HCPCS: 72156; A9576

== ENCOUNTER → 2021-06-30 | Outpatient (CLI) | payer MEDICARE ==
[~2021-06-30] MED LIST changes: -PROHANCE 279.3MG/ML 15ML VIAL ONE
--- NOTE | 2021-06-30 15:54 | REPMRS ---
Patient History The patient states she has not had a clinical breast exam in over a year. Family history of pancreatic cancer at age 61 in brother, colorectal cancer at age 93 in mother. Took unspecified hormones for 10 years. she had them in. Patient states no breast complaints today. Patient has signed MRS History Sheet. Digital Woman Screen Mammo: June 30, 2021 - Exam #: [id number] Bilateral CC and MLO view(s) were taken. Technologist: RT Kwabena Prior study comparison: April 23, 2020, bilateral digital woman screen mammo performed at [facility]. April 04, 2019, bilateral digital woman screen mammo performed at [facility]. FINDINGS: There are scattered fibroglandular densities. Screening. Digital screening (2D) mammography was performed bilaterally in the CC and MLO projections. Additionally, breast tomosynthesis (3D mammography) was performed bilaterally in the CC and MLO projections. Todays exam was compared to the prior exam/exams. By history, the patient has no complaints of a palpable breast abnormality or other significant breast complaints. The breasts are unchanged in size and shape. There are no paulo-soft tissue densities or spiculated masses. There is no internal architectural distortion.Once again, stable benign appearing calcifications are seen. There are no suspicious paulo-calcific clusters. Skin thickening or nipple retraction is not present. IMPRESSION: BI-RADS Category 2- Benign Findings. There is no evidence of malignant alteration of the breasts. Followup examination recommended in one year. The [place] volumetric breast density category is B, there are scattered areas of fibroglandular densities. This mammogram [facility],an FDA approved computer aided detection system for mammography. The lifetime Tyrer-Cuzick score is 1.9 % Negative x-ray reports should not delay surgical consultation if a dominant or clinically suspicious mass is present. Not all breast cancers can be identified by mammography. Therefore, we recommend that you continue to perform regular breast self-examination and physical examination and then promptly contact your physician of any concerns or changes. Adenosis and dense breasts may obscure an underlying neoplasm. Assessment: BI-RADS/ACR category 2 mammogram. Benign Findings. Recommendation Routine screening mammogram of both breasts in 1 year. Electronically Signed By: Cedric Garcia 06/30/21 [id number]
== END ==
LOC: M WHC 14:41
PROVIDERS: ATTEND Internal Medicine
DX: Z12.31 Encounter for screening mammogram for malignant neoplasm of breast (principal); Z80.0 Family history of malignant neoplasm of digestive organs; Z92.29 Personal history of other drug therapy; R92.1 Mammographic calcification found on diagnostic imaging of breast

== ENCOUNTER → 2021-07-02 | Outpatient (REF) | payer MEDICARE ==
[2021-07-02 17:02] LABS: BASO # 0.1 10^3/uL (0.0-0.2); BASO % 1.1 % (0.0-1.0); EOS # 0.1 10^3/uL (0.0-0.5); EOS % 2.5 % (0.0-3.0); HEMATOCRIT 39.2 % (36.0-47.0); HEMOGLOBIN 12.9 g/dl (12.0-15.5); LYMPH # 1.2 10^3/uL (1.5-5.0); LYMPH % 22.5 % (24.0-44.0); MEAN CORPUSCULAR HEMOGLOBIN 29.5 pg (27.0-33.0); MEAN CORPUSCULAR HGB CONC 32.9 g/dl (32.0-36.5); MEAN CORPUSCULAR VOLUME 89.5 fl (80.0-96.0); MONO # 0.3 10^3/uL (0.0-0.8); NEUTROPHILS # 3.7 10^3/uL (1.5-8.5); NEUTROPHILS % 67.5 % (36.0-66.0); PLATELET COUNT, AUTOMATED 257 10^3/uL (150-450); RED BLOOD COUNT 4.38 10^6/uL (4.00-5.40); WHITE BLOOD COUNT 5.5 10^3/uL (4.0-10.0)
[2021-07-02 17:04] LABS: APPEARANCE, URINE CLEAR (CLEAR); BACTERIA, URINE AUTO NEGATIVE (NEGATIVE); BILIRUBIN, URINE AUTO NEGATIVE (NEGATIVE); BLOOD, URINE BLOOD 1+ (NEGATIVE); COLOR, URINE STRAW (YELLOW); GLUCOSE, URINE (UA) AUTO NEGATIVE (NEGATIVE); KETONE, URINE AUTO NEGATIVE (NEGATIVE); LEUKOCYTE ESTERASE, URINE AUTO NEGATIVE (NEGATIVE); NITRITE, URINE AUTO NEGATIVE (NEGATIVE); PROTEIN, URINE AUTO NEGATIVE (NEGATIVE); RBC, URINE AUTO 0 /HPF (0-3); SPECIFIC GRAVITY URINE AUTO 1.004 (1.002-1.035); SQUAMOUS EPITHELIAL CELL UR AU 0 /HPF (0-6); UROBILINOGEN, URINE AUTO 0.2 mg/dL (0.0-2.0); WBC, URINE AUTO 0 /HPF (0-3)
[2021-07-02 17:31] LABS: CREATININE,RANDOM URINE < 13.0 MG/DL; TOTAL PROTEIN,RANDOM URINE 8.3 MG/DL (0.0-12.0)
[2021-07-02 17:45] LABS: ALBUMIN 3.9 GM/DL (3.2-5.2); ALT/SGPT 24 U/L (12-78); BILIRUBIN,DIRECT 0.1 MG/DL (0.0-0.2); BILIRUBIN,TOTAL 0.3 MG/DL (0.2-1.0); BLOOD UREA NITROGEN 20 MG/DL (7-18); C REACTIVE PROTEIN QUANTITATIV 0.58 MG/DL (0.00-0.30); CALCIUM LEVEL 10.1 MG/DL (8.8-10.2); CARBON DIOXIDE LEVEL 29 MEQ/L (21-32); CHLORIDE LEVEL 101 MEQ/L (98-107); COMPLEMENT C3 115 MG/DL (90-180); COMPLEMENT C4 36 MG/DL (10-40); CPK CREATINE PHOSPHOKINASE 118 U/L (26-192); CREATININE FOR GFR 0.82 MG/DL (0.55-1.30); GLOMERULAR FILTRATION RATE > 60.0 (>39); GLUCOSE, FASTING 97 MG/DL (70-100); IRON (FE) 51 UG/DL (50-170); MAGNESIUM LEVEL 1.5 MG/DL (1.8-2.4); PHOSPHORUS LEVEL 3.5 MG/DL (2.5-4.9); POTASSIUM SERUM 4.2 MEQ/L (3.5-5.1); PTH INTACT 22.1 PG/ML (18.5-88.0); SODIUM LEVEL 135 MEQ/L (136-145); TOTAL PROTEIN 7.8 GM/DL (6.4-8.2); VITAMIN B12 LEVEL 1537 PG/ML (247-911)
[2021-07-02 17:54] LABS: ERYTHROCYTE SEDIMENTATION RATE 30 mm/hr (0-30)
[2021-07-06 11:02] LABS: DRVV SCREEN 39.7 SEC
[2021-07-06 11:04] LABS: PTT LUPUS TYPE ANTICOAG SCREEN 1.1 (0-1.2)
== END ==
LOC: M SFHCRHEU 14:45
PROVIDERS: ATTEND Internal Medicine
DX: R76.8 Other specified abnormal immunological findings in serum (principal); M79.10 Myalgia, unspecified site; M25.40 Effusion, unspecified joint; M11.20 Other chondrocalcinosis, unspecified site; Z79.899 Other long term (current) drug therapy
CPT/HCPCS: 80048; 80076; 81001; 82306; 82550; 82570; 82607; 83540; 83735; 83970; 84100; 84156; 85025; 85652; 85730; 86140; 86160; 86162; G0463

== ENCOUNTER → 2021-07-08 | Outpatient (CLI) | payer MEDICARE ==
--- NOTE | 2021-07-08 14:19 | REP ---
INDICATION: JOINT EFFUSION. COMPARISON: None. TECHNIQUE: Four views each ankle FINDINGS: Bilateral: No acute fracture or destructive osseous lesion. The mortise is intact. Soft tissue linear calcifications are seen in the retrocalcaneal region and in the heel plantar surface. These are nonspecific and are seen bilaterally. There is a plantar calcaneal heel spur on the left. IMPRESSION: Chronic changes as described above. <Electronically signed by Cedric Garcia > 07/08/21 [id number]
--- NOTE | 2021-07-08 16:25 | REP ---
INDICATION: PAIN, JOINT EFFUSION. COMPARISON: None. TECHNIQUE: Four views each foot FINDINGS: Right foot: Advanced degenerative changes are seen involving the 1st metatarsophalangeal joint with asymmetric joint space narrowing and prominent marginal osteophytosis. This is seen in conjunction with subchondral sclerosis and probable tiny subchondral cyst formation. More moderate degenerative changes seen throughout the remainder of the foot. 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 There are multiple medial soft tissue calcifications which are likely chronic. Left foot: There is mild asymmetric joint space narrowing involving the 1st metatarsophalangeal joint with mild medial and lateral soft tissue calcifications about that joint. More mild degenerative changes seen throughout the remainder of the foot. 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 There is a plantar calcaneal heel spur. IMPRESSION: Bilateral chronic changes as described above. <Electronically signed by Cedric Garcia > 07/08/21 [id number]
--- NOTE | 2021-07-08 17:11 | REP ---
INDICATION: JOINT EFFUSION. COMPARISON: None. TECHNIQUE: Four views each wrist FINDINGS: Right wrist: Calcifications are seen in the region of the triangular fibrocartilage complex. There is no evidence of an acute fracture, dislocation, or subluxation. There are other nonspecific soft tissue calcifications. Left wrist: There are calcifications seen in the region the triangular fibrocartilage complex. There are other nonspecific soft tissue calcifications. Chronic changes seen involving the wrist. There is no evidence of an acute fracture, dislocation, or subluxation. IMPRESSION: Bilateral chronic changes <Electronically signed by Cedric Garcia > 07/08/21 [id number]
== END ==
LOC: M WUC 13:15
PROVIDERS: ATTEND Internal Medicine
DX: M25.40 Effusion, unspecified joint (principal); M25.831 Other specified joint disorders, right wrist; M25.832 Other specified joint disorders, left wrist; M19.071 Primary osteoarthritis, right ankle and foot; M19.072 Primary osteoarthritis, left ankle and foot; M77.32 Calcaneal spur, left foot

== ENCOUNTER → 2021-07-20 | Outpatient (CLI) | payer MEDICARE ==
--- NOTE | 2021-07-22 08:29 | REP ---
INDICATION: RT HAND ERROSION ABN IMAG XRAY. COMPARISON: Latest prior right hand radiograph from an outside institution dated 10/29/2019 reviewed. That examination showed erosive arthritic changes particularly affecting the PIP joint of the 2nd digit and the metacarpal phalangeal joint of the 5th digit. TECHNIQUE: 3T multiplanar MRI imaging of the right hand was obtained using various sequences. FINDINGS: The examination was obtained with digital flexion significantly limiting the ability to fully assess the intra digital joints. There is a slight joint effusion involving the D IP joint of the 2nd digit. There is a slight joint effusion involving the PIP joint of the 3rd digit. Seen proximal to the PIP joint of the 4th digit lateral aspect and abutting the base of the lateral collateral ligament there are 2 well demarcated cysts the largest measures 6 mm. There is a slight joint effusion seen involving the metacarpal phalangeal joints 1 through 4. There is marginal osteophyte formation seen involving all metacarpal heads. There is marked narrowing and irregularity of the 5th metacarpal phalangeal joint seen in conjunction with tiny subchondral cyst formation involving both sides of that joint. Tiny cysts are seen in the heads of the 2nd through 4th metacarpals. There is advanced irregularity of the intra phalangeal joints of the 2nd digit. Both of those joints are markedly asymmetrically narrowed particularly the PIP joint of that digit The small pocket of fluid undermines the common extensor tendon to the 4th digit. Fluid is seen surrounding the common flexor tendons at the level of and distal to the carpal tunnel. The fluid predominantly abuts the dorsal surfaces of those tendons. There is anterior bowing of the flexor retinaculum. Degenerative changes are seen throughout the wrist but not well imaged on this hand MRI. IMPRESSION: 1. Degenerative changes seen throughout the hand as described above. The findings are consistent with the plain film diagnosis of erosive arthritis. 2. Abnormal fluid collections as described above with chronic cyst formation involving multiple areas. 3. Abnormal fluid collection in the wrist as described above with suggestive evidence of carpal tunnel syndrome. This could be better evaluated with a dedicated wrist MRI if clinically relevant. 4. Other findings as described above. <Electronically signed by Cedric Garcia > 07/22/21 [id number]
== END ==
LOC: M RAD 15:26
PROVIDERS: ATTEND Internal Medicine
DX: R93.6 Abnormal findings on diagnostic imaging of limbs (principal); M25.441 Effusion, right hand; M25.741 Osteophyte, right hand

== ENCOUNTER 2021-10-20 13:09 | Emergency (ER) | payer MEDICARE ==
[~2021-10-20] VITALS: Ht 157.5 cm; Wt 77.3 kg
[~2021-10-20 13:09] MED LIST changes: +DONE-1 PO; -DONETAB6 PO; -LISI-898; +LISI5TAB11; -MONT10TA10 PO; +MONT10TA97 PO
[2021-10-20] MEDS ORDERED: ROPI0.5T3 PO (13:50)
[2021-10-20] MEDS ORDERED: MAGN200T PO (13:50)
[2021-10-20] MEDS ORDERED: COLC0.6T47 PO (13:50)
[2021-10-20 14:51] LABS: BASO % 0.9 % (0.0-1.0); EOS # 0.1 10^3/uL (0.0-0.5); EOS % 1.1 % (0.0-3.0); HEMATOCRIT 34.8 % (36.0-47.0); HEMOGLOBIN 11.3 g/dl (12.0-15.5); LYMPH # 1.1 10^3/uL (1.5-5.0); LYMPH % 22.8 % (24.0-44.0); MEAN CORPUSCULAR HEMOGLOBIN 28.6 pg (27.0-33.0); MEAN CORPUSCULAR HGB CONC 32.5 g/dl (32.0-36.5); MEAN CORPUSCULAR VOLUME 88.1 fl (80.0-96.0); MONO # 0.3 10^3/uL (0.0-0.8); MONO % 6.2 % (2.0-8.0); NEUTROPHILS # 3.2 10^3/uL (1.5-8.5); NEUTROPHILS % 68.1 % (36.0-66.0); PLATELET COUNT, AUTOMATED 232 10^3/uL (150-450); RED BLOOD COUNT 3.95 10^6/uL (4.00-5.40); WHITE BLOOD COUNT 4.7 10^3/uL (4.0-10.0)
[2021-10-20 15:18] LABS: BLOOD UREA NITROGEN 18 MG/DL (7-18); CALCIUM LEVEL 9.3 MG/DL (8.8-10.2); CARBON DIOXIDE LEVEL 28 MEQ/L (21-32); CHLORIDE LEVEL 104 MEQ/L (98-107); CREATININE FOR GFR 0.77 MG/DL (0.55-1.30); GLOMERULAR FILTRATION RATE > 60.0 (>39); GLUCOSE, FASTING 98 MG/DL (70-100); POTASSIUM SERUM 3.9 MEQ/L (3.5-5.1); SODIUM LEVEL 139 MEQ/L (136-145)
[2021-10-20 15:37] VITALS: BP 137/87
[2021-10-20 16:39] VITALS: BP 160/80
== END 2021-10-20 16:56 | disposition home or self-care (01) ==
LOC: EDBD 13:09 → M ED 13:09
DX: R04.0 Epistaxis (principal); E11.9 Type 2 diabetes mellitus without complications; I10 Essential (primary) hypertension; J44.9 Chronic obstructive pulmonary disease, unspecified; I25.10 Atherosclerotic heart disease of native coronary artery without angina pectoris; Z79.899 Other long term (current) drug therapy; Z79.84 Long term (current) use of oral hypoglycemic drugs; Z79.82 Long term (current) use of aspirin; Z87.891 Personal history of nicotine dependence

== ENCOUNTER 2021-11-25 20:23 | Emergency (ER) | payer MEDICARE ==
[~2021-11-25] VITALS: Ht 157.5 cm; Wt 80.0 kg
[~2021-11-25 20:23] MED LIST changes: +COLC0.6T47 PO; +MAGN200T PO; +ROPI0.5T3 PO
[2021-11-25 20:35] VITALS: BP 174/77
== END 2021-11-25 23:51 | disposition home or self-care (01) ==
LOC: M ED 20:23
DX: S00.03XA Contusion of scalp, initial encounter (principal); S70.02XA Contusion of left hip, initial encounter; W18.39XA Other fall on same level, initial encounter; Y92.018 Other place in single-family (private) house as the place of occurrence of the external cause; J44.9 Chronic obstructive pulmonary disease, unspecified; G47.33 Obstructive sleep apnea (adult) (pediatric); K21.9 Gastro-esophageal reflux disease without esophagitis; M48.00 Spinal stenosis, site unspecified; G25.81 Restless legs syndrome; Z79.899 Other long term (current) drug therapy; Z79.84 Long term (current) use of oral hypoglycemic drugs; Z79.82 Long term (current) use of aspirin; F17.210 Nicotine dependence, cigarettes, uncomplicated

== ENCOUNTER → 2021-12-17 | Outpatient (CLI) | payer MEDICARE ==
[2021-12-17 16:52] LABS: BLOOD UREA NITROGEN 19 MG/DL (7-18); CALCIUM LEVEL 9.1 MG/DL (8.8-10.2); CARBON DIOXIDE LEVEL 30 MEQ/L (21-32); CHLORIDE LEVEL 102 MEQ/L (98-107); CREATININE FOR GFR 0.76 MG/DL (0.55-1.30); GLOMERULAR FILTRATION RATE > 60.0 (>39); GLUCOSE, FASTING 98 MG/DL (70-100); MAGNESIUM LEVEL 1.9 MG/DL (1.8-2.4); POTASSIUM SERUM 4.4 MEQ/L (3.5-5.1); SODIUM LEVEL 135 MEQ/L (136-145)
[2021-12-17 17:04] LABS: TOTAL 25(OH) VITAMIN D 45.7 NG/ML (30.0-100.0); VITAMIN B12 LEVEL 965 PG/ML (247-911)
== END ==
LOC: M WUC 14:00
PROVIDERS: ATTEND Internal Medicine
DX: E61.2 Magnesium deficiency (principal); M11.20 Other chondrocalcinosis, unspecified site; E67.8 Other specified hyperalimentation

== ENCOUNTER → 2021-12-28 | Outpatient (REF) | payer MEDICARE | LOC: M LAB REF 16:48 | PROVIDERS: ATTEND Internal Medicine | DX: B00.9 Herpesviral infection, unspecified (principal) ==

== ENCOUNTER 2022-03-10 16:18 | Emergency (ER) | payer MEDICARE ==
[~2022-03-10] VITALS: Ht 157.5 cm; Wt 77.3 kg
[2022-03-10] MEDS ORDERED: PRED25TA PO (16:46)
[2022-03-10] MEDS ORDERED: MITI1CAP (16:46)
[2022-03-10] MEDS ORDERED: NS 1,000 ML IV ONE (19:35)
[2022-03-10] MEDS ORDERED: ISOVUE-370 76% 100ML VIAL As Ordered ONE (19:56)
[2022-03-10 20:39] LABS: BASO # 0.1 10^3/uL (0.0-0.2); BASO % 0.8 % (0.0-1.0); EOS # 0.1 10^3/uL (0.0-0.5); EOS % 0.9 % (0.0-3.0); HEMATOCRIT 37.8 % (36.0-47.0); HEMOGLOBIN 12.3 g/dl (12.0-15.5); LYMPH # 1.1 10^3/uL (1.5-5.0); MEAN CORPUSCULAR HEMOGLOBIN 29.5 pg (27.0-33.0); MEAN CORPUSCULAR HGB CONC 32.5 g/dl (32.0-36.5); MEAN CORPUSCULAR VOLUME 90.6 fl (80.0-96.0); MONO # 0.4 10^3/uL (0.0-0.8); MONO % 5.3 % (2.0-8.0); NEUTROPHILS # 5.1 10^3/uL (1.5-8.5); NEUTROPHILS % 76.7 % (36.0-66.0); PLATELET COUNT, AUTOMATED 204 10^3/uL (150-450); RED BLOOD COUNT 4.17 10^6/uL (4.00-5.40); WHITE BLOOD COUNT 6.6 10^3/uL (4.0-10.0)
[2022-03-10 20:51] LABS: INR 0.91; PROTHROMBIN TIME 12.7 SECONDS (12.7-14.5)
[2022-03-10 20:52] LABS: PARTIAL THROMBOPLASTIN TIME 33.7 SECONDS (25.9-37.0)
[2022-03-10 20:54] LABS: ALBUMIN 3.9 GM/DL (3.2-5.2); BILIRUBIN,DIRECT 0.1 MG/DL (0.0-0.2); BILIRUBIN,TOTAL 0.4 MG/DL (0.2-1.0); TOTAL PROTEIN 7.4 GM/DL (6.4-8.2)
[2022-03-10] MEDS ORDERED: tiZANidine 4 MG TAB PO ONE (22:15)
[2022-03-10 22:22] VITALS: BP 137/62
== END 2022-03-10 23:24 | disposition home or self-care (01) ==
LOC: M ED 16:18
DX: K57.90 Diverticulosis of intestine, part unspecified, without perforation or abscess without bleeding (principal); E27.9 Disorder of adrenal gland, unspecified; J44.9 Chronic obstructive pulmonary disease, unspecified; E11.9 Type 2 diabetes mellitus without complications; I10 Essential (primary) hypertension; E78.00 Pure hypercholesterolemia, unspecified; F33.9 Major depressive disorder, recurrent, unspecified; F41.9 Anxiety disorder, unspecified; G47.30 Sleep apnea, unspecified; K21.9 Gastro-esophageal reflux disease without esophagitis; Z79.899 Other long term (current) drug therapy
CPT/HCPCS: 74177; 80047; 80076; 83605; 85025; 85610; 85730; 86850; 86900; 86901; 96360; 96361; 99284; Q9967

== ENCOUNTER → 2022-04-07 | Outpatient (CLI) | payer MEDICARE ==
[~2022-04-07] MED LIST changes: +MITI1CAP; +PRED25TA PO
== END ==
LOC: M LABSMTC 11:27
PROVIDERS: ATTEND Surgery
DX: Z01.818 Encounter for other preprocedural examination (principal); Z20.822 Contact with and (suspected) exposure to COVID-19

== ENCOUNTER → 2022-09-24 | Outpatient (CLI) | payer MEDICARE | LOC: M RAD 14:40 | PROVIDERS: ATTEND Internal Medicine Pulmonary Disease | DX: Z12.2 Encounter for screening for malignant neoplasm of respiratory organs (principal); Z87.891 Personal history of nicotine dependence; J47.9 Bronchiectasis, uncomplicated ==

== ENCOUNTER → 2022-10-18 | Outpatient (CLI) | payer MEDICARE | LOC: M WUC 13:26 | PROVIDERS: ATTEND Student in an Organized Health Care Education/Training Program | DX: M19.041 Primary osteoarthritis, right hand (principal); M11.221 Other chondrocalcinosis, right elbow ==

== ENCOUNTER 2022-10-21 23:02 | Emergency (ER) | payer MEDICARE ==
[~2022-10-21] VITALS: Ht 157.5 cm; Wt 76.8 kg
[2022-10-22 04:53] VITALS: BP 181/77
== END 2022-10-22 06:37 | disposition left against medical advice (07) ==
LOC: M ED 23:02 → EDBD 23:02 → M ED 10-22 06:37
DX: Z53.21 Procedure and treatment not carried out due to patient leaving prior to being seen by health care provider (principal)

== ENCOUNTER → 2022-11-01 | Outpatient (REF) | payer MEDICARE ==
[~2022-11-01] MED LIST changes: -DICL1GEL3; +DICL1GEL3 TOP; -LISI10TA22 OR; -MITI1CAP; +MITI1CAP PO; +OMEP1CAP73 PO; +PRAV20TA2 PO; -TIZA4CAP; +TIZA4CAP PO; +TRAM50TA2 PO; +VENTAER INH; +VITMTA PO
[2022-11-01 19:00] LABS: BASO # 0.1 10^3/uL (0.0-0.2); BASO % 1.1 % (0.0-1.0); EOS % 0.3 % (0.0-3.0); HEMATOCRIT 35.8 % (36.0-47.0); HEMOGLOBIN 11.6 g/dl (12.0-15.5); LYMPH # 1.2 10^3/uL (1.5-5.0); LYMPH % 18.6 % (24.0-44.0); MEAN CORPUSCULAR HEMOGLOBIN 30.1 pg (27.0-33.0); MEAN CORPUSCULAR HGB CONC 32.4 g/dl (32.0-36.5); MONO # 0.4 10^3/uL (0.0-0.8); MONO % 5.5 % (2.0-8.0); NEUTROPHILS # 4.7 10^3/uL (1.5-8.5); NEUTROPHILS % 73.9 % (36.0-66.0); PLATELET COUNT, AUTOMATED 304 10^3/uL (150-450); RED BLOOD COUNT 3.85 10^6/uL (4.00-5.40); WHITE BLOOD COUNT 6.4 10^3/uL (4.0-10.0)
[2022-11-01 19:04] LABS: VITAMIN B12 LEVEL 841 PG/ML (211-911)
[2022-11-01 19:05] LABS: C REACTIVE PROTEIN QUANTITATIV < 0.40 MG/DL (<1.0)
[2022-11-01 19:15] LABS: MAGNESIUM LEVEL 1.7 MG/DL (1.8-2.4); PHOSPHORUS LEVEL 3.4 MG/DL (2.4-5.1)
[2022-11-01 19:19] LABS: ERYTHROCYTE SEDIMENTATION RATE 27 mm/hr (0-30)
== END ==
LOC: M SFHCRHEU 13:18
PROVIDERS: ATTEND Internal Medicine
DX: E61.2 Magnesium deficiency (principal); M11.20 Other chondrocalcinosis, unspecified site; E67.8 Other specified hyperalimentation; M62.838 Other muscle spasm

== ENCOUNTER → 2022-11-01 | Outpatient (CLI) | payer MEDICARE ==
[~2022-11-01] MED LIST changes: +MONT-5 PO; -SING10TA32 PO
== END ==
LOC: M RAD 13:53
PROVIDERS: ATTEND Internal Medicine
DX: M70.22 Olecranon bursitis, left elbow (principal); E61.2 Magnesium deficiency; M11.20 Other chondrocalcinosis, unspecified site; E67.8 Other specified hyperalimentation; M62.838 Other muscle spasm

== ENCOUNTER → 2022-12-14 | Outpatient (REF) | payer MEDICARE | LOC: M LAB REF 17:39 | PROVIDERS: ATTEND Nurse Practitioner Family | DX: R52 Pain, unspecified (principal) ==

== ENCOUNTER → 2022-12-21 | Outpatient (CLI) | payer MEDICARE ==
[~2022-12-21] MED LIST changes: +GASTROGRAFIN SOLUTION 30ML As Ordered ONE; +ISOVUE-370 76% 100ML VIAL As Ordered ONE
== END ==
LOC: M RAD 13:05
PROVIDERS: ATTEND Nurse Practitioner Family
DX: R10.32 Left lower quadrant pain (principal)
CPT/HCPCS: 74177; Q9963; Q9967

== ENCOUNTER → 2022-12-29 | Outpatient (REF) | payer MEDICARE ==
[~2022-12-29] MED LIST changes: -GASTROGRAFIN SOLUTION 30ML As Ordered ONE; -ISOVUE-370 76% 100ML VIAL As Ordered ONE
== END ==
LOC: M LAB REF 10:42
PROVIDERS: ATTEND Internal Medicine
DX: I10 Essential (primary) hypertension (principal)

== ENCOUNTER 2023-01-05 23:38 | Emergency (ER) | payer MEDICARE ==
[2023-01-06] MEDS ORDERED: NS 500 ML IV ONE (00:20)
[2023-01-06] MEDS ORDERED: ONDANSETRON 4MG 2ML VIAL IV ONE (00:20)
[2023-01-06] MEDS: MORPHINE 4 MG/ML 1ML VIAL IV PRN ×2 (00:45→04:16)
[2023-01-06] MEDS ORDERED: GASTROGRAFIN SOLUTION 30ML As Ordered ONE (00:59)
[2023-01-06] MEDS: GASTROGRAFIN SOLUTION 30ML PO SCH ×2 (01:00→01:30)
[2023-01-06 02:25] VITALS: BP 149/48
[2023-01-06 02:50] LABS: ALBUMIN 3.5 G/DL (3.2-5.2); ALKALINE PHOSPHATASE 100 U/L (46-116); ALT/SGPT 26 U/L (7.0-40); AST/SGOT 21 U/L (<34); BILIRUBIN,DIRECT < 0.1 MG/DL (<0.4); BILIRUBIN,TOTAL 0.2 MG/DL (0.3-1.2); BLOOD UREA NITROGEN 18 MG/DL (9-23); CALCIUM LEVEL 8.7 MG/DL (8.3-10.6); CARBON DIOXIDE LEVEL 26 MMOL/L (20-31); CHLORIDE LEVEL 102 MMOL/L (98-107); CK-MB VALUE MASS 4.9 NG/ML (<3.6); CPK CREATINE PHOSPHOKINASE 149 U/L (34-145); CREATININE FOR GFR 0.95 MG/DL (0.55-1.30); GLOMERULAR FILTRATION RATE > 60.0 (>39); GLUCOSE, FASTING 109 MG/DL (74-106); LIPASE 36 U/L (12-53); MB/CK RELATIVE INDEX 3.28 (< OR =4); SODIUM LEVEL 135 MMOL/L (136-145); TOTAL PROTEIN 6.4 G/DL (5.7-8.2)
[2023-01-06 03:19] LABS: BASO # 0.1 10^3/uL (0.0-0.2); BASO % 0.9 % (0.0-1.0); EOS % 0.7 % (0.0-3.0); HEMATOCRIT 34.9 % (36.0-47.0); HEMOGLOBIN 11.2 g/dl (12.0-15.5); LYMPH # 1.3 10^3/uL (1.5-5.0); LYMPH % 23.9 % (24.0-44.0); MEAN CORPUSCULAR HEMOGLOBIN 28.8 pg (27.0-33.0); MEAN CORPUSCULAR HGB CONC 32.1 g/dl (32.0-36.5); MEAN CORPUSCULAR VOLUME 89.7 fl (80.0-96.0); MONO # 0.4 10^3/uL (0.0-0.8); MONO % 6.5 % (2.0-8.0); NEUTROPHILS # 3.6 10^3/uL (1.5-8.5); NEUTROPHILS % 67.6 % (36.0-66.0); PLATELET COUNT, AUTOMATED 239 10^3/uL (150-450); RED BLOOD COUNT 3.89 10^6/uL (4.00-5.40); WHITE BLOOD COUNT 5.4 10^3/uL (4.0-10.0)
[2023-01-06 03:26] LABS: MB/CK RELATIVE INDEX 2.75 (< OR =4)
[2023-01-06] MEDS ORDERED: MAGNESIUM CITRATE 300ML BTL PO ONE (05:05)
[2023-01-06] MEDS ORDERED: NAPR-837 PO (05:08)
[2023-01-06] MEDS ORDERED: LYRI75CA PO (05:08)
== END 2023-01-06 05:32 | disposition home or self-care (01) ==
LOC: M ED 23:38
DX: K59.00 Constipation, unspecified (principal); N93.9 Abnormal uterine and vaginal bleeding, unspecified; Z79.899 Other long term (current) drug therapy; Z79.51 Long term (current) use of inhaled steroids
CPT/HCPCS: 74177; 80048; 80076; 81001; 82550; 82553; 83605; 83690; 84484; 85025; 87635; 93005; 93041; 96374; 96375; 99285; J2405

== ENCOUNTER → 2023-01-14 | Outpatient (REF) ==
[~2023-01-14] MED LIST changes: +LYRI75CA PO; +NAPR-837 PO
[2023-01-14 09:50] LABS: HEMATOCRIT 36.9 % (36.0-47.0); HEMOGLOBIN 11.9 g/dl (12.0-15.5); MEAN CORPUSCULAR HEMOGLOBIN 29.1 pg (27.0-33.0); MEAN CORPUSCULAR HGB CONC 32.2 g/dl (32.0-36.5); MEAN CORPUSCULAR VOLUME 90.2 fl (80.0-96.0); PLATELET COUNT, AUTOMATED 218 10^3/uL (150-450); RED BLOOD COUNT 4.09 10^6/uL (4.00-5.40); WHITE BLOOD COUNT 4.3 10^3/uL (4.0-10.0)
[2023-01-14 10:16] LABS: BLOOD UREA NITROGEN 20 MG/DL (9-23); CALCIUM LEVEL 9.1 MG/DL (8.3-10.6); CARBON DIOXIDE LEVEL 30 MMOL/L (20-31); CHLORIDE LEVEL 102 MMOL/L (98-107); CREATININE FOR GFR 0.77 MG/DL (0.55-1.30); GLOMERULAR FILTRATION RATE > 60.0 (>32); GLUCOSE, FASTING 107 MG/DL (74-106); POTASSIUM SERUM 4.4 MMOL/L (3.5-5.1); SODIUM LEVEL 137 MMOL/L (136-145)
== END ==
PROVIDERS: ATTEND Physician Assistant
DX: I10 Essential (primary) hypertension (principal)

== ENCOUNTER → 2023-01-21 | Outpatient (REF) ==
[2023-01-21 09:39] LABS: HEMATOCRIT 37.8 % (36.0-47.0); HEMOGLOBIN 12.3 g/dl (12.0-15.5); MEAN CORPUSCULAR HEMOGLOBIN 29.5 pg (27.0-33.0); MEAN CORPUSCULAR HGB CONC 32.5 g/dl (32.0-36.5); MEAN CORPUSCULAR VOLUME 90.6 fl (80.0-96.0); PLATELET COUNT, AUTOMATED 298 10^3/uL (150-450); RED BLOOD COUNT 4.17 10^6/uL (4.00-5.40)
[2023-01-21 10:09] LABS: BLOOD UREA NITROGEN 24 MG/DL (9-23); CARBON DIOXIDE LEVEL 31 MMOL/L (20-31); CHLORIDE LEVEL 97 MMOL/L (98-107); CREATININE FOR GFR 0.82 MG/DL (0.55-1.30); GLOMERULAR FILTRATION RATE > 60.0 (>32); GLUCOSE, FASTING 125 MG/DL (74-106); POTASSIUM SERUM 3.9 MMOL/L (3.5-5.1); SODIUM LEVEL 136 MMOL/L (136-145)
== END ==
PROVIDERS: ATTEND Physician Assistant
DX: I10 Essential (primary) hypertension (principal)

== ENCOUNTER 2023-01-25 13:24 | Emergency (ER) | payer MEDICARE ==
[~2023-01-25] VITALS: Ht 157.5 cm; Wt 69.1 kg
[2023-01-25 14:31] LABS: BASO # 0.1 10^3/uL (0.0-0.2); BASO % 1.3 % (0.0-1.0); EOS # 0.1 10^3/uL (0.0-0.5); HEMATOCRIT 35.1 % (36.0-47.0); HEMOGLOBIN 11.6 g/dl (12.0-15.5); LYMPH # 1.2 10^3/uL (1.5-5.0); LYMPH % 20.1 % (24.0-44.0); MEAN CORPUSCULAR HEMOGLOBIN 29.5 pg (27.0-33.0); MEAN CORPUSCULAR VOLUME 89.3 fl (80.0-96.0); MONO # 0.3 10^3/uL (0.0-0.8); MONO % 4.6 % (2.0-8.0); NEUTROPHILS # 4.4 10^3/uL (1.5-8.5); NEUTROPHILS % 72.7 % (36.0-66.0); PLATELET COUNT, AUTOMATED 259 10^3/uL (150-450); RED BLOOD COUNT 3.93 10^6/uL (4.00-5.40); WHITE BLOOD COUNT 6.1 10^3/uL (4.0-10.0)
[2023-01-25 14:48] LABS: INR 0.91; PARTIAL THROMBOPLASTIN TIME 29.2 SECONDS (24.8-34.2); PROTHROMBIN TIME 12.4 SECONDS (12.5-14.5)
[2023-01-25 14:50] LABS: BLOOD UREA NITROGEN 21 MG/DL (9-23); CALCIUM LEVEL 8.9 MG/DL (8.3-10.6); CARBON DIOXIDE LEVEL 28 MMOL/L (20-31); CHLORIDE LEVEL 97 MMOL/L (98-107); CREATININE FOR GFR 0.74 MG/DL (0.55-1.30); GLOMERULAR FILTRATION RATE > 60.0 (>32); GLUCOSE, FASTING 94 MG/DL (74-106); POTASSIUM SERUM 4.9 MMOL/L (3.5-5.1); SODIUM LEVEL 130 MMOL/L (136-145)
[2023-01-25] MEDS ORDERED: diazePAM 10MG/2ML SYRINGE IV ONE (15:30)
[2023-01-25 16:14] LABS: ALBUMIN 3.6 G/DL (3.2-5.2); ALKALINE PHOSPHATASE 104 U/L (46-116); ALT/SGPT 22 U/L (7.0-40); AST/SGOT 21 U/L (<34); BILIRUBIN,DIRECT < 0.1 MG/DL (<0.4); BILIRUBIN,TOTAL 0.3 MG/DL (0.3-1.2); TOTAL PROTEIN 6.3 G/DL (5.7-8.2)
[2023-01-25] MEDS ORDERED: ROPI1TAB3 PO (16:16)
[2023-01-25] MEDS ORDERED: LISI5TAB11 PO (16:16)
[2023-01-25] MEDS ORDERED: METH-1164 PO (16:18)
[2023-01-25] MEDS ORDERED: PANT40TA29 PO (16:18)
[2023-01-25] MEDS ORDERED: ACET650T61 PO (16:18)
[2023-01-25] MEDS ORDERED: GABA-1171 PO (16:18)
[2023-01-25] MEDS ORDERED: HOME MED LIST COMPLETE! XX SCH (16:20)
[2023-01-25 17:55] VITALS: BP 175/74
== END 2023-01-25 18:00 | disposition short-term general hospital (02) ==
LOC: M ED 13:24 → EDBD 13:24 → M ED 18:00
DX: M48.00 Spinal stenosis, site unspecified (principal); R53.1 Weakness; I10 Essential (primary) hypertension; M11.20 Other chondrocalcinosis, unspecified site; J44.9 Chronic obstructive pulmonary disease, unspecified; G47.33 Obstructive sleep apnea (adult) (pediatric); F03.90 Unspecified dementia, unspecified severity, without behavioral disturbance, psychotic disturbance, mood disturbance, and anxiety; Z79.899 Other long term (current) drug therapy; Z79.52 Long term (current) use of systemic steroids
CPT/HCPCS: 70450; 80048; 80076; 85025; 85610; 85730; 93005; 93041; 94760; 96374; 99285; J3360

== ENCOUNTER → 2023-02-02 | Outpatient (REF) ==
[~2023-02-02] MED LIST changes: +ACET650T61 PO; +GABA-1171 PO; +LISI5TAB11 PO; +METH-1164 PO; +PANT40TA29 PO
[2023-02-02 08:51] LABS: HEMATOCRIT 29.5 % (36.0-47.0); HEMOGLOBIN 9.6 g/dl (12.0-15.5); MEAN CORPUSCULAR HEMOGLOBIN 28.9 pg (27.0-33.0); MEAN CORPUSCULAR HGB CONC 32.5 g/dl (32.0-36.5); MEAN CORPUSCULAR VOLUME 88.9 fl (80.0-96.0); PLATELET COUNT, AUTOMATED 265 10^3/uL (150-450); RED BLOOD COUNT 3.32 10^6/uL (4.00-5.40); WHITE BLOOD COUNT 5.6 10^3/uL (4.0-10.0)
[2023-02-02 09:16] LABS: BLOOD UREA NITROGEN 19 MG/DL (9-23); CALCIUM LEVEL 9.1 MG/DL (8.3-10.6); CARBON DIOXIDE LEVEL 27 MMOL/L (20-31); CHLORIDE LEVEL 98 MMOL/L (98-107); CREATININE FOR GFR 0.69 MG/DL (0.55-1.30); GLOMERULAR FILTRATION RATE > 60.0 (>32); GLUCOSE, FASTING 107 MG/DL (74-106); SODIUM LEVEL 133 MMOL/L (136-145)
== END ==
PROVIDERS: ATTEND Internal Medicine
DX: I10 Essential (primary) hypertension (principal)

== ENCOUNTER → 2023-02-09 | Outpatient (REF) ==
[2023-02-09 11:51] LABS: HEMATOCRIT 32.6 % (36.0-47.0); HEMOGLOBIN 10.6 g/dl (12.0-15.5); MEAN CORPUSCULAR HGB CONC 32.5 g/dl (32.0-36.5); MEAN CORPUSCULAR VOLUME 89.1 fl (80.0-96.0); PLATELET COUNT, AUTOMATED 365 10^3/uL (150-450); RED BLOOD COUNT 3.66 10^6/uL (4.00-5.40); WHITE BLOOD COUNT 6.1 10^3/uL (4.0-10.0)
[2023-02-09 12:04] LABS: BLOOD UREA NITROGEN 22 MG/DL (9-23); CALCIUM LEVEL 8.5 MG/DL (8.3-10.6); CARBON DIOXIDE LEVEL 25 MMOL/L (20-31); CHLORIDE LEVEL 96 MMOL/L (98-107); CREATININE FOR GFR 0.73 MG/DL (0.55-1.30); GLOMERULAR FILTRATION RATE > 60.0 (>32); GLUCOSE, FASTING 124 MG/DL (74-106); POTASSIUM SERUM 4.2 MMOL/L (3.5-5.1); SODIUM LEVEL 132 MMOL/L (136-145)
== END ==
PROVIDERS: ATTEND Internal Medicine
DX: I10 Essential (primary) hypertension (principal)

== ENCOUNTER → 2023-02-23 | Outpatient (REF) | payer MEDICARE ==
[2023-02-23 11:46] LABS: HEMATOCRIT 36.7 % (36.0-47.0); HEMOGLOBIN 11.5 g/dl (12.0-15.5); MEAN CORPUSCULAR HEMOGLOBIN 29.5 pg (27.0-33.0); MEAN CORPUSCULAR HGB CONC 31.3 g/dl (32.0-36.5); MEAN CORPUSCULAR VOLUME 94.1 fl (80.0-96.0); PLATELET COUNT, AUTOMATED 283 10^3/uL (150-450); WHITE BLOOD COUNT 6.2 10^3/uL (4.0-10.0)
[2023-02-23 12:17] LABS: BLOOD UREA NITROGEN 24 MG/DL (9-23); CALCIUM LEVEL 9.5 MG/DL (8.3-10.6); CARBON DIOXIDE LEVEL 28 MMOL/L (20-31); CHLORIDE LEVEL 99 MMOL/L (98-107); CREATININE FOR GFR 0.73 MG/DL (0.55-1.30); GLOMERULAR FILTRATION RATE > 60.0 (>32); GLUCOSE, FASTING 58 MG/DL (74-106); POTASSIUM SERUM 4.3 MMOL/L (3.5-5.1); SODIUM LEVEL 135 MMOL/L (136-145)
== END ==
PROVIDERS: ATTEND Physician Assistant
DX: I50.9 Heart failure, unspecified (principal)

== ENCOUNTER 2023-02-28 07:18 | Emergency (ER) | payer MEDICARE ==
[~2023-02-28] VITALS: Ht 157.5 cm; Wt 72.9 kg
[2023-02-28 07:26] VITALS: TEMP 98.3
[2023-02-28 08:49] LABS: HEMOGLOBIN 10.5 g/dl (12.0-15.5); MEAN CORPUSCULAR HEMOGLOBIN 29.2 pg (27.0-33.0); MEAN CORPUSCULAR HGB CONC 31.8 g/dl (32.0-36.5); MEAN CORPUSCULAR VOLUME 91.9 fl (80.0-96.0); PLATELET COUNT, AUTOMATED 195 10^3/uL (150-450); RED BLOOD COUNT 3.59 10^6/uL (4.00-5.40); WHITE BLOOD COUNT 4.3 10^3/uL (4.0-10.0)
[2023-02-28 09:01] LABS: BLOOD UREA NITROGEN 24 MG/DL (9-23); CARBON DIOXIDE LEVEL 26 MMOL/L (20-31); CHLORIDE LEVEL 103 MMOL/L (98-107); CREATININE FOR GFR 0.68 MG/DL (0.55-1.30); GLOMERULAR FILTRATION RATE > 60.0 (>32); GLUCOSE, FASTING 103 MG/DL (74-106); POTASSIUM SERUM 4.2 MMOL/L (3.5-5.1); SODIUM LEVEL 137 MMOL/L (136-145)
[2023-02-28 10:16] VITALS: BP 125/62; O2SAT 95
[2023-02-28] MEDS ORDERED: NAPR-837 PO (10:26)
== END 2023-02-28 11:24 | disposition home or self-care (01) ==
LOC: EDBD 07:18 → M ED 07:18
DX: M19.012 Primary osteoarthritis, left shoulder (principal); I10 Essential (primary) hypertension; G47.33 Obstructive sleep apnea (adult) (pediatric); J44.9 Chronic obstructive pulmonary disease, unspecified; E11.9 Type 2 diabetes mellitus without complications; Z79.899 Other long term (current) drug therapy; Z79.51 Long term (current) use of inhaled steroids

== ENCOUNTER → 2023-03-23 | Outpatient (CLI) | payer MEDICARE ==
[~2023-03-23] MED LIST changes: +ISOVUE-370 76% 100ML VIAL ONE; -ROPI0.253 OR; -ROPI0.5T3 PO; +ROPI0.5T33 PO; -ROPI1TAB3 PO; +ROPI1TAB73 PO; +ROPI5TAB19 OR
== END ==
LOC: M PLAIMG 13:48
PROVIDERS: ATTEND Internal Medicine
DX: D35.00 Benign neoplasm of unspecified adrenal gland (principal); I70.8 Atherosclerosis of other arteries; R16.2 Hepatomegaly with splenomegaly, not elsewhere classified
CPT/HCPCS: 74170; Q9967

== ENCOUNTER 2023-05-19 19:27 | Inpatient (IN) | payer MEDICARE ==
[~2023-05-19] VITALS: Ht 157.5 cm; Wt 66.4 kg
[~2023-05-19 19:27] MED LIST changes: +DICL100G10 TOP; -DICL1GEL3 TOP; -ISOVUE-370 76% 100ML VIAL ONE
[2023-05-19] MEDS ORDERED: OMEP-173 (19:53)
[2023-05-20] MEDS ORDERED: METHOCARBAMOL 1,000 MG/10 ML VIAL IV ONE (03:10)
[2023-05-20] MEDS ORDERED: ONDANSETRON 4MG 2ML VIAL IV ONE (03:10)
[2023-05-20] MEDS: MORPHINE 2 MG/ML 1ML VIAL IV PRN ×2 (03:52→04:23)
[2023-05-20 04:09] LABS: BASO # 0.1 10^3/uL (0.0-0.2); BASO % 0.6 % (0.0-1.0); EOS % 0.4 % (0.0-3.0); HEMATOCRIT 34.1 % (36.0-47.0); HEMOGLOBIN 11.2 g/dl (12.0-15.5); LYMPH # 1.2 10^3/uL (1.5-5.0); LYMPH % 15.8 % (24.0-44.0); MEAN CORPUSCULAR HEMOGLOBIN 27.5 pg (27.0-33.0); MEAN CORPUSCULAR HGB CONC 32.8 g/dl (32.0-36.5); MEAN CORPUSCULAR VOLUME 83.6 fl (80.0-96.0); MONO # 0.6 10^3/uL (0.0-0.8); MONO % 7.3 % (2.0-8.0); NEUTROPHILS # 5.9 10^3/uL (1.5-8.5); NEUTROPHILS % 75.5 % (36.0-66.0); PLATELET COUNT, AUTOMATED 275 10^3/uL (150-450); RED BLOOD COUNT 4.08 10^6/uL (4.00-5.40); WHITE BLOOD COUNT 7.8 10^3/uL (4.0-10.0)
[2023-05-20 04:48] LABS: BLOOD UREA NITROGEN 20 MG/DL (9-23); CALCIUM LEVEL 9.2 MG/DL (8.3-10.6); CARBON DIOXIDE LEVEL 22 MMOL/L (20-31); CHLORIDE LEVEL 100 MMOL/L (98-107); CREATININE FOR GFR 0.72 MG/DL (0.55-1.30); GLOMERULAR FILTRATION RATE > 60.0 (>32); GLUCOSE, FASTING 100 MG/DL (74-106); POTASSIUM SERUM 4.4 MMOL/L (3.5-5.1); SODIUM LEVEL 131 MMOL/L (136-145)
[2023-05-20] MEDS ORDERED: MAALOX 30 ML SUSP *UDC PO PRN (05:15)
[2023-05-20] MEDS ORDERED: MOM 30ML SUSPENSION UDC PO PRN (05:15)
[2023-05-20] MEDS ORDERED: ONDANSETRON 4MG 2ML VIAL IV PRN (05:20)
[2023-05-20] MEDS ORDERED: HYDROMORPHONE HCL 0.5 MG/ 0.5 ML SYRINGE IV ONE (06:00)
[2023-05-20] MEDS ORDERED: ACET-897 PO (06:19)
[2023-05-20] MEDS ORDERED: OMEP1CAP73 PO (06:19)
[2023-05-20] MEDS ORDERED: ROPI0.5T32 PO (06:19)
[2023-05-20] MEDS ORDERED: OXYC-517 PO (06:19)
[2023-05-20] MEDS ORDERED: IPRA6SP NARES (06:19)
[2023-05-20] MEDS ORDERED: SPIR1CAP INH (06:19)
[2023-05-20] MEDS ORDERED: HOME MED LIST COMPLETE! XX SCH (06:20)
[2023-05-20 06:30] VITALS: BP 132/45; TEMP 97.7; O2SAT 91
[2023-05-20] MEDS: NS 1,000 ML IV SCH ×2 (06:51→09:37)
[2023-05-20] MEDS ORDERED: MORPHINE 4 MG/ML 1ML VIAL IV PRN (07:00)
[2023-05-20] MEDS ORDERED: IPRATROPIUM 0.06% NASAL SPRAY 15 ML (ATROVENT) PRN (07:20)
[2023-05-20] MEDS ORDERED: ALBUTEROL 90 MCG/ACT 8GM HFA INHALER INH PRN (07:20)
[2023-05-20 07:34] LABS: BASO % 0.5 % (0.0-1.0); EOS % 0.3 % (0.0-3.0); HEMATOCRIT 31.5 % (36.0-47.0); LYMPH # 0.9 10^3/uL (1.5-5.0); LYMPH % 13.1 % (24.0-44.0); MEAN CORPUSCULAR HGB CONC 31.7 g/dl (32.0-36.5); MEAN CORPUSCULAR VOLUME 84.9 fl (80.0-96.0); MONO # 0.5 10^3/uL (0.0-0.8); MONO % 7.4 % (2.0-8.0); NEUTROPHILS # 5.2 10^3/uL (1.5-8.5); NEUTROPHILS % 77.9 % (36.0-66.0); PLATELET COUNT, AUTOMATED 237 10^3/uL (150-450); RED BLOOD COUNT 3.71 10^6/uL (4.00-5.40); WHITE BLOOD COUNT 6.6 10^3/uL (4.0-10.0)
[2023-05-20 07:43] LABS: INR 1.06; PROTHROMBIN TIME 13.5 SECONDS (12.5-14.5)
[2023-05-20 07:44] LABS: BLOOD UREA NITROGEN 18 MG/DL (9-23); CALCIUM LEVEL 8.8 MG/DL (8.3-10.6); CARBON DIOXIDE LEVEL 26 MMOL/L (20-31); CHLORIDE LEVEL 100 MMOL/L (98-107); CREATININE FOR GFR 0.75 MG/DL (0.55-1.30); GLOMERULAR FILTRATION RATE > 60.0 (>32); GLUCOSE, FASTING 106 MG/DL (74-106); MAGNESIUM LEVEL 1.3 MG/DL (1.8-2.4); POTASSIUM SERUM 4.3 MMOL/L (3.5-5.1); SODIUM LEVEL 133 MMOL/L (136-145)
[2023-05-20] MEDS: ENOXAPARIN 40MG/0.4ML SYRINGE (J1650 PER 10MG) SC SCH (09:00)
[2023-05-20] MEDS: COLCHICINE 0.6 MG TABLET PO SCH (09:34)
[2023-05-20] MEDS: MULTIVITAMINS/MINERALS THERAP 1 TAB PO SCH (09:34)
[2023-05-20] MEDS: OMEPRAZOLE 20MG CAP PO SCH (09:34)
[2023-05-20] MEDS: SERTRALINE 100 MG TAB PO SCH (09:34)
[2023-05-20] MEDS: lisinopriL 5 MG TAB PO SCH (09:35)
[2023-05-20] MEDS: ACETAMINOPHEN TAB 650MG DOSE (2X325MG) PO PRN ×2 (09:35→15:23)
[2023-05-20] MEDS: busPIRone 5 MG TAB PO SCH ×2 (09:36→19:33)
[2023-05-20] MEDS: MAG SULF 1GM/100ML (MAG RUN) 1 GM in IV 1 EA IV SCH ×3 (09:37→12:00)
[2023-05-20] MEDS: predniSONE 2.5 MG TAB PO SCH (09:44)
[2023-05-20] MEDS: PERCOCET 5MG/325MG TAB PO PRN (12:10)
[2023-05-20 15:15] VITALS: BP 136/65; TEMP 98.4; O2SAT 95
[2023-05-20] MEDS: TIOTROPIUM INHALER/CAPSULE (SPIRIVA) INH SCH (15:32)
[2023-05-20] MEDS: rOPINIRole 0.25 MG TAB(REQUIP) PO SCH (19:32)
[2023-05-20] MEDS: KETOROLAC 30 MG/ML 1ML VIAL IV PRN (19:32)
[2023-05-20] MEDS: PRAVASTATIN 20 MG TAB PO SCH (19:33)
[2023-05-20] MEDS: MONTELUKAST 10 MG TAB PO SCH (19:33)
[2023-05-20 20:29] VITALS: TEMP 98.2; O2SAT 94
[2023-05-20] MEDS ORDERED: rOPINIRole 1MG TAB PO SCH (21:00)
[2023-05-21] MEDS: methocarbamoL 500 MG TAB PO PRN ×3 (01:38→22:24)
[2023-05-21] MEDS: KETOROLAC 30 MG/ML 1ML VIAL IV PRN ×3 (04:10→22:24)
[2023-05-21 05:54] VITALS: BP 127/51; TEMP 97.9; O2SAT 93
[2023-05-21 06:57] LABS: BASO % 0.7 % (0.0-1.0); EOS # 0.1 10^3/uL (0.0-0.5); EOS % 1.3 % (0.0-3.0); HEMATOCRIT 33.2 % (36.0-47.0); HEMOGLOBIN 10.4 g/dl (12.0-15.5); LYMPH # 0.7 10^3/uL (1.5-5.0); MEAN CORPUSCULAR HEMOGLOBIN 26.5 pg (27.0-33.0); MEAN CORPUSCULAR HGB CONC 31.3 g/dl (32.0-36.5); MEAN CORPUSCULAR VOLUME 84.7 fl (80.0-96.0); MONO # 0.3 10^3/uL (0.0-0.8); NEUTROPHILS # 4.3 10^3/uL (1.5-8.5); NEUTROPHILS % 78.5 % (36.0-66.0); PLATELET COUNT, AUTOMATED 223 10^3/uL (150-450); RED BLOOD COUNT 3.92 10^6/uL (4.00-5.40); WHITE BLOOD COUNT 5.5 10^3/uL (4.0-10.0)
[2023-05-21 07:24] LABS: BLOOD UREA NITROGEN 19 MG/DL (9-23); CARBON DIOXIDE LEVEL 26 MMOL/L (20-31); CHLORIDE LEVEL 100 MMOL/L (98-107); CREATININE FOR GFR 0.67 MG/DL (0.55-1.30); GLOMERULAR FILTRATION RATE > 60.0 (>32); GLUCOSE, FASTING 119 MG/DL (74-106); MAGNESIUM LEVEL 1.6 MG/DL (1.8-2.4); POTASSIUM SERUM 4.6 MMOL/L (3.5-5.1); SODIUM LEVEL 135 MMOL/L (136-145)
[2023-05-21] MEDS: TIOTROPIUM INHALER/CAPSULE (SPIRIVA) INH SCH (07:49)
[2023-05-21] MEDS: SERTRALINE 100 MG TAB PO SCH (08:48)
[2023-05-21] MEDS: COLCHICINE 0.6 MG TABLET PO SCH (08:48)
[2023-05-21] MEDS: OMEPRAZOLE 20MG CAP PO SCH (08:48)
[2023-05-21] MEDS: MULTIVITAMINS/MINERALS THERAP 1 TAB PO SCH (08:48)
[2023-05-21] MEDS: busPIRone 5 MG TAB PO SCH ×2 (08:49→20:20)
[2023-05-21] MEDS: ENOXAPARIN 40MG/0.4ML SYRINGE (J1650 PER 10MG) SC SCH (08:50)
[2023-05-21 08:57] VITALS: BP 118/51
[2023-05-21] MEDS ORDERED: ENOXAPARIN 40MG/0.4ML SYRINGE (J1650 PER 10MG) SC SCH (09:00)
[2023-05-21] MEDS: lisinopriL 5 MG TAB PO SCH (09:17)
[2023-05-21] MEDS: predniSONE 2.5 MG TAB PO SCH (09:17)
[2023-05-21] MEDS: MAG SULF 1GM/100ML (MAG RUN) 1 GM in IV 1 EA IV SCH ×2 (09:18→10:13)
[2023-05-21 14:30] VITALS: BP 128/58; TEMP 97.9; O2SAT 95
[2023-05-21] MEDS: PERCOCET 5MG/325MG TAB PO PRN (16:24)
[2023-05-21 20:00] VITALS: BP 142/63; TEMP 98.2; O2SAT 93
[2023-05-21] MEDS: rOPINIRole 0.25 MG TAB(REQUIP) PO SCH (20:20)
[2023-05-21] MEDS: ACETAMINOPHEN TAB 650MG DOSE (2X325MG) PO PRN (20:20)
[2023-05-21] MEDS: MONTELUKAST 10 MG TAB PO SCH (20:20)
[2023-05-21] MEDS: PRAVASTATIN 20 MG TAB PO SCH (20:20)
[2023-05-22] MEDS: ACETAMINOPHEN TAB 650MG DOSE (2X325MG) PO PRN ×2 (03:19→20:16)
[2023-05-22] MEDS: KETOROLAC 30 MG/ML 1ML VIAL IV PRN (04:24)
[2023-05-22 05:18] VITALS: BP 133/64; TEMP 97.9; O2SAT 91
[2023-05-22 07:34] LABS: BASO % 0.7 % (0.0-1.0); EOS # 0.1 10^3/uL (0.0-0.5); EOS % 1.6 % (0.0-3.0); HEMATOCRIT 31.5 % (36.0-47.0); HEMOGLOBIN 10.1 g/dl (12.0-15.5); LYMPH # 0.9 10^3/uL (1.5-5.0); LYMPH % 15.9 % (24.0-44.0); MEAN CORPUSCULAR HGB CONC 32.1 g/dl (32.0-36.5); MEAN CORPUSCULAR VOLUME 84.2 fl (80.0-96.0); MONO # 0.5 10^3/uL (0.0-0.8); MONO % 8.3 % (2.0-8.0); PLATELET COUNT, AUTOMATED 221 10^3/uL (150-450); RED BLOOD COUNT 3.74 10^6/uL (4.00-5.40); WHITE BLOOD COUNT 5.5 10^3/uL (4.0-10.0)
[2023-05-22] MEDS ORDERED: SENOKOT S TAB PO PRN (07:35)
[2023-05-22] MEDS ORDERED: MIRALAX *UNIT DOSE* 17GM PACKET PO PRN (07:35)
[2023-05-22] MEDS ORDERED: BISACODYL 10MG SUPP PR ONE (07:35)
[2023-05-22] MEDS: TIOTROPIUM INHALER/CAPSULE (SPIRIVA) INH SCH (07:47)
[2023-05-22 08:04] LABS: BLOOD UREA NITROGEN 19 MG/DL (9-23); CALCIUM LEVEL 8.6 MG/DL (8.3-10.6); CARBON DIOXIDE LEVEL 26 MMOL/L (20-31); CHLORIDE LEVEL 97 MMOL/L (98-107); CREATININE FOR GFR 0.77 MG/DL (0.55-1.30); GLOMERULAR FILTRATION RATE > 60.0 (>32); GLUCOSE, FASTING 105 MG/DL (74-106); MAGNESIUM LEVEL 1.6 MG/DL (1.8-2.4); POTASSIUM SERUM 4.3 MMOL/L (3.5-5.1); SODIUM LEVEL 131 MMOL/L (136-145)
[2023-05-22] MEDS: MULTIVITAMINS/MINERALS THERAP 1 TAB PO SCH (08:30)
[2023-05-22] MEDS: OMEPRAZOLE 20MG CAP PO SCH (08:31)
[2023-05-22] MEDS: predniSONE 2.5 MG TAB PO SCH (08:31)
[2023-05-22] MEDS: COLCHICINE 0.6 MG TABLET PO SCH (08:32)
[2023-05-22] MEDS: lisinopriL 5 MG TAB PO SCH (08:32)
[2023-05-22] MEDS: busPIRone 5 MG TAB PO SCH ×2 (08:33→20:15)
[2023-05-22] MEDS: SERTRALINE 100 MG TAB PO SCH (08:33)
[2023-05-22] MEDS: PERCOCET 5MG/325MG TAB PO PRN ×4 (08:34→23:50)
[2023-05-22] MEDS: ENOXAPARIN 40MG/0.4ML SYRINGE (J1650 PER 10MG) SC SCH (08:34)
[2023-05-22] MEDS: NS 1,000 ML IV SCH ×2 (08:44→20:16)
[2023-05-22] MEDS: MAG SULF 1GM/100ML (MAG RUN) 1 GM in IV 1 EA IV SCH ×3 (08:44→11:39)
[2023-05-22] MEDS: MORPHINE 2 MG/ML 1ML VIAL IV PRN ×2 (11:38→19:42)
[2023-05-22 14:22] VITALS: BP 122/50; TEMP 97.9; O2SAT 95
[2023-05-22] MEDS: methocarbamoL 500 MG TAB PO PRN ×2 (15:44→22:54)
[2023-05-22 19:37] VITALS: BP 122/48; TEMP 98.2; O2SAT 91
[2023-05-22] MEDS: rOPINIRole 0.25 MG TAB(REQUIP) PO SCH (20:15)
[2023-05-22] MEDS: PRAVASTATIN 20 MG TAB PO SCH (20:15)
[2023-05-22] MEDS: MONTELUKAST 10 MG TAB PO SCH (20:16)
[2023-05-23] MEDS: MORPHINE 2 MG/ML 1ML VIAL IV PRN (02:12)
[2023-05-23] MEDS: ACETAMINOPHEN TAB 650MG DOSE (2X325MG) PO PRN ×2 (03:13→22:57)
[2023-05-23 05:18] VITALS: BP 121/50; TEMP 97.7; O2SAT 97
[2023-05-23] MEDS: methocarbamoL 500 MG TAB PO PRN ×3 (05:31→22:58)
[2023-05-23 06:54] LABS: BASO % 0.7 % (0.0-1.0); EOS # 0.1 10^3/uL (0.0-0.5); EOS % 1.6 % (0.0-3.0); HEMATOCRIT 30.5 % (36.0-47.0); HEMOGLOBIN 9.6 g/dl (12.0-15.5); LYMPH # 1.1 10^3/uL (1.5-5.0); LYMPH % 23.8 % (24.0-44.0); MEAN CORPUSCULAR HEMOGLOBIN 26.9 pg (27.0-33.0); MEAN CORPUSCULAR HGB CONC 31.5 g/dl (32.0-36.5); MEAN CORPUSCULAR VOLUME 85.4 fl (80.0-96.0); MONO # 0.4 10^3/uL (0.0-0.8); MONO % 8.8 % (2.0-8.0); NEUTROPHILS # 2.9 10^3/uL (1.5-8.5); NEUTROPHILS % 64.6 % (36.0-66.0); PLATELET COUNT, AUTOMATED 210 10^3/uL (150-450); RED BLOOD COUNT 3.57 10^6/uL (4.00-5.40); WHITE BLOOD COUNT 4.4 10^3/uL (4.0-10.0)
[2023-05-23 07:23] LABS: BLOOD UREA NITROGEN 17 MG/DL (9-23); CALCIUM LEVEL 8.3 MG/DL (8.3-10.6); CARBON DIOXIDE LEVEL 26 MMOL/L (20-31); CHLORIDE LEVEL 101 MMOL/L (98-107); CREATININE FOR GFR 0.72 MG/DL (0.55-1.30); GLOMERULAR FILTRATION RATE > 60.0 (>32); GLUCOSE, FASTING 94 MG/DL (74-106); MAGNESIUM LEVEL 1.4 MG/DL (1.8-2.4); POTASSIUM SERUM 4.5 MMOL/L (3.5-5.1); SODIUM LEVEL 132 MMOL/L (136-145)
[2023-05-23] MEDS: TIOTROPIUM INHALER/CAPSULE (SPIRIVA) INH SCH (07:43)
[2023-05-23 08:30] VITALS: BP 122/51
[2023-05-23] MEDS: ENOXAPARIN 40MG/0.4ML SYRINGE (J1650 PER 10MG) SC SCH (08:37)
[2023-05-23] MEDS: SERTRALINE 100 MG TAB PO SCH (08:37)
[2023-05-23] MEDS: lisinopriL 5 MG TAB PO SCH (08:38)
[2023-05-23] MEDS: OMEPRAZOLE 20MG CAP PO SCH (08:38)
[2023-05-23] MEDS: COLCHICINE 0.6 MG TABLET PO SCH (08:38)
[2023-05-23] MEDS: predniSONE 2.5 MG TAB PO SCH (08:38)
[2023-05-23] MEDS: MULTIVITAMINS/MINERALS THERAP 1 TAB PO SCH (08:38)
[2023-05-23] MEDS: PERCOCET 5MG/325MG TAB PO PRN ×3 (08:38→20:55)
[2023-05-23] MEDS: busPIRone 5 MG TAB PO SCH ×2 (08:39→20:54)
[2023-05-23] MEDS ORDERED: BISACODYL 10MG SUPP PR ONE (09:00)
[2023-05-23] MEDS: MAG SULF 1GM/100ML (MAG RUN) 1 GM in IV 1 EA IV SCH ×4 (09:04→12:25)
[2023-05-23] MEDS: MAGNESIUM OXIDE 400MG TAB (MAG-OX) PO SCH ×2 (10:11→20:54)
[2023-05-23] MEDS ORDERED: LACTULOSE 20GM/30ML SYRUP UDC PO SCH (12:00)
[2023-05-23 14:00] VITALS: BP 112/49; TEMP 98.1; O2SAT 96
[2023-05-23] MEDS: NS 1,000 ML IV SCH ×2 (15:15→22:58)
[2023-05-23 19:57] VITALS: BP 161/65; TEMP 98.4; O2SAT 92
[2023-05-23] MEDS: MONTELUKAST 10 MG TAB PO SCH (20:54)
[2023-05-23] MEDS: PRAVASTATIN 20 MG TAB PO SCH (20:54)
[2023-05-23] MEDS: rOPINIRole 0.25 MG TAB(REQUIP) PO SCH (20:55)
[2023-05-24] VITALS (8 sets, daily range): BP systolic 130–161; BP diastolic 54–78; TEMP 97–97.9; O2SAT 89–97
[2023-05-24] MEDS: MORPHINE 2 MG/ML 1ML VIAL IV PRN ×4 (03:28→21:08)
[2023-05-24] MEDS: PERCOCET 5MG/325MG TAB PO PRN ×2 (04:37→23:00)
[2023-05-24 05:49] LABS: BASO # 0.1 10^3/uL (0.0-0.2); BASO % 1.1 % (0.0-1.0); EOS # 0.1 10^3/uL (0.0-0.5); EOS % 1.6 % (0.0-3.0); HEMATOCRIT 31.3 % (36.0-47.0); LYMPH % 21.1 % (24.0-44.0); MEAN CORPUSCULAR HEMOGLOBIN 27.2 pg (27.0-33.0); MEAN CORPUSCULAR HGB CONC 31.9 g/dl (32.0-36.5); MEAN CORPUSCULAR VOLUME 85.3 fl (80.0-96.0); MONO # 0.4 10^3/uL (0.0-0.8); MONO % 8.9 % (2.0-8.0); NEUTROPHILS % 66.9 % (36.0-66.0); PLATELET COUNT, AUTOMATED 205 10^3/uL (150-450); RED BLOOD COUNT 3.67 10^6/uL (4.00-5.40); WHITE BLOOD COUNT 4.5 10^3/uL (4.0-10.0)
[2023-05-24 06:15] LABS: BLOOD UREA NITROGEN 16 MG/DL (9-23); CALCIUM LEVEL 8.6 MG/DL (8.3-10.6); CARBON DIOXIDE LEVEL 28 MMOL/L (20-31); CHLORIDE LEVEL 101 MMOL/L (98-107); GLOMERULAR FILTRATION RATE > 60.0 (>32); GLUCOSE, FASTING 95 MG/DL (74-106); MAGNESIUM LEVEL 1.7 MG/DL (1.8-2.4); POTASSIUM SERUM 4.7 MMOL/L (3.5-5.1); SODIUM LEVEL 135 MMOL/L (136-145)
[2023-05-24] MEDS: TIOTROPIUM INHALER/CAPSULE (SPIRIVA) INH SCH (07:34)
[2023-05-24] MEDS: lisinopriL 5 MG TAB PO SCH (07:55)
[2023-05-24] MEDS: MAG SULF 1GM/100ML (MAG RUN) 1 GM in IV 1 EA IV SCH ×2 (08:01→10:13)
[2023-05-24] MEDS: MULTIVITAMINS/MINERALS THERAP 1 TAB PO SCH (09:00)
[2023-05-24] MEDS: SERTRALINE 100 MG TAB PO SCH (09:00)
[2023-05-24] MEDS: COLCHICINE 0.6 MG TABLET PO SCH (09:00)
[2023-05-24] MEDS: predniSONE 2.5 MG TAB PO SCH (09:00)
[2023-05-24] MEDS: OMEPRAZOLE 20MG CAP PO SCH (09:00)
[2023-05-24] MEDS: ENOXAPARIN 40MG/0.4ML SYRINGE (J1650 PER 10MG) SC SCH (09:00)
[2023-05-24] MEDS: NS 1,000 ML IV SCH ×2 (10:30→21:32)
[2023-05-24] MEDS ORDERED: fentaNYL 250 MCG/5 ML INJECTION As Ordered ONE (12:54)
[2023-05-24] MEDS ORDERED: ROCURONIUM BROMIDE 50MG/5ML VIAL As Ordered ONE (12:55)
[2023-05-24] MEDS ORDERED: LIDOCAINE 2% 100MG/5ML SDV (FOR ANES.) As Ordered ONE (12:55)
[2023-05-24] MEDS ORDERED: propofoL 200 MG/20 ML VIAL As Ordered ONE (12:56)
[2023-05-24] MEDS ORDERED: ONDANSETRON 4MG 2ML VIAL As Ordered ONE (12:57)
[2023-05-24] MEDS ORDERED: ceFAZolin 2 GM/D5W 50 ML IV BAG As Ordered ONE (15:19)
[2023-05-24] MEDS: MAGNESIUM OXIDE 400MG TAB (MAG-OX) PO SCH ×2 (15:21→21:07)
[2023-05-24] MEDS: busPIRone 5 MG TAB PO SCH ×2 (15:21→21:07)
[2023-05-24] MEDS ORDERED: VANCOMYCIN 1000MG/20ML VIAL As Ordered ONE (15:23)
[2023-05-24] MEDS ORDERED: TRANEXAMIC ACID 100 MG/ML 10ML VIAL As Ordered ONE (15:23)
[2023-05-24] MEDS ORDERED: ACETAMINOPHEN 1000MG 100ML IV BAG As Ordered ONE (15:39)
[2023-05-24] MEDS ORDERED: HYDROmorphone HCL 2MG/ML 1ML VIAL As Ordered ONE (16:04)
[2023-05-24] MEDS ORDERED: ePHEDrine SULFATE 25 MG/5 ML(5MG/ML) SYRINGE As Ordered ONE (16:31)
[2023-05-24] MEDS ORDERED: INSULIN LISPRO (NovoLOG) PER UNIT SC PRN (17:25)
[2023-05-24] MEDS ORDERED: oxyCODONE 5MG TAB PO PRN (17:25)
[2023-05-24] MEDS ORDERED: ONDANSETRON 4MG 2ML VIAL IV PRN (17:25)
[2023-05-24] MEDS ORDERED: SENNA 8.6 MG TAB (SENOKOT) PO PRN (17:35)
[2023-05-24] MEDS: fentaNYL 100 MCG/2 ML INJECTION IV PRN ×4 (18:07→18:33)
[2023-05-24 18:08] LABS: TOTAL 25(OH) VITAMIN D 38.6 NG/ML (20.0-100.0)
[2023-05-24] MEDS: PRAVASTATIN 20 MG TAB PO SCH (21:07)
[2023-05-24] MEDS: MONTELUKAST 10 MG TAB PO SCH (21:07)
[2023-05-24] MEDS: rOPINIRole 0.25 MG TAB(REQUIP) PO SCH (21:07)
[2023-05-24] MEDS: ceFAZolin SOD 2 GM in IV 1 EA IV SCH (23:00)
[2023-05-24] MEDS: methocarbamoL 500 MG TAB PO PRN (23:59)
[2023-05-25] MEDS: MORPHINE 2 MG/ML 1ML VIAL IV PRN ×3 (01:04→14:24)
[2023-05-25 03:31] VITALS: BP 157/79; TEMP 97.9; O2SAT 96
[2023-05-25] MEDS: PERCOCET 5MG/325MG TAB PO PRN ×3 (04:42→13:37)
[2023-05-25] MEDS: ceFAZolin SOD 2 GM in IV 1 EA IV SCH (05:51)
[2023-05-25 06:58] LABS: BASO % 0.5 % (0.0-1.0); EOS % 0.3 % (0.0-3.0); HEMATOCRIT 28.4 % (36.0-47.0); HEMOGLOBIN 9.2 g/dl (12.0-15.5); LYMPH # 0.6 10^3/uL (1.5-5.0); LYMPH % 7.7 % (24.0-44.0); MEAN CORPUSCULAR HEMOGLOBIN 27.1 pg (27.0-33.0); MEAN CORPUSCULAR HGB CONC 32.4 g/dl (32.0-36.5); MEAN CORPUSCULAR VOLUME 83.8 fl (80.0-96.0); MONO # 0.6 10^3/uL (0.0-0.8); NEUTROPHILS # 6.3 10^3/uL (1.5-8.5); NEUTROPHILS % 83.1 % (36.0-66.0); PLATELET COUNT, AUTOMATED 222 10^3/uL (150-450); RED BLOOD COUNT 3.39 10^6/uL (4.00-5.40); WHITE BLOOD COUNT 7.6 10^3/uL (4.0-10.0)
[2023-05-25 07:19] LABS: ALBUMIN 2.6 G/DL (3.2-5.2); ALKALINE PHOSPHATASE 120 U/L (46-116); ALT/SGPT 22 U/L (7.0-40); AST/SGOT 24 U/L (<34); BILIRUBIN,TOTAL 0.3 MG/DL (0.3-1.2); BLOOD UREA NITROGEN 14 MG/DL (9-23); CALCIUM LEVEL 8.4 MG/DL (8.3-10.6); CARBON DIOXIDE LEVEL 27 MMOL/L (20-31); CHLORIDE LEVEL 97 MMOL/L (98-107); GLOMERULAR FILTRATION RATE > 60.0 (>32); GLUCOSE, FASTING 115 MG/DL (74-106); MAGNESIUM LEVEL 1.5 MG/DL (1.8-2.4); SODIUM LEVEL 133 MMOL/L (136-145); TOTAL PROTEIN 5.4 G/DL (5.7-8.2)
[2023-05-25] MEDS: MAG SULF 1GM/100ML (MAG RUN) 1 GM in IV 1 EA IV SCH ×3 (08:09→10:28)
[2023-05-25] MEDS: ENOXAPARIN 40MG/0.4ML SYRINGE (J1650 PER 10MG) SC SCH (08:09)
[2023-05-25] MEDS: MULTIVITAMINS/MINERALS THERAP 1 TAB PO SCH (08:10)
[2023-05-25] MEDS: busPIRone 5 MG TAB PO SCH (08:10)
[2023-05-25] MEDS: SERTRALINE 100 MG TAB PO SCH (08:10)
[2023-05-25] MEDS: predniSONE 2.5 MG TAB PO SCH (08:10)
[2023-05-25 08:11] VITALS: BP 157/79
[2023-05-25] MEDS: OMEPRAZOLE 20MG CAP PO SCH (08:11)
[2023-05-25] MEDS: lisinopriL 5 MG TAB PO SCH (08:11)
[2023-05-25] MEDS: MAGNESIUM OXIDE 400MG TAB (MAG-OX) PO SCH (08:11)
[2023-05-25] MEDS: COLCHICINE 0.6 MG TABLET PO SCH (08:11)
[2023-05-25 08:32] VITALS: O2SAT 94
[2023-05-25] MEDS: TIOTROPIUM INHALER/CAPSULE (SPIRIVA) INH SCH (08:32)
[2023-05-25] MEDS: methocarbamoL 500 MG TAB PO PRN (09:24)
[2023-05-25] MEDS: NS 1,000 ML IV SCH (10:57)
[2023-05-25] MEDS ORDERED: MAGN400T2 PO (13:15)
[2023-05-25 14:00] VITALS: BP 132/63; TEMP 98.6; O2SAT 93
== END 2023-05-25 15:15 | DRG 522 ==
LOC: M ED 19:27 → M ED INP 05-20 05:12 → M MS5PR 05-20 06:21
PROVIDERS: ADMIT Family Medicine; ATTEND Internal Medicine
PROC: 0SRR0J9 Replacement of Right Hip Joint, Femoral Surface with Synthetic Substitute, Cemented, Open Approach (ICD-10-PCS; principal; 2023-05-24 14:30)
DX: S72.001A Fracture of unspecified part of neck of right femur, initial encounter for closed fracture (principal); E87.1 Hypo-osmolality and hyponatremia; R29.6 Repeated falls; H91.93 Unspecified hearing loss, bilateral; M47.816 Spondylosis without myelopathy or radiculopathy, lumbar region; M85.88 Other specified disorders of bone density and structure, other site; N18.30 Chronic kidney disease, stage 3 unspecified; J44.9 Chronic obstructive pulmonary disease, unspecified; F32.A Depression, unspecified; K21.9 Gastro-esophageal reflux disease without esophagitis; I12.9 Hypertensive chronic kidney disease with stage 1 through stage 4 chronic kidney disease, or unspecified chronic kidney disease; D64.9 Anemia, unspecified; Z66 Do not resuscitate; G25.81 Restless legs syndrome; F03.90 Unspecified dementia, unspecified severity, without behavioral disturbance, psychotic disturbance, mood disturbance, and anxiety; W22.01XA Walked into wall, initial encounter; G25.0 Essential tremor; F41.9 Anxiety disorder, unspecified; E11.22 Type 2 diabetes mellitus with diabetic chronic kidney disease; G47.33 Obstructive sleep apnea (adult) (pediatric); Y92.009 Unspecified place in unspecified non-institutional (private) residence as the place of occurrence of the external cause; Y93.9 Activity, unspecified; Y99.8 Other external cause status; R33.9 Retention of urine, unspecified; M48.02 Spinal stenosis, cervical region; M10.9 Gout, unspecified; K59.00 Constipation, unspecified; E78.5 Hyperlipidemia, unspecified; E83.42 Hypomagnesemia; Z79.52 Long term (current) use of systemic steroids; Z98.1 Arthrodesis status; Z96.653 Presence of artificial knee joint, bilateral; Z79.899 Other long term (current) drug therapy; Z87.891 Personal history of nicotine dependence

== ENCOUNTER 2023-05-25 14:07 | Inpatient (IN) | payer MEDICARE ==
[~2023-05-25] VITALS: Ht 157.5 cm; Wt 65.4 kg
[~2023-05-25 14:07] MED LIST changes: +ACET-897 PO; +IPRA6SP NARES; +MAGN400T2 PO; +OMEP-173; +OXYC-517 PO; +ROPI0.5T32 PO; +SPIR1CAP INH
[2023-05-25 15:15] VITALS: BP 130/64; TEMP 98.7; O2SAT 95
[2023-05-25] MEDS ORDERED: ALBUTEROL 90 MCG/ACT 8GM HFA INHALER INH PRN (15:25)
[2023-05-25] MEDS ORDERED: ONDANSETRON 4MG TAB PO PRN (15:35)
[2023-05-25] MEDS ORDERED: MIRALAX *UNIT DOSE* 17GM PACKET PO PRN (15:35)
[2023-05-25] MEDS ORDERED: PILL CUTTER 1 EACH XX PRN (16:00)
[2023-05-25] MEDS: ACETAMINOPHEN 500 MG TAB PO SCH ×2 (17:17→23:59)
[2023-05-25] MEDS: methocarbamoL 500 MG TAB PO PRN (19:38)
[2023-05-25] MEDS: oxyCODONE 5MG TAB PO PRN (19:39)
[2023-05-25 19:42] VITALS: BP 137/64; TEMP 98.5; O2SAT 95
[2023-05-25] MEDS: MONTELUKAST 10 MG TAB PO SCH (20:12)
[2023-05-25] MEDS: busPIRone 5 MG TAB PO SCH (20:12)
[2023-05-25] MEDS: MAGNESIUM OXIDE 400MG TAB (MAG-OX) PO SCH (20:13)
[2023-05-25] MEDS: rOPINIRole 0.25 MG TAB(REQUIP) PO SCH (20:13)
[2023-05-25] MEDS: PRAVASTATIN 20 MG TAB PO SCH (20:13)
[2023-05-26] MEDS: ACETAMINOPHEN 500 MG TAB PO SCH ×3 (06:16→18:41)
[2023-05-26 06:18] VITALS: BP 145/70; TEMP 97.9; O2SAT 95
[2023-05-26] MEDS: TIOTROPIUM INHALER/CAPSULE (SPIRIVA) INH SCH (07:11)
[2023-05-26] MEDS: busPIRone 5 MG TAB PO SCH ×2 (08:37→20:22)
[2023-05-26] MEDS: SERTRALINE 100 MG TAB PO SCH (08:38)
[2023-05-26] MEDS: MULTIVITAMINS/MINERALS THERAP 1 TAB PO SCH (08:38)
[2023-05-26] MEDS: MAGNESIUM OXIDE 400MG TAB (MAG-OX) PO SCH ×2 (08:38→20:21)
[2023-05-26] MEDS: COLCHICINE 0.6 MG TABLET PO SCH (08:38)
[2023-05-26] MEDS: lisinopriL 5 MG TAB PO SCH (08:39)
[2023-05-26] MEDS: OMEPRAZOLE 20MG CAP PO SCH (08:39)
[2023-05-26] MEDS: predniSONE 2.5 MG TAB PO SCH (08:39)
[2023-05-26] MEDS: ENOXAPARIN 40MG/0.4ML SYRINGE (J1650 PER 10MG) SC SCH (08:40)
[2023-05-26 09:49] LABS: BLOOD UREA NITROGEN 15 MG/DL (9-23); CALCIUM LEVEL 8.7 MG/DL (8.3-10.6); CARBON DIOXIDE LEVEL 28 MMOL/L (20-31); CHLORIDE LEVEL 95 MMOL/L (98-107); CREATININE FOR GFR 0.65 MG/DL (0.55-1.30); GLOMERULAR FILTRATION RATE > 60.0 (>32); GLUCOSE, FASTING 127 MG/DL (74-106); SODIUM LEVEL 131 MMOL/L (136-145)
[2023-05-26] MEDS: MIRALAX *UNIT DOSE* 17GM PACKET PO SCH (10:25)
[2023-05-26] MEDS: oxyCODONE 5MG TAB PO PRN ×2 (10:25→20:21)
[2023-05-26 12:23] LABS: MAGNESIUM LEVEL 1.5 MG/DL (1.8-2.4)
[2023-05-26] MEDS: methocarbamoL 500 MG TAB PO PRN ×2 (13:44→20:21)
[2023-05-26 14:00] VITALS: BP 140/60; TEMP 97.6; O2SAT 93
[2023-05-26 19:45] VITALS: BP 125/58; TEMP 98.7; O2SAT 93
[2023-05-26] MEDS: SENNA 8.6 MG TAB (SENOKOT) PO SCH (20:21)
[2023-05-26] MEDS: MONTELUKAST 10 MG TAB PO SCH (20:21)
[2023-05-26] MEDS: PRAVASTATIN 20 MG TAB PO SCH (20:21)
[2023-05-26] MEDS: rOPINIRole 0.25 MG TAB(REQUIP) PO SCH (20:22)
[2023-05-27] MEDS: ACETAMINOPHEN 500 MG TAB PO SCH ×5 (02:50→18:07)
[2023-05-27] MEDS: oxyCODONE 5MG TAB PO PRN ×3 (04:37→16:18)
[2023-05-27 06:00] VITALS: BP 141/71; TEMP 97.6; O2SAT 95
[2023-05-27] MEDS: TIOTROPIUM INHALER/CAPSULE (SPIRIVA) INH SCH (07:22)
[2023-05-27 07:28] LABS: MAGNESIUM LEVEL 1.6 MG/DL (1.8-2.4)
[2023-05-27] MEDS: predniSONE 2.5 MG TAB PO SCH (08:15)
[2023-05-27] MEDS: MAGNESIUM OXIDE 400MG TAB (MAG-OX) PO SCH ×2 (08:15→20:47)
[2023-05-27] MEDS: MULTIVITAMINS/MINERALS THERAP 1 TAB PO SCH (08:15)
[2023-05-27] MEDS: busPIRone 5 MG TAB PO SCH ×2 (08:16→20:47)
[2023-05-27] MEDS: lisinopriL 5 MG TAB PO SCH (08:16)
[2023-05-27] MEDS: SERTRALINE 100 MG TAB PO SCH (08:16)
[2023-05-27] MEDS: MIRALAX *UNIT DOSE* 17GM PACKET PO SCH (08:16)
[2023-05-27] MEDS: OMEPRAZOLE 20MG CAP PO SCH (08:17)
[2023-05-27] MEDS: COLCHICINE 0.6 MG TABLET PO SCH (08:17)
[2023-05-27] MEDS: ENOXAPARIN 40MG/0.4ML SYRINGE (J1650 PER 10MG) SC SCH (08:18)
[2023-05-27] MEDS ORDERED: BISACODYL 10MG SUPP PR PRN (10:35)
[2023-05-27 14:00] VITALS: BP 115/58; TEMP 97.9; O2SAT 96
[2023-05-27] MEDS: methocarbamoL 500 MG TAB PO PRN (15:19)
[2023-05-27] MEDS: methocarbamoL 500 MG TAB PO SCH ×2 (18:25→20:46)
[2023-05-27 20:00] VITALS: BP 127/64; TEMP 97.8; O2SAT 94
[2023-05-27] MEDS: rOPINIRole 0.25 MG TAB(REQUIP) PO SCH (20:46)
[2023-05-27] MEDS: PRAVASTATIN 20 MG TAB PO SCH (20:47)
[2023-05-27] MEDS: MONTELUKAST 10 MG TAB PO SCH (20:48)
[2023-05-27] MEDS: SENNA 8.6 MG TAB (SENOKOT) PO SCH (20:48)
[2023-05-28 00:01] LABS: CREATININE,RANDOM URINE 37.6 MG/DL
[2023-05-28] MEDS: ACETAMINOPHEN 500 MG TAB PO SCH ×4 (01:09→17:02)
[2023-05-28 06:00] VITALS: BP 130/70; TEMP 97.1; O2SAT 95
[2023-05-28] MEDS: TIOTROPIUM INHALER/CAPSULE (SPIRIVA) INH SCH (07:33)
[2023-05-28 07:34] LABS: HEMATOCRIT 24.9 % (36.0-47.0); MEAN CORPUSCULAR HEMOGLOBIN 26.8 pg (27.0-33.0); MEAN CORPUSCULAR HGB CONC 32.1 g/dl (32.0-36.5); MEAN CORPUSCULAR VOLUME 83.3 fl (80.0-96.0); PLATELET COUNT, AUTOMATED 238 10^3/uL (150-450); RED BLOOD COUNT 2.99 10^6/uL (4.00-5.40); WHITE BLOOD COUNT 6.2 10^3/uL (4.0-10.0)
[2023-05-28] MEDS: busPIRone 5 MG TAB PO SCH ×2 (08:11→21:48)
[2023-05-28] MEDS: methocarbamoL 500 MG TAB PO SCH ×4 (08:11→21:44)
[2023-05-28] MEDS: predniSONE 2.5 MG TAB PO SCH (08:11)
[2023-05-28] MEDS: COLCHICINE 0.6 MG TABLET PO SCH (08:11)
[2023-05-28] MEDS: MULTIVITAMINS/MINERALS THERAP 1 TAB PO SCH (08:12)
[2023-05-28] MEDS: oxyCODONE 5MG TAB PO PRN ×3 (08:12→21:50)
[2023-05-28] MEDS: SERTRALINE 100 MG TAB PO SCH (08:12)
[2023-05-28] MEDS: MAGNESIUM OXIDE 400MG TAB (MAG-OX) PO SCH ×2 (08:12→21:45)
[2023-05-28] MEDS: lisinopriL 5 MG TAB PO SCH (08:13)
[2023-05-28] MEDS: ENOXAPARIN 40MG/0.4ML SYRINGE (J1650 PER 10MG) SC SCH (08:13)
[2023-05-28] MEDS: OMEPRAZOLE 20MG CAP PO SCH (08:13)
[2023-05-28] MEDS: MIRALAX *UNIT DOSE* 17GM PACKET PO SCH (08:13)
[2023-05-28 14:00] VITALS: BP 127/60; TEMP 98.2; O2SAT 94
[2023-05-28] MEDS ORDERED: LACTULOSE 20GM/30ML SYRUP UDC PO ONE (17:00)
[2023-05-28 20:00] VITALS: BP 122/40; TEMP 97.2; O2SAT 90
[2023-05-28] MEDS: rOPINIRole 0.25 MG TAB(REQUIP) PO SCH (21:44)
[2023-05-28] MEDS: SENOKOT S TAB PO SCH (21:45)
[2023-05-28] MEDS: MONTELUKAST 10 MG TAB PO SCH (21:48)
[2023-05-28] MEDS: PRAVASTATIN 20 MG TAB PO SCH (21:48)
[2023-05-29] MEDS: ACETAMINOPHEN 500 MG TAB PO SCH ×5 (00:57→23:12)
[2023-05-29] MEDS: oxyCODONE 5MG TAB PO PRN ×2 (05:06→19:25)
[2023-05-29 06:00] VITALS: BP 160/70; TEMP 97; O2SAT 93
[2023-05-29] MEDS: TIOTROPIUM INHALER/CAPSULE (SPIRIVA) INH SCH (07:11)
[2023-05-29] MEDS: MULTIVITAMINS/MINERALS THERAP 1 TAB PO SCH (08:42)
[2023-05-29] MEDS: OMEPRAZOLE 20MG CAP PO SCH (08:42)
[2023-05-29] MEDS: lisinopriL 5 MG TAB PO SCH (08:42)
[2023-05-29] MEDS: SERTRALINE 100 MG TAB PO SCH (08:42)
[2023-05-29] MEDS: methocarbamoL 500 MG TAB PO SCH ×4 (08:42→20:28)
[2023-05-29] MEDS: busPIRone 5 MG TAB PO SCH ×2 (08:42→20:29)
[2023-05-29] MEDS: SENOKOT S TAB PO SCH ×2 (08:43→20:28)
[2023-05-29] MEDS: ENOXAPARIN 40MG/0.4ML SYRINGE (J1650 PER 10MG) SC SCH (08:43)
[2023-05-29] MEDS: COLCHICINE 0.6 MG TABLET PO SCH (08:43)
[2023-05-29] MEDS: predniSONE 2.5 MG TAB PO SCH (08:43)
[2023-05-29] MEDS: MAGNESIUM OXIDE 400MG TAB (MAG-OX) PO SCH ×2 (08:43→20:28)
[2023-05-29] MEDS: MIRALAX *UNIT DOSE* 17GM PACKET PO SCH (08:43)
[2023-05-29 14:00] VITALS: BP 158/80; TEMP 97.3; O2SAT 91
[2023-05-29 19:37] VITALS: BP 148/71; TEMP 98.1; O2SAT 92
[2023-05-29] MEDS: MONTELUKAST 10 MG TAB PO SCH (20:28)
[2023-05-29] MEDS: PRAVASTATIN 20 MG TAB PO SCH (20:29)
[2023-05-29] MEDS: rOPINIRole 0.25 MG TAB(REQUIP) PO SCH (20:29)
[2023-05-29] MEDS ORDERED: LACTULOSE 20GM/30ML SYRUP UDC PO ONE (21:00)
[2023-05-30] MEDS: oxyCODONE 5MG TAB PO PRN ×2 (02:33→20:35)
[2023-05-30 05:01] VITALS: BP 156/72; TEMP 97.8; O2SAT 89
[2023-05-30] MEDS: ACETAMINOPHEN 500 MG TAB PO SCH ×3 (05:03→17:47)
[2023-05-30 06:37] LABS: BLOOD UREA NITROGEN 16 MG/DL (9-23); CALCIUM LEVEL 8.6 MG/DL (8.3-10.6); CARBON DIOXIDE LEVEL 29 MMOL/L (20-31); CHLORIDE LEVEL 93 MMOL/L (98-107); CREATININE FOR GFR 0.58 MG/DL (0.55-1.30); GLOMERULAR FILTRATION RATE > 60.0 (>32); GLUCOSE, FASTING 108 MG/DL (74-106); MAGNESIUM LEVEL 1.6 MG/DL (1.8-2.4); POTASSIUM SERUM 4.2 MMOL/L (3.5-5.1); SODIUM LEVEL 129 MMOL/L (136-145)
[2023-05-30] MEDS: MIRALAX *UNIT DOSE* 17GM PACKET PO SCH (07:30)
[2023-05-30] MEDS: SENOKOT S TAB PO SCH ×2 (07:30→20:35)
[2023-05-30] MEDS: TIOTROPIUM INHALER/CAPSULE (SPIRIVA) INH SCH (07:35)
[2023-05-30] MEDS: methocarbamoL 500 MG TAB PO SCH ×4 (08:10→20:35)
[2023-05-30] MEDS: COLCHICINE 0.6 MG TABLET PO SCH (08:10)
[2023-05-30] MEDS: busPIRone 5 MG TAB PO SCH ×2 (08:11→20:35)
[2023-05-30] MEDS: ENOXAPARIN 40MG/0.4ML SYRINGE (J1650 PER 10MG) SC SCH (08:11)
[2023-05-30] MEDS: MAGNESIUM OXIDE 400MG TAB (MAG-OX) PO SCH (08:11)
[2023-05-30] MEDS: MULTIVITAMINS/MINERALS THERAP 1 TAB PO SCH (08:11)
[2023-05-30] MEDS: predniSONE 2.5 MG TAB PO SCH (08:12)
[2023-05-30] MEDS: OMEPRAZOLE 20MG CAP PO SCH (08:12)
[2023-05-30] MEDS: lisinopriL 5 MG TAB PO SCH ×2 (08:12→09:33)
[2023-05-30] MEDS: SERTRALINE 100 MG TAB PO SCH (08:12)
[2023-05-30 09:02] LABS: OSMOLALITY SERUM 264 MOSM/KG (280-301)
[2023-05-30] MEDS: BACLOFEN 5MG PER 1/2 TABLET PO SCH ×2 (12:08→20:34)
[2023-05-30] MEDS: MAG SULF 1GM/100ML (MAG RUN) 1 GM in IV 1 EA IV SCH ×2 (12:10→13:19)
[2023-05-30 14:00] VITALS: BP 124/58; TEMP 97.3; O2SAT 91
[2023-05-30 16:55] LABS: SODIUM,RANDOM URINE 38 MMOL/L
[2023-05-30 16:56] LABS: OSMOLALITY URINE 399 MOSM/KG (50-1400)
[2023-05-30 20:00] VITALS: BP 130/63; TEMP 98.2; O2SAT 92
[2023-05-30] MEDS: PRAVASTATIN 20 MG TAB PO SCH (20:34)
[2023-05-30] MEDS: MONTELUKAST 10 MG TAB PO SCH (20:35)
[2023-05-30] MEDS: rOPINIRole 0.25 MG TAB(REQUIP) PO SCH (20:35)
[2023-05-31] MEDS: ACETAMINOPHEN 500 MG TAB PO SCH ×4 (05:31→17:46)
[2023-05-31 06:05] VITALS: BP 153/62; TEMP 98.3; O2SAT 92
[2023-05-31 06:23] LABS: HEMATOCRIT 27.3 % (36.0-47.0); HEMOGLOBIN 8.9 g/dl (12.0-15.5); MEAN CORPUSCULAR HEMOGLOBIN 26.6 pg (27.0-33.0); MEAN CORPUSCULAR HGB CONC 32.6 g/dl (32.0-36.5); MEAN CORPUSCULAR VOLUME 81.7 fl (80.0-96.0); PLATELET COUNT, AUTOMATED 336 10^3/uL (150-450); RED BLOOD COUNT 3.34 10^6/uL (4.00-5.40); WHITE BLOOD COUNT 7.1 10^3/uL (4.0-10.0)
[2023-05-31 06:51] LABS: ALBUMIN 2.6 G/DL (3.2-5.2); BLOOD UREA NITROGEN 16 MG/DL (9-23); CALCIUM LEVEL 8.6 MG/DL (8.3-10.6); CARBON DIOXIDE LEVEL 28 MMOL/L (20-31); CHLORIDE LEVEL 94 MMOL/L (98-107); CREATININE FOR GFR 0.55 MG/DL (0.55-1.30); GLOMERULAR FILTRATION RATE > 60.0 (>32); GLUCOSE, FASTING 107 MG/DL (74-106); MAGNESIUM LEVEL 1.8 MG/DL (1.8-2.4); PHOSPHORUS LEVEL 3.9 MG/DL (2.4-5.1); POTASSIUM SERUM 4.5 MMOL/L (3.5-5.1); SODIUM LEVEL 128 MMOL/L (136-145)
[2023-05-31] MEDS: TIOTROPIUM INHALER/CAPSULE (SPIRIVA) INH SCH (07:37)
[2023-05-31] MEDS: busPIRone 5 MG TAB PO SCH ×2 (08:08→20:47)
[2023-05-31] MEDS: BACLOFEN 5MG PER 1/2 TABLET PO SCH ×2 (08:08→20:47)
[2023-05-31] MEDS: lisinopriL 5 MG TAB PO SCH (08:08)
[2023-05-31] MEDS: methocarbamoL 500 MG TAB PO SCH ×4 (08:10→20:46)
[2023-05-31] MEDS: MULTIVITAMINS/MINERALS THERAP 1 TAB PO SCH (08:10)
[2023-05-31] MEDS: OMEPRAZOLE 20MG CAP PO SCH (08:10)
[2023-05-31] MEDS: predniSONE 2.5 MG TAB PO SCH (08:11)
[2023-05-31] MEDS: COLCHICINE 0.6 MG TABLET PO SCH (08:11)
[2023-05-31] MEDS: SENOKOT S TAB PO SCH (08:12)
[2023-05-31] MEDS: MIRALAX *UNIT DOSE* 17GM PACKET PO SCH (08:13)
[2023-05-31] MEDS: ENOXAPARIN 40MG/0.4ML SYRINGE (J1650 PER 10MG) SC SCH (08:13)
[2023-05-31] MEDS: MAGNESIUM OXIDE 400MG TAB (MAG-OX) PO SCH ×2 (09:43→17:47)
[2023-05-31] MEDS: oxyCODONE 5MG TAB PO PRN ×2 (09:57→20:47)
[2023-05-31] MEDS ORDERED: LOMOTIL 2.5MG/0.025MG TABLET PO PRN (10:55)
[2023-05-31] MEDS ORDERED: TOLVAPTAN 7.5 MG HALF-TAB PO ONE (12:00)
[2023-05-31 14:00] VITALS: BP 110/59; TEMP 98.4; O2SAT 94
[2023-05-31 19:54] VITALS: BP 143/65; TEMP 97.7; O2SAT 96
[2023-05-31] MEDS: PRAVASTATIN 20 MG TAB PO SCH (20:47)
[2023-05-31] MEDS: rOPINIRole 0.25 MG TAB(REQUIP) PO SCH (20:47)
[2023-05-31] MEDS: MONTELUKAST 10 MG TAB PO SCH (20:47)
[2023-06-01] MEDS: oxyCODONE 5MG TAB PO PRN ×2 (02:32→21:05)
[2023-06-01 05:33] VITALS: BP 134/60; TEMP 97.3; O2SAT 93
[2023-06-01] MEDS: ACETAMINOPHEN 500 MG TAB PO SCH ×5 (05:36→23:34)
[2023-06-01] MEDS: TIOTROPIUM INHALER/CAPSULE (SPIRIVA) INH SCH (07:28)
[2023-06-01 07:39] LABS: ALBUMIN 2.5 G/DL (3.2-5.2); ALKALINE PHOSPHATASE 144 U/L (46-116); ALT/SGPT 24 U/L (7.0-40); AST/SGOT 15 U/L (<34); BILIRUBIN,DIRECT < 0.1 MG/DL (<0.4); BILIRUBIN,TOTAL 0.2 MG/DL (0.3-1.2); BLOOD UREA NITROGEN 26 MG/DL (9-23); CALCIUM LEVEL 8.8 MG/DL (8.3-10.6); CARBON DIOXIDE LEVEL 27 MMOL/L (20-31); CHLORIDE LEVEL 96 MMOL/L (98-107); CREATININE FOR GFR 0.69 MG/DL (0.55-1.30); GLOMERULAR FILTRATION RATE > 60.0 (>32); GLUCOSE, FASTING 106 MG/DL (74-106); PHOSPHORUS LEVEL 4.1 MG/DL (2.4-5.1); POTASSIUM SERUM 4.5 MMOL/L (3.5-5.1); SODIUM LEVEL 130 MMOL/L (136-145); TOTAL PROTEIN 5.7 G/DL (5.7-8.2)
[2023-06-01] MEDS: OMEPRAZOLE 20MG CAP PO SCH (08:29)
[2023-06-01] MEDS: busPIRone 5 MG TAB PO SCH ×2 (08:30→20:40)
[2023-06-01] MEDS: predniSONE 2.5 MG TAB PO SCH (08:30)
[2023-06-01] MEDS: BACLOFEN 5MG PER 1/2 TABLET PO SCH ×2 (08:30→20:41)
[2023-06-01] MEDS: COLCHICINE 0.6 MG TABLET PO SCH (08:30)
[2023-06-01] MEDS: MULTIVITAMINS/MINERALS THERAP 1 TAB PO SCH (08:30)
[2023-06-01] MEDS: methocarbamoL 500 MG TAB PO SCH ×4 (08:30→20:41)
[2023-06-01] MEDS: MAGNESIUM OXIDE 400MG TAB (MAG-OX) PO SCH ×2 (08:30→17:06)
[2023-06-01] MEDS: ENOXAPARIN 40MG/0.4ML SYRINGE (J1650 PER 10MG) SC SCH (08:31)
[2023-06-01] MEDS: lisinopriL 5 MG TAB PO SCH (08:31)
[2023-06-01] MEDS ORDERED: TOLVAPTAN 7.5 MG HALF-TAB PO ONE (12:00)
[2023-06-01 14:00] VITALS: BP 108/55; TEMP 97.5; O2SAT 95
[2023-06-01 20:00] VITALS: BP 110/55; TEMP 97.4; O2SAT 100
[2023-06-01] MEDS: MONTELUKAST 10 MG TAB PO SCH (20:41)
[2023-06-01] MEDS: PRAVASTATIN 20 MG TAB PO SCH (20:41)
[2023-06-01] MEDS: rOPINIRole 0.25 MG TAB(REQUIP) PO SCH (20:42)
[2023-06-02 05:36] LABS: HEMATOCRIT 27.2 % (36.0-47.0); HEMOGLOBIN 8.7 g/dl (12.0-15.5); MEAN CORPUSCULAR HEMOGLOBIN 26.9 pg (27.0-33.0); PLATELET COUNT, AUTOMATED 388 10^3/uL (150-450); RED BLOOD COUNT 3.24 10^6/uL (4.00-5.40); WHITE BLOOD COUNT 7.5 10^3/uL (4.0-10.0)
[2023-06-02 06:00] VITALS: BP 157/71; TEMP 97; O2SAT 94
[2023-06-02 06:01] LABS: ALBUMIN 2.6 G/DL (3.2-5.2); BLOOD UREA NITROGEN 37 MG/DL (9-23); CALCIUM LEVEL 8.9 MG/DL (8.3-10.6); CARBON DIOXIDE LEVEL 27 MMOL/L (20-31); CHLORIDE LEVEL 98 MMOL/L (98-107); CREATININE FOR GFR 0.94 MG/DL (0.55-1.30); GLOMERULAR FILTRATION RATE > 60.0 (>32); GLUCOSE, FASTING 102 MG/DL (74-106); PHOSPHORUS LEVEL 4.3 MG/DL (2.4-5.1); POTASSIUM SERUM 4.6 MMOL/L (3.5-5.1); SODIUM LEVEL 133 MMOL/L (136-145)
[2023-06-02] MEDS: ACETAMINOPHEN 500 MG TAB PO SCH ×3 (06:14→17:47)
[2023-06-02] MEDS: TIOTROPIUM INHALER/CAPSULE (SPIRIVA) INH SCH (07:18)
[2023-06-02] MEDS: OMEPRAZOLE 20MG CAP PO SCH (09:00)
[2023-06-02] MEDS: predniSONE 2.5 MG TAB PO SCH (09:00)
[2023-06-02] MEDS: BACLOFEN 5MG PER 1/2 TABLET PO SCH ×2 (09:00→20:20)
[2023-06-02] MEDS: COLCHICINE 0.6 MG TABLET PO SCH (09:00)
[2023-06-02] MEDS: MAGNESIUM OXIDE 400MG TAB (MAG-OX) PO SCH ×2 (09:00→17:47)
[2023-06-02] MEDS: busPIRone 5 MG TAB PO SCH ×2 (09:00→20:20)
[2023-06-02] MEDS: methocarbamoL 500 MG TAB PO SCH ×4 (09:00→20:20)
[2023-06-02] MEDS: MULTIVITAMINS/MINERALS THERAP 1 TAB PO SCH (09:00)
[2023-06-02] MEDS: lisinopriL 5 MG TAB PO SCH (09:01)
[2023-06-02] MEDS: ENOXAPARIN 40MG/0.4ML SYRINGE (J1650 PER 10MG) SC SCH (09:01)
[2023-06-02 14:00] VITALS: BP 106/51; TEMP 98.5; O2SAT 92
[2023-06-02 20:00] VITALS: BP 119/58; TEMP 97.8; O2SAT 92
[2023-06-02] MEDS: MONTELUKAST 10 MG TAB PO SCH (20:20)
[2023-06-02] MEDS: rOPINIRole 0.25 MG TAB(REQUIP) PO SCH (20:20)
[2023-06-02] MEDS: oxyCODONE 5MG TAB PO PRN (20:20)
[2023-06-02] MEDS: PRAVASTATIN 20 MG TAB PO SCH (20:20)
[2023-06-03] MEDS: ACETAMINOPHEN 500 MG TAB PO SCH ×5 (00:28→23:16)
[2023-06-03] MEDS: oxyCODONE 5MG TAB PO PRN ×4 (04:58→20:47)
[2023-06-03 06:00] VITALS: BP 140/60; TEMP 97.6; O2SAT 100
[2023-06-03] MEDS: TIOTROPIUM INHALER/CAPSULE (SPIRIVA) INH SCH (07:11)
[2023-06-03 08:01] LABS: ALBUMIN 2.7 G/DL (3.2-5.2); BLOOD UREA NITROGEN 37 MG/DL (9-23); CALCIUM LEVEL 8.9 MG/DL (8.3-10.6); CARBON DIOXIDE LEVEL 27 MMOL/L (20-31); CHLORIDE LEVEL 100 MMOL/L (98-107); CREATININE FOR GFR 0.76 MG/DL (0.55-1.30); GLOMERULAR FILTRATION RATE > 60.0 (>32); GLUCOSE, FASTING 98 MG/DL (74-106); POTASSIUM SERUM 4.7 MMOL/L (3.5-5.1); SODIUM LEVEL 133 MMOL/L (136-145)
[2023-06-03] MEDS: MULTIVITAMINS/MINERALS THERAP 1 TAB PO SCH (08:19)
[2023-06-03] MEDS: COLCHICINE 0.6 MG TABLET PO SCH (08:19)
[2023-06-03] MEDS: predniSONE 2.5 MG TAB PO SCH (08:19)
[2023-06-03] MEDS: BACLOFEN 5MG PER 1/2 TABLET PO SCH ×2 (08:19→20:45)
[2023-06-03] MEDS: MAGNESIUM OXIDE 400MG TAB (MAG-OX) PO SCH ×2 (08:20→17:42)
[2023-06-03] MEDS: OMEPRAZOLE 20MG CAP PO SCH (08:20)
[2023-06-03] MEDS: busPIRone 5 MG TAB PO SCH ×2 (08:20→20:45)
[2023-06-03] MEDS: lisinopriL 5 MG TAB PO SCH (08:21)
[2023-06-03] MEDS: methocarbamoL 500 MG TAB PO SCH ×4 (08:22→20:45)
[2023-06-03] MEDS: ENOXAPARIN 40MG/0.4ML SYRINGE (J1650 PER 10MG) SC SCH (09:55)
[2023-06-03] MEDS ORDERED: rOPINIRole 1MG TAB PO ONE (12:00)
[2023-06-03 12:34] LABS: MAGNESIUM LEVEL 1.8 MG/DL (1.8-2.4)
[2023-06-03 14:00] VITALS: BP 116/57; TEMP 99.6; O2SAT 20
[2023-06-03] MEDS: MONTELUKAST 10 MG TAB PO SCH (20:45)
[2023-06-03] MEDS: PRAVASTATIN 20 MG TAB PO SCH (20:45)
[2023-06-03] MEDS: rOPINIRole 1MG TAB PO SCH (20:45)
[2023-06-03 20:51] VITALS: BP 123/60; TEMP 97.3; O2SAT 96
[2023-06-04] MEDS: rOPINIRole 0.25 MG TAB(REQUIP) PO PRN (05:04)
[2023-06-04] MEDS: ACETAMINOPHEN 500 MG TAB PO SCH ×4 (05:04→21:59)
[2023-06-04 05:12] VITALS: BP 147/66; TEMP 97.7; O2SAT 97
[2023-06-04] MEDS: TIOTROPIUM INHALER/CAPSULE (SPIRIVA) INH SCH (07:46)
[2023-06-04 08:52] VITALS: BP 131/60
[2023-06-04] MEDS: COLCHICINE 0.6 MG TABLET PO SCH (08:53)
[2023-06-04] MEDS: busPIRone 5 MG TAB PO SCH ×2 (08:53→20:15)
[2023-06-04] MEDS: OMEPRAZOLE 20MG CAP PO SCH (08:53)
[2023-06-04] MEDS: predniSONE 2.5 MG TAB PO SCH (08:53)
[2023-06-04] MEDS: MULTIVITAMINS/MINERALS THERAP 1 TAB PO SCH (08:53)
[2023-06-04] MEDS: methocarbamoL 500 MG TAB PO SCH ×4 (08:53→20:16)
[2023-06-04] MEDS: MAGNESIUM OXIDE 400MG TAB (MAG-OX) PO SCH ×2 (08:54→17:33)
[2023-06-04] MEDS: ENOXAPARIN 40MG/0.4ML SYRINGE (J1650 PER 10MG) SC SCH (08:54)
[2023-06-04] MEDS: BACLOFEN 5MG PER 1/2 TABLET PO SCH ×2 (08:54→20:15)
[2023-06-04] MEDS: lisinopriL 5 MG TAB PO SCH (08:54)
[2023-06-04 14:00] VITALS: BP 112/55; TEMP 98.1; O2SAT 96
[2023-06-04] MEDS: oxyCODONE 5MG TAB PO PRN ×2 (14:25→20:15)
[2023-06-04 20:00] VITALS: BP 111/53; TEMP 98.3; O2SAT 95
[2023-06-04] MEDS: MONTELUKAST 10 MG TAB PO SCH (20:15)
[2023-06-04] MEDS: rOPINIRole 1MG TAB PO SCH (20:15)
[2023-06-04] MEDS: PRAVASTATIN 20 MG TAB PO SCH (20:15)
[2023-06-05] MEDS: ACETAMINOPHEN 500 MG TAB PO SCH ×3 (05:21→17:24)
[2023-06-05 06:00] VITALS: BP 132/60; TEMP 97.3; O2SAT 95
[2023-06-05] MEDS: ENOXAPARIN 40MG/0.4ML SYRINGE (J1650 PER 10MG) SC SCH (07:19)
[2023-06-05] MEDS: lisinopriL 5 MG TAB PO SCH (07:20)
[2023-06-05] MEDS: BACLOFEN 5MG PER 1/2 TABLET PO SCH ×2 (07:20→20:19)
[2023-06-05] MEDS: busPIRone 5 MG TAB PO SCH ×2 (07:20→20:20)
[2023-06-05] MEDS: COLCHICINE 0.6 MG TABLET PO SCH (07:20)
[2023-06-05] MEDS: MULTIVITAMINS/MINERALS THERAP 1 TAB PO SCH (07:20)
[2023-06-05] MEDS: OMEPRAZOLE 20MG CAP PO SCH (07:20)
[2023-06-05] MEDS: MAGNESIUM OXIDE 400MG TAB (MAG-OX) PO SCH ×2 (07:20→17:24)
[2023-06-05] MEDS: methocarbamoL 500 MG TAB PO SCH ×4 (07:21→20:19)
[2023-06-05] MEDS: predniSONE 2.5 MG TAB PO SCH (07:23)
[2023-06-05 07:41] LABS: BLOOD UREA NITROGEN 31 MG/DL (9-23); CALCIUM LEVEL 8.9 MG/DL (8.3-10.6); CARBON DIOXIDE LEVEL 24 MMOL/L (20-31); CHLORIDE LEVEL 102 MMOL/L (98-107); GLOMERULAR FILTRATION RATE > 60.0 (>32); GLUCOSE, FASTING 104 MG/DL (74-106); IRON (FE) 23 UG/DL (50-170); PERCENT SATURATION 7.7 % (13.2-45.0); POTASSIUM SERUM 4.9 MMOL/L (3.5-5.1); SODIUM LEVEL 132 MMOL/L (136-145); TOTAL IRON BINDING CAPACITY 297 UG/DL (250-425)
[2023-06-05] MEDS: TIOTROPIUM INHALER/CAPSULE (SPIRIVA) INH SCH (08:07)
[2023-06-05] MEDS: oxyCODONE 5MG TAB PO PRN ×2 (11:27→20:19)
[2023-06-05 14:00] VITALS: BP 104/52; TEMP 98.3; O2SAT 95
[2023-06-05 15:41] VITALS: BP 103/53; TEMP 98.3; O2SAT 97
[2023-06-05] MEDS ORDERED: FERRIC CARBOXYMALTOSE INJ 750 MG, VIAL MATE ADAPTER 1 EACH in NS 250 ML IV ONE (16:00)
[2023-06-05] MEDS: rOPINIRole 0.25 MG TAB(REQUIP) PO PRN (16:19)
[2023-06-05 20:00] VITALS: BP 116/56; TEMP 97.7; O2SAT 98
[2023-06-05] MEDS: PRAVASTATIN 20 MG TAB PO SCH (20:19)
[2023-06-05] MEDS: rOPINIRole 1MG TAB PO SCH (20:19)
[2023-06-05] MEDS: MONTELUKAST 10 MG TAB PO SCH (20:19)
[2023-06-06] MEDS: ACETAMINOPHEN 500 MG TAB PO SCH ×5 (00:24→23:27)
[2023-06-06] MEDS: oxyCODONE 5MG TAB PO PRN (04:22)
[2023-06-06 06:00] VITALS: BP 158/68; TEMP 98.4; O2SAT 91
[2023-06-06 06:48] LABS: HEMATOCRIT 26.3 % (36.0-47.0); HEMOGLOBIN 8.5 g/dl (12.0-15.5); MEAN CORPUSCULAR HEMOGLOBIN 27.4 pg (27.0-33.0); MEAN CORPUSCULAR HGB CONC 32.3 g/dl (32.0-36.5); MEAN CORPUSCULAR VOLUME 84.8 fl (80.0-96.0); PLATELET COUNT, AUTOMATED 373 10^3/uL (150-450)
[2023-06-06] MEDS: TIOTROPIUM INHALER/CAPSULE (SPIRIVA) INH SCH (07:11)
[2023-06-06 07:17] LABS: BLOOD UREA NITROGEN 29 MG/DL (9-23); CARBON DIOXIDE LEVEL 26 MMOL/L (20-31); CHLORIDE LEVEL 100 MMOL/L (98-107); CREATININE FOR GFR 0.73 MG/DL (0.55-1.30); GLOMERULAR FILTRATION RATE > 60.0 (>32); GLUCOSE, FASTING 103 MG/DL (74-106); POTASSIUM SERUM 4.8 MMOL/L (3.5-5.1); SODIUM LEVEL 132 MMOL/L (136-145)
[2023-06-06] MEDS: busPIRone 5 MG TAB PO SCH ×2 (09:13→21:13)
[2023-06-06] MEDS: lisinopriL 5 MG TAB PO SCH (09:13)
[2023-06-06] MEDS: COLCHICINE 0.6 MG TABLET PO SCH (09:13)
[2023-06-06] MEDS: MULTIVITAMINS/MINERALS THERAP 1 TAB PO SCH (09:13)
[2023-06-06] MEDS: OMEPRAZOLE 20MG CAP PO SCH (09:13)
[2023-06-06] MEDS: BACLOFEN 5MG PER 1/2 TABLET PO SCH ×2 (09:13→21:12)
[2023-06-06] MEDS: methocarbamoL 500 MG TAB PO SCH ×4 (09:14→21:12)
[2023-06-06] MEDS: ENOXAPARIN 40MG/0.4ML SYRINGE (J1650 PER 10MG) SC SCH (09:14)
[2023-06-06] MEDS: MAGNESIUM OXIDE 400MG TAB (MAG-OX) PO SCH ×2 (09:14→17:22)
[2023-06-06] MEDS: predniSONE 2.5 MG TAB PO SCH (09:14)
[2023-06-06] MEDS: rOPINIRole 0.25 MG TAB(REQUIP) PO PRN (10:17)
[2023-06-06 14:00] VITALS: BP 119/58; TEMP 98.3; O2SAT 92
[2023-06-06 20:00] VITALS: BP 117/55; TEMP 98; O2SAT 99
[2023-06-06] MEDS: PRAVASTATIN 20 MG TAB PO SCH (21:12)
[2023-06-06] MEDS: rOPINIRole 1MG TAB PO SCH (21:12)
[2023-06-06] MEDS: MONTELUKAST 10 MG TAB PO SCH (21:12)
[2023-06-06] MEDS: CARBAMIDE PEROXIDE 6.5% OTIC SOLN 15ML AU SCH (21:12)
[2023-06-07] MEDS: oxyCODONE 5MG TAB PO PRN ×3 (01:38→21:17)
[2023-06-07] MEDS: ACETAMINOPHEN 500 MG TAB PO SCH ×4 (05:09→23:58)
[2023-06-07 06:00] VITALS: BP 132/91; TEMP 97.7; O2SAT 92
[2023-06-07] MEDS: TIOTROPIUM INHALER/CAPSULE (SPIRIVA) INH SCH (07:18)
[2023-06-07] MEDS: OMEPRAZOLE 20MG CAP PO SCH (08:44)
[2023-06-07] MEDS: MULTIVITAMINS/MINERALS THERAP 1 TAB PO SCH (08:45)
[2023-06-07] MEDS: BACLOFEN 5MG PER 1/2 TABLET PO SCH ×2 (08:45→21:12)
[2023-06-07] MEDS: COLCHICINE 0.6 MG TABLET PO SCH (08:45)
[2023-06-07] MEDS: busPIRone 5 MG TAB PO SCH ×2 (08:45→21:11)
[2023-06-07] MEDS: methocarbamoL 500 MG TAB PO SCH ×4 (08:45→21:12)
[2023-06-07] MEDS: predniSONE 2.5 MG TAB PO SCH (08:45)
[2023-06-07] MEDS: MAGNESIUM OXIDE 400MG TAB (MAG-OX) PO SCH ×2 (08:45→18:33)
[2023-06-07] MEDS: CARBAMIDE PEROXIDE 6.5% OTIC SOLN 15ML AU SCH ×2 (08:46→21:13)
[2023-06-07] MEDS: ENOXAPARIN 40MG/0.4ML SYRINGE (J1650 PER 10MG) SC SCH (08:46)
[2023-06-07] MEDS: lisinopriL 5 MG TAB PO SCH (08:46)
[2023-06-07 14:00] VITALS: BP 126/84; TEMP 97; O2SAT 94
[2023-06-07 20:00] VITALS: BP 136/62; TEMP 97.5; O2SAT 94
[2023-06-07] MEDS: MONTELUKAST 10 MG TAB PO SCH (21:12)
[2023-06-07] MEDS: rOPINIRole 1MG TAB PO SCH (21:12)
[2023-06-07] MEDS: PRAVASTATIN 20 MG TAB PO SCH (21:12)
[2023-06-07] MEDS: RAMELTEON 8 MG TAB (ROZEREM) PO PRN (21:53)
[2023-06-08] MEDS: ACETAMINOPHEN 500 MG TAB PO SCH ×3 (05:24→17:34)
[2023-06-08 06:00] VITALS: BP 143/66; TEMP 97.2; O2SAT 93
[2023-06-08 06:52] LABS: HEMATOCRIT 25.8 % (36.0-47.0); HEMOGLOBIN 8.2 g/dl (12.0-15.5); MEAN CORPUSCULAR HEMOGLOBIN 26.9 pg (27.0-33.0); MEAN CORPUSCULAR HGB CONC 31.8 g/dl (32.0-36.5); MEAN CORPUSCULAR VOLUME 84.6 fl (80.0-96.0); PLATELET COUNT, AUTOMATED 369 10^3/uL (150-450); RED BLOOD COUNT 3.05 10^6/uL (4.00-5.40); WHITE BLOOD COUNT 7.2 10^3/uL (4.0-10.0)
[2023-06-08 07:20] LABS: BLOOD UREA NITROGEN 31 MG/DL (9-23); CALCIUM LEVEL 8.8 MG/DL (8.3-10.6); CARBON DIOXIDE LEVEL 25 MMOL/L (20-31); CHLORIDE LEVEL 98 MMOL/L (98-107); CREATININE FOR GFR 0.76 MG/DL (0.55-1.30); GLOMERULAR FILTRATION RATE > 60.0 (>32); GLUCOSE, FASTING 98 MG/DL (74-106); POTASSIUM SERUM 4.8 MMOL/L (3.5-5.1); SODIUM LEVEL 129 MMOL/L (136-145)
[2023-06-08] MEDS: TIOTROPIUM INHALER/CAPSULE (SPIRIVA) INH SCH (07:40)
[2023-06-08] MEDS: ENOXAPARIN 40MG/0.4ML SYRINGE (J1650 PER 10MG) SC SCH (08:31)
[2023-06-08] MEDS: BACLOFEN 5MG PER 1/2 TABLET PO SCH ×2 (08:31→21:39)
[2023-06-08] MEDS: methocarbamoL 500 MG TAB PO SCH ×4 (08:32→21:41)
[2023-06-08] MEDS: busPIRone 5 MG TAB PO SCH ×2 (08:32→21:41)
[2023-06-08] MEDS: MULTIVITAMINS/MINERALS THERAP 1 TAB PO SCH (08:32)
[2023-06-08] MEDS: lisinopriL 5 MG TAB PO SCH (08:32)
[2023-06-08] MEDS: MAGNESIUM OXIDE 400MG TAB (MAG-OX) PO SCH ×3 (08:32→17:34)
[2023-06-08] MEDS: OMEPRAZOLE 20MG CAP PO SCH (08:32)
[2023-06-08] MEDS: predniSONE 2.5 MG TAB PO SCH (08:32)
[2023-06-08] MEDS: COLCHICINE 0.6 MG TABLET PO SCH (08:32)
[2023-06-08] MEDS: CARBAMIDE PEROXIDE 6.5% OTIC SOLN 15ML AU SCH ×2 (08:34→21:41)
[2023-06-08] MEDS ORDERED: TOLVAPTAN 7.5 MG HALF-TAB PO ONE (09:00)
[2023-06-08 14:00] VITALS: BP 94/49; TEMP 97; O2SAT 93
[2023-06-08 20:01] VITALS: BP 111/50; TEMP 97.7; O2SAT 91
[2023-06-08] MEDS: rOPINIRole 1MG TAB PO SCH (21:39)
[2023-06-08] MEDS: PRAVASTATIN 20 MG TAB PO SCH (21:39)
[2023-06-08] MEDS: MONTELUKAST 10 MG TAB PO SCH (21:41)
[2023-06-08] MEDS: RAMELTEON 8 MG TAB (ROZEREM) PO PRN (21:47)
[2023-06-09] MEDS: ACETAMINOPHEN 500 MG TAB PO SCH ×3 (01:11→12:03)
[2023-06-09 05:48] VITALS: BP 121/60; TEMP 97.9; O2SAT 97
[2023-06-09] MEDS: TIOTROPIUM INHALER/CAPSULE (SPIRIVA) INH SCH (07:12)
[2023-06-09 07:48] LABS: BLOOD UREA NITROGEN 39 MG/DL (9-23); CARBON DIOXIDE LEVEL 27 MMOL/L (20-31); CHLORIDE LEVEL 100 MMOL/L (98-107); CREATININE FOR GFR 0.88 MG/DL (0.55-1.30); GLOMERULAR FILTRATION RATE > 60.0 (>32); GLUCOSE, FASTING 105 MG/DL (74-106); POTASSIUM SERUM 5.3 MMOL/L (3.5-5.1); SODIUM LEVEL 134 MMOL/L (136-145)
[2023-06-09] MEDS: predniSONE 2.5 MG TAB PO SCH (08:35)
[2023-06-09] MEDS: COLCHICINE 0.6 MG TABLET PO SCH (08:35)
[2023-06-09 08:36] VITALS: BP 121/60
[2023-06-09] MEDS: OMEPRAZOLE 20MG CAP PO SCH (08:36)
[2023-06-09] MEDS: ENOXAPARIN 40MG/0.4ML SYRINGE (J1650 PER 10MG) SC SCH (08:36)
[2023-06-09] MEDS: BACLOFEN 5MG PER 1/2 TABLET PO SCH (08:36)
[2023-06-09] MEDS: MULTIVITAMINS/MINERALS THERAP 1 TAB PO SCH (08:36)
[2023-06-09] MEDS: lisinopriL 5 MG TAB PO SCH (08:36)
[2023-06-09] MEDS: MAGNESIUM OXIDE 400MG TAB (MAG-OX) PO SCH ×2 (08:36→12:03)
[2023-06-09] MEDS: methocarbamoL 500 MG TAB PO SCH ×2 (08:36→12:03)
[2023-06-09] MEDS: busPIRone 5 MG TAB PO SCH (08:36)
[2023-06-09] MEDS: CARBAMIDE PEROXIDE 6.5% OTIC SOLN 15ML AU SCH (08:37)
[2023-06-09 08:46] VITALS: BP 120/57; TEMP 97.6; O2SAT 95
[2023-06-09] MEDS ORDERED: BACL10TA2 PO (10:43)
[2023-06-09] MEDS ORDERED: METH-1164 PO (10:43)
[2023-06-09] MEDS ORDERED: MAGN400T2 PO (10:43)
[2023-06-09] MEDS ORDERED: ROPI5TAB19 PO (10:44)
[2023-06-09 11:31] LABS: MAGNESIUM LEVEL 1.9 MG/DL (1.8-2.4)
[2023-06-10 12:53] LABS: URIC ACID 6.2 MG/DL (3.1-7.8)
== END 2023-06-09 13:25 | disposition home health service (06) | DRG 560 ==
LOC: M PM&R 15:35
PROVIDERS: ADMIT Student in an Organized Health Care Education/Training Program; ATTEND Student in an Organized Health Care Education/Training Program
DX: S72.001D Fracture of unspecified part of neck of right femur, subsequent encounter for closed fracture with routine healing (principal); E22.2 Syndrome of inappropriate secretion of antidiuretic hormone; M48.00 Spinal stenosis, site unspecified; J44.9 Chronic obstructive pulmonary disease, unspecified; I12.9 Hypertensive chronic kidney disease with stage 1 through stage 4 chronic kidney disease, or unspecified chronic kidney disease; G25.81 Restless legs syndrome; F03.90 Unspecified dementia, unspecified severity, without behavioral disturbance, psychotic disturbance, mood disturbance, and anxiety; G25.0 Essential tremor; R29.6 Repeated falls; G47.33 Obstructive sleep apnea (adult) (pediatric); M25.511 Pain in right shoulder; Z66 Do not resuscitate; N18.2 Chronic kidney disease, stage 2 (mild); M19.011 Primary osteoarthritis, right shoulder; F32.A Depression, unspecified; K21.9 Gastro-esophageal reflux disease without esophagitis; D50.9 Iron deficiency anemia, unspecified; F41.9 Anxiety disorder, unspecified; R73.03 Prediabetes; Z74.09 Other reduced mobility; Z74.1 Need for assistance with personal care; R33.9 Retention of urine, unspecified; E87.5 Hyperkalemia; G89.18 Other acute postprocedural pain; K59.00 Constipation, unspecified; I73.9 Peripheral vascular disease, unspecified; E78.5 Hyperlipidemia, unspecified; E83.42 Hypomagnesemia; H61.23 Impacted cerumen, bilateral; M10.9 Gout, unspecified; Z99.81 Dependence on supplemental oxygen; Z79.52 Long term (current) use of systemic steroids; Z79.899 Other long term (current) drug therapy; Z98.1 Arthrodesis status; Z96.653 Presence of artificial knee joint, bilateral; Z90.49 Acquired absence of other specified parts of digestive tract; Z87.891 Personal history of nicotine dependence; Z96.612 Presence of left artificial shoulder joint

== ENCOUNTER → 2023-06-16 | Outpatient (CLI) | payer MEDICARE ==
[~2023-06-16] MED LIST changes: +BACL10TA2 PO; +ROPI5TAB19 PO
== END ==
LOC: M SOG 07:52
PROVIDERS: ATTEND Orthopaedic Surgery
DX: Z96.641 Presence of right artificial hip joint (principal); Z47.89 Encounter for other orthopedic aftercare; M51.36 Other intervertebral disc degeneration, lumbar region; M51.37 Other intervertebral disc degeneration, lumbosacral region

== ENCOUNTER → 2023-06-17 | Outpatient (REF) | payer MEDICARE ==
[2023-06-17 17:28] LABS: PERCENT SATURATION 15.5 % (13.2-45.0)
== END ==
LOC: M LAB REF 16:32
PROVIDERS: ATTEND Internal Medicine
DX: D64.9 Anemia, unspecified (principal)

== ENCOUNTER → 2023-08-23 | Outpatient (REF) | payer MEDICARE | LOC: M LAB REF 16:24 | PROVIDERS: ATTEND Internal Medicine | DX: M15.9 Polyosteoarthritis, unspecified (principal) ==

== ENCOUNTER → 2023-09-09 | Outpatient (CLI) | payer MEDICARE | LOC: M WUC 14:42 | PROVIDERS: ATTEND Internal Medicine | DX: M19.011 Primary osteoarthritis, right shoulder (principal) ==

== ENCOUNTER → 2023-09-16 | Outpatient (CLI) | payer MEDICARE | LOC: M SOG 07:56 | PROVIDERS: ATTEND Orthopaedic Surgery | DX: M19.011 Primary osteoarthritis, right shoulder (principal); S72.001D Fracture of unspecified part of neck of right femur, subsequent encounter for closed fracture with routine healing; Z96.641 Presence of right artificial hip joint ==

== ENCOUNTER → 2023-09-16 | Outpatient (CLI) | payer MEDICARE ==
[2023-09-16 15:47] LABS: BASO # 0.1 10^3/uL (0.0-0.2); BASO % 0.8 % (0.0-1.0); EOS % 0.7 % (0.0-3.0); HEMATOCRIT 37.2 % (36.0-47.0); HEMOGLOBIN 12.6 g/dl (12.0-15.5); LYMPH # 1.3 10^3/uL (1.5-5.0); LYMPH % 20.7 % (24.0-44.0); MEAN CORPUSCULAR HEMOGLOBIN 29.9 pg (27.0-33.0); MEAN CORPUSCULAR HGB CONC 33.9 g/dl (32.0-36.5); MEAN CORPUSCULAR VOLUME 88.2 fl (80.0-96.0); MONO # 0.3 10^3/uL (0.0-0.8); MONO % 5.3 % (2.0-8.0); NEUTROPHILS # 4.4 10^3/uL (1.5-8.5); NEUTROPHILS % 72.2 % (36.0-66.0); PLATELET COUNT, AUTOMATED 275 10^3/uL (150-450); RED BLOOD COUNT 4.22 10^6/uL (4.00-5.40); WHITE BLOOD COUNT 6.1 10^3/uL (4.0-10.0)
[2023-09-16 16:06] LABS: ERYTHROCYTE SEDIMENTATION RATE 34 mm/hr (0-30)
[2023-09-16 16:08] LABS: ALBUMIN 3.8 G/DL (3.2-5.2); ALKALINE PHOSPHATASE 118 U/L (46-116); ALT/SGPT 17 U/L (7.0-40); AST/SGOT 17 U/L (<34); BILIRUBIN,TOTAL 0.3 MG/DL (0.3-1.2); BLOOD UREA NITROGEN 22 MG/DL (9-23); CALCIUM LEVEL 9.2 MG/DL (8.3-10.6); CARBON DIOXIDE LEVEL 27 MMOL/L (20-31); CHLORIDE LEVEL 102 MMOL/L (98-107); CREATININE FOR GFR 0.66 MG/DL (0.55-1.30); GLOMERULAR FILTRATION RATE > 60.0 (>32); GLUCOSE, FASTING 90 MG/DL (74-106); POTASSIUM SERUM 4.5 MMOL/L (3.5-5.1); SODIUM LEVEL 137 MMOL/L (136-145); TOTAL PROTEIN 6.9 G/DL (5.7-8.2)
== END ==
LOC: M PLALAB 14:32
PROVIDERS: ATTEND Orthopaedic Surgery
DX: M19.011 Primary osteoarthritis, right shoulder (principal); S72.001D Fracture of unspecified part of neck of right femur, subsequent encounter for closed fracture with routine healing; Z96.641 Presence of right artificial hip joint

== ENCOUNTER → 2023-09-20 | Outpatient (CLI) | payer MEDICARE | LOC: M RAD 16:32 | PROVIDERS: ATTEND Internal Medicine | DX: M25.511 Pain in right shoulder (principal); M79.89 Other specified soft tissue disorders; M19.011 Primary osteoarthritis, right shoulder; M25.411 Effusion, right shoulder ==

== ENCOUNTER → 2023-10-13 | Outpatient (CLI) | payer MEDICARE | LOC: M SOG 08:01 | PROVIDERS: ATTEND Physician Assistant | DX: M25.512 Pain in left shoulder (principal) ==

== ENCOUNTER → 2023-11-01 | Outpatient (CLI) | payer MEDICARE | LOC: M WUC 14:12 | PROVIDERS: ATTEND Internal Medicine | DX: J44.9 Chronic obstructive pulmonary disease, unspecified (principal) ==

== ENCOUNTER → 2023-11-02 | Outpatient (CLI) | payer MEDICARE | LOC: M RAD 11:12 | PROVIDERS: ATTEND Orthopaedic Surgery Hand Surgery | DX: M25.811 Other specified joint disorders, right shoulder (principal); M19.019 Primary osteoarthritis, unspecified shoulder; M85.611 Other cyst of bone, right shoulder ==

== ENCOUNTER → 2023-11-10 | Outpatient (CLI) | payer MEDICARE ==
[~2023-11-10] MED LIST changes: +THERTAB52 PO
== END ==
LOC: M SOG 10:53
PROVIDERS: ATTEND Orthopaedic Surgery
DX: Z53.9 Procedure and treatment not carried out, unspecified reason (principal)

== ENCOUNTER → 2023-11-11 | Outpatient (CLI) | payer MEDICARE | LOC: M SOG 08:01 | PROVIDERS: ATTEND Orthopaedic Surgery | DX: Z96.641 Presence of right artificial hip joint (principal) ==

== ENCOUNTER 2023-11-16 09:36 | Observation (INO) | payer MEDICARE ==
[~2023-11-16] VITALS: Ht 157.5 cm; Wt 67.6 kg
[2023-11-16] MEDS: ceFAZolin SOD 2 GM in IV 1 EA IV ONE (06:00)
[2023-11-16] MEDS: OMEPRAZOLE 20MG CAP PO SCH (09:00)
[~2023-11-16 09:36] MED LIST changes: +ACETAMINOPHEN 1000MG 100ML IV BAG As Ordered ONE; +LIDOCAINE 2% 100MG/5ML SDV (FOR ANES.) As Ordered ONE; +LR 1,000 ML IV SCH; +ONDANSETRON 4MG 2ML VIAL As Ordered ONE; +PHENYLEPHRINE 10MG/ML 1ML VIAL As Ordered ONE; +ROCURONIUM BROMIDE 50MG/5ML VIAL As Ordered ONE; +fentaNYL 100 MCG/2 ML INJECTION As Ordered ONE; +propofoL 200 MG/20 ML VIAL As Ordered ONE
[2023-11-16] MEDS: fentaNYL 100 MCG/2 ML INJECTION IV PRN (10:47)
[2023-11-16] MEDS: MIDAZOLAM INJ 2MG/2ML VIAL IV PRN (10:47)
[2023-11-16] MEDS: dexAMETHasone 10MG/1ML VIAL PRES.FREE PN ONE (10:48)
[2023-11-16] MEDS: ROPIvacaine 0.5% 30ML VIAL PN ONE (10:48)
[2023-11-16] MEDS: EPINEPHrine INJ 1 MG/ML 1ML AMP PN ONE (10:48)
[2023-11-16] MEDS: LIDOCAINE 1% SDV 5ML VIAL PN ONE (10:48)
[2023-11-16] MEDS ORDERED: VANCOMYCIN 1000MG/20ML VIAL As Ordered ONE (10:50)
[2023-11-16] MEDS ORDERED: LIDOCAINE W/EPINEPHRINE 1% 20ML VIAL As Ordered ONE (10:50)
[2023-11-16] MEDS ORDERED: TRANEXAMIC ACID 100 MG/ML 10ML VIAL As Ordered ONE (10:50)
[2023-11-16] MEDS ORDERED: LACRILUBE (AKWA TEARS) OPHTH OINT 3.5GM As Ordered ONE (11:00)
[2023-11-16] MEDS ORDERED: SUGAMMADEX SODIUM 500 MG/5 ML VIAL (BRIDION) As Ordered ONE (11:54)
[2023-11-16] MEDS ORDERED: MORPHINE 4 MG/ML 1ML VIAL IV PRN (13:50)
[2023-11-16] MEDS ORDERED: ACETAMINOPHEN TAB 650MG DOSE (2X325MG) PO PRN (13:50)
[2023-11-16] MEDS ORDERED: oxyCODONE 5MG TAB PO PRN (14:10)
[2023-11-16] MEDS ORDERED: HYDROMORPHONE HCL 0.5 MG/ 0.5 ML SYRINGE IV PRN (14:10)
[2023-11-16] MEDS ORDERED: ONDANSETRON 4MG 2ML VIAL IV PRN (14:10)
[2023-11-16] MEDS ORDERED: MEPERIDINE 25 MG/ML 1ML VIAL IV PRN (14:10)
[2023-11-16] MEDS ORDERED: fentaNYL 100 MCG/2 ML INJECTION IV PRN (14:10)
[2023-11-16] MEDS: LR 1,000 ML IV SCH (14:10)
[2023-11-16] MEDS ORDERED: ALBUTEROL 90 MCG/ACT 8GM HFA INHALER INH PRN (14:40)
[2023-11-16 17:00] VITALS: BP 124/80; TEMP 97.2; O2SAT 78; O2SAT 94
[2023-11-16 17:30] VITALS: BP 158/72; TEMP 97.7; O2SAT 94
[2023-11-16 18:00] VITALS: BP 137/60; TEMP 97.5; O2SAT 92
[2023-11-16] MEDS: ceFAZolin SOD 1 GM in D5W MINI-BAG PLUS 50 ML IV SCH (18:18)
[2023-11-16 19:00] VITALS: BP 148/62; TEMP 97; O2SAT 92
[2023-11-16 20:00] VITALS: BP 150/68; TEMP 97; O2SAT 91
[2023-11-16] MEDS: rOPINIRole 1MG TAB PO SCH (20:26)
[2023-11-16] MEDS: PRAVASTATIN 20 MG TAB PO SCH (20:26)
[2023-11-16] MEDS: MONTELUKAST 10 MG TAB PO SCH (20:26)
[2023-11-16] MEDS: ACETAMINOPHEN 500 MG TAB PO SCH (20:27)
[2023-11-16] MEDS: busPIRone 5 MG TAB PO SCH (20:27)
[2023-11-16] MEDS: oxyCODONE 5MG TAB PO PRN (20:28)
[2023-11-16 21:02] VITALS: BP 161/69; TEMP 97.5; O2SAT 93
[2023-11-16] MEDS: methocarbamoL 500 MG TAB PO PRN (21:42)
[2023-11-17 00:32] VITALS: BP 167/74; TEMP 97.5; O2SAT 89
[2023-11-17 06:24] VITALS: BP 152/70; TEMP 97.7; O2SAT 94
[2023-11-17 07:04] LABS: MEAN CORPUSCULAR HEMOGLOBIN 28.5 pg (27.0-33.0); MEAN CORPUSCULAR HGB CONC 32.3 g/dl (32.0-36.5); MEAN CORPUSCULAR VOLUME 88.3 fl (80.0-96.0); PLATELET COUNT, AUTOMATED 231 10^3/uL (150-450); RED BLOOD COUNT 3.51 10^6/uL (4.00-5.40); WHITE BLOOD COUNT 7.5 10^3/uL (4.0-10.0)
[2023-11-17 07:23] LABS: BLOOD UREA NITROGEN 16 MG/DL (9-23); CARBON DIOXIDE LEVEL 27 MMOL/L (20-31); CHLORIDE LEVEL 104 MMOL/L (98-107); CREATININE FOR GFR 0.61 MG/DL (0.55-1.30); GLOMERULAR FILTRATION RATE > 60.0 (>32); GLUCOSE, FASTING 113 MG/DL (74-106); POTASSIUM SERUM 3.9 MMOL/L (3.5-5.1); SODIUM LEVEL 137 MMOL/L (136-145)
[2023-11-17] MEDS: IPRATROPIUM 0.5MG/ALBUTEROL 2.5MG INH SOL UD 3ML (DUONEB) NEB SCH (08:08)
[2023-11-17] MEDS: TIOTROPIUM INHALER/CAPSULE (SPIRIVA) INH SCH (08:08)
[2023-11-17 08:51] VITALS: BP 152/70
[2023-11-17] MEDS: lisinopriL 5 MG TAB PO SCH (08:51)
[2023-11-17] MEDS: SERTRALINE 100 MG TAB PO SCH (08:51)
[2023-11-17 10:00] VITALS: BP 138/55; TEMP 97.7; O2SAT 94
[2023-11-17 14:00] VITALS: TEMP 97.2; O2SAT 89
[2023-11-17 14:16] VITALS: BP 128/50
[2023-11-17] MEDS ORDERED: ENOXAPARIN 40MG/0.4ML SYRINGE (J1650 PER 10MG) SC SCH (15:00)
== END 2023-11-17 14:40 ==
LOC: M SDC 09:36 → M MS5PR 09:37
PROVIDERS: ADMIT Internal Medicine; ATTEND Internal Medicine
DX: M19.011 Primary osteoarthritis, right shoulder (principal); M75.51 Bursitis of right shoulder; M70.811 Other soft tissue disorders related to use, overuse and pressure, right shoulder; I10 Essential (primary) hypertension; E78.5 Hyperlipidemia, unspecified; J44.9 Chronic obstructive pulmonary disease, unspecified; G47.33 Obstructive sleep apnea (adult) (pediatric); G25.81 Restless legs syndrome; M10.9 Gout, unspecified; K21.9 Gastro-esophageal reflux disease without esophagitis; F39 Unspecified mood [affective] disorder; K59.00 Constipation, unspecified; Z87.891 Personal history of nicotine dependence; Z79.899 Other long term (current) drug therapy

== ENCOUNTER 2023-11-17 13:40 | Inpatient (IN) | payer MEDICARE ==
[~2023-11-17] VITALS: Ht 157.5 cm; Wt 71.4 kg
[~2023-11-17 13:40] MED LIST changes: -ACETAMINOPHEN 1000MG 100ML IV BAG As Ordered ONE; -LIDOCAINE 2% 100MG/5ML SDV (FOR ANES.) As Ordered ONE; -LR 1,000 ML IV SCH; -ONDANSETRON 4MG 2ML VIAL As Ordered ONE; -PHENYLEPHRINE 10MG/ML 1ML VIAL As Ordered ONE; -ROCURONIUM BROMIDE 50MG/5ML VIAL As Ordered ONE; -fentaNYL 100 MCG/2 ML INJECTION As Ordered ONE; -propofoL 200 MG/20 ML VIAL As Ordered ONE
[2023-11-17] MEDS ORDERED: MOM 30ML SUSPENSION UDC PO PRN (14:35)
[2023-11-17] MEDS ORDERED: MAALOX 30 ML SUSP *UDC PO PRN (14:35)
[2023-11-17] MEDS ORDERED: ALBUTEROL 90 MCG/ACT 8GM HFA INHALER INH PRN (14:35)
[2023-11-17] MEDS ORDERED: MIRALAX *UNIT DOSE* 17GM PACKET PO PRN (14:35)
[2023-11-17 14:45] VITALS: BP 144/63; TEMP 96.9; O2SAT 95
[2023-11-17] MEDS ORDERED: PILL CUTTER 1 EACH XX PRN (15:00)
[2023-11-17] MEDS: oxyCODONE 5MG TAB PO PRN (16:42)
[2023-11-17] MEDS: MAGNESIUM OXIDE 400MG TAB (MAG-OX) PO SCH (17:51)
[2023-11-17 19:30] VITALS: BP 124/58; TEMP 99.1; O2SAT 92
[2023-11-17] MEDS: PRAVASTATIN 20 MG TAB PO SCH (21:07)
[2023-11-17] MEDS: rOPINIRole 1MG TAB PO SCH (21:07)
[2023-11-17] MEDS: MONTELUKAST 10 MG TAB PO SCH (21:07)
[2023-11-17] MEDS: ACETAMINOPHEN 500 MG TAB PO SCH (21:07)
[2023-11-17] MEDS: SENNA 8.6 MG TAB (SENOKOT) PO SCH (21:07)
[2023-11-17] MEDS: methocarbamoL 500 MG TAB PO PRN (21:07)
[2023-11-17] MEDS: busPIRone 5 MG TAB PO SCH (21:08)
[2023-11-18 06:13] VITALS: BP 148/65; TEMP 98.5; O2SAT 91
[2023-11-18 06:48] LABS: HEMOGLOBIN 10.8 g/dl (12.0-15.5); MEAN CORPUSCULAR HEMOGLOBIN 28.6 pg (27.0-33.0); MEAN CORPUSCULAR HGB CONC 32.7 g/dl (32.0-36.5); MEAN CORPUSCULAR VOLUME 87.5 fl (80.0-96.0); PLATELET COUNT, AUTOMATED 242 10^3/uL (150-450); RED BLOOD COUNT 3.77 10^6/uL (4.00-5.40); WHITE BLOOD COUNT 8.7 10^3/uL (4.0-10.0)
[2023-11-18 07:09] LABS: BLOOD UREA NITROGEN 14 MG/DL (9-23); CALCIUM LEVEL 8.6 MG/DL (8.3-10.6); CARBON DIOXIDE LEVEL 29 MMOL/L (20-31); CHLORIDE LEVEL 100 MMOL/L (98-107); CREATININE FOR GFR 0.62 MG/DL (0.55-1.30); GLOMERULAR FILTRATION RATE > 60.0 (>32); GLUCOSE, FASTING 130 MG/DL (74-106); POTASSIUM SERUM 4.1 MMOL/L (3.5-5.1); SODIUM LEVEL 132 MMOL/L (136-145)
[2023-11-18] MEDS: ONDANSETRON 4MG TAB PO PRN (08:10)
[2023-11-18] MEDS: OMEPRAZOLE 20MG CAP PO SCH (08:10)
[2023-11-18] MEDS: lisinopriL 5 MG TAB PO SCH (09:15)
[2023-11-18] MEDS: SERTRALINE 100 MG TAB PO SCH (09:18)
[2023-11-18] MEDS: ENOXAPARIN 40MG/0.4ML SYRINGE (J1650 PER 10MG) SC SCH (09:19)
[2023-11-18 14:00] VITALS: BP 100/52; TEMP 97.9; O2SAT 93
[2023-11-18] MEDS: TIOTROPIUM INHALER/CAPSULE (SPIRIVA) INH SCH (14:30)
[2023-11-18] MEDS: rOPINIRole 1MG TAB PO ONE (16:27)
[2023-11-18 20:00] VITALS: BP 101/51; TEMP 98.1; O2SAT 94
[2023-11-19 06:00] VITALS: BP 135/64; TEMP 98.2; O2SAT 93
[2023-11-19 14:00] VITALS: BP 115/51; TEMP 98.2; O2SAT 94
[2023-11-19 20:00] VITALS: BP 113/53; TEMP 98.2
[2023-11-20] MEDS: DOCUSATE SODIUM 100MG CAPSULE PO SCH (00:54)
[2023-11-20] MEDS: IPRATROPIUM 0.06% NASAL SPRAY 15 ML (ATROVENT) PRN (03:47)
[2023-11-20 06:00] VITALS: BP 125/60; TEMP 98.1
[2023-11-20 14:00] VITALS: BP 128/59; TEMP 97.8; O2SAT 93
[2023-11-20] MEDS: ACETAMINOPHEN TAB 650MG DOSE (2X325MG) PO PRN (20:12)
[2023-11-20 21:18] VITALS: BP 130/65; TEMP 98.1; O2SAT 93
[2023-11-21 05:39] VITALS: BP 132/63; TEMP 97.8; O2SAT 91
[2023-11-21 07:05] LABS: HEMATOCRIT 27.2 % (36.0-47.0); HEMOGLOBIN 8.8 g/dl (12.0-15.5); MEAN CORPUSCULAR HEMOGLOBIN 28.6 pg (27.0-33.0); MEAN CORPUSCULAR HGB CONC 32.4 g/dl (32.0-36.5); MEAN CORPUSCULAR VOLUME 88.3 fl (80.0-96.0); PLATELET COUNT, AUTOMATED 218 10^3/uL (150-450); RED BLOOD COUNT 3.08 10^6/uL (4.00-5.40); WHITE BLOOD COUNT 5.1 10^3/uL (4.0-10.0)
[2023-11-21 07:29] LABS: BLOOD UREA NITROGEN 20 MG/DL (9-23); CALCIUM LEVEL 8.5 MG/DL (8.3-10.6); CARBON DIOXIDE LEVEL 28 MMOL/L (20-31); CHLORIDE LEVEL 99 MMOL/L (98-107); CREATININE FOR GFR 0.65 MG/DL (0.55-1.30); GLOMERULAR FILTRATION RATE > 60.0 (>32); GLUCOSE, FASTING 114 MG/DL (74-106); POTASSIUM SERUM 4.4 MMOL/L (3.5-5.1); SODIUM LEVEL 133 MMOL/L (136-145)
[2023-11-21 14:00] VITALS: BP 135/49; TEMP 98.1; O2SAT 95
[2023-11-21] MEDS ORDERED: BISACODYL 10MG SUPP PR ONE (15:30)
[2023-11-21] MEDS: rOPINIRole 1MG TAB PO SCH (16:51)
[2023-11-21 22:01] VITALS: BP 125/59; TEMP 98.3; O2SAT 98
[2023-11-21] MEDS: BISACODYL 10MG SUPP PR PRN (22:03)
[2023-11-22 06:30] VITALS: BP 116/59; TEMP 97.6; O2SAT 96
[2023-11-22] MEDS: COLCHICINE 0.6 MG TABLET PO SCH (07:18)
[2023-11-22 13:44] LABS: PERCENT SATURATION 5.7 % (13.2-45.0)
[2023-11-22 13:46] LABS: FERRITIN 185.1 NG/ML (7.3-270.7)
[2023-11-22 14:00] VITALS: BP 116/56; TEMP 97.6; O2SAT 94
[2023-11-22] MEDS: FERRIC CARBOXYMALTOSE INJ 750 MG, VIAL MATE ADAPTER 1 EACH in NS 250 ML IV ONE (18:48)
[2023-11-22 20:00] VITALS: BP 122/59; TEMP 97.9; O2SAT 92
[2023-11-23 06:00] VITALS: BP 137/62; TEMP 97.6; O2SAT 92
[2023-11-23 07:50] VITALS: BP 137/62
[2023-11-23] MEDS ORDERED: OXYC-517 PO (11:34)
[2023-11-28 12:29] LABS: B12 DEFIECIENCY 701 PG/ML (232-1245)
== END 2023-11-23 12:45 | disposition home health service (06) | DRG 554 ==
LOC: M PM&R 14:45
PROVIDERS: ADMIT Physical Medicine & Rehabilitation; ATTEND Student in an Organized Health Care Education/Training Program
DX: M19.011 Primary osteoarthritis, right shoulder (principal); E22.2 Syndrome of inappropriate secretion of antidiuretic hormone; M75.51 Bursitis of right shoulder; M70.811 Other soft tissue disorders related to use, overuse and pressure, right shoulder; I12.9 Hypertensive chronic kidney disease with stage 1 through stage 4 chronic kidney disease, or unspecified chronic kidney disease; E78.5 Hyperlipidemia, unspecified; J44.9 Chronic obstructive pulmonary disease, unspecified; G47.33 Obstructive sleep apnea (adult) (pediatric); G25.81 Restless legs syndrome; M10.9 Gout, unspecified; M48.00 Spinal stenosis, site unspecified; R26.89 Other abnormalities of gait and mobility; D64.9 Anemia, unspecified; Z74.1 Need for assistance with personal care; Z74.09 Other reduced mobility; N18.2 Chronic kidney disease, stage 2 (mild); K21.9 Gastro-esophageal reflux disease without esophagitis; F41.9 Anxiety disorder, unspecified; F03.90 Unspecified dementia, unspecified severity, without behavioral disturbance, psychotic disturbance, mood disturbance, and anxiety; G25.0 Essential tremor; F32.A Depression, unspecified; R73.03 Prediabetes; K59.00 Constipation, unspecified; Z87.891 Personal history of nicotine dependence; Z79.899 Other long term (current) drug therapy; Z96.611 Presence of right artificial shoulder joint; Z96.612 Presence of left artificial shoulder joint; Z96.653 Presence of artificial knee joint, bilateral; Z90.49 Acquired absence of other specified parts of digestive tract

== ENCOUNTER → 2023-11-25 | Outpatient (CLI) | payer MEDICARE | LOC: M SOG 07:50 | PROVIDERS: ATTEND Physician Assistant | DX: Z47.1 Aftercare following joint replacement surgery (principal); Z96.611 Presence of right artificial shoulder joint ==

== ENCOUNTER 2023-12-19 17:52 | Observation (INO) | payer MEDICARE ==
[~2023-12-19] VITALS: Ht 157.5 cm; Wt 68.1 kg
[2023-12-19 18:30] LABS: BASO # 0.1 10^3/uL (0.0-0.2); BASO % 1.1 % (0.0-1.0); EOS # 0.1 10^3/uL (0.0-0.5); EOS % 0.9 % (0.0-3.0); HEMATOCRIT 34.8 % (36.0-47.0); HEMOGLOBIN 11.4 g/dl (12.0-15.5); LYMPH # 1.1 10^3/uL (1.5-5.0); LYMPH % 19.4 % (24.0-44.0); MEAN CORPUSCULAR HEMOGLOBIN 29.4 pg (27.0-33.0); MEAN CORPUSCULAR HGB CONC 32.8 g/dl (32.0-36.5); MEAN CORPUSCULAR VOLUME 89.7 fl (80.0-96.0); MONO # 0.3 10^3/uL (0.0-0.8); MONO % 5.6 % (2.0-8.0); NEUTROPHILS # 4.1 10^3/uL (1.5-8.5); NEUTROPHILS % 72.5 % (36.0-66.0); PLATELET COUNT, AUTOMATED 214 10^3/uL (150-450); RED BLOOD COUNT 3.88 10^6/uL (4.00-5.40); WHITE BLOOD COUNT 5.7 10^3/uL (4.0-10.0)
[2023-12-19 18:46] LABS: INR 1.01
[2023-12-19 18:52] LABS: ETHYL ALCOHOL (ETHANOL) < 0.003 % (0.000-0.010)
[2023-12-19 18:54] LABS: ALBUMIN 3.3 G/DL (3.2-5.2); ALKALINE PHOSPHATASE 146 U/L (46-116); ALT/SGPT 17 U/L (7.0-40); AST/SGOT 20 U/L (<34); BILIRUBIN,DIRECT 0.1 MG/DL (<0.4); BILIRUBIN,TOTAL 0.3 MG/DL (0.3-1.2); BLOOD UREA NITROGEN 18 MG/DL (9-23); CALCIUM LEVEL 9.3 MG/DL (8.3-10.6); CARBON DIOXIDE LEVEL 25 MMOL/L (20-31); CHLORIDE LEVEL 101 MMOL/L (98-107); CK-MB VALUE MASS 3.3 NG/ML (<3.6); CPK CREATINE PHOSPHOKINASE 90 U/L (34-145); CREATININE FOR GFR 0.74 MG/DL (0.55-1.30); GLOMERULAR FILTRATION RATE > 60.0 (>32); GLUCOSE, FASTING 106 MG/DL (74-106); MAGNESIUM LEVEL 1.8 MG/DL (1.8-2.4); MB/CK RELATIVE INDEX 3.66 (< OR =4); POTASSIUM SERUM 4.3 MMOL/L (3.5-5.1); SODIUM LEVEL 135 MMOL/L (136-145); TOTAL PROTEIN 6.4 G/DL (5.7-8.2)
[2023-12-19 18:55] LABS: FREE T4 0.86 NG/DL (0.89-1.76)
[2023-12-19 18:56] LABS: THYROID STIMULATING HORMONE 2.208 uIU/ML (0.55-4.78)
[2023-12-19 20:29] LABS: VENOUS BASE EXCESS 1.3 (-2.0-2.0); VENOUS HCO3 26.7 MMOL/L (23.0-27.0); VENOUS O2 SATURATION 63.9 % (60.0-80.0); VENOUS PARTIAL PRESSURE CO2 45.6 mmHg (38.0-50.0); VENOUS PARTIAL PRESSURE O2 33.7 mmHg (30.0-50.0); VENOUS PH 7.386 UNITS (7.330-7.430); VENOUS STANDARD HCO3 24.9 MMOL/L; VENOUS TOTAL CO2 28.1 MMOL/L (24.0-28.0)
[2023-12-19 21:07] LABS: CK-MB VALUE MASS 3.3 NG/ML (<3.6)
[2023-12-19 21:09] LABS: MB/CK RELATIVE INDEX 3.88 (< OR =4)
[2023-12-19] MEDS ORDERED: MAGN400T35 PO (22:14)
[2023-12-19] MEDS ORDERED: OXYC-517 PO (22:14)
[2023-12-19] MEDS ORDERED: HOME MED LIST COMPLETE! XX SCH (22:20)
[2023-12-19] MEDS: rOPINIRole 1MG TAB PO SCH (22:44)
[2023-12-20] VITALS (8 sets, daily range): BP systolic 134–167; BP diastolic 63–83; TEMP 97–98.9; O2SAT 91–95
[2023-12-20] MEDS ORDERED: methocarbamoL 500 MG TAB PO PRN (01:30)
[2023-12-20] MEDS ORDERED: ALBUTEROL 90 MCG/ACT 8GM HFA INHALER INH PRN (01:30)
[2023-12-20] MEDS ORDERED: IPRATROPIUM 0.06% NASAL SPRAY 15 ML (ATROVENT) PRN (01:30)
[2023-12-20] MEDS ORDERED: PILL CUTTER 1 EACH XX PRN (01:40)
[2023-12-20] MEDS: oxyCODONE 5MG TAB PO PRN (01:44)
[2023-12-20] MEDS: ACETAMINOPHEN 500 MG TAB PO PRN (01:44)
[2023-12-20 05:16] LABS: BASO # 0.1 10^3/uL (0.0-0.2); EOS # 0.1 10^3/uL (0.0-0.5); EOS % 1.4 % (0.0-3.0); HEMATOCRIT 34.1 % (36.0-47.0); HEMOGLOBIN 11.1 g/dl (12.0-15.5); LYMPH # 1.3 10^3/uL (1.5-5.0); LYMPH % 24.8 % (24.0-44.0); MEAN CORPUSCULAR HEMOGLOBIN 29.5 pg (27.0-33.0); MEAN CORPUSCULAR HGB CONC 32.6 g/dl (32.0-36.5); MEAN CORPUSCULAR VOLUME 90.7 fl (80.0-96.0); MONO # 0.4 10^3/uL (0.0-0.8); MONO % 7.1 % (2.0-8.0); NEUTROPHILS # 3.3 10^3/uL (1.5-8.5); NEUTROPHILS % 65.3 % (36.0-66.0); PLATELET COUNT, AUTOMATED 185 10^3/uL (150-450); RED BLOOD COUNT 3.76 10^6/uL (4.00-5.40); WHITE BLOOD COUNT 5.1 10^3/uL (4.0-10.0)
[2023-12-20 05:54] LABS: ALKALINE PHOSPHATASE 127 U/L (46-116); ALT/SGPT 13 U/L (7.0-40); AST/SGOT 14 U/L (<34); BILIRUBIN,TOTAL 0.3 MG/DL (0.3-1.2); BLOOD UREA NITROGEN 13 MG/DL (9-23); CALCIUM LEVEL 8.8 MG/DL (8.3-10.6); CARBON DIOXIDE LEVEL 27 MMOL/L (20-31); CHLORIDE LEVEL 104 MMOL/L (98-107); CREATININE FOR GFR 0.65 MG/DL (0.55-1.30); GLOMERULAR FILTRATION RATE > 60.0 (>32); GLUCOSE, FASTING 103 MG/DL (74-106); POTASSIUM SERUM 3.7 MMOL/L (3.5-5.1); SODIUM LEVEL 137 MMOL/L (136-145); TOTAL PROTEIN 5.7 G/DL (5.7-8.2)
[2023-12-20] MEDS: TIOTROPIUM INHALER/CAPSULE (SPIRIVA) INH SCH (07:26)
[2023-12-20] MEDS: busPIRone 5 MG TAB PO SCH (08:30)
[2023-12-20] MEDS: SERTRALINE 100 MG TAB PO SCH (08:30)
[2023-12-20] MEDS: COLCHICINE 0.6 MG TABLET PO SCH (08:31)
[2023-12-20] MEDS: OMEPRAZOLE 20MG CAP PO SCH (08:31)
[2023-12-20] MEDS: MAGNESIUM OXIDE 400MG TAB (MAG-OX) PO SCH (08:31)
[2023-12-20] MEDS: lisinopriL 5 MG TAB PO SCH (08:33)
[2023-12-20] MEDS ORDERED: MONTELUKAST 10 MG TAB PO SCH (21:00)
[2023-12-20] MEDS ORDERED: PRAVASTATIN 20 MG TAB PO SCH (21:00)
[2023-12-20] MEDS ORDERED: rOPINIRole 1MG TAB PO SCH (21:00)
== END 2023-12-20 13:30 | disposition home or self-care (01) ==
LOC: M ED 17:52 → EDBD 17:52 → M ED INP 17:53 → INTOOBSV 23:55 → M ED INP 23:55 → UNDOADMOB 23:55 → M ICU 12-20 01:00 → M ED INP 12-20 01:00
PROVIDERS: ADMIT Preventive Medicine Undersea and Hyperbaric Medicine; ATTEND Preventive Medicine Undersea and Hyperbaric Medicine
DX: R29.6 Repeated falls (principal); M48.00 Spinal stenosis, site unspecified; R73.03 Prediabetes; I12.9 Hypertensive chronic kidney disease with stage 1 through stage 4 chronic kidney disease, or unspecified chronic kidney disease; J44.9 Chronic obstructive pulmonary disease, unspecified; F32.A Depression, unspecified; F41.9 Anxiety disorder, unspecified; E78.5 Hyperlipidemia, unspecified; E74.39 Other disorders of intestinal carbohydrate absorption; D64.9 Anemia, unspecified; G47.33 Obstructive sleep apnea (adult) (pediatric); Z91.199 Patient's noncompliance with other medical treatment and regimen due to unspecified reason; G25.81 Restless legs syndrome; M10.9 Gout, unspecified; K21.9 Gastro-esophageal reflux disease without esophagitis; M19.90 Unspecified osteoarthritis, unspecified site; F03.90 Unspecified dementia, unspecified severity, without behavioral disturbance, psychotic disturbance, mood disturbance, and anxiety; G31.1 Senile degeneration of brain, not elsewhere classified; N18.2 Chronic kidney disease, stage 2 (mild); G25.0 Essential tremor; J01.90 Acute sinusitis, unspecified; Z96.641 Presence of right artificial hip joint; Z96.653 Presence of artificial knee joint, bilateral; Z96.611 Presence of right artificial shoulder joint; Z98.1 Arthrodesis status; Z90.49 Acquired absence of other specified parts of digestive tract; Z87.891 Personal history of nicotine dependence; Z79.899 Other long term (current) drug therapy
CPT/HCPCS: 36415; 70450; 71045; 72125; 72131; 73030; 73521; 80048; 80053; 80076; 82077; 82550; 82553; 82803; 83605; 83735; 84439; 84443; 84484; 85025; 85610; 85730; 93005; 93041; 93306; 94640; 94760; 99285; G0378

== ENCOUNTER → 2024-01-13 | Outpatient (CLI) | payer MEDICARE ==
[~2024-01-13] MED LIST changes: +MAGN400T35 PO
== END ==
LOC: M SOG 11:57
PROVIDERS: ATTEND Physician Assistant
DX: Z96.611 Presence of right artificial shoulder joint (principal)

== ENCOUNTER → 2024-02-13 | Outpatient (CLI) | payer MEDICARE ==
[~2024-02-13] MED LIST changes: +ROPI0.5T21 PO; -ROPI0.5T32 PO
== END ==
LOC: M SOG 07:57
PROVIDERS: ATTEND Physician Assistant
DX: Z96.611 Presence of right artificial shoulder joint (principal)

== ENCOUNTER → 2024-02-14 | Outpatient (CLI) | payer MEDICARE | LOC: M SOG 07:57 | PROVIDERS: ATTEND Orthopaedic Surgery | DX: M70.61 Trochanteric bursitis, right hip (principal); Z96.641 Presence of right artificial hip joint ==

== ENCOUNTER → 2024-02-22 | Outpatient (CLI) | payer MEDICARE ==
[~2024-02-22] MED LIST changes: +LIDOCAINE 1% MDV 20ML VIAL As Ordered ONE
[2024-02-22 13:42] LABS: BASO # 0.1 10^3/uL (0.0-0.2); BASO % 0.9 % (0.0-1.0); EOS % 0.8 % (0.0-3.0); HEMATOCRIT 37.6 % (36.0-47.0); HEMOGLOBIN 12.3 g/dl (12.0-15.5); LYMPH # 1.2 10^3/uL (1.5-5.0); MEAN CORPUSCULAR HEMOGLOBIN 29.2 pg (27.0-33.0); MEAN CORPUSCULAR HGB CONC 32.7 g/dl (32.0-36.5); MEAN CORPUSCULAR VOLUME 89.3 fl (80.0-96.0); MONO # 0.3 10^3/uL (0.0-0.8); MONO % 6.2 % (2.0-8.0); NEUTROPHILS # 3.7 10^3/uL (1.5-8.5); NEUTROPHILS % 69.7 % (36.0-66.0); PLATELET COUNT, AUTOMATED 200 10^3/uL (150-450); RED BLOOD COUNT 4.21 10^6/uL (4.00-5.40); WHITE BLOOD COUNT 5.3 10^3/uL (4.0-10.0)
[2024-02-22 13:51] LABS: ERYTHROCYTE SEDIMENTATION RATE 20 mm/hr (0-30)
[2024-02-22 14:29] LABS: CRYSTALS, BODY FLUID NONE SEEN (NONE SEEN); SOURCE, BODY FLUID CRYSTALS RIGHT HIP
[2024-02-22 15:06] LABS: SOURCE, BODY FLUID RT HIP; SYNOVIAL FLUID COLOR PALE YELLOW (COLORLESS)
== END ==
LOC: M LAB 12:36 → M RAD 12:36
PROVIDERS: ATTEND Orthopaedic Surgery
DX: Z96.641 Presence of right artificial hip joint (principal)
CPT/HCPCS: 20610; 36415; 77002; 85025; 85652; 86140; 87070; 87075; 87102; 87116; 87205; 87206; 89051; 89060; J0665

== ENCOUNTER → 2024-02-28 | Outpatient (REF) | payer MEDICARE ==
[~2024-02-28] MED LIST changes: -LIDOCAINE 1% MDV 20ML VIAL As Ordered ONE
== END ==
LOC: M LAB REF 16:45
PROVIDERS: ATTEND Internal Medicine
DX: M15.9 Polyosteoarthritis, unspecified (principal)

== ENCOUNTER → 2024-08-05 | Outpatient (REF) | payer MEDICARE | LOC: M LAB REF 19:37 | PROVIDERS: ATTEND Registered Nurse | DX: J06.9 Acute upper respiratory infection, unspecified (principal); R53.83 Other fatigue ==

== ENCOUNTER → 2024-08-05 | Outpatient (REF) | payer MEDICARE ==
[2024-08-05 19:49] LABS: APPEARANCE, URINE CLEAR (CLEAR); BACTERIA, URINE AUTO NEGATIVE (NEGATIVE); BILIRUBIN, URINE AUTO NEGATIVE (NEGATIVE); BLOOD, URINE BLOOD NEGATIVE (NEGATIVE); COLOR, URINE YELLOW (YELLOW); GLUCOSE, URINE (UA) AUTO NEGATIVE (NEGATIVE); KETONE, URINE AUTO NEGATIVE (NEGATIVE); LEUKOCYTE ESTERASE, URINE AUTO NEGATIVE (NEGATIVE); NITRITE, URINE AUTO NEGATIVE (NEGATIVE); PROTEIN, URINE AUTO NEGATIVE (NEGATIVE); RBC, URINE AUTO 0 /HPF (0-3); SPECIFIC GRAVITY URINE AUTO 1.008 (1.002-1.035); SQUAMOUS EPITHELIAL CELL UR AU 0 /HPF (0-6); UROBILINOGEN, URINE AUTO 0.2 mg/dL (0.0-2.0); WBC, URINE AUTO 1 /HPF (0-3)
== END ==
LOC: M LAB REF 19:28
PROVIDERS: ATTEND Registered Nurse
DX: R53.83 Other fatigue (principal)

== ENCOUNTER → 2024-08-06 | Outpatient (CLI) | payer MEDICARE | LOC: M WUC 14:44 | PROVIDERS: ATTEND Registered Nurse | DX: J06.9 Acute upper respiratory infection, unspecified (principal) ==

== ENCOUNTER → 2024-08-22 | Outpatient (REF) | payer MEDICARE | LOC: M LAB REF 17:11 | PROVIDERS: ATTEND Internal Medicine Pulmonary Disease | DX: J44.1 Chronic obstructive pulmonary disease with (acute) exacerbation (principal) ==

== ENCOUNTER 2025-05-06 10:41 | Day surgery (SDC) | payer MEDICARE ==
[~2025-05-06] VITALS: Ht 157.5 cm; Wt 70.3 kg
[~2025-05-06 10:41] MED LIST changes: +CYCL5TAB4 PO; +LR 1,000 ML IV SCH; -PRAV20TA2 PO; +PRAV20TA78 PO
[2025-05-06] MEDS: PHENYLEPHRINE 2.5% OPHTH SOL 2ML OD SCH (11:11)
[2025-05-06] MEDS: TETRACAINE 0.5% OPHTH SOLN 4ML OD SCH (11:11)
[2025-05-06] MEDS: CYCLOPENTOLATE 1% OPHTH SOLN 2 ML BTL OD SCH (11:11)
[2025-05-06] MEDS: FLURBIPROFEN 0.03% OPHTH SOLN 2.5 ML OD SCH (11:11)
[2025-05-06] MEDS ORDERED: MIDAZOLAM INJ 2 MG/2 ML VIAL As Ordered ONE (11:44)
[2025-05-06] MEDS: LIDOCAINE 1% SDV 5 ML VIAL As Ordered ONE (12:25)
[2025-05-06] MEDS: CEFUROXIME 1 MG/0.1 ML INTRACAMERAL INJ As Ordered ONE (12:29)
[2025-05-06 12:47] VITALS: BP 132/65; TEMP 98.6; O2SAT 94
== END 2025-05-06 13:02 | disposition home or self-care (01) ==
LOC: M SDC 10:41
PROVIDERS: ATTEND Ophthalmology
DX: H25.11 Age-related nuclear cataract, right eye (principal); G47.30 Sleep apnea, unspecified; Z79.899 Other long term (current) drug therapy; Z87.891 Personal history of nicotine dependence
CPT/HCPCS: 66984; J0697; J2250; J3010; V2632

== ENCOUNTER 2025-07-20 16:42 | Emergency (ER) | payer MEDICARE ==
[~2025-07-20] VITALS: Ht 157.5 cm; Wt 69.1 kg
[~2025-07-20 16:42] MED LIST changes: -COLC0.6T47 PO; +COLC0.6T53 PO; -LR 1,000 ML IV SCH
[2025-07-20] MEDS: ACETAMINOPHEN 500 MG TAB PO ONE (21:06)
[2025-07-20 21:45] VITALS: BP 159/74; TEMP 98; O2SAT 91
== END 2025-07-20 21:51 | disposition home or self-care (01) ==
LOC: EDBD 16:42 → M ED 16:42
DX: M25.552 Pain in left hip (principal); M54.50 Low back pain, unspecified; E78.5 Hyperlipidemia, unspecified; G47.33 Obstructive sleep apnea (adult) (pediatric); I12.9 Hypertensive chronic kidney disease with stage 1 through stage 4 chronic kidney disease, or unspecified chronic kidney disease; F10.10 Alcohol abuse, uncomplicated; Z87.891 Personal history of nicotine dependence; Z79.1 Long term (current) use of non-steroidal anti-inflammatories (NSAID); Z79.51 Long term (current) use of inhaled steroids; Z79.899 Other long term (current) drug therapy; Z79.810 Long term (current) use of selective estrogen receptor modulators (SERMs)

== ENCOUNTER 2025-07-29 14:25 | Emergency (ER) | payer MEDICARE ==
[~2025-07-29] VITALS: Ht 157.5 cm; Wt 72.7 kg
[2025-07-29] MEDS ORDERED: METH-1164 (16:37)
[2025-07-29 20:41] LABS: CK-MB VALUE MASS 6.3 NG/ML (<3.6)
[2025-07-29 20:43] LABS: BASO # 0.1 10^3/uL (0.0-0.2); BASO % 1.3 % (0.0-1.0); CALCIUM LEVEL 9.2 MG/DL (8.3-10.6); CARBON DIOXIDE LEVEL 26.0 MMOL/L (20-31); CHLORIDE LEVEL 101.0 MMOL/L (98-107); CREATININE FOR GFR 0.94 MG/DL (0.55-1.30); EOS # 0.2 10^3/uL (0.0-0.5); EOS % 3.7 % (0.0-3.0); GLOMERULAR FILTRATION RATE 60.6 (>32); LYMPH # 1.0 10^3/uL (1.5-5.0); LYMPH % 21.5 % (24.0-44.0); MONO # 0.4 10^3/uL (0.0-0.8); MONO % 9.5 % (2.0-8.0); NEUTROPHILS # 2.9 10^3/uL (1.5-8.5); NEUTROPHILS % 63.6 % (36.0-66.0); PLATELET COUNT, AUTOMATED 227 10^3/uL (150-450); POTASSIUM SERUM 4.5 MMOL/L (3.5-5.1); SODIUM LEVEL 138.0 MMOL/L (136-145)
[2025-07-29 20:46] LABS: CPK CREATINE PHOSPHOKINASE 113.0 U/L (34-145); MB/CK RELATIVE INDEX 5.57 (< OR =4)
[2025-07-29] MEDS: ONDANSETRON 4MG/2ML VIAL IV ONE (21:27)
[2025-07-29] MEDS: MORPHINE 4 MG/ML 1 ML VIAL IV PRN (21:27)
[2025-07-29 23:15] VITALS: BP 141/65; O2SAT 95
[2025-07-29] MEDS: KETOROLAC 30 MG/ML 1 ML VIAL IV ONE (23:15)
[2025-07-29 23:40] VITALS: TEMP 98.1
== END 2025-07-29 23:40 | disposition home or self-care (01) ==
LOC: M ED 14:25
DX: R06.00 Dyspnea, unspecified (principal); R10.A2 Flank pain, left side; J44.9 Chronic obstructive pulmonary disease, unspecified; E78.5 Hyperlipidemia, unspecified; R94.31 Abnormal electrocardiogram [ECG] [EKG]; Z79.1 Long term (current) use of non-steroidal anti-inflammatories (NSAID); Z79.51 Long term (current) use of inhaled steroids; Z79.899 Other long term (current) drug therapy; Z79.810 Long term (current) use of selective estrogen receptor modulators (SERMs)
CPT/HCPCS: 71250; 72128; 72131; 73502; 80048; 82550; 82553; 84484; 85025; 93005; 93041; 94760; 96374; 96375; 99285; J1885; J2405

== ENCOUNTER 2025-09-09 08:21 | Day surgery (SDC) | payer MEDICARE ==
[~2025-09-09] VITALS: Ht 157.5 cm; Wt 70.8 kg
[~2025-09-09 08:21] MED LIST changes: +LR 1,000 ML IV SCH
[2025-09-09] MEDS: PHENYLEPHRINE 2.5% OPHTH SOL 2ML OS SCH (09:33)
[2025-09-09] MEDS: CYCLOPENTOLATE 1% OPHTH SOLN 2 ML BTL OS SCH (09:33)
[2025-09-09] MEDS: FLURBIPROFEN 0.03% OPHTH SOLN 2.5 ML OS SCH (09:34)
[2025-09-09] MEDS: TETRACAINE 0.5% OPHTH SOLN 4ML OS SCH (09:34)
[2025-09-09] MEDS: LIDOCAINE 1% SDV 5 ML VIAL As Ordered ONE (11:15)
[2025-09-09] MEDS: CEFUROXIME 1 MG/0.1 ML INTRACAMERAL INJ As Ordered ONE (11:20)
[2025-09-09 11:37] VITALS: BP 178/73; TEMP 97; O2SAT 95
== END 2025-09-09 12:01 | disposition home or self-care (01) ==
LOC: M SDC 08:21
PROVIDERS: ATTEND Ophthalmology
DX: H25.12 Age-related nuclear cataract, left eye (principal); I10 Essential (primary) hypertension; J44.9 Chronic obstructive pulmonary disease, unspecified; E78.00 Pure hypercholesterolemia, unspecified; M10.9 Gout, unspecified; G47.30 Sleep apnea, unspecified; R32 Unspecified urinary incontinence; Z79.899 Other long term (current) drug therapy; Z79.1 Long term (current) use of non-steroidal anti-inflammatories (NSAID); Z98.41 Cataract extraction status, right eye; Z90.49 Acquired absence of other specified parts of digestive tract; Z90.710 Acquired absence of both cervix and uterus; K21.9 Gastro-esophageal reflux disease without esophagitis
CPT/HCPCS: 66984; J0697; J3010; V2632